=== PATIENT | male | born 1970 | race African-American/Black ===

== ENCOUNTER → 2020-03-13 13:24 | Outpatient (BNVA) | payer BC, OTHER, SELFPAY | PROVIDERS: PCP Internal Medicine; Visit Provider Internal Medicine | DX: R07.2 Precordial pain (principal); R00.2 Palpitations; I10 Essential (primary) hypertension; E78.5 Hyperlipidemia, unspecified; E11.8 Type 2 diabetes mellitus with unspecified complications; Z79.899 Other long term (current) drug therapy; Z79.84 Long term (current) use of oral hypoglycemic drugs | CPT/HCPCS: 93005 ==

== ENCOUNTER 2020-06-15 08:14 | Outpatient (REF) | payer BC, OTHER, SELFPAY ==
[2020-06-15 09:18] LABS: Alanine Aminotransferase 46 U/L (0-40); Albumin Level 4.4 g/dL (3.5-5.0); Alkaline Phosphatase 67 U/L (39-117); Anion Gap 10 (12-20); Aspartate Amino Transferase 25 U/L (5-37); Bilirubin Direct < 0.2 mg/dL (0.0-0.5); Bilirubin Total 0.4 mg/dL (0.0-1.0); Blood Urea Nitrogen 16 mg/dL (9-16); Calcium 9.2 mg/dL (8.4-10.2); Carbon Dioxide 27 mmol/L (22-29); Chloride 104 mmol/L (96-108); Cholesterol 103 mg/dL; Estimated Glomerular Filt Rate > 60; Glucose Random 145 mg/dL (60-115); HDL Cholesterol 25 mg/dL; LDL Cholesterol Calculated 51 mg/dl; Potassium 4.2 mmol/L (3.3-5.1); Sodium 137 mmol/L (135-145); Total Protein 7.3 g/dL (6.5-8.0); Triglycerides 137 mg/dL
[2020-06-15 09:46] LABS: Creatinine Urine 219.07 mg/dL; Microalbum/Creatinine Ratio Ur 8.6 ug/mg cr
== END 2020-06-15 08:15 | disposition home or self-care (01) ==
LOC: HO.LAB 08:14
PROVIDERS: PCP Internal Medicine; Visit Provider Internal Medicine
DX: E11.9 Type 2 diabetes mellitus without complications (principal)
CPT/HCPCS: 36415; 80048; 80061; 80076; 82043

== ENCOUNTER → 2020-07-11 11:22 | Outpatient (BNVA) | payer BC, OTHER, SELFPAY | PROVIDERS: PCP Internal Medicine; Visit Provider Internal Medicine Gastroenterology ==

== ENCOUNTER 2020-08-16 10:07 | Day surgery (SDC) | payer BC, OTHER, SELFPAY ==
[2020-08-09 15:46] VITALS: BMI 30.7
[2020-08-16] MEDS: Lactated Ringers 1,000 ML 100 ML IVCONT (11:15)
[2020-08-16 11:17] LABS: Glucose, Whole Blood 117 mg/dL (60-115)
--- NOTE | 2020-08-16 13:05 | P.CONAN_ITS ---
[facility] Active Problems Active Problems: All Active Problems (Updated 08/09/20 @ 15:43 by Lizzie ellison) Precordial chest pain (Acute) Palpitations (Acute) Abdominal bloating (Acute) Generalized abdominal pain (Acute) GERD (gastroesophageal reflux disease) (Acute) History of colon polyps (Acute) Hyperlipidemia, unspecified (Acute) Essential hypertension (Acute) Type 2 diabetes mellitus with unspecified complications (Acute) Past Medical History Medical History Anxiety Back pain Essential hypertension History of lumbar puncture Hyperlipidemia, unspecified Migraine SHERLY (obstructive sleep apnea) Palpitations Type 2 diabetes mellitus with unspecified complications Family History Family History Mother Diabetes Father Myocardial infarction Surgical History Surgical History History of esophagogastroduodenoscopy (EGD) Hx of colonoscopy No pertinent past surgical history Social History Social History Alcohol intake: never Patient Tobacco Use Status: Never used Tobacco Are you DNR?: No Advance Directives: No Advance Directives Information Provided: No Advance Directives on File: No Meds Allergies Allergy/AdvReac Type Severity Reaction Status Date / Time clavulanic acid Allergy Mild Itching Verified 08/16/20 11:23 [From Augmentin] Penicillins Allergy Unknown ITCHING Verified 08/16/20 11:17 Home Medications Medication Instructions Recorded Confirmed Last Taken Type atorvastatin 40 mg tablet 40 mg PO DAILY tab 03/13/20 08/09/20 Unknown History fluticasone propionate 50 1 spray INTRANASAL DAILY 03/13/20 08/09/20 Unknown History mcg/actuation nasal spray,suspension gabapentin 600 mg tablet 600 mg PO TID 03/13/20 08/09/20 Unknown History lisinopril 10 mg tablet 10 mg PO DAILY 03/13/20 08/09/20 Unknown History venlafaxine 75 mg capsule,extended 75 mg PO DAILY 03/13/20 08/09/20 Unknown History release 24 hr duloxetine 30 mg capsule,delayed 30 mg PO BID 07/11/20 08/09/20 Unknown History release ibuprofen 400 mg tablet 400 mg PO Q6H 07/11/20 08/09/20 Unknown History metformin 500 mg tablet 1,000 mg PO BID tab 07/11/20 08/09/20 Unknown History amitriptyline 1 tab PO BEDTIME 08/09/20 08/09/20 Unknown History Exam Exam Date and Time: August 16, 2020 1305 Height,Weight and Vital Signs: Height 5 ft 10 in Weight 97.069 kg Pertinent Lab Results Pertinent Lab Results: Laboratory Tests 08/16/20 11:13 POC Glucose 117 H Airway Mallampati Class: II TM Dist: >3cm Neck ROM: Full Loose/Missing/Broken Teeth: Yes and Lower Heart: RRR Lungs: CTA Assessment and Plan Assessment Anesthesia Assessment: Anesthesia Plan Discussed and Chart Reviewed Final Anesthetic Review NPO: Yes ASA Class: II Final Preanesthetic Review: Meds/Allgs Chart Reviewed, Consent Obtained/Reviewed and Anes Risks/Benef Reviewed Patient Risk: Low Procedure Risk: Intermediate Anesthetic Plan Anesthetic Plan: MAC: Disposition: Standard PACU
--- NOTE | 2020-08-16 13:07 | P.OP_ITS ---
Operative Note Operative Note Date of Service: 08/16/20 Narrative: Pre-op diagnosis: Colon cancer screening, abdominal pain and bloating Post-op diagnosis: other (Nodular gastritis, esophagitis, diverticulosis, hemorrhoids) Procedure: FLEXIBLE TRANSORAL UPPER GASTROINTESTINAL ENDOSCOPY WITH BIOPSIES AND COLONOSCOPY TILL CECUM WITH BIOPSIES UPPER ENDOSCOPY Consent: Indications for the procedure and potential complications of bleeding, perforation, reaction to medications and missed diagnosis were discussed with the patient and informed consent was obtained. Instrument: Olympus GIF H 190 mid size upper endoscope Monitoring: Vital signs and clinical assessment, continuous EKG monitoring, Pulse oximetry, Carbon Dioxide monitoring and blood pressure monitoring were done throughout the procedure. Procedure: The patient was placed in the left lateral decubitis position and pre-procedure medications were administered and a bite block was placed. The endoscope was inserted into the mouth and advanced under direct vision to the third part of duodenum. A careful inspection was made as the upper endoscope was withdrawn including a retroflexed examination of the proximal stomach; Findings and interventions are described below. Findings: Larynx: Normal Esophagus: GE junction at 40 cms. Focal esophagitis and no Daniel's. Stomach: Mild diffuse gastric erythema. Biopsies were obtained. Nodular appearing mucosa in the antrum - biopsied. Grade 2 flap valve on retroflexed examination of the cardia. Duodenum: Normal bulb and descending duodenum Intervention: Biopsies as noted above COLONOSCOPY PROCEDURE NOTE Consent: Indications for the procedure and potential complications of bleeding, perforation, reaction to medications and missed diagnosis were discussed with the patient and informed consent was obtained. Instrument: Olympus PCF H 190 L variable stiffness pediatric colonoscope Monitoring: Vital signs and clinical assessment, intermittent blood pressure monitoring, continuous EKG monitoring, Pulse oximetry and Carbon Dioxide monitoring were done throughout the procedure. Colon withdrawl time was 17 minutes. Procedure: The patient was placed in the left lateral decubitis position and pre-procedure medications were administered. After a digital rectal examination of the ano-rectum, the video colonoscope was inserted into the rectum and advanced through the colon to the cecum. The colonoscope was slowly withdrawn in a retrograde panoramic fashion and the colon mucosa was carefully examined including a retroflexed view of the rectum. Findings and interventions are described below. Procedure Difficulty: : Without difficulty Findings: Terminal Ileum: Not evaluated Cecum: Normal Ascending Colon: Normal Transverse Colon: Normal Descending Colon: Moderate diverticulosis Sigmoid Colon: Moderate diverticulosis Rectum: Normal Ano-rectum: Moderate internal hemorrhoids Colon preparation: Good after some irrigation Impression and Post Procedure Diagnosis: Endoscopy Findings: ESOPHAGUS: Focal esophagitis STOMACH: Nodular gastritis DUODENUM: Normal - biopsied to check for celiac sprue Colonoscopy Findings: No polyps were detected Biopsies were obtained from the right, left colon and rectum Moderate diverticulosis seen in the left colon Moderate hemorrhoids on retroflexed exam. Plan: Await pathology results Patient has an appointment on 10/14/20 in the GI [facility] with Franck Madrid M.D.. Repeat Colonoscopy interval based on path results - in 5 years due to a hx of adenomatous colon polyp. Above findings were reviewed with the patient and Gastritis, colon polyps and d iverticulosis handouts were given in the discharge area BIOPSIES SHOWED: A. Small bowel, biopsy: Small intestinal mucosa within normal limits. B. Stomach, antrum, biopsy: Antral-type mucosa with mild chronic inactive inflammation; no Helicobacter organisms seen. C. Stomach, body, biopsy: Oxyntic mucosa with mild chronic inactive inflammation; no Helicobacter organisms seen. D. Colon, random right, biopsy: Colonic mucosa within normal limits. E. Colon, random left, biopsy: Colonic mucosa within normal limits. F. Rectum, biopsy: Colonic mucosa within normal limits. COMMENT: Diagnostic features of celiac disease or microscopic colitis are not seen. Surgeon: Franck Madrid MD Anesthesia: MAC (Dr Gold) Was an Quarrying Specialist used for this Procedure?: Yes Quarrying Specialist: Bela Saini Estimated blood loss (mL): 0 Pathology: other (A. Small bowel, biopsy, B. Stomach, antrum, biopsy, C. Stomach, body, biopsy, D. Rt colon, E. Lt colon, F. Rectum.) Condition: stable Disposition: PACU
--- NOTE | 2020-08-16 13:07 | MHC.SHP ---
Pre-Procedural Eval Section A The patient is an INPATIENT: No The History & Physical has been completed within 30 days and I have reviewed it.: No Section B Chief Complaint: generalized abdominal pain, Hx of colon polyps Details of Present Illness: colon cancer screening, abdominal pain with bloating, GERD Relevant Family History (Specify if Yes): No Relevant Social History: None Present Medications: see Short Stay Collaborative assessment Medical History: Significant History (Essential hypertension Hyperlipidemia, unspecified Type 2 diabetes mellitus with unspecified complications) History of Previous Operations: No relevant previous surgery Allergies: Allergies Allergy/AdvReac Type Severity Reaction Status Date / Time clavulanic acid Allergy Mild Itching Verified 08/16/20 11:23 [From Augmentin] Penicillins Allergy Unknown ITCHING Verified 08/16/20 11:17 Review of Systems Sugical H&P ROS: Negative: Constitution, Cardiovascular and Respiratory and Yes, Specify: Gastrointestinal (GERD, abdominal pain and bloating) Exam Surgical H&P Exam: Normal: Heart, Normal: Lungs, Normal: Extremities and Normal: Abdomen Plan Diagnosis/Plan: Unchanged I have reviewed the history and physical and performed a pertinent physical examination on my patient. No changes have occurred unless specified.
[2020-08-16 13:55] VITALS: BP 115/82; PULSE 86; RESP 18; TEMP 36.3; O2SAT 95
[2020-08-16 14:10] VITALS: BP 117/83; PULSE 82; RESP 18; O2SAT 96
== END 2020-08-16 14:30 | disposition home or self-care (01) ==
PROVIDERS: PCP Internal Medicine; Visit Provider Internal Medicine Gastroenterology
PROC: (CPT 45380; principal; 2020-08-16 11:20)
DX: Z12.11 Encounter for screening for malignant neoplasm of colon (principal); Z86.010 Personal history of colon polyps; K57.30 Diverticulosis of large intestine without perforation or abscess without bleeding; K64.8 Other hemorrhoids; K21.9 Gastro-esophageal reflux disease without esophagitis; R13.10 Dysphagia, unspecified; K20.90 Esophagitis, unspecified without bleeding; K29.50 Unspecified chronic gastritis without bleeding; I10 Essential (primary) hypertension; J45.909 Unspecified asthma, uncomplicated; G47.33 Obstructive sleep apnea (adult) (pediatric); E11.9 Type 2 diabetes mellitus without complications; Z79.84 Long term (current) use of oral hypoglycemic drugs; Z79.51 Long term (current) use of inhaled steroids; Z79.899 Other long term (current) drug therapy; Z88.0 Allergy status to penicillin; Z88.1 Allergy status to other antibiotic agents
CPT/HCPCS: 45380; 43239; 82947; 88305; 88342

== ENCOUNTER 2020-09-11 13:59 | Emergency (ER) | payer BC, OTHER, SELFPAY ==
--- NOTE | ~2020-09-11 | CT_ITS ---
EXAMINATION: CT ABDOMEN AND PELVIS WITH CONTRAST CLINICAL INFORMATION: Burning abdominal pain COMPARISON: Previous CT of the abdomen and pelvis August 2017 TECHNIQUE: Multidetector volumetric images were obtained from the superior aspect of the liver through the pubic symphysis following administration 85 mL of Omnipaque 350 intravenous contrast. Sagittal and coronal reformatted images were obtained on the technologist's workstation. Oral contrast: Yes This CT examination was performed using dose optimization techniques as appropriate, variously including the following: *Automated exposure control *Adjustment of mA and/or kV according to patient size (this includes techniques or standardized protocols for targeted exams where dose is matched to indication/reason for exam; i.e. extremities or head) *Use of iterative reconstruction technique DLP: 690 mGy-cm FINDINGS: LUNG BASES: The visualized lung bases are unremarkable. LIVER, GALLBLADDER, AND BILIARY TREE: The liver is low in attenuation suggestive of fatty infiltration. No focal liver lesion or biliary duct dilatation. The gallbladder is unremarkable with no evidence of radiopaque gallstones, gallbladder wall thickening, or obvious pericholecystic inflammatory changes. PANCREAS: Unremarkable. SPLEEN: Unremarkable. ADRENAL GLANDS: Unremarkable. KIDNEYS AND URETERS: The kidneys are normal in size, shape, and attenuation. No hydronephrosis, hydroureter, or calculi seen. No perinephric stranding. BLADDER: Unremarkable. GASTROINTESTINAL TRACT: The small and large bowel are unremarkable. The appendix is unremarkable. ABDOMINAL WALL: There is a small umbilical hernia containing fat. LYMPH NODES: Normal. VASCULAR: Unremarkable. PELVIC VISCERA: Unremarkable. OSSEOUS STRUCTURES: Unremarkable. CT/CT abdomen pelvis w con IMPRESSION: Fatty liver. Small umbilical hernia containing fat.
--- NOTE | ~2020-09-11 | XR_ITS ---
EXAMINATION: XR CHEST CLINICAL INFORMATION: Chest pain COMPARISON: Previous chest x-ray most recent August 2019 TECHNIQUE: 2 views of the chest were obtained. FINDINGS: No significant abnormality is noted involving the heart, lungs, mediastinum, bony thorax or soft tissues. XR/XR chest 2V IMPRESSION: Unremarkable examination.
[2020-09-11 15:13] VITALS: BP 116/76; PULSE 92; RESP 16; TEMP 35.9; O2SAT 95; BMI 30.1
--- NOTE | 2020-09-11 15:17 | ECG_ITS ---
Test Reason : CHEST PAIN Blood Pressure : / mmHG Vent. Rate : 081 BPM Atrial Rate : 081 BPM P-R Int : 162 ms QRS Dur : 086 ms QT Int : 348 ms P-R-T Axes : 065 041 070 degrees QTc Int : 404 ms Normal sinus rhythm Nonspecific T wave abnormality Abnormal ECG When compared with ECG of 03-MAY-2018 12:56, No significant change was found Referred By: Generic ED Physician Electronically Signed By:ASHLEY ADAMS MD
[2020-09-11 15:42] LABS: MANUAL DIFF FLAG NO
[2020-09-11 15:49] LABS: Basophils Percent Auto 0.3 % (0-2); Eosinophils Percent Auto 0.6 % (0-4); Hematocrit 44.3 % (42-52); Hemoglobin 15.2 g/dl (14.0-18.0); Imm Gran Abs Auto 0.04 X10*3/uL (0.00-0.03); Imm Gran Pct Auto 0.6 % (0.0-0.4); Lymphocytes Absolute Auto 1.8 X10*3/uL (1.2-4.9); Lymphocytes Percent Auto 29.7 % (20-40); Mean Corpuscular HGB Conc 34.3 g/dl (31.0-36.0); Mean Corpuscular Hemoglobin 28.3 pg (27.0-33.0); Mean Corpuscular Volume 82.3 fL (80-98); Mean Platelet Volume 11.3 fL (9.4-12.4); Monocytes Absolute Auto 0.4 X10*3/uL (0.1-1.2); Monocytes Percent Auto 7.1 % (2-11); Neutrophils Absolute Auto 3.8 X10*3/uL (2.0-8.3); Neutrophils Percent Auto 61.7 % (45-73); Platelet Count 177 X10*3/uL (160-400); Red Blood Count 5.38 X10*6/uL (4.60-5.80); Red Cell Distribution Width 14.9 % (11.0-16.0); White Blood Count 6.2 X10*3/uL (4.8-10.8)
[2020-09-11 16:19] LABS: Anion Gap 14 (12-20); Blood Urea Nitrogen 12 mg/dL (9-16); Calcium 9.7 mg/dL (8.4-10.2); Carbon Dioxide 22 mmol/L (22-29); Chloride 104 mmol/L (96-108); Creatinine Clr Calc Pharmacy 104.2; Estimated Glomerular Filt Rate > 60; Glucose Random 147 mg/dL (60-115); Potassium 4.2 mmol/L (3.3-5.1); Sodium 136 mmol/L (135-145)
[2020-09-11 16:25] LABS: Troponin-I High Sensitivity 6.5 ng/L (<3.5-35.0)
--- NOTE | 2020-09-11 17:50 | ED.CHESTPAIN ---
HPI - Chest Pain General Chief Complaint: Chest Pain Stated Complaint: sent by his physician Source: patient Mode of arrival: ambulatory Limitations: no limitations History of Present Illness HPI narrative: 50-year-old male with past medical history of diabetes, hypertension and hyperlipidemia presents with several hours of chest pain, shortness of breath that started at work. He presented to his primary care's office and was referred to the emergency department for labs. His EKG while in the office was normal sinus rhythm, however the office was unable to run lab values. At this time patient states that he does not have any pain in his chest however he has complained of burning central abdominal pain over the past several days. Stated that he needed to use a heating pad to help alleviate the pain however his measures were unsuccessful. He does not report any dizziness, lightheadedness, changes in vision, loss of balance, difficulty moving extremities, pain on inspiration, abdominal distention, dysuria, hematuria, nausea, vomiting, diarrhea, constipation, or edema. MD complaint: chest pain Onset (ago): hour(s) ( Several) Timing of current episode: episodic Prior episodes: No Onset: during exertion Pain location: substernal and left chest Pain radiation: left arm Severity: moderate Pain scale (0-10): 5 Quality: aching and sharp Relieving factors: nothing Exacerbating factors: exertion, palpation and movement Associated symptoms: dyspnea and other ( abdominal pain) Treatment prior to arrival: aspirin Risk Factors Coronary artery disease risk factors: diabetes, hyperlipidemia and hypertension Thoracic aortic dissection risk factors: none Related Data Home Medications Medication Instructions Recorded Confirmed atorvastatin 40 mg tablet 40 mg PO DAILY tab 03/13/20 08/09/20 fluticasone propionate 50 1 spray INTRANASAL DAILY 03/13/20 08/09/20 mcg/actuation nasal spray,suspension gabapentin 600 mg tablet 600 mg PO TID 03/13/20 08/09/20 lisinopril 10 mg tablet 10 mg PO DAILY 03/13/20 08/09/20 venlafaxine 75 mg capsule,extended 75 mg PO DAILY 03/13/20 08/09/20 release 24 hr duloxetine 30 mg capsule,delayed 30 mg PO BID 07/11/20 08/09/20 release ibuprofen 400 mg tablet 400 mg PO Q6H 07/11/20 08/09/20 metformin 500 mg tablet 1,000 mg PO BID tab 07/11/20 08/09/20 amitriptyline 1 tab PO BEDTIME 08/09/20 08/09/20 Previous Rx's Medication Instructions Recorded omeprazole 20 mg capsule,delayed 20 mg PO DAILY 30 Days #30 cap 07/11/20 release dicyclomine 20 mg tablet 20 mg PO TID PRN 30 Days #90 tab 07/23/20 Allergies Allergy/AdvReac Type Severity Reaction Status Date / Time clavulanic acid Allergy Mild Itching Verified 08/16/20 11:23 [From Augmentin] Penicillins Allergy Unknown ITCHING Verified 08/16/20 11:17 Review of Systems Review of Systems: Constitutional: No Weight loss, No Fever, No Chills, No Night Sweats, No Fatigue, No Malaise ENT/Mouth: No Hearing loss, No Ear Pain, No Nasal Congestion, No Sinus Pain, No Hoarseness, No sore throat, No Rhinorrhea, No Swallowing Difficulty Eyes: No Eye Pain, No Swelling, No Redness, No Foreign Body, No Discharge, No Vision Changes Cardiovascular: pos Chest Pain, pos SOB, no Dyspnea on Exertion, No Orthopnea, No Edema, No Palpitations Respiratory: No Cough, No Sputum, No Wheezing, No Smoke Exposure, No Dyspnea Gastrointestinal: no Nausea, No Vomiting, No Diarrhea, No abdominal Pain, No Hematochezia, No Melena Genitourinary: No irregular bleeding, No Dysuria, No Urinary Frequency, No Hematuria, No Urinary Incontinence, No Urgency, No Flank Pain, No Urinary Flow Changes, No Hesitancy Musculoskeletal: No joint pain, No Myalgias, No Joint Swelling Skin: No Skin Lesions, No rash Neuro: No Weakness, No Numbness, No Paresthesias, No Loss of Consciousness, No Dizziness, No Headache Psych: No Anxiety/Panic, No Depression, No SI/HI/AH/VH Heme/Lymph: No Bruising, No Bleeding,No Lymphadenopathy Endocrine: No Polyuria, No Polydipsia, No Temperature Intolerance Yes all other systems are reviewed and are negative [facility] Past Medical History Attestation statement: The following information was validated with the patient. Source: old records reviewed Medical History Anxiety Back pain Essential hypertension History of lumbar puncture Hyperlipidemia, unspecified Migraine SHERLY (obstructive sleep apnea) Palpitations Type 2 diabetes mellitus with unspecified complications Surgical History History of esophagogastroduodenoscopy (EGD) Hx of colonoscopy No pertinent past surgical history Family History Family History Mother Diabetes Father Myocardial infarction Social History Social History Alcohol intake: never Patient Tobacco Use Status: Never used Tobacco Use of substances other than those prescribed or required for medical reasons: No Advance Directives: No Advance Directives Information Provided: Yes Physical Exam Vital Signs: Vital Signs: Last Vital Signs Temp 98.4 F 09/11/20 18:04 Pulse 74 09/11/20 18:04 Resp 21 H 09/11/20 18:04 BP 117/80 09/11/20 18:04 Pulse Ox 96 09/11/20 18:04 Body Mass Index 30.1 Appearance: Alert. Oriented X3. No acute distress. Eyes: Pupils equal, round and reactive to light. ENT: Pharynx normal. Neck: Normal inspection. Neck supple. CVS: Normal heart rate and rhythm. Pulses normal. no chest wall tenderness to palpation. Respiratory: No respiratory distress. Breath sounds normal. Abdomen: Soft and nontender. No palpable masses or pulsatile masses. Skin: Skin warm and dry. Normal skin color. Normal skin turgor. Extremities: No lower extremity edema. Moves all extremities against resistance. Gait well balanced well coordinated. Neuro: No motor deficit. No sensory deficit. Cranial nerves 2-12 intact Course Course Course Narrative: 50-year-old male presents with several hours of chest pain. Will rule out ACS. Based on his complaint of abdominal pain that feels like it is burning, will rule out AAA. Lab values are unremarkable, labs were drawn while patient was in the waiting room. First troponin is 6.5. Second troponin 5.8, repeat EKG is normal sinus, no indication of ST elevation or depression. Patient is pain-free. CT abdomen pelvis negative for acute findings. Small umbilical hernia noted. Chest x-ray is negative findings discussed with patient, patient will follow up with primary care physician for further follows up. Patient verbalized understanding of and agrees plan of care discharge home. MDM - Chest Pain Differential Diagnosis Differential diagnosis: Likely fracture of rib, pneumothorax, stable angina, unstable angina pectoris, atypical chest pain, st elevation myocardial infarction, costochondritis, chest pain and biliary colic Differential diagnosis: kidney stones, acute abdomen, AAA Medical Records Data Attestation: I reviewed the patient's medical records. Lab Data Attestation: I reviewed the patient's lab results. Result diagrams: 09/11/20 15:27 09/11/20 15:27 Labs: Lab Results 09/11/20 09/11/20 09/11/20 Range/Units 15:27 15:27 15:27 WBC 6.2 (4.8-10.8) X10*3/uL RBC 5.38 (4.60-5.80) X10*6/uL Hgb 15.2 (14.0-18.0) g/dl Hct 44.3 (42-52) % MCV 82.3 (80-98) fL MCH 28.3 (27.0-33.0) pg MCHC 34.3 (31.0-36.0) g/dl RDW 14.9 (11.0-16.0) % Plt Count 177 (160-400) X10*3/uL MPV 11.3 (9.4-12.4) fL Immature Gran % (Auto) 0.6 H (0.0-0.4) % Neut % (Auto) 61.7 (45-73) % Lymph % (Auto) 29.7 (20-40) % [place] % (Auto) 7.1 (2-11) % Eos % (Auto) 0.6 (0-4) % Baso % (Auto) 0.3 (0-2) % Lymph # (Auto) 1.8 (1.2-4.9) X10*3/uL [place] # (Auto) 0.4 (0.1-1.2) X10*3/uL Eos # (Auto) 0.0 (0.0-0.4) X10*3/uL Baso # (Auto) 0.0 (0.0-0.2) X10*3/uL Abs Immat Gran (auto) 0.04 H (0.00-0.03) X10*3/uL Absolute Neuts (auto) 3.8 (2.0-8.3) X10*3/uL Absolute Nucleated RBC 0.000 (0.0-0.012) X10*3/uL Nucleated RBC % (auto) 0.0 (0.0-0.2) /100WBC Sodium 136 (135-145) mmol/L Potassium 4.2 (3.3-5.1) mmol/L Chloride 104 (96-108) mmol/L Carbon Dioxide 22 (22-29) mmol/L Anion Gap 14 (12-20) BUN 12 (9-16) mg/dL Creatinine 0.96 (0.5-1.4) mg/dL Estim Creat Clear Calc 104.2 Estimated GFR > 60 Random Glucose 147 H (60-115) mg/dL Calcium 9.7 (8.4-10.2) mg/dL Troponin I High Sens 6.5 (<3.5-35.0) ng/L 09/11/20 Range/Units 18:39 WBC (4.8-10.8) X10*3/uL RBC (4.60-5.80) X10*6/uL Hgb (14.0-18.0) g/dl Hct (42-52) % MCV (80-98) fL MCH (27.0-33.0) pg MCHC (31.0-36.0) g/dl RDW (11.0-16.0) % Plt Count (160-400) X10*3/uL MPV (9.4-12.4) fL Immature Gran % (Auto) (0.0-0.4) % Neut % (Auto) (45-73) % Lymph % (Auto) (20-40) % [place] % (Auto) (2-11) % Eos % (Auto) (0-4) % Baso % (Auto) (0-2) % Lymph # (Auto) (1.2-4.9) X10*3/uL [place] # (Auto) (0.1-1.2) X10*3/uL Eos # (Auto) (0.0-0.4) X10*3/uL Baso # (Auto) (0.0-0.2) X10*3/uL Abs Immat Gran (auto) (0.00-0.03) X10*3/uL Absolute Neuts (auto) (2.0-8.3) X10*3/uL Absolute Nucleated RBC (0.0-0.012) X10*3/uL Nucleated RBC % (auto) (0.0-0.2) /100WBC Sodium (135-145) mmol/L Potassium (3.3-5.1) mmol/L Chloride (96-108) mmol/L Carbon Dioxide (22-29) mmol/L Anion Gap (12-20) BUN (9-16) mg/dL Creatinine (0.5-1.4) mg/dL Estim Creat Clear Calc Estimated GFR Random Glucose (60-115) mg/dL Calcium (8.4-10.2) mg/dL Troponin I High Sens 5.8 (<3.5-35.0) ng/L Imaging Data CT scan abdomen pelvis: Attestation: I personally reviewed and interpreted this imaging study as follows: Radiologist's impression: EXAMINATION: CT ABDOMEN AND PELVIS WITH CONTRAST CLINICAL INFORMATION: Burning abdominal pain COMPARISON: Previous CT of the abdomen and pelvis August 2017 TECHNIQUE: Multidetector volumetric images were obtained from the superior aspect of the liver through the pubic symphysis following administration 85 mL of Omnipaque 350 intravenous contrast. Sagittal and coronal reformatted images were obtained on the technologist's workstation. Oral contrast: Yes This CT examination was performed using dose optimization techniques as appropriate, variously including the following: *Automated exposure control *Adjustment of mA and/or kV according to patient size (this includes techniques or standardized protocols for targeted exams where dose is matched to indication/reason for exam; i.e. extremities or head) *Use of iterative reconstruction technique DLP: 690 mGy-cm FINDINGS: LUNG BASES: The visualized lung bases are unremarkable. LIVER, GALLBLADDER, AND BILIARY TREE: The liver is low in attenuation suggestive of fatty infiltration. No focal liver lesion or biliary duct dilatation. The gallbladder is unremarkable with no evidence of radiopaque gallstones, gallbladder wall thickening, or obvious pericholecystic inflammatory changes. PANCREAS: Unremarkable. SPLEEN: Unremarkable. ADRENAL GLANDS: Unremarkable. KIDNEYS AND URETERS: The kidneys are normal in size, shape, and attenuation. No hydronephrosis, hydroureter, or calculi seen. No perinephric stranding. BLADDER: Unremarkable. GASTROINTESTINAL TRACT: The small and large bowel are unremarkable. The appendix is unremarkable. ABDOMINAL WALL: There is a small umbilical hernia containing fat. LYMPH NODES: Normal. VASCULAR: Unremarkable. PELVIC VISCERA: Unremarkable. OSSEOUS STRUCTURES: Unremarkable. CT/CT abdomen pelvis w con IMPRESSION: Fatty liver. Small umbilical hernia containing fat Chest x-ray: Attestation: I personally reviewed and interpreted this imaging study as follows: Radiologist's impression: EXAMINATION: XR CHEST CLINICAL INFORMATION: Chest pain COMPARISON: Previous chest x-ray most recent August 2019 TECHNIQUE: 2 views of the chest were obtained. FINDINGS: No significant abnormality is noted involving the heart, lungs, mediastinum, bony thorax or soft tissues. XR/XR chest 2V IMPRESSION: Unremarkable examination. ECG Data ECG #1: Attestation: I personally reviewed and interpreted this ECG as follows: ECG interpretation date: 09/11/20 ECG interpretation time: 14:11 Interpretation: ventricular rate 81, VA 162, QRS 86, QT 348, QTC 404 normal sinus rhythm nonspecific T-wave abnormality, no indication of ST depression or elevation indicating ischemia, when compared to prior EKG completed in doctor's office today no significant changes. Prior EKGs unavailable secondary to system 130 error Scores Heart Score History: -1- moderately suspicious ECG: -0- normal Age: -1- >45 - <65 Risk factory: -1- 1 or 2 risk factors Troponin: -0- < or = normal limit Score: 3 Risk: 1.7% Discharge Plan Discharge Clinical Impression: Atypical chest pain Hernia, umbilical Qualifiers: Obstruction and gangrene presence: without obstruction or gangrene Qualified Code(s): K42.9 - Umbilical hernia without obstruction or gangrene Patient Disposition: Home, Self-Care Instructions: Umbilical Hernia (ED), Noncardiac Chest Pain (ED) Additional Instructions: you were evaluated for chest pain. EKG showed normal sinus rhythm, we cycled 2 troponins which were both negative. Please follow-up with primary care physician for further evaluation. CT scan of abdomen pelvis indicates a umbilical hernia. Follow-up with surgery as needed as an outpatient Thank you for choosing this emergency department for evaluation. Please follow-up with primary care physician as needed. Return to the emergency department for any new, concerning, or worsening symptoms. Prescriptions: No Action dicyclomine 20 mg tablet 20 mg PO TID PRN (Reason: Abdominal pain and bloating) 30 Days Qty: 90 RF: 3 amitriptyline 25 mg tablet 1 tab PO BEDTIME RF: 0 gabapentin 600 mg tablet 600 mg PO TID RF: 0 lisinopril 10 mg tablet 10 mg PO DAILY RF: 0 venlafaxine 75 mg capsule,extended release 24hr 75 mg PO DAILY RF: 0 atorvastatin 40 mg tablet 40 mg PO DAILY RF: 0 fluticasone propionate 50 mcg/actuation spray,suspension 1 spray intranasal DAILY RF: 0 metformin 500 mg tablet 1,000 mg PO BID RF: 0 ibuprofen 400 mg tablet 400 mg PO Q6H RF: 0 duloxetine 30 mg capsule,delayed release(DR/EC) 30 mg PO BID RF: 0 omeprazole 20 mg capsule,delayed release(DR/EC) 20 mg PO DAILY 30 Days Qty: 30 RF: 3 Referrals: Oh Villafana MD [Physician] - 2 days ( umbilical hernia) Interventions: ED Discharge Assessment Last Done: 09/11/20 19:44 Discharge Date/Time: 09/11/20 19:44
[2020-09-11 18:04] VITALS: BP 117/80; PULSE 74; RESP 21; TEMP 36.9; O2SAT 96
[2020-09-11] MEDS: iohexoL 350 MG/ML 100 ML INFUS..BTL IV (18:35)
[2020-09-11 19:22] LABS: Troponin-I High Sensitivity 5.8 ng/L (<3.5-35.0)
== END 2020-09-11 19:44 | disposition home or self-care (01) ==
PROVIDERS: Nurse Practitioner Family; Emergency Provider Emergency Medicine
DX: R07.89 Other chest pain (principal); K42.9 Umbilical hernia without obstruction or gangrene; R06.02 Shortness of breath; E11.9 Type 2 diabetes mellitus without complications; I10 Essential (primary) hypertension; E78.5 Hyperlipidemia, unspecified; Z79.02 Long term (current) use of antithrombotics/antiplatelets; Z79.899 Other long term (current) drug therapy
CPT/HCPCS: 36415; 71046; 74177; 80048; 84484; 85025; 93005; 99285; Q9967

== ENCOUNTER → 2020-09-24 14:40 | Outpatient (BNVA) | payer BC, OTHER, SELFPAY | PROVIDERS: Referring Provider Internal Medicine; Visit Provider Surgery ==

== ENCOUNTER 2020-10-11 14:32 | Outpatient (REF) | payer BC, OTHER, SELFPAY ==
--- NOTE | ~2020-10-11 | XR_ITS ---
EXAMINATION: XR CERVICAL SPINE CLINICAL INFORMATION: Radiculopathy COMPARISON: Previous x-ray August 2019 TECHNIQUE: 6 views of the cervical spine, inclusive of flexion and extension views, were obtained. FINDINGS: There is a tilt to the right and curvature of the cervical spine to the left. Bone alignment is otherwise normal. No instability on flexion-extension views is seen. There is multilevel degenerative spondylosis and degenerative disc disease from C3-C4 to C6-C7. There is a tissue ossification adjacent to the C6 spinous process that is stable and probably related to old trauma. Prevertebral soft tissues are normal. XR/XR cervical spine w flex/ext IMPRESSION: Multilevel degenerative changes. No instability on flexion-extension views.
== END 2020-10-11 14:33 | disposition home or self-care (01) ==
LOC: HO.XRAY 14:32
PROVIDERS: PCP Internal Medicine; Visit Provider Physician Assistant Surgical
DX: M54.12 Radiculopathy, cervical region (principal)
CPT/HCPCS: 72052

== ENCOUNTER 2020-10-14 07:36 | Day surgery (SDC) | payer BC, OTHER, SELFPAY ==
[2020-10-07 16:02] VITALS: BMI 30.1
[2020-10-14] VITALS (9 sets, daily range): BP systolic 120–137; BP diastolic 79–89; PULSE 82–98; RESP 16–18; TEMP 36.2–36.6; O2SAT 94–99
--- NOTE | 2020-10-14 08:04 | PC.NURSE ---
Vancomycin 1000mg preop dose verified with Kassidy from Pharmacy.
[2020-10-14 08:06] LABS: Glucose, Whole Blood 144 mg/dL (60-115)
--- NOTE | 2020-10-14 08:23 | HO.ANESPROP2 ---
HPI - Anesthesia Eval Consult details Narrative: 50 yo male patient for Repair of umbilical hernia with mesh PMFSH Active Problems Active Problems: All Active Problems (Updated 10/07/20 @ 16:05 by Gege Mackenzie) Precordial chest pain (Acute) Palpitations (Acute) Abdominal bloating (Acute) Generalized abdominal pain (Acute) GERD (gastroesophageal reflux disease) (Acute) History of colon polyps (Acute) Hernia, umbilical (Acute) Hyperlipidemia, unspecified (Acute) Essential hypertension (Acute) Type 2 diabetes mellitus with unspecified complications (Acute) Past Medical History Medical History (Updated 10/14/20 @ 08:34 by Anamaria Clark) Anxiety Back pain COVID-19 vaccine series completed Essential hypertension History of lumbar puncture Hyperlipidemia, unspecified Migraine Neck pain SHERLY (obstructive sleep apnea) Pain of multiple extremities Palpitations Type 2 diabetes mellitus with unspecified complications Family History Family History Mother Diabetes Father Myocardial infarction Family history of problems with anesthesia: No Surgical History Surgical History (Updated 10/07/20 @ 13:17 by Gege Mackenzie) History of esophagogastroduodenoscopy (EGD) Hx of colonoscopy History of Problems with Anesthesia: No Social History Social History Alcohol intake: never Patient Tobacco Use Status: Never used Tobacco Are you DNR?: No Advance Directives: No Advance Directives Information Provided: No Advance Directives on File: No Meds Allergies Allergy/AdvReac Type Severity Reaction Status Date / Time clavulanic acid Allergy Mild Itching Verified 10/14/20 07:44 [From Augmentin] Penicillins Allergy Unknown ITCHING Verified 10/14/20 07:44 Active Medications: Current Medications Generic Name Dose Route Start Last Admin Trade Name Freq PRN Reason Stop Dose Admin Vancomycin HCl 1,000 mg/ 270 mls @ 270 mls/hr 10/14/20 07:38 Sodium Chloride IV 10/14/20 08:37 PREOP ONE Lactated Ringer's 1,000 mls @ 100 mls/hr 10/14/20 07:45 Lr IVCONT .Q10H DALIA Home Medications Medication Instructions Recorded Confirmed Last Taken Type atorvastatin 40 mg tablet 40 mg PO BEDTIME tab 03/13/20 10/07/20 Unknown History fluticasone propionate 50 1 spray INTRANASAL DAILY 03/13/20 09/25/20 Unknown History mcg/actuation nasal spray,suspension gabapentin 600 mg tablet 600 mg PO TID 03/13/20 10/07/20 10/14/20 07:15 History lisinopril 10 mg tablet 10 mg PO DAILY 03/13/20 10/07/20 Unknown History venlafaxine 75 mg capsule,extended 75 mg PO BEDTIME 03/13/20 10/07/20 Unknown History release 24 hr duloxetine 30 mg capsule,delayed 30 mg PO BID 07/11/20 10/07/20 10/14/20 07:15 History release ibuprofen 400 mg tablet 400 mg PO Q6H 07/11/20 09/25/20 Unknown History metformin 500 mg tablet 1,000 mg PO BID tab 07/11/20 10/14/20 10/13/20 17:00 History amitriptyline 25 mg tablet 1 tab PO BEDTIME 08/09/20 09/25/20 Unknown History cetirizine 10 mg tablet 10 mg PO BEDTIME 10/07/20 10/07/20 Unknown History Exam Exam Date and Time: October 14, 2020 0823 Height,Weight and Vital Signs: Height 5 ft 10 in Weight 95.254 kg Last Vital Signs Temp 97.8 F 10/14/20 07:49 Pulse 88 10/14/20 07:49 Resp 16 10/14/20 07:49 BP 124/86 10/14/20 07:49 Pulse Ox 95 10/14/20 07:49 Pertinent Lab Results Pertinent Lab Results: Laboratory Tests 10/14/20 07:58 POC Glucose 144 H Airway Mallampati Class: II TM Dist: >3cm Neck ROM: Full (Some neck and shoulder pain from fibromyalgia) Partial: Lower Heart: RRR Lungs: CTAB Assessment and Plan Final Anesthetic Review Family History of Problems with Anesthesia: No History of Problems with Anesthesia: No NPO: Yes ASA Class: III Final Preanesthetic Review: No Changes in Pt Med Stat, Meds/Allgs Chart Reviewed, Consent Obtained/Reviewed and Anes Risks/Benef Reviewed Patient Risk: Intermediate Procedure Risk: Low Assessment/Block/Sedation in SS: Assess/Block/Sedation-SS Anesthetic Plan Anesthetic Plan: GA Disposition: Standard PACU
[2020-10-14] MEDS: Lactated Ringers 1,000 ML 100 ML IVCONT (08:28)
[2020-10-14] MEDS: vancomycin HCL 1,000 MG in 0.9 % Sodium Chloride 250 ML 270 MG IV (08:28)
--- NOTE | 2020-10-14 08:31 | MHC.SHP ---
Pre-Procedural Eval Section A Date of Service: 10/14/20 The patient is an INPATIENT: No Changes since office visit: Yes Patient answered all questions; No Cold of Flu in the past 2 weeks, No New Medical Problems and No Changes in Medication The History & Physical has been completed within 30 days and I have reviewed it.: Yes Section B Chief Complaint: Umbilical Hernia Allergies: Allergies Allergy/AdvReac Type Severity Reaction Status Date / Time clavulanic acid Allergy Mild Itching Verified 10/14/20 07:44 [From Augmentin] Penicillins Allergy Unknown ITCHING Verified 10/14/20 07:44 Plan Diagnosis/Plan: Unchanged I have reviewed the history and physical and performed a pertinent physical examination on my patient. No changes have occurred unless specified.
--- NOTE | 2020-10-14 09:33 | P.OP_ITS ---
Operative Note Operative Note Date of Service: 10/14/20 Narrative: Preoperative diagnosis: Umbilical hernia Postoperative diagnosis: Same Procedure: Repair of umbilical hernia with mesh Surgeon: Jonathan Dumas MD Store Operations Associate: Dalila Greer PA-C Anesthesia: General LMA Indications for procedure: 50-year-old male patient presenting with a small umbilical hernia which is causing discomfort. He notes the pain increases with lifting and straining. He is able to reduce the hernia with light pressure. On examination the patient is found to have a small umbilical hernia which is easily reducible on light pressure. There is minimal tenderness to palpation. Operative findings: Small umbilical hernia repaired with 4.6 cm Ventralex mesh Specimen: None Estimated blood loss: 2 mL Complications: None Procedure details: Patient was brought to the OR and placed in a supine position. After administering general anesthesia the patient's abdomen was prepped with ChloraPrep and draped in sterile fashion. A surgical time-out was called the consent confirmed. Patient received preoperative antibiotics and Venodyne boots were in place. Local anesthesia consisting of 0.25% Sensorcaine with epinephrine was then infiltrated in the periumbilical region. A curvilinear incision was made transversely over the umbilicus and carried down through subcutaneous tissue and up to the hernia sac. The hernia sac was then dissected free from the surrounding umbilical skin. The sac was then dissected down to the fascial edge. Fascial edges were dissected and a preperitoneal space created. Contents of the umbilical hernia reduced into the abdominal cavity. A preperitoneal space was created using electrocautery and sharp dissection. At this point a Ventralex mesh was obtained measuring 4.6 cm in diameter. This was placed in the preperitoneal space and deployed. Fascia was then closed over the mesh incorporating the mesh in the closure using 1. Tycron suture in a [id number] fashion. The fascia was completely closed over the mesh. Wounds were then irrigated with saline solution and suctioned dry. Additional local was infiltrated into the subcutaneous tissue at this time. Dermis was then reapproximated using interrupted 3-0 Polysorb sutures. Skin was then closed using a running subcuticular 4-0 Polysorb suture. Steri-Strips 2 x 2 gauze and Tegaderm were then applied. The patient tolerated the procedure well. Sponge, instrument, and needle counts were reported as correct. The patient was transferred to PACU in stable condition.
[2020-10-14] MEDS: oxyCODONE HCl Immed Release 5 MG TABLET PO (10:40)
[2020-10-14] MEDS: Acetaminophen 325 MG TABLET 650 MG PO (10:41)
== END 2020-10-14 12:20 | disposition home or self-care (01) ==
PROVIDERS: Visit Provider Surgery
PROC: (CPT 49585; principal; 2020-10-14 09:10)
DX: K42.9 Umbilical hernia without obstruction or gangrene (principal); G47.33 Obstructive sleep apnea (adult) (pediatric); I10 Essential (primary) hypertension; E11.9 Type 2 diabetes mellitus without complications; R00.2 Palpitations; Z79.84 Long term (current) use of oral hypoglycemic drugs; Z79.1 Long term (current) use of non-steroidal anti-inflammatories (NSAID); Z79.899 Other long term (current) drug therapy; Z88.0 Allergy status to penicillin
CPT/HCPCS: 49585; 82947; C1781; J1100; J2250; J2405; J3010; J3370

== ENCOUNTER 2020-10-24 15:52 | Outpatient (REF) | payer BC, OTHER, SELFPAY ==
--- NOTE | ~2020-10-24 | US_ITS ---
EXAMINATION: US SCROTUM CLINICAL INFORMATION: Benign cyst of testis. COMPARISON: Scrotal ultrasound dated 11/03/2017 and 02/27/2016. TECHNIQUE: A sonogram of the scrotum was performed assessing pichardo-scale appearance and color Doppler flow. Spectral Doppler analysis of the arterial and venous flow were performed in the testes bilaterally. FINDINGS: RIGHT: Right testicle measures 3.6 x 1.9 x 2.2 cm, volume 9.4 mL. No focal testicular parenchymal lesions are visualized. Spectral Doppler analysis of the arterial and venous flow is normal in the right testis. Right epididymal head is normal in size. Right epididymal Doppler flow is normal. Small right-sided hydrocele. Mild right-sided varicocele. LEFT: Left testicle measures 3.3 x 1.2 x 3.0 cm, volume 8.6 mL. No focal testicular parenchymal lesions are visualized. Spectral Doppler analysis of the arterial and venous flow is normal in the left testis. Left epididymal head is normal in size. Simple left epididymal head cyst measuring 0.9 cm. No left hydrocele is seen. Mild left-sided varicocele. Left epididymal Doppler flow is normal. US/US scrotum IMPRESSION: 1. Bilateral varicoceles, left greater than right. Findings are new/increased when compared to the prior examination. 2. Small right-sided hydrocele, new when compared to the prior examination. 3. Simple left epididymal head cyst, new when compared to the prior examination.
== END 2020-10-24 15:53 | disposition home or self-care (01) ==
LOC: HO.US 15:52
PROVIDERS: Visit Provider Internal Medicine
DX: N44.2 Benign cyst of testis (principal)
CPT/HCPCS: 76870

== ENCOUNTER → 2020-10-29 11:27 | Outpatient (BNVA) | payer BC, OTHER, SELFPAY | PROVIDERS: Visit Provider Surgery ==

== ENCOUNTER 2020-11-06 09:29 | Outpatient (REF) | payer BC, OTHER, SELFPAY ==
--- NOTE | ~2020-11-06 | MR_ITS ---
MR CERVICAL SPINE WITHOUT CONTRAST CLINICAL INFORMATION: Radiculopathy. COMPARISON: Cervical spine MRI 01/15/2017. TECHNIQUE: MRI of the cervical spine was obtained using routine sequences without contrast. FINDINGS: Straightening the cervical lordosis. There is a partially imaged rightward convex scoliotic curvature of the thoracic spine. Vertebral body heights are maintained. Disc volumes are preserved. There is no bone marrow edema. There are no acute fractures. The craniocervical junction is unremarkable. Accounting for artifact there is no definite cord signal abnormality. The cervical arterial flow voids are maintained. No significant extraspinal soft tissue findings. C2-C3: Shallow right paracentral disc protrusion mildly narrows the right central canal and slightly flattens the right ventral cord. No significant foraminal stenosis. C3-C4: Disc osteophyte mildly narrows the central canal. Uncovertebral joint hypertrophy and hypertrophic facet arthropathy result in moderate right and mild left foraminal stenosis. C4-C5: Shallow central disc protrusion flattens the ventral cord and mildly narrows the central canal, unchanged. Uncovertebral joint spurring and facet arthropathy result in mild right-sided foraminal encroachment. C5-C6: A shallow central disc protrusion flattens the ventral cord, mildly narrowing the central canal. Uncovertebral joint spurring results in similar moderate left-sided foraminal stenosis. C6-C7: A shallow left paracentral disc protrusion mildly narrows the central canal and slightly flattens the ventral cord, unchanged. Uncovertebral joint spurring results in similar moderate left-sided foraminal stenosis. C7-T1: Slight annular disc bulge. Uncovertebral joint spurring and facet arthropathy result in similar mild to moderate bilateral foraminal stenosis. MR/MR cervical spine wo con IMPRESSION: Stable appearing multilevel cervical spondylosis with disc protrusions resulting in unchanged flattening of the cervical cord and mild narrowing of the central canal at the C2-C3, C4-C5, C5-C6, and C6-C7 levels. Varying degrees of mild to moderate bilateral foraminal stenosis throughout the cervical spine remain stable.
== END 2020-11-06 09:30 | disposition home or self-care (01) ==
LOC: HO.MRI 09:29
PROVIDERS: PCP Internal Medicine; Visit Provider Physician Assistant Surgical
DX: M54.12 Radiculopathy, cervical region (principal)
CPT/HCPCS: 72141

== ENCOUNTER → 2020-11-15 10:32 | Outpatient (BNVA) | payer BC, OTHER, SELFPAY | PROVIDERS: PCP Internal Medicine; Visit Provider Surgery ==

== ENCOUNTER → 2021-01-22 10:35 | Outpatient (BNVA) | payer BC, OTHER, SELFPAY | PROVIDERS: PCP Internal Medicine; Visit Provider Urology ==

== ENCOUNTER 2021-01-30 13:59 | Outpatient (REF) | payer BC, OTHER, SELFPAY ==
[2021-01-30 14:11] LABS: MANUAL DIFF FLAG NO
[2021-01-30 14:33] LABS: Basophils Percent Auto 0.1 % (0-2); Eosinophils Absolute Auto 0.1 X10*3/uL (0.0-0.4); Eosinophils Percent Auto 0.7 % (0-4); Hematocrit 46.5 % (42.0-52.0); Hemoglobin 15.8 g/dl (14.0-18.0); Imm Gran Abs Auto 0.04 X10*3/uL (0.00-0.03); Imm Gran Pct Auto 0.6 % (0.0-0.4); Lymphocytes Absolute Auto 2.4 X10*3/uL (1.2-4.9); Mean Corpuscular Volume 82.4 fL (80.0-98.0); Monocytes Absolute Auto 0.6 X10*3/uL (0.1-1.2); Monocytes Percent Auto 9.2 % (2-11); Neutrophils Absolute Auto 3.6 x10*3/uL (2.0-8.3); Neutrophils Percent Auto 53.4 % (45-73); Platelet Count 190 X10*3/uL (160-400); Red Blood Count 5.64 X10*6/uL (4.60-5.80); Red Cell Distribution Width 14.6 % (11.0-16.0); White Blood Count 6.7 X10*3/uL (4.8-10.8)
[2021-01-30 14:59] LABS: Alanine Aminotransferase 65 U/L (0-40); Albumin Level 4.6 g/dL (3.5-5.0); Alkaline Phosphatase 59 U/L (39-117); Anion Gap 11 (12-20); Aspartate Amino Transferase 33 U/L (5-37); Bilirubin Direct < 0.2 mg/dL (0.0-0.5); Bilirubin Total 0.3 mg/dL (0.0-1.0); Blood Urea Nitrogen 10 mg/dL (9-16); Calcium 9.6 mg/dL (8.4-10.2); Carbon Dioxide 27 mmol/L (22-29); Chloride 101 mmol/L (96-108); Cholesterol 209 mg/dL; Estimated Glomerular Filt Rate > 60; Glucose Random 91 mg/dL (60-115); HDL Cholesterol 29 mg/dL; LDL Cholesterol Calculated 128 mg/dl; Potassium 4.3 mmol/L (3.3-5.1); Sodium 135 mmol/L (135-145); Total Protein 7.6 g/dL (6.5-8.0); Triglycerides 264 mg/dL
[2021-01-30 15:19] LABS: TSH reflex Free T4 2.36 uIU/mL (0.32-4.0)
== END 2021-01-30 14:00 | disposition home or self-care (01) ==
LOC: HO.LAB 13:59
PROVIDERS: PCP Internal Medicine; Visit Provider Internal Medicine
DX: Z00.00 Encounter for general adult medical examination without abnormal findings (principal)
CPT/HCPCS: 36415; 80048; 80061; 80076; 84443; 85025

== ENCOUNTER → 2021-03-17 14:46 | Outpatient (BNVA) | payer BC, SELFPAY | PROVIDERS: PCP Internal Medicine; Referring Provider Internal Medicine; Visit Provider Internal Medicine | DX: R07.2 Precordial pain (principal); E11.8 Type 2 diabetes mellitus with unspecified complications; E78.5 Hyperlipidemia, unspecified; I10 Essential (primary) hypertension | CPT/HCPCS: 93005 ==

== ENCOUNTER 2021-04-28 08:23 | Outpatient (REF) | payer BC, OTHER, SELFPAY ==
[2021-04-28 09:38] LABS: Anion Gap 13 (12-20); Blood Urea Nitrogen 11 mg/dL (9-16); Calcium 10.3 mg/dL (8.4-10.2); Carbon Dioxide 28 mmol/L (22-29); Chloride 101 mmol/L (96-108); Estimated Glomerular Filt Rate > 60; Glucose Random 121 mg/dL (60-115); Potassium 4.5 mmol/L (3.3-5.1); Sodium 137 mmol/L (135-145)
[2021-04-28 09:57] LABS: Prostate Specific Antigen 0.27 ng/mL (<0.05-4.0)
== END 2021-04-28 08:24 | disposition home or self-care (01) ==
LOC: HO.LAB 08:23
PROVIDERS: Urology; PCP Internal Medicine; Visit Provider Internal Medicine
DX: Z12.5 Encounter for screening for malignant neoplasm of prostate (principal); R07.2 Precordial pain; N13.8 Other obstructive and reflux uropathy; N40.1 Benign prostatic hyperplasia with lower urinary tract symptoms; N52.9 Male erectile dysfunction, unspecified
CPT/HCPCS: 36415; 80048; 84153

== ENCOUNTER 2021-06-04 11:41 | Emergency (ER) | payer BC, OTHER, SELFPAY ==
--- NOTE | 2021-06-04 | ECG_ITS ---
Test Reason : chest pain Blood Pressure : / mmHG Vent. Rate : 076 BPM Atrial Rate : 076 BPM P-R Int : 170 ms QRS Dur : 080 ms QT Int : 362 ms P-R-T Axes : 057 033 066 degrees QTc Int : 407 ms Normal sinus rhythm Nonspecific T wave abnormality Abnormal ECG When compared with ECG of 11-SEP-2020 14:11, No significant change was found Referred By: Generic ED Physician Electronically Signed By:ASHLEY ADAMS MD
--- NOTE | ~2021-06-04 | XR_ITS ---
EXAMINATION: XR CHEST CLINICAL INFORMATION: Chest pain COMPARISON: None TECHNIQUE: Frontal view of the chest was obtained. FINDINGS: No significant abnormality is noted involving the heart, lungs, mediastinum, bony thorax or soft tissues. XR/XR chest 1V IMPRESSION: Unremarkable chest examination.
[2021-06-04 11:50] VITALS: BP 127/91; PULSE 82; RESP 18; TEMP 36.6; O2SAT 97; BMI 30.9
[2021-06-04 12:18] LABS: MANUAL DIFF FLAG NO
[2021-06-04 12:22] LABS: Basophils Percent Auto 0.2 % (0-2); Eosinophils Percent Auto 0.7 % (0-4); Hematocrit 44.9 % (42.0-52.0); Hemoglobin 15.1 g/dl (14.0-18.0); Imm Gran Abs Auto 0.01 X10*3/uL (0.00-0.03); Imm Gran Pct Auto 0.2 % (0.0-0.4); Lymphocytes Absolute Auto 2.3 X10*3/uL (1.2-4.9); Lymphocytes Percent Auto 38.6 % (20-40); Mean Corpuscular HGB Conc 33.6 g/dl (31.0-36.0); Mean Corpuscular Hemoglobin 27.6 pg (27.0-33.0); Mean Corpuscular Volume 81.9 fL (80.0-98.0); Mean Platelet Volume 10.7 fL (9.4-12.4); Monocytes Absolute Auto 0.4 X10*3/uL (0.1-1.2); Monocytes Percent Auto 7.3 % (2-11); Neutrophils Absolute Auto 3.2 x10*3/uL (2.0-8.3); Platelet Count 189 X10*3/uL (160-400); Red Blood Count 5.48 X10*6/uL (4.60-5.80); Red Cell Distribution Width 14.6 % (11.0-16.0); White Blood Count 6.1 X10*3/uL (4.8-10.8)
[2021-06-04 12:36] LABS: Anion Gap 13 (12-20); Blood Urea Nitrogen 11 mg/dL (9-16); Calcium 9.8 mg/dL (8.4-10.2); Carbon Dioxide 25 mmol/L (22-29); Chloride 100 mmol/L (96-108); Creatinine Clr Calc Pharmacy 105.4; Estimated Glomerular Filt Rate > 60; Glucose Random 110 mg/dL (60-115); Potassium 4.2 mmol/L (3.3-5.1); Sodium 134 mmol/L (135-145)
[2021-06-04 12:43] LABS: Troponin-I High Sensitivity 5.8 ng/L (<3.5-35.0)
--- NOTE | 2021-06-04 13:26 | ED_ITS ---
HPI - Chest Pain General Chief Complaint: Chest Pain Stated Complaint: chest pain Time Seen by Provider: 06/04/21 12:03 Source: patient and old records reviewed Mode of arrival: ambulatory Limitations: no limitations History of Present Illness HPI narrative: 05/20/21 [facility] coronary CTA LAD 2nd diagonal branch mild proximal stenosis 25- 49% but reported overall impression no hemodynamically significant coronary artery disease. MD complaint: chest pain Pertinent past history: other (hx of chest pain in past, recent negative coronary CTA 05/20/21) Onset (ago): hour(s) (10am today but honestly states he has had this pinching burning pain for months) Timing of current episode: now resolved Prior episodes: Yes Onset: during rest and during exertion Pain location: left chest Pain radiation: none Severity: mild Quality: other (pinching/burning) Relieving factors: nothing Exacerbating factors: palpation and movement Context: other (hx of symptoms for months) Treatment prior to arrival: none Related Data Home Medications Medication Instructions Recorded Confirmed atorvastatin 40 mg tablet 40 mg PO BEDTIME tab 03/13/20 03/17/21 fluticasone propionate 50 1 spray INTRANASAL DAILY 03/13/20 03/17/21 mcg/actuation nasal spray,suspension gabapentin 600 mg tablet 600 mg PO TID 03/13/20 03/17/21 lisinopril 10 mg tablet 10 mg PO DAILY 03/13/20 03/17/21 venlafaxine 75 mg capsule,extended 75 mg PO BEDTIME 03/13/20 03/17/21 release 24 hr duloxetine 30 mg capsule,delayed 30 mg PO BID 07/11/20 03/17/21 release ibuprofen 400 mg tablet 400 mg PO Q6H 07/11/20 03/17/21 metformin 500 mg tablet 1,000 mg PO BID tab 07/11/20 03/17/21 cetirizine 10 mg tablet 10 mg PO BEDTIME 10/07/20 03/17/21 Previous Rx's Medication Instructions Recorded sildenafil 100 mg tablet 100 mg PO DAILY PRN 30 Days #30 tab 01/22/21 dicyclomine 20 mg tablet 20 mg PO TID PRN 90 Days #270 tab 04/21/21 omeprazole 20 mg capsule,delayed 20 mg PO DAILY 90 Days #90 cap 04/21/21 release cyclobenzaprine 10 mg tablet 10 mg PO TID PRN #14 tab 06/04/21 Allergies Allergy/AdvReac Type Severity Reaction Status Date / Time clavulanic acid Allergy Mild Itching Verified 03/17/21 15:19 [From Augmentin] Penicillins Allergy Unknown ITCHING Verified 03/17/21 15:19 Review of Systems Review of Systems: Constitutional : No Weight loss, No Fever, No Chills ENT/Mouth : No sore throat, No Rhinorrhea Eyes: No Eye Pain, No Swelling Cardiovascular : pos Chest Pain, no SOB, no Dyspnea on Exertion, No Orthopnea, No Edema, No Palpitations Respiratory : No Cough, No Sputum Gastrointestinal : no Nausea, No Vomiting, No Diarrhea, No abdominal Pain, No Hematochezia, No Melena Genitourinary : No Dysuria, No Urinary Frequency Musculoskeletal : No joint pain, No Myalgias, No Joint Swelling Skin : No Skin Lesions, No rash Neuro : No Weakness, No Numbness, No Dizziness, No Headache Psych : No Anxiety/Panic, No Depression Heme/Lymph: No Bruising, No Lymphadenopathy Endocrine : No Polyuria, No Polydipsia All other systems reviewed and are negative [facility] Past Medical History Attestation statement: The following information was validated with the patient. Medical History Anxiety Back pain COVID-19 vaccine series completed Essential hypertension History of lumbar puncture Hyperlipidemia, unspecified Migraine Neck pain SHERLY (obstructive sleep apnea) Pain of multiple extremities Palpitations Type 2 diabetes mellitus with unspecified complications Surgical History History of esophagogastroduodenoscopy (EGD) History of umbilical hernia repair Hx of colonoscopy Family History Family History Mother Diabetes Father Myocardial infarction Social History Social History Alcohol intake: never Patient Tobacco Use Status: Never used Tobacco Use of substances other than those prescribed or required for medical reasons: No Advance Directives: No Advance Directives Information Provided: No Physical Exam Vital Signs: Vital Signs: Last Vital Signs Temp 97.9 F 06/04/21 15:18 Pulse 84 06/04/21 15:18 Resp 19 06/04/21 15:18 BP 124/83 06/04/21 15:18 Pulse Ox 97 06/04/21 15:18 BMI result Body Mass Index 30.9 Appearance: Alert. Oriented X3. No acute distress. Eyes: Pupils equal, round and reactive to light. ENT: Pharynx normal. Neck: Normal inspection. Neck supple. CVS: Normal heart rate and rhythm. Pulses normal. Chest wall: ttp along L pectoralis does reproduce pain Respiratory: No respiratory distress. Breath sounds normal. Abdomen: Soft and nontender. Skin: Skin warm and dry. Normal skin color. Normal skin turgor. Extremities: No lower extremity edema. No calf ttp Neuro: Oriented X 3. No motor deficit. No sensory deficit. Course Course Course Narrative: repeat trop flat - stable for DC MDM - Chest Pain MDM Narrative Medical decision making narrative: 51 yo male with hx of GERD on prilosec, chronic chest pain just with CTA of cor onaries showing mild disease, DM, HTN, HLD here with atypical pinching burning chest pain for months. 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 Seems MSK in nature. Atypical for ACS will obtain troponin x 2. He has no tachycardia, signs of DVT or hypoxia to suggeste PE. Doubt dissection given recent imaging and this has been going on for months. Lab Data Result diagrams: 06/04/21 12:11 06/04/21 12:11 Labs: Lab Results 06/04/21 06/04/21 06/04/21 Range/Units 12:11 12:11 12:11 WBC 6.1 (4.8-10.8) X10*3/uL RBC 5.48 (4.60-5.80) X10*6/uL Hgb 15.1 (14.0-18.0) g/dl Hct 44.9 (42.0-52.0) % MCV 81.9 (80.0-98.0) fL MCH 27.6 (27.0-33.0) pg MCHC 33.6 (31.0-36.0) g/dl RDW 14.6 (11.0-16.0) % Plt Count 189 (160-400) X10*3/uL MPV 10.7 (9.4-12.4) fL Immature Gran % (Auto) 0.2 (0.0-0.4) % Neut % (Auto) 53.0 (45-73) % Lymph % (Auto) 38.6 (20-40) % [place] % (Auto) 7.3 (2-11) % Eos % (Auto) 0.7 (0-4) % Baso % (Auto) 0.2 (0-2) % Lymph # (Auto) 2.3 (1.2-4.9) X10*3/uL [place] # (Auto) 0.4 (0.1-1.2) X10*3/uL Eos # (Auto) 0.0 (0.0-0.4) X10*3/uL Baso # (Auto) 0.0 (0.0-0.2) X10*3/uL Abs Immat Gran (auto) 0.01 (0.00-0.03) X10*3/uL Absolute Neuts (auto) 3.2 (2.0-8.3) x10*3/uL Absolute Nucleated RBC 0.000 (0.0-0.012) X10*3/uL Nucleated RBC % (auto) 0.0 (0.0-0.2) /100WBC Sodium 134 L (135-145) mmol/L Potassium 4.2 (3.3-5.1) mmol/L Chloride 100 (96-108) mmol/L Carbon Dioxide 25 (22-29) mmol/L Anion Gap 13 (12-20) BUN 11 (9-16) mg/dL Creatinine 0.95 (0.5-1.4) mg/dL Estim Creat Clear Calc 105.4 Estimated GFR > 60 Random Glucose 110 (60-115) mg/dL Calcium 9.8 (8.4-10.2) mg/dL Troponin I High Sens 5.8 (<3.5-35.0) ng/L 06/04/21 Range/Units 15:11 WBC (4.8-10.8) X10*3/uL RBC (4.60-5.80) X10*6/uL Hgb (14.0-18.0) g/dl Hct (42.0-52.0) % MCV (80.0-98.0) fL MCH (27.0-33.0) pg MCHC (31.0-36.0) g/dl RDW (11.0-16.0) % Plt Count (160-400) X10*3/uL MPV (9.4-12.4) fL Immature Gran % (Auto) (0.0-0.4) % Neut % (Auto) (45-73) % Lymph % (Auto) (20-40) % [place] % (Auto) (2-11) % Eos % (Auto) (0-4) % Baso % (Auto) (0-2) % Lymph # (Auto) (1.2-4.9) X10*3/uL [place] # (Auto) (0.1-1.2) X10*3/uL Eos # (Auto) (0.0-0.4) X10*3/uL Baso # (Auto) (0.0-0.2) X10*3/uL Abs Immat Gran (auto) (0.00-0.03) X10*3/uL Absolute Neuts (auto) (2.0-8.3) x10*3/uL Absolute Nucleated RBC (0.0-0.012) X10*3/uL Nucleated RBC % (auto) (0.0-0.2) /100WBC Sodium (135-145) mmol/L Potassium (3.3-5.1) mmol/L Chloride (96-108) mmol/L Carbon Dioxide (22-29) mmol/L Anion Gap (12-20) BUN (9-16) mg/dL Creatinine (0.5-1.4) mg/dL Estim Creat Clear Calc Estimated GFR Random Glucose (60-115) mg/dL Calcium (8.4-10.2) mg/dL Troponin I High Sens 5.5 (<3.5-35.0) ng/L ECG Data ECG #1: Attestation: I personally reviewed and interpreted this ECG as follows: ECG interpretation date: 06/04/21 ECG interpretation time: 13:28 Interpretation: Rate: 76 Rhythm: NSR [place]: normal Normal P waves. Normal UBALDO. Normal QRS complex. ST T wave : artifact inf leads needs repeat otherwise no abnormatliy qTC: normal prior studies: artifact in inf leads, asking for repeat The study has been interpreted contemporaneously by me. ECG #2: Attestation: I personally reviewed and interpreted this ECG as follows: ECG interpretation date: 06/04/21 ECG interpretation time: 14:23 Interpretation: Rate: 80 Rhythm: NSR [place]: normal Normal P waves. Normal UBALDO. Normal QRS complex. ST T wave : no TIERA, nonspecific changes lateral t wave changes qTC: normal prior studies: no acute ischemia The study has been interpreted contemporaneously by me. Discharge Plan Discharge Clinical Impression: Chest pain Qualifiers: Chest pain type: precordial pain Qualified Code(s): R07.2 - Precordial pain Patient Disposition: Home, Self-Care Instructions: Chest Pain (ED) Additional Instructions: return to ED for any worsening symptoms or concerns repeat tests of heart are normal please follow up with your doctor Prescriptions: New cyclobenzaprine 10 mg tablet 10 mg PO TID PRN (Reason: muscle spasm) Qty: 14 0RF No Action omeprazole 20 mg capsule,delayed release(DR/EC) 20 mg PO DAILY 90 Days Qty: 90 1RF dicyclomine 20 mg tablet 20 mg PO TID PRN (Reason: for pain) 90 Days Qty: 270 1RF cetirizine 10 mg Tablet 10 mg PO BEDTIME 0RF gabapentin 600 mg tablet 600 mg PO TID 0RF lisinopril 10 mg tablet 10 mg PO DAILY 0RF venlafaxine 75 mg capsule,extended release 24hr 75 mg PO BEDTIME 0RF atorvastatin 40 mg tablet 40 mg PO BEDTIME 0RF fluticasone propionate 50 mcg/actuation spray,suspension 1 spray intranasal DAILY 0RF metformin 500 mg tablet 1,000 mg PO BID 0RF ibuprofen 400 mg tablet 400 mg PO Q6H 0RF duloxetine 30 mg capsule,delayed release(DR/EC) 30 mg PO BID 0RF sildenafil 100 mg tablet 100 mg PO DAILY PRN (Reason: sexual activity) 30 Days Qty: 30 1RF Rx Instructions: administer 60 minutes before intended activity Referrals: Vasile Putnam MD [Primary Care Provider] - 2 days Stand Alone Forms: Work/School Release
--- NOTE | 2021-06-04 13:29 | ECG_ITS ---
Test Reason : chest pain Blood Pressure : / mmHG Vent. Rate : 080 BPM Atrial Rate : 080 BPM P-R Int : 174 ms QRS Dur : 084 ms QT Int : 368 ms P-R-T Axes : 067 057 050 degrees QTc Int : 424 ms Normal sinus rhythm Nonspecific T wave abnormality Abnormal ECG When compared with ECG of 04-JUN-2021 11:55, Nonspecific T wave abnormality now evident in Inferior leads Referred By: Vi Abraham Electronically Signed By:ASHLEY ADAMS MD
[2021-06-04 14:08] VITALS: BP 129/87; PULSE 79; RESP 15; TEMP 36.8; O2SAT 99
[2021-06-04 15:18] VITALS: BP 124/83; PULSE 84; RESP 19; TEMP 36.6; O2SAT 97
[2021-06-04 15:37] LABS: Troponin-I High Sensitivity 5.5 ng/L (<3.5-35.0)
== END 2021-06-04 16:15 | disposition home or self-care (01) ==
PROVIDERS: Emergency Provider Emergency Medicine; PCP Internal Medicine
DX: R07.2 Precordial pain (principal); E11.9 Type 2 diabetes mellitus without complications; I10 Essential (primary) hypertension; Z79.899 Other long term (current) drug therapy
CPT/HCPCS: 36415; 71045; 80048; 84484; 85025; 93005; 99283; 99285

== ENCOUNTER 2021-07-15 06:55 | Outpatient (REF) | payer BC, OTHER, SELFPAY ==
[2021-07-15 07:57] LABS: Creatinine Urine 153.59 mg/dL; Microalbum/Creatinine Ratio Ur 6.5 ug/mg cr
[2021-07-15 08:15] LABS: Alanine Aminotransferase 53 U/L (0-40); Albumin Level 4.4 g/dL (3.5-5.0); Alkaline Phosphatase 59 U/L (39-117); Anion Gap 13 (12-20); Aspartate Amino Transferase 28 U/L (5-37); Bilirubin Direct 0.2 mg/dL (0.0-0.5); Bilirubin Total 0.4 mg/dL (0.0-1.0); Blood Urea Nitrogen 11 mg/dL (9-16); Calcium 10.2 mg/dL (8.4-10.2); Carbon Dioxide 26 mmol/L (22-29); Chloride 104 mmol/L (96-108); Cholesterol 120 mg/dL; Estimated Glomerular Filt Rate > 60; Glucose Random 127 mg/dL (60-115); HDL Cholesterol 26 mg/dL; LDL Cholesterol Calculated 75 mg/dl; Potassium 4.6 mmol/L (3.3-5.1); Sodium 138 mmol/L (135-145); Total Protein 7.4 g/dL (6.5-8.0); Triglycerides 99 mg/dL
[2021-07-15 08:22] LABS: ~HepC Num1 0.09 S/CO (0.00-0.79); ~Hepatitis C Antibody Nonreactive (Nonreactive)
[2021-07-15 08:24] LABS: Estimated Average Glucose 154 mg/dL
[2021-07-15 08:25] LABS: ~Hepatitis B Surface Antibody REACTIVE (Nonreactive)
[2021-07-16 15:17] LABS: Hepatitis B Viral DNA Qn - cp <1.00 NOT DETECTED Log IU/mL (NOT DETECTED); Hepatitis B Viral DNA Qn-IU/mL <10 NOT DETECTED IU/mL (NOT DETECTED)
== END 2021-07-15 06:56 | disposition home or self-care (01) ==
LOC: HO.LAB 06:55
PROVIDERS: PCP Internal Medicine; Visit Provider Internal Medicine
DX: E11.9 Type 2 diabetes mellitus without complications (principal)
CPT/HCPCS: 36415; 80048; 80061; 80076; 82043; 83036; 86706; 86803; 87517

== ENCOUNTER 2021-12-11 08:35 | Emergency (ER) | payer BC, OTHER, SELFPAY ==
--- NOTE | ~2021-12-11 | XR_ITS ---
EXAMINATION: XR CHEST CLINICAL INFORMATION: Left-sided chest pain. COMPARISON: 06/04/2021 TECHNIQUE: Frontal view of the chest was obtained. FINDINGS: Lungs are well expanded and clear. No airspace disease, pleural effusion or pneumothorax. Cardiac silhouette has normal size and contour. The pulmonary vascular pattern is normal. The visualized bones are intact. XR/XR chest 1V IMPRESSION: No acute pulmonary disease compared to 06/04/2021.
--- NOTE | 2021-12-11 08:41 | ECG_ITS ---
Test Reason : chest pain Blood Pressure : / mmHG Vent. Rate : 078 BPM Atrial Rate : 078 BPM P-R Int : 162 ms QRS Dur : 080 ms QT Int : 358 ms P-R-T Axes : 057 036 065 degrees QTc Int : 408 ms Normal sinus rhythm Nonspecific T wave abnormality Abnormal ECG When compared with ECG of 04-JUN-2021 13:59, Nonspecific T wave abnormality, improved in Inferior leads Referred By: Generic ED Physician Electronically Signed By:VIJAY LUO
[2021-12-11 08:51] VITALS: BP 121/76; PULSE 82; RESP 18; TEMP 36.6; O2SAT 96; BMI 29.7
--- OUTSIDE RECORDS SUMMARY | 2021-12-11 09:27 | XMS_ITS | Continuity of Care Document ---
:1970 Author Organization [address], [address] [place] [address]- Care Team Providers Name Role Phone Oh Nogueira MD Primary Care Physician Encounter [facility] Date(s): 11/27/20 - 12/27/[address], [address] [place], [place] [address] Allergies, Adverse Reactions, Alerts Substance Reaction Severity Status Augmentin C/O: itching Active Medications aspirin 81 mg oral tablet See Instructions, PRN pain, 1 tablet By Mouth Daily, 0 Refills, Maintenance, 04/09/17 7:36:13 Start Date: 04/09/17 Status: Orderedcetirizine 10 mg oral capsule 1 capsule = 10 mg, By Mouth, Daily, PRN for allergy symptoms, # 40 capsule, 0 Refills, Maintenance, 04/06/17 15:09:31, Capsule Start Date: 04/06/17 Status: Orderedlisinopril 10 mg oral tablet 10 mg, 1, tablet, By Mouth, Daily, # 30 tablet, Refills 0, Maintenance, 04/06/17 15:09:51 Start Date: 04/06/17 Status: OrderedPriLOSEC OTC 20 mg oral delayed release tablet 1 tablet = 20 mg, By Mouth, Daily, 0 Refills, Maintenance, 06/18/17 10:31:28 EDT Start Date: 06/18/17 Status: OrderedProbiotic Formula 1 capsule, By Mouth, Daily, 0 Refills, Maintenance, 06/18/17 10:31:00 EDT Start Date: 06/18/17 Status: OrderedQvar with Dose Counter 40 mcg/inh inhalation aerosol 2 puffs, Inhalation, 2 times a day, 0 Refills, Maintenance, 11/30/15 13:20:32 Start Date: 11/30/15 Status: OrderedVitamin D3 By Mouth, 0 Refills, Maintenance, 05/20/17 15:46:41 Start Date: 05/20/17 Status: Ordered Social History Social History Type Response Smoking Status Never smoker entered on: 05/24/17 Sex
--- OUTSIDE RECORDS SUMMARY | 2021-12-11 09:27 | XMS_ITS | Continuity of Care Document ---
:1970 Author Organization [address], [address] [place] [address]- Care Team Providers Name Role Phone Get Juares MD, Vasile Primary Care Physician Encounter [facility] Date(s): 01/14/21 - 02/13/[address], [address] [place], [place] [address] Attending Physician: Tj Garcia Admitting Physician: AdmtrTj Referring Physician: Admtr ArDerrick Allergies, Adverse Reactions, Alerts Substance Reaction Severity Status Augmentin C/O: itching Active Medications aspirin 81 mg oral tablet See Instructions, PRN pain, 1 tablet By Mouth Daily, 0 Refills, Maintenance, 04/09/17 7:36:13 Start Date: 04/09/17 Status: Orderedatorvastatin 40 mg oral tablet 1 tablet = 40 mg, By Mouth, Daily, 0 Refills, Maintenance, 01/14/21 11:06:00 EDT, Partial fill upon patient request if the prescription is for a schedule II opioid drug. Start Date: 01/14/21 Status: Orderedcetirizine 10 mg oral capsule 1 capsule = 10 mg, By Mouth, Daily, PRN for allergy symptoms, # 40 capsule, 0 Refills, Maintenance, 04/06/17 15:09:31, Capsule Start Date: 04/06/17 Status: OrderedCyclobenzaprine By Mouth, 0 Refills, Maintenance, 01/14/21 11:07:00 EDT, Partial fill upon patient request if the prescription is for a schedule II opioid drug. Start Date: 01/14/21 Status: OrderedDuloxetine By Mouth, 0 Refills, Maintenance, 01/14/21 11:08:00 EDT, Partial fill upon patient request if the prescription is for a schedule II opioid drug. Start Date: 01/14/21 Status: OrderedGabapentin By Mouth, 0 Refills, Maintenance, 01/14/21 11:07:00 EDT, Partial fill upon patient request if the prescription is for a schedule II opioid drug. Start Date: 01/14/21 Status: Orderedlisinopril 10 mg oral tablet 10 mg, 1, tablet, By Mouth, Daily, # 30 tablet, Refills 0, Maintenance, 04/06/17 15:09:51 Start Date: 04/06/17 Status: OrderedMetformin By Mouth, 0 Refills, Maintenance, 01/14/21 11:07:00 EDT, Partial fill upon patient request if the prescription is for a schedule II opioid drug. Start Date: 01/14/21 Status: OrderedOmeprazole By Mouth, Daily, 0 Refills, Maintenance, 01/14/21 11:08:00 EDT, Partial fill upon patient request ifthe prescription is for a schedule II opioid drug. Start Date: 01/14/21 Status: OrderedPriLOSEC OTC 20 mg oral delayed [...] Maintenance, 11/30/15 13:20:32 Start Date: 11/30/15 Status: OrderedVenlafaxine By Mouth, 0 Refills, Maintenance, 01/14/21 11:06:00 EDT, Partial fill upon patient request if the prescription is for a schedule II opioid drug. Start Date: 01/14/21 Status: OrderedVitamin D3 By Mouth, 0 Refills, Maintenance, 05/20/17 15:46:41 Start Date: 05/20/17 Status: Ordered Social History Social History Type Response Smoking Status Never smoker entered on: 05/24/17 Sex
--- OUTSIDE RECORDS SUMMARY | 2021-12-11 09:27 | XMS_ITS | Continuity of Care Document ---
:1970 Author Organization [address], [address] [place] [address]- Care Team Providers Name Role Phone Get Juares MD, Vasile Primary Care Physician [phone] [facility] Date(s): 01/14/21 - 01/21/[address], [address] [place], [place] [address] Attending Physician: Thomas Magana MD Referring Physician: Mrak Brown MD Allergies, Adverse Reactions, Alerts Substance Reaction Severity [...] 05/20/17 15:46:41 Start Date: 05/20/17 Status: Ordered Vital Signs Most recent to oldest [Reference Range]: 1 Height 179 cm (01/14/21 11:02 AM) Social History Social History Type Response Smoking Status Never smoker entered on: 05/24/17 Sex
--- OUTSIDE RECORDS SUMMARY | 2021-12-11 09:27 | XMS_ITS | Continuity of Care Document ---
:1970 Author Organization [facility] Address [address] [place] [address]- Care Team Providers Name Role Phone Get Juares MD, Vasile Primary Care Physician [id number] Date(s): 05/20/21 - 05/20/[address] [id number] Discharge Disposition: A-D/C Home Attending Physician: Abimael Rhoades MD Admitting Physician: Abimael Rhoades MD Referring Physician: Abimael Rhoades MD Allergies, Adverse Reactions, Alerts Substance Reaction [...] II opioid drug. Start Date: 01/14/21 Status: Ordereddicyclomine 20 mg oral tablet 1 tablet = 20 mg, By Mouth, 3 times a day, PRN Pain , Moderate, 0 Refills, Maintenance, 05/20/21 7:10:00 EST, Partial fill upon patient request if the prescription is for a schedule II opioid drug. Start Date: 05/20/21 Status: OrderedDuloxetine By Mouth, 0 Refills, Maintenance, [...] II opioid drug. Start Date: 01/14/21 Status: OrderedMetoprolol Inj 5 mg, Injection, IV Push Slowly, Once, Routine, 05/20/21 10:10:00 EST, Stop date 05/20/21 10:10:00 EST Start Date: 05/20/21 Stop Date: 05/20/21 Status: CompletedMetoprolol Inj 5 mg, Injection, IV Push Slowly, Once, Routine, 05/20/21 10:27:00 EST, Stop date 05/20/21 10:27:00 EST Start Date: 05/20/21 Stop Date: 05/20/21 Status: Completednitroglycerin 0.4 mg sublingual tablet 0.4 mg, Tablet, Sublingual, Once, Routine, 05/20/21 10:27:00 EST, Stop date 05/20/21 10:27:00 EST Start Date: 05/20/21 Stop Date: 05/20/21 Status: CompletedOmeprazole By Mouth, Daily, 0 Refills, Maintenance, 01/14/21 [...] Ordered Vital Signs Most recent to oldest 1 2 3 [Reference Range]: Height 179 cm 179 cm 179 cm (05/20/21 10:49 AM) (05/20/21 8:23 AM) (05/20/21 7:12 AM) Weight 99.2 kg (05/20/21 7:12 AM) Oxygen Saturation [94-100 %] 96 % 99 % (05/20/21 10:49 AM) (05/20/21 7:03 AM) Pulse Rate [55-90 bpm] 71 bpm 70 bpm 73 bpm (05/20/21 10:49 AM) (05/20/21 10:27 AM) (05/20/21 10:1 0 AM) Blood Pressure [90-138/55-84 mm 118/56 mm Hg 104/61 mm Hg 104/61 mm Hg Hg] (05/20/21 10:49 AM) (05/20/21 10:27 AM) (05/20/21 10:2 7 AM) Respiratory Rate [16-30 br/min] 18 br/min 16 br/min 17 br/min (05/20/21 10:49 AM) (05/20/21 10:32 AM) (05/20/21 7:03 AM) Temperature [96.8-100.4 DegF] 97.9 DegF 98.0 DegF (05/20/21 10:49 AM) (05/20/21 7:03 AM) Mode of Delivery (Oxygen) Room air Room air (05/20/21 10:49 AM) (05/20/21 7:03 AM) Blood pressure sites Arm, left Arm, left Arm, left (05/20/21 10:49 AM) (05/20/21 8:23 AM) (05/20/21 7:03 AM) Temperature Route Oral Oral (05/20/21 10:49 AM) (05/20/21 7:03 AM) Dry Weight 99.2 kg (05/20/21 7:12 AM) Social History Social History Type Response Smoking Status Never smoker entered on: 05/24/17 Sex
--- NOTE | 2021-12-11 09:42 | ED_ITS ---
HPI - Chest Pain General Chief Complaint: Chest Pain Stated Complaint: Pain on L side chest Time Seen by Provider: 12/11/21 09:20 Source: patient and old records reviewed Mode of arrival: ambulatory Limitations: no limitations History of Present Illness HPI narrative: 51 yo male with history of DM2, HTN, GERD, HLD, diabetic neuropathy who presents to the ER for evaluation of acute onset of 10/22, nonradiating left sided chest pain and soreness that started yesterday morning. He cannot recall what he was doing when the pain started. He reports it is constant and is worse with palpation. It is located in his left middle chest it is very tender. He denies any heavy lifting or known injury. He denies any shortness of breath, nausea, vomiting, diaphoresis. MD complaint: chest pain Onset (ago): day(s) (1) Timing of current episode: constant Prior episodes: Yes Pain location: left chest Pain radiation: none Severity: moderate Pain scale (0-10): 8 Quality: aching Relieving factors: nothing Exacerbating factors: palpation and movement Treatment prior to arrival: none Risk Factors Coronary artery disease risk factors: diabetes, hyperlipidemia and hypertension Thoracic aortic dissection risk factors: none Related Data Home Medications Medication Instructions Recorded Confirmed atorvastatin 40 mg tablet 40 mg PO BEDTIME 03/13/20 03/17/21 fluticasone propionate 50 1 spray intranasal DAILY 03/13/20 03/17/21 mcg/actuation nasal spray,suspension gabapentin 600 mg tablet 600 mg PO TID 03/13/20 03/17/21 lisinopril 10 mg tablet 10 mg PO DAILY 03/13/20 03/17/21 venlafaxine 75 mg capsule,extended 75 mg PO BEDTIME 03/13/20 03/17/21 release 24 hr duloxetine 30 mg capsule,delayed 30 mg PO BID 07/11/20 03/17/21 release ibuprofen 400 mg tablet 400 mg PO Q6H 07/11/20 03/17/21 metformin 500 mg tablet 1,000 mg PO BID 07/11/20 03/17/21 cetirizine 10 mg tablet 10 mg PO BEDTIME 10/07/20 03/17/21 Previous Rx's Medication Instructions Recorded sildenafil 100 mg tablet 100 mg PO DAILY PRN sexual 01/22/21 activity 30 days #30 tabs cyclobenzaprine 10 mg tablet 10 mg PO TID PRN muscle spasm #14 06/04/21 tabs dicyclomine 20 mg tablet 20 mg PO TID PRN for pain 90 days 10/20/21 #270 tabs omeprazole 20 mg capsule,delayed 20 mg PO DAILY 90 days #90 caps 10/20/21 release Allergies Allergy/AdvReac Type Severity Reaction Status Date / Time clavulanic acid Allergy Mild Itching Verified 03/17/21 15:19 [From Augmentin] Penicillins Allergy Unknown ITCHING Verified 03/17/21 15:19 Review of Systems Review of Systems: Constitutional: No Fever, No Chills ENT/Mouth: No sore throat, No Rhinorrhea, No Swallowing Difficulty Eyes: No Eye Pain, No Swelling, No Redness Cardiovascular: +Chest Pain, No SOB, No Orthopnea, No Edema Respiratory: No Cough, No Sputum, No Wheezing, No dyspnea Gastrointestinal: No Nausea, No Vomiting, No Diarrhea, No abdominal Pain Genitourinary: No Dysuria, No Urinary Frequency, No Hematuria Musculoskeletal: No joint pain, No Myalgias Skin: No Skin Lesions, No rash Neuro: No Weakness, No Numbness, No Dizziness, No Headache Psych: +Anxiety/Panic, No Depression Heme/Lymph: No Bruising, No Lymphadenopathy Endocrine: No Polyuria, No Polydipsia PMFSH Past Medical History Medical History Anxiety Back pain COVID-19 vaccine series completed Essential hypertension History of lumbar puncture Hyperlipidemia, unspecified Migraine Neck pain SHERLY (obstructive sleep apnea) Pain of multiple extremities Palpitations Type 2 diabetes mellitus with unspecified complications Surgical History History of esophagogastroduodenoscopy (EGD) History of umbilical hernia repair Hx of colonoscopy Family History Family History Mother Diabetes Father Myocardial infarction Social History Social History Alcohol intake: never Patient Tobacco Use Status: Never used Tobacco Use of substances other than those prescribed or required for medical reasons: No Advance Directives: No Physical Exam Vital Signs: Vital Signs: Last Vital Signs Temp 98 F 12/11/21 08:51 Pulse 82 12/11/21 10:30 Resp 18 12/11/21 10:30 BP 122/86 12/11/21 10:30 Pulse Ox 93 12/11/21 10:30 O2 Del Method 12/11/21 10:30 BMI result Body Mass Index 29.7 Appearance: Alert. Oriented X3. No acute distress. Eyes: Pupils equal, round and reactive to light. ENT: Pharynx normal. Neck: Normal inspection. Neck supple. CVS: Normal heart rate and rhythm. Pulses normal. Soft tissue tenderness of the left-sided pectoralis major muscle with mild swelling noted. No overlying skin changes. Respiratory: No respiratory distress. Breath sounds normal. Abdomen: Soft and nontender. +BS x4 Skin: Skin warm and dry. Normal skin color. Normal skin turgor. No rashes. Extremities: No lower extremity edema. Normal range of motion of the left arm and shoulder. Neuro: Oriented X 3. No motor deficit. No sensory deficit. Course Course Course Narrative: 51-year-old male presents to the ER for evaluation of constant, nonradiating left-sided chest pain that started yesterday morning. On examination the pain is reproducible with soft tissue tenderness. This is reassuring against cardiac ischemia. Will check EKG, troponin, basic lab workup and COVID swab. Reevaluation(s) Reevaluation #1: Chest x-ray is clear. EKG without any ischemic changes. His troponin is 5.9 which is his baseline. Pain improved with Tylenol. At this time his left-sided chest pain does not seem to be cardiac in nature, it is more consistent with muscular pain. Stable for discharge home. Patient agrees with plan return precautions were discussed. MDM - Chest Pain Medical Records Data Attestation: I reviewed the patient's medical records. Lab Data Attestation: I reviewed the patient's lab results. Result diagrams: 12/11/21 09:46 12/11/21 09:46 Labs: Lab Results 12/11/21 12/11/21 12/11/21 Range/Units 09:46 09:46 09:46 WBC 6.5 (4.8-10.8) X10*3/uL RBC 5.74 (4.60-5.80) X10*6/uL Hgb 15.8 (14.0-18.0) g/dl Hct 46.6 (42.0-52.0) % MCV 81.2 (80.0-98.0) fL MCH 27.5 (27.0-33.0) pg MCHC 33.9 (31.0-36.0) g/dl RDW 14.6 (11.0-16.0) % Plt Count 200 (160-400) X10*3/uL MPV 10.9 (9.4-12.4) fL Immature Gran % (Auto) 0.5 H (0.0-0.4) % Neut % (Auto) 52.7 (45-73) % Lymph % (Auto) 36.7 (20-40) % [place] % (Auto) 9.0 (2-11) % Eos % (Auto) 0.8 (0-4) % Baso % (Auto) 0.3 (0-2) % Lymph # (Auto) 2.4 (1.2-4.9) X10*3/uL [place] # (Auto) 0.6 (0.1-1.2) X10*3/uL Eos # (Auto) 0.1 (0.0-0.4) X10*3/uL Baso # (Auto) 0.0 (0.0-0.2) X10*3/uL Abs Immat Gran (auto) 0.03 (0.00-0.03) X10*3/uL Absolute Neuts (auto) 3.4 (2.0-8.3) x10*3/uL Absolute Nucleated RBC 0.000 (0.0-0.012) X10*3/uL Nucleated RBC % (auto) 0.0 (0.0-0.2) /100WBC PT 11.9 (10.0-13.1) SEC INR 1.0 (0.9-1.1) APTT 32.0 (26.0-36.4) SEC Sodium 134 L (135-145) mmol/L Potassium 4.4 (3.3-5.1) mmol/L Chloride 100 (96-108) mmol/L Carbon Dioxide 21 L (22-29) mmol/L Anion Gap 17 (12-20) BUN 11 (9-16) mg/dL Creatinine 0.83 (0.5-1.4) mg/dL Estim Creat Clear Calc 118.4 Estimated GFR > 60 Random Glucose 120 H (60-115) mg/dL Calcium 9.4 D (8.4-10.2) mg/dL Magnesium 2.0 (1.6-2.6) mg/dL Total Bilirubin 0.2 (0.0-1.0) mg/dL Direct Bilirubin < 0.2 (0.0-0.5) mg/dL AST 39 H (5-37) U/L ALT 71 H (0-40) U/L Alkaline Phosphatase 56 (39-117) U/L Troponin I High Sens (<3.5-35.0) ng/L B-Natriuretic Peptide (<100) pg/mL Total Protein 7.5 (6.5-8.0) g/dL Albumin 4.6 (3.5-5.0) g/dL COVID-19 (KATHERYN) (Negative) COVID-19 Clin Com 12/11/21 12/11/21 Range/Units 09:46 09:46 WBC (4.8-10.8) X10*3/uL RBC (4.60-5.80) X10*6/uL Hgb (14.0-18.0) g/dl Hct (42.0-52.0) % MCV (80.0-98.0) fL MCH (27.0-33.0) pg MCHC (31.0-36.0) g/dl RDW (11.0-16.0) % Plt Count (160-400) X10*3/uL MPV (9.4-12.4) fL Immature Gran % (Auto) (0.0-0.4) % Neut % (Auto) (45-73) % Lymph % (Auto) (20-40) % [place] % (Auto) (2-11) % Eos % (Auto) (0-4) % Baso % (Auto) (0-2) % Lymph # (Auto) (1.2-4.9) X10*3/uL [place] # (Auto) (0.1-1.2) X10*3/uL Eos # (Auto) (0.0-0.4) X10*3/uL Baso # (Auto) (0.0-0.2) X10*3/uL Abs Immat Gran (auto) (0.00-0.03) X10*3/uL Absolute Neuts (auto) (2.0-8.3) x10*3/uL Absolute Nucleated RBC (0.0-0.012) X10*3/uL Nucleated RBC % (auto) (0.0-0.2) /100WBC PT (10.0-13.1) SEC INR (0.9-1.1) APTT (26.0-36.4) SEC Sodium (135-145) mmol/L Potassium (3.3-5.1) mmol/L Chloride (96-108) mmol/L Carbon Dioxide (22-29) mmol/L Anion Gap (12-20) BUN (9-16) mg/dL Creatinine (0.5-1.4) mg/dL Estim Creat Clear Calc Estimated GFR Random Glucose (60-115) mg/dL Calcium (8.4-10.2) mg/dL Magnesium (1.6-2.6) mg/dL Total Bilirubin (0.0-1.0) mg/dL Direct Bilirubin (0.0-0.5) mg/dL AST (5-37) U/L ALT (0-40) U/L Alkaline Phosphatase (39-117) U/L Troponin I High Sens 5.9 (<3.5-35.0) ng/L B-Natriuretic Peptide < 10 (<100) pg/mL Total Protein (6.5-8.0) g/dL Albumin (3.5-5.0) g/dL COVID-19 (KATHERYN) Negative (Negative) COVID-19 Clin Com See Note ECG Data ECG #1: Attestation: I personally reviewed and interpreted this ECG as follows: ECG interpretation date: 12/11/21 ECG interpretation time: 10:59 Prior ECG tracings: available for review Interpretation: Normal sinus rhythm, ventricular rate 78 beats per minute, normal MO interval, nonspecific T-wave abnormality which is unchanged from prior. No ST segment elevations or depressions. Discharge Plan Discharge Clinical Impression: Acute chest wall pain Patient Disposition: Home, Self-Care Additional Instructions: Your workup today was normal and reassuring against any cardiac cause of your pain. Recommend Tylenol and Motrin alternating throughout the day for your pain. Rest no strenuous activity or heavy lifting. Your pain seems to be muscular. Recommend following up with your primary care doctor. If your pain worsens, changes or you develop any new or worsening concerning signs or symptoms call 911 or come back to the ER for further evaluation Prescriptions: No Action omeprazole 20 mg capsule,delayed release(DR/EC) 20 mg PO DAILY 90 Days Qty: 90 1RF dicyclomine 20 mg tablet 20 mg PO TID PRN (Reason: for pain) 90 Days Qty: 270 1RF cetirizine 10 mg Tablet 10 mg PO BEDTIME cyclobenzaprine 10 mg tablet 10 mg PO TID PRN (Reason: muscle spasm) Qty: 14 0RF gabapentin 600 mg tablet 600 mg PO TID lisinopril 10 mg tablet 10 mg PO DAILY venlafaxine 75 mg capsule,extended release 24hr 75 mg PO BEDTIME atorvastatin 40 mg tablet 40 mg PO BEDTIME fluticasone propionate 50 mcg/actuation spray,suspension 1 spray intranasal DAILY metformin 500 mg tablet 1,000 mg PO BID ibuprofen 400 mg tablet 400 mg PO Q6H duloxetine 30 mg capsule,delayed release(DR/EC) 30 mg PO BID sildenafil 100 mg tablet 100 mg PO DAILY PRN (Reason: sexual activity) 30 Days Qty: 30 1RF Rx Instructions: administer 60 minutes before intended activity Interventions: ED Discharge Assessment Last Done: 12/11/21 11:18 Discharge Date/Time: 12/11/21 11:20
[2021-12-11 09:53] LABS: MANUAL DIFF FLAG NO
[2021-12-11 10:03] LABS: Basophils Percent Auto 0.3 % (0-2); Eosinophils Absolute Auto 0.1 X10*3/uL (0.0-0.4); Eosinophils Percent Auto 0.8 % (0-4); Hematocrit 46.6 % (42.0-52.0); Hemoglobin 15.8 g/dl (14.0-18.0); Imm Gran Abs Auto 0.03 X10*3/uL (0.00-0.03); Imm Gran Pct Auto 0.5 % (0.0-0.4); Lymphocytes Absolute Auto 2.4 X10*3/uL (1.2-4.9); Lymphocytes Percent Auto 36.7 % (20-40); Mean Corpuscular HGB Conc 33.9 g/dl (31.0-36.0); Mean Corpuscular Hemoglobin 27.5 pg (27.0-33.0); Mean Corpuscular Volume 81.2 fL (80.0-98.0); Mean Platelet Volume 10.9 fL (9.4-12.4); Monocytes Absolute Auto 0.6 X10*3/uL (0.1-1.2); Neutrophils Absolute Auto 3.4 x10*3/uL (2.0-8.3); Neutrophils Percent Auto 52.7 % (45-73); Platelet Count 200 X10*3/uL (160-400); Red Blood Count 5.74 X10*6/uL (4.60-5.80); Red Cell Distribution Width 14.6 % (11.0-16.0); White Blood Count 6.5 X10*3/uL (4.8-10.8)
[2021-12-11 10:10] LABS: Prothrombin Time 11.9 SEC (10.0-13.1)
[2021-12-11 10:15] LABS: Alanine Aminotransferase 71 U/L (0-40); Albumin Level 4.6 g/dL (3.5-5.0); Alkaline Phosphatase 56 U/L (39-117); Anion Gap 17 (12-20); Aspartate Amino Transferase 39 U/L (5-37); Bilirubin Direct < 0.2 mg/dL (0.0-0.5); Bilirubin Total 0.2 mg/dL (0.0-1.0); Blood Urea Nitrogen 11 mg/dL (9-16); Calcium 9.4 mg/dL (8.4-10.2); Carbon Dioxide 21 mmol/L (22-29); Chloride 100 mmol/L (96-108); Creatinine Clr Calc Pharmacy 118.4; Estimated Glomerular Filt Rate > 60; Glucose Random 120 mg/dL (60-115); Potassium 4.4 mmol/L (3.3-5.1); Sodium 134 mmol/L (135-145); Total Protein 7.5 g/dL (6.5-8.0)
[2021-12-11 10:18] LABS: B Type Natriuretic Peptide < 10 pg/mL (<100); Troponin-I High Sensitivity 5.9 ng/L (<3.5-35.0)
[2021-12-11 10:30] VITALS: BP 122/86; PULSE 82; RESP 18; O2SAT 93
[2021-12-11 10:32] LABS: COVID-19 Test Negative (Negative); IDNOW Serial# 16C4AD1C
[2021-12-11] MEDS: Acetaminophen 325 MG TABLET 975 MG PO (10:32)
--- NOTE | 2021-12-11 10:36 | PC.NURSE ---
pt alert and oriented, skin appropriate for ethnicity, respirations even and unlabored, pt is sating at 93% on room air denies feeling sob. pt is having left sided chest pain since yesterday with movement and tender with touch, ns on the monitor
--- NOTE | 2021-12-11 11:16 | PC.NURSE ---
PT AWAKE, ALERT AND ORIENTED X 3. SKIN WARM AND DRY. RESP UNLABORED. DENIES N/V. NO C/O PAIN PRESENTLY. NO ECTOPY NOTED ON MONITOR. PT STANDING IN ROOM, GETTING DRESSED. AGREEABLE TO DC HOME.
== END 2021-12-11 11:20 | disposition home or self-care (01) ==
PROVIDERS: Physician Assistant; Emergency Provider Emergency Medicine; PCP Internal Medicine
DX: R07.89 Other chest pain (principal); E11.9 Type 2 diabetes mellitus without complications; I10 Essential (primary) hypertension; E78.5 Hyperlipidemia, unspecified; Z79.02 Long term (current) use of antithrombotics/antiplatelets; Z79.899 Other long term (current) drug therapy; Z79.84 Long term (current) use of oral hypoglycemic drugs; Z20.822 Contact with and (suspected) exposure to COVID-19
CPT/HCPCS: 71045; 80048; 80076; 83735; 83880; 84484; 85025; 85610; 85730; 87635; 93005; 99283; 99285

== ENCOUNTER 2022-01-08 14:28 | Outpatient (REF) | payer BC, OTHER, SELFPAY ==
[2022-01-08 16:57] LABS: PSA,Total (Free>4and<10) 0.27 ng/mL (0.00-4.00)
== END 2022-01-08 14:29 | disposition home or self-care (01) ==
LOC: HO.LAB 14:28
PROVIDERS: PCP Internal Medicine; Visit Provider Urology
DX: Z12.5 Encounter for screening for malignant neoplasm of prostate (principal); N52.9 Male erectile dysfunction, unspecified
CPT/HCPCS: 36415; 84153

== ENCOUNTER 2022-06-04 07:26 | Outpatient (REF) | payer BC, SELFPAY ==
[2022-06-04 08:41] LABS: Alanine Aminotransferase 53 U/L (0-40); Albumin Level 4.4 g/dL (3.5-5.0); Alkaline Phosphatase 63 U/L (39-117); Aspartate Amino Transferase 29 U/L (5-37); Bilirubin Direct < 0.2 mg/dL (0.0-0.5); Bilirubin Total 0.4 mg/dL (0.0-1.0); Iron 67 mcg/dL (45-160); Percent Iron Saturation 22 % (15-50); Total Iron Binding Capacity 298 mcg/dL (228-428); Total Protein 7.1 g/dL (6.5-8.0); Unsaturated Iron Binding 231 ug/dL
[2022-06-04 08:55] LABS: Ferritin 242 ng/mL (20-250)
[2022-06-08 23:13] LABS: Prot Elec - Albumin 4.5 g/dL (3.8-4.8); Prot Elec - Alpha1 0.3 g/dL (0.2-0.3); Prot Elec - Alpha2 0.7 g/dL (0.5-0.9); Prot Elec - Beta 1 0.5 g/dL (0.4-0.6); Prot Elec - Beta 2 0.4 g/dL (0.2-0.5); Prot Elec - Gamma 1.2 g/dL (0.8-1.7); Prot Elec - Total Protein 7.5 g/dL (6.1-8.1)
[2022-06-09 07:43] LABS: Anti Nuclear Antibody Screen NEGATIVE (NEGATIVE)
[2022-06-10 00:34] LABS: FIB-ALT 47 U/L (9-46); FIB-Alpha-2-Macroglobulin 279 mg/dL (106-279); FIB-Apolipoprotein A1 90 mg/dL (94-176); FIB-GGT 40 U/L (3-95); FIB-Haptoglobin 59 mg/dL (43-212); FIB-Total Bilirubin 0.3 mg/dL (0.2-1.2); Liver Fibrosis Score 0.59; Liver Fibrosis Stage F3; Nec Inflam Act Grade A1-A2; Nec Inflam Act Score 0.36
== END 2022-06-04 07:27 | disposition home or self-care (01) ==
LOC: HO.LAB 07:26
PROVIDERS: PCP Internal Medicine; Referring Provider Internal Medicine; Visit Provider Internal Medicine Gastroenterology
DX: R14.0 Abdominal distension (gaseous) (principal); R79.89 Other specified abnormal findings of blood chemistry; R10.84 Generalized abdominal pain; K21.9 Gastro-esophageal reflux disease without esophagitis; Z86.010 Personal history of colon polyps
CPT/HCPCS: 36415; 80076; 81596; 82728; 83540; 84165; 86038; 86039

== ENCOUNTER 2022-06-26 08:17 | Outpatient (REF) | payer BC, SELFPAY ==
--- NOTE | ~2022-06-26 | US_ITS ---
EXAMINATION: US ABDOMEN COMPLETE CLINICAL INFORMATION: Other specified abnormal findings of blood chemistry. COMPARISON: CT abdomen and pelvis 09/11/2020. X-ray KUB 05/13/2018 and 11/03/2017. TECHNIQUE: Real-time imaging of the abdominal viscera. FINDINGS: PANCREAS: The head and body are normal. The tail is not well visualized ABDOMINAL AORTA: The proximal and mid abdominal aorta normal in caliber. The distal abdominal aorta is not visualized. INFERIOR VENA CAVA: Visualized portions are normal. LIVER: Liver echotexture is increased probably representing fatty infiltration. Hypoechoic areas adjacent to the gallbladder, characteristic location of focal fatty sparing. No other focal hepatic lesion. The liver is upper normal in size. Liver contour is normal. There is no intrahepatic biliary duct dilatation seen. GALLBLADDER: Normal. The gallbladder is physiologically distended without evidence of stones, sludge, polyps, wall thickening or pericholecystic fluid. COMMON BILE DUCT: Normal in caliber measuring 0.4 cm in diameter. RIGHT KIDNEY: Normal. No hydronephrosis. No renal calculi or focal parenchymal lesions. The kidney measures 12.4 cm in maximum dimension. LEFT KIDNEY: Normal. No hydronephrosis. No renal calculi or focal parenchymal lesions. The kidney measures 12.5 cm in maximum dimension. SPLEEN: Normal. The spleen measures 10.5 cm in maximum dimension. FREE FLUID: None. US/US abdomen complete IMPRESSION: Echogenic liver suggestive of fatty infiltration. Limited visualization of the pancreas and aorta.
== END 2022-06-26 08:18 | disposition home or self-care (01) ==
LOC: HO.US 08:17
PROVIDERS: PCP Internal Medicine; Visit Provider Internal Medicine Gastroenterology
DX: R79.89 Other specified abnormal findings of blood chemistry (principal)
CPT/HCPCS: 76700

== ENCOUNTER 2022-11-20 07:20 | Outpatient (REF) | payer BC, SELFPAY ==
--- NOTE | ~2022-11-20 | XR_ITS ---
EXAMINATION: XR CERVICAL SPINE CLINICAL INFORMATION: Cervicalgia. COMPARISON: None available. TECHNIQUE: Frontal, odontoid, bilateral oblique and lateral views of the cervical spine were obtained. FINDINGS: Vertebral body heights and alignment are normal. At C3-C4, there is moderate disc space narrowing. At C4-C5 and C5-C6, there is mild disc space narrowing. The remaining disc spaces are relatively well-maintained. No acute fracture or spondylolisthesis is seen. There is multi-level cervical spondylosis, most pronounced at C5-C6 and C6-C7, where it is marked. The posterior elements are intact. There is mild right neural foraminal narrowing at C3-C4, and mild left neural foraminal narrowing is seen at C5-C6. The dens is intact. No prevertebral soft tissue swelling is seen. XR/XR cervical spine 5V IMPRESSION: 1. There is multi-level cervical degenerative disc disease, spondylosis and facet arthropathy. Degenerative disc disease is most pronounced at C3-C4, where it is moderate. 2. There is mild right neural foraminal narrowing at C3-C4, and mild left neural foraminal narrowing is seen at C5-C6.
[2022-11-20 09:48] LABS: Estimated Average Glucose 126 mg/dL
[2022-11-20 10:25] LABS: Alanine Aminotransferase 29 U/L (0-40); Albumin Level 4.4 g/dL (3.5-5.0); Alkaline Phosphatase 55 U/L (39-117); Anion Gap 11 (12-20); Aspartate Amino Transferase 19 U/L (5-37); Bilirubin Total 0.3 mg/dL (0.0-1.0); Blood Urea Nitrogen 12 mg/dL (9-16); Calcium 9.2 mg/dL (8.4-10.2); Carbon Dioxide 24 mmol/L (22-29); Chloride 107 mmol/L (96-108); Cholesterol 101 mg/dL (<200); Estimated Glomerular Filt Rate > 60; Glucose Random 104 mg/dL (60-115); HDL Cholesterol 27 mg/dL (>40); LDL Cholesterol Calculated 64 mg/dL (<100); Potassium 4.1 mmol/L (3.3-5.1); Sodium 138 mmol/L (135-145); Total Protein 7.3 g/dL (6.5-8.0); Triglycerides 52 mg/dL (<150)
== END 2022-11-20 07:21 | disposition home or self-care (01) ==
LOC: HO.LAB 07:20
PROVIDERS: PCP Internal Medicine; Visit Provider Internal Medicine Gastroenterology
DX: E11.8 Type 2 diabetes mellitus with unspecified complications (principal); K21.9 Gastro-esophageal reflux disease without esophagitis; R79.89 Other specified abnormal findings of blood chemistry; R14.0 Abdominal distension (gaseous); R10.84 Generalized abdominal pain; M54.2 Cervicalgia; Z86.010 Personal history of colon polyps; Z79.899 Other long term (current) drug therapy
CPT/HCPCS: 36415; 72050; 80053; 80061; 83036

== ENCOUNTER 2022-11-20 07:20 | Outpatient (AMB) | payer BC, MEDICAID, SELFPAY ==
--- NOTE | 2022-11-20 07:39 | MHC.OFFVIS ---
Intake Vital Signs 11/20/22 07:40 Height 5 ft 10 in Weight 189 lb 9.561 oz BMI 27.2 BP 123/83 Blood Pressure Location Lt brachial Position Sitting Pulse 82 Intake Visit Reasons: 6 month f/u per Intake Note: Laurence presents in the office as a 6 month follow up. CC: He states that he is not having any concerns at this time. Allergies clavulanic acid [From Augmentin] Allergy (Mild, Verified 11/20/22 07:41) Itching Penicillins Allergy (Unknown, Verified 11/20/22 07:41) ITCHING Medication List - Last Reconciled 11/20/22 by Franck Madrid MD atorvastatin 40 mg PO BEDTIME cetirizine 10 mg PO DAILY duloxetine 30 mg PO BID empagliflozin (Jardiance) 10 mg PO DAILY gabapentin 600 mg PO TID lisinopril 10 mg PO DAILY metformin 1,000 mg PO BID methocarbamol 750 mg PO BID omeprazole 20 mg PO DAILY 90 days venlafaxine ER 75 mg PO BEDTIME HPI 6 month f/u per HPI Details GI CLINIC VISIT FOR THIS 52 YEAR OLD AA MALE FOR FU of GERD, dysphagia, abdominal pain. ? CHRONIC ILLNESSES:?Hypertension, migraine headaches, asthma,, anxiety. ?[facility], [facility] normal CBC, normal LFTs except elevated ALT of 62 ? 01/2018 negative celiac serology, normal CRP amylase and lipase ? IMAGING STUDIES 06/2022 ABD US SHOWED: Echogenic liver suggestive of fatty infiltration. Limited visualization of the pancreas and aorta. 08/[address] scan showed: ? IMPRESSION: ? Several bladder calcifications, largest measuring 4 x 6 mm. ? Differential would include bladder wall calcifications, partial volume ? averaging with calcifications outside the bladder and bladder stones. ? There is a focal area of bladder wall thickening along the anterior ? upper bladder wall. Diverticulosis. No evidence of diverticulitis. ? Small umbilical hernia containing fat. ?03/2017 UGI SBFT showed: ? IMPRESSION: ? 1. Tiny hiatal hernia with no significant gastroesophageal reflux. ? 2. No evidence of peptic ulcer disease. ? 3. No evidence of small bowel obstruction. ENDOSCOPIC STUDIES:? 08/2020 EGD AND COLON SHOWED: ESOPHAGUS: Focal esophagitis STOMACH:? Nodular gastritis - biopsies were negative for Helicobacter pylori Colonoscopy Findings: No polyps were detected Biopsies were obtained from the right, left colon and rectum - normal Moderate diverticulosis seen in the left colon Moderate hemorrhoids on retroflexed exam. Plan: Repeat Colonoscopy interval based on path results - in 5 years due to a hx of adenomatous colon polyp. 10/2015 COLON[address]COPY WAS PERFORMED BY DR[address] LEIGH: Two small (a hyperplastic and an adenomatous) polyps were removed There was a short 3 cms area of suspected proctitis extending from the dentate line. Biopsies showed rectal mucosa with mild nonspecific chronic inflammation. 12/2017 EGD WAS PERFORMED FOR EVALUATION OF GERD AND OROPHARYNGEAL DYSPHAGIA: EGD showed gastritis and biopsies were negative for Helicobacter pylori. Esophagus: Tortuous esophagus with increased tertiary contractions without stricture. Scanty white exudates in the proximal esophagus - biopsies obtained to check for EOE. GE junction at 40 cms. Focal esophagitis at GE junction with a single erosion. A 4-5 mm benign appearing hyperplastic nodule in the distal esophagus just above the GE junction. Dysphagia was felt to be due to esophageal motility disorder. ?TODAY'S VISIT Lab and US results reviewed Notes improvement in bloating. Has been taking Dicyclomine less frequently Using Dicyclomine three times a day with improvement in symptoms Denies constipation and has a BM once a day with intermittent straining. PAST VISIT: Continues to have abdominal pain and takes Dicyclomine three times a day. Stopped when he ran out and has resumed taking it. Intermittent sore throat and intermittent regurgitation Denies constipation or diarrhea.? Notes BRBPR on the TP. Denies rectal or anal pain. Had a Colonoscopy 4-5 yrs ago Patient denies major cardiac or pulmonary problems, loud snoring or sleep apnea Reports negative cardiac workup in the past for evaluation of chest pain and shortness of breath Denies problems with anesthesia in the past. Denies being on chronic anticoagulation. Patient denies known family history of colon polyps, colon cancer or other GI malignancies. Brother of leukemia Sister of breast cancer. ? Burning and soreness at the xiphoid for the past 2 years - rarely goes away ? Symptoms are constant with intermittent worsening. ? Unable to identify any triggering factors. ? Denies worsening of pain with deep breathing, coughing or lifting. ? Feels it more when he takes greasy food like pizza. ? Complains of pain all over - ? due to fibromyalgia. ? Denies fever, chills or sweating. ? Pain is sometimes associated with a warm feeling radiating to the ears and face. ? Denies facial flushing. ? Denies change in bowel habits, black stools or rectal bleeding. ? Takes fibre at night and bowel movements have been pretty good. ? Had dysphagia in the past which has improved. ? Feels he has bad gas causing rib pain. ? Notes partial relief of rib pain when he passes gas. ? Has heartburn and denies nausea or vomiting, change in appetite or weight. ? PAST GI HISTORY BY REVIEW OF MEDICAL RECORDS: ? Pt has been followed by Jia Joy since 09/2017: ? 47 y/o male here for follow up on upper abdominal pain. He was last seen by Dr. Kinsey 08/06/17 and at that time labs were ordered along with a CT and he was started on vitamin D supplementation. ? The CT showed several bladder calcifications and he should be referred to urology. Otherwise there was a small fat containing hernia but no other remarkable findings to explain his pain. Labs showed mildly elevated ALT at 42, CBC was normal and inflammatory markers were normal. ? He is seeing a urologist now, and will inform him of the CT results. ? He says that the pain is in the side in his ribcage and in between the rib spaces. He also has pain in the lower to mid sternal area where the ribs would attach. The pain is worse with pushing and with sitting and waling and is described as burning. At times he will have some relief with otc gas x. ? He also will have a bitter taste in his mouth with belching despite being on omeprazole. He has occasional breakthrough heartburn that he takes TUMS for. The pain is at time better with heat and massage. When it hurts very badly he can not breathe well. He has had CXR in the past when he presented to the ER, and to his knowledge he has not had any cardiac problems. ? He had a brother how just from leukemia, and the hx of cardiac disease is not known on his fathers side of the family. ? He also sufferers at time from constipation and will have more pain in his flanks accompanied by dizziness with straining on the toilet. When this happens he has small, hard round stools. I think that a trial of better bowel motility may be a reasonable approach as well. He has tried occasional MOM but it does not produce much of a result. We will start with MiraLax and explore if this is a contributing GI problem. ? Because of the bladder calcifications and the CVA tenderness I will get a UA, and if blood is in the sample will consider if renal US is a good idea to see if renal stones are a contributor. ? Pt was seen on 07/01/18 by Jia Joy, [facility]: ? Assessments ? 1. Generalized abdominal pain - R10.84 (Primary) ? 2. Esophageal dysphagia - R13.10 ? 3. Gastroesophageal reflux disease with esophagitis - K21.0 ? Treatment ? 1. Generalized abdominal pain ? Refill Simethicone Capsule, 180 MG, 1 capsule after meals and at bedtime as needed, Orally, three times a day, 30 days, 90 Capsule, Refills 3 ? Notes: His PCP thnks it may be FMS and started him on gabapetin and a TCA with some good relief. This certainly would explain his more systemic sx of pain and perceived swelling. ? 2. Esophageal dysphagia ? Notes: This has improved with only occasional upper throat swallowing problems he attributes to PNDS and allergies. ? 3. Gastroesophageal reflux disease with esophagitis ? Refill Omeprazole Capsule Delayed Release, 20 mg, 1 capsule, Orally, Once a day, 30 days, 30 Capsule, Refills 3 ? 4. Others ? Notes: WHile he has generally improved since I first started seeing him, I would like to have an MD look at him and his case to see if there is anything else about his unusual presentation and pain that has been missed. He may return to regular follow up with me after this depending on his comfort level. ? Follow Up ? next follow up with an MD for second look (Reason: xyphoid/abd pain PFSH Medical History COVID-19 vaccine series completed Pain of multiple extremities Neck pain History of lumbar puncture Back pain SHERLY (obstructive sleep apnea) Palpitations Anxiety Migraine Hyperlipidemia, unspecified Essential hypertension Type 2 diabetes mellitus with unspecified complications Surgical History History of umbilical hernia repair History of esophagogastroduodenoscopy (EGD) Hx of colonoscopy Family History Mother Diabetes Father Myocardial infarction Social History Alcohol intake: never Patient Tobacco Use Status: Never used Tobacco Review of Systems Const All systems reviewed & are unremarkable except as noted in HPI and below Physical Exam Vital Signs: Last Vital Signs Pulse 82 11/20/22 07:40 BP 123/83 11/20/22 07:40 BMI result Body Mass Index 27.2 Const General: healthy appearing and no acute distress Nutritional Appearance: overweight Orientation/consciousness: patient oriented x3 Limitations: no limitations HEENT Head: Yes normal to inspection Ears: hearing grossly normal bilaterally Eyes Sclerae: sclerae normal Pupils: Equal, round and reactive pupils present Neck Neck: Yes normal visual inspection Chest Chest palpation & inspection: normal inspection of the chest Resp Effort & Inspection: normal respiratory effort Auscultation: clear to auscultation bilaterally Cardio Palpation: normal PMI Rate: regular rate Rhythm: regular rhythm Heart sounds: S1 normal heart sound present, S2 normal heart sound present and no murmurs GI Palpation (GI): Soft to palpation, nontender and No hepatosplenomegaly present Auscultation: normal bowel sounds Rectal Exam - Male: Yes deferred Skin General skin exam: no rashes or lesions noted Neuro General: patient oriented x3, gait normal and moves all extremities Cranial nerves: Yes Equal, round and reactive pupils present Psych Appearance: grossly normal Mental Status: mental status grossly normal Assessment & Plan Assessment & Plan (1) Elevated LFTs: Comment: Elevated LFTs likely due to fatty liver related to DM Hepatitis B and C antibodies and celiac serologies were negative in the past. Code(s): R79.89 - Other specified abnormal findings of blood chemistry (2) Abdominal bloating: Code(s): R14.0 - Abdominal distension (gaseous) (3) Generalized abdominal pain: Code(s): R10.84 - Generalized abdominal pain (4) GERD (gastroesophageal reflux disease): Code(s): K21.9 - Gastro-esophageal reflux disease without esophagitis (5) History of colon polyps: Comment: 10/2015 COLONOSCOPY WAS PERFORMED BY DR[address] LEIGH: Two small (a hyperplastic and an adenomatous) polyps were removed There was a short 3 cms area of suspected proctitis extending from the dentate line. 08/2020 colonoscopy showed diverticulosis and no polyps were detected Repeat colonoscopy is advised in 5 years (Due 08/2025) Code(s): Z86.010 - Personal history of colonic polyps Plan 52-year-old male with Hypertension, migraine headaches, asthma,, anxiety seen for follow-up of abdominal pain/ burning and soreness of xiphoid which rarely goes away. No specific triggers. Feels he has bad gas causing rib pain and notes partial relief of rib pain when he passes gas. Past evaluation with upper GI small-bowel follow-through abdominal CT scan did not reveal any etiology for his symptoms. He likely has IBS with constipation. Patient notes partial improvement in symptoms with dicyclomine 3 times daily. He was advised to start taking omeprazole 20 mg daily for GERD. 08/2020 EGD and colonoscopy were performed and findings as noted above. 06/04/22 Pt advised to continue Dicyclomine and add senna 2-3 times a week as needed for constipation. 11/20/22 Bloating improved LFTs decreased with wt loss Follow-up in 6 months. Orders: Orders Liver Panel Today R79.89 - Other specified abnormal findings of blood chemistry Hemoglobin A1c Today E11.8 - Type 2 diabetes mellitus with unspecified complications Medications: New sennosides (senna) 8.6 mg PO BEDTIME 90 days PRN 30 caps 1RF constipation Coding Level of Care Code Est Pt Level 4 (45506) Diagnoses Elevated LFTs R79.89 Abdominal bloating R14.0 Generalized abdominal pain R10.84 GERD (gastroesophageal reflux disease) K21.9 History of colon polyps Z86.010 Time Spent (min) 20
[2022-11-20 07:40] VITALS: BP 123/83; PULSE 82; BMI 27.2
== END 2022-11-20 08:14 | disposition home or self-care (01) ==
PROVIDERS: Visit Provider Internal Medicine Gastroenterology
DX: R79.89 Other specified abnormal findings of blood chemistry (principal); R14.0 Abdominal distension (gaseous); R10.84 Generalized abdominal pain; K21.9 Gastro-esophageal reflux disease without esophagitis; Z86.010 Personal history of colon polyps
CPT/HCPCS: 99214

== ENCOUNTER 2022-12-17 10:53 | Outpatient (AMB) | payer BC, SELFPAY ==
--- NOTE | 2022-12-17 11:00 | MHC.OFFVIS ---
Intake Vital Signs 12/17/22 11:04 Height 5 ft 10 in Weight 190 lb 2 oz BMI 27.3 BP 152/88 H Blood Pressure Location Rt brachial Position Sitting Pulse 75 Pulse Source Pulse Oximeter Pulse Oximetry (%) 99 Oxygen Delivery Method Room Air Intake Visit Reasons: Cervicalgia/ Confirmed. 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 HPI Details Patient is a pleasant 52 years old male with medical history of chronic neck and back pain, cervical DDD, fibromyalgia, SHERLY/CPAP, HTN, diabetes (A1C=7.0), anxiety, tension and migraine headaches, presents today for evaluation of neck pain. Patient was previously seen at our office over 3 years ago as well as [facility]. He completed series of diagnostic and therapeutic cervical injections in the past with minimal to no pain relief. 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 Neck pain is axial and also discogenic with radicular symptoms into both shoulders, lateral arms and upper back regions as well as fibromyalgia related pain. 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 His neck pain is also worse on the left. He was previously deemed non surgical candidate in 2019. Patient currently manages his neck pain with TENS unit, monthly acupuncture, ice/heat therapy, home exercise program with daily neck stretches, gabapentin, and methocarbamol with continued symptoms. Patient is interested to explore interventional treatments, except cervical SCS trial, for his chronic neck pain. He also experiences low back pain with movements and walking. Pain affects his daily activities, functioning, sleep, social activities, mood and quality of life. Denies any fever, visual changes, shortness of breaths, chest pain or pressure, gait imbalances, bladder or bowel dysfunction or saddle anesthesia. Neck Disability Index score:?20?/?50?=?40.0?% (moderate) Pertinent Positives: I can look after myself normally but it causes extra pain; I can lift heavy weights but it gives extra pain; I can read as much as I want to with moderate pain in my neck; I can concentrate fully when I want to with slight difficulty; I can only do my usual work, but no more; I can drive my car as long as I want with moderate pain in my neck; My sleep is mildly disturbed (1-2 hrs sleepless); I am able to engage in most, but not all of my usual recreation activities because of pain in my neck; The pain is very severe at the moment; I have severe headaches, which come frequently. PRIOR 11/29/2019 Dr. Mendoza: Mr. Paulino is very pleasant 49 years old gentleman who who is here for the follow-up after we performed C4-C5 C6 diagnostic medial branch block. He reports no pain relief even for 1 hour. His pain stayed the same. [facility] pain management have sent me the information injections he had done. Those were to epidural steroid injection 1 in winter of 2018 and 1 in the summer of 2018. The patient reports that those injections were not helping him. Therefore I consider that this patient interventional options are exhausted, I offered him and he agreed to go for neuromodulation. I explained to him intrathecal drug delivery system pain pump he is interested in the procedure. I will send him for psych evaluation. I will see him after psych evaluation is done and schedule him for a trial. Prior: History of complains on pain on left side of the neck. He reports that pain radiates into the left shoulder and left thoracic spine. He reports that his pain prevents him from sleeping normally he cannot do all activities of daily living he can take care of himself but he cannot function normally. His pain is most severe in afternoon weather changes aggravate his pain. He reports his pain in terms of tissue damage is sharp cutting lacerating tugging pulling ranging tingling stinging sort of a pain he reports tingling and stinging sensation in the forearm but it does not radiate into the hand. He was subject of multiple evaluations in the past. He went for physical therapy in 2018. He reports that after 7 sessions the pain did not improve. He saw a neurosurgeon Dr. Magana, who did not recommend any surgery. referred him to [facility] pain management. He received 3 injections 1 needle at time 2 weeks apart. He reports pain aggravation in the not pain improvement with injections. I suspect that those injections were epidural steroid injections. Although it is strange because series of 3 epidural steroid injections are not being done on of it is anymore. He was attending chiropractor in the past but not to the neck issue. He tried NSAIDs for his pain, those do not help his pain.. He is on gabapentin and amitriptyline which helped his pain minimally. He is not taking any blood thinners. His past medical history significant for diabetes elevated cholesterol and hypertension. His past surgical history is negative. 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 He denies smoking cigarettes drinking alcohol using recreational drugs. Location Neck radiates down bilateral shoulders and upper back Duration Chronic pain for 7 years Characteristics of symptom or complaint Aching, burning, numbness, sore, spasming, tingling Aggravating or associated factors Movements, turning head from side to side, stress, weather changes, driving Relieving factors Ice/ heat, acupuncture, methocarbamol, gabapentin, Tylenol, NSAIDs Treatment PT in 2019 no improvement, neck injections--cervical MBBs and ESIs [facility] Medical History (Updated 12/17/22 @ 11:56 by ROSA Johnson) Mixed hyperlipidemia Muscle spasm Fibromyalgia COVID-19 vaccine series completed Pain of multiple extremities Neck pain History of lumbar puncture Back pain SHERLY (obstructive sleep apnea) Palpitations Anxiety Migraine Hyperlipidemia, unspecified Essential hypertension Type 2 diabetes mellitus with unspecified complications Surgical History History of umbilical hernia repair History of esophagogastroduodenoscopy (EGD) Hx of colonoscopy Family History Mother Diabetes Father Myocardial infarction Social History Alcohol intake: never Patient Tobacco Use Status: Never used Tobacco Review of Systems Const All systems reviewed & are unremarkable except as noted in HPI and below Physical Exam Vital Signs: Last Vital Signs Pulse 75 12/17/22 11:04 BP 152/88 H 12/17/22 11:04 Pulse Ox 99 12/17/22 11:04 Oxygen Delivery Method Room Air 12/17/22 11:04 BMI result Body Mass Index 27.3 General: Appears afebrile. Alert and oriented. Mood and affect appropriate. Follows and participates in conversation appropriately. Respiratory effort is unlabored. No cough. Able to transition from sit to stand unassisted. Ambulates with bilaterally normal heel strike and toe off. Neck Other: Patient with decreased cervical ROM in all planes/especially with bilateral lateral rotation. Reports increased pain with cervical extension and flexion. Spurling compression test equivocal. Pain is unchanged by Spurling maneuver with retraction. Elvey's tension test positive bilaterally, with radiation of pain from neck to wrists bilaterally, worse on the left. Lhermitte's test was negative. DTR intact, +2 and symmetrical. Patient demonstrated 5/5 right and 4/5 left motor strength of bilateral upper extremities. 2 + radial pulses. Significant tightness throughout left upper trapezius as well as TTP throughout bilateral upper trapezius muscles. No paravertebral tenderness over facet joint on affected side. Multiple taut bands palpated throughout bilateral upper trapezius muscles. Neck: Yes normal visual inspection, Yes no lymphadenopathy, Yes no meningeal signs, Yes supple, No anterior neck swelling, Yes no JVD, No prominent supraclavicular fat pad and No prominent dorsocervical fat pad Back/Spine/Pelvis Cervical Spine: No collar present, No Lhermitte's sign positive, cervical muscular tenderness, pain with cervical ROM, No Cervical spine scars present, cervical spasm, No Cervical spine tenderness and No step off deformity Thoracic/Lumbar Spine: thoracic and lumbar spine normal to inspection, Thoracic/lumbar spine scar(s), Lasegue's sign negative, straight leg raise negative bilaterally, pain with thoraco-lumbar ROM, paraspinal muscle tenderness, No thoracic spinal tenderness and lumbar spinal tenderness at L4 and at L5 Neuro General: no meningeal signs Results Reviewed Results Reviewed: XR CERVICAL SPINE 11/20/22 CLINICAL INFORMATION: Cervicalgia. FINDINGS: Vertebral body heights and alignment are normal. At C3-C4, there is moderate disc space narrowing. At C4-C5 and C5-C6, there is mild disc space narrowing. The remaining disc spaces are relatively well-maintained. No acute fracture or spondylolisthesis is seen. There is multi-level cervical spondylosis, most pronounced at C5-C6 and C6-C7, where it is marked. The posterior elements are intact. There is mild right neural foraminal narrowing at C3-C4, and mild left neural foraminal narrowing is seen at C5-C6. The dens is intact. No prevertebral soft tissue swelling is seen. IMPRESSION: 1. There is multi-level cervical degenerative disc disease, spondylosis and facet arthropathy. Degenerative disc disease is most pronounced at C3-C4, where it is moderate. 2. There is mild right neural foraminal narrowing at C3-C4, and mild left neural foraminal narrowing is seen at C5-C6. MR CERVICAL SPINE WITHOUT CONTRAST 11/06/20 CLINICAL INFORMATION: Radiculopathy. COMPARISON: Cervical spine MRI 01/15/2017. FINDINGS: Straightening the cervical lordosis. There is a partially imaged rightward convex scoliotic curvature of the thoracic spine. Vertebral body heights are maintained. Disc volumes are preserved. There is no bone marrow edema. There are no acute fractures. The craniocervical junction is unremarkable. Accounting for artifact there is no definite cord signal abnormality. The cervical arterial flow voids are maintained. No significant extraspinal soft tissue findings. C2-C3: Shallow right paracentral disc protrusion mildly narrows the right central canal and slightly flattens the right ventral cord. No significant foraminal stenosis. C3-C4: Disc osteophyte mildly narrows the central canal. Uncovertebral joint hypertrophy and hypertrophic facet arthropathy result in moderate right and mild left foraminal stenosis. C4-C5: Shallow central disc protrusion flattens the ventral cord and mildly narrows the central canal, unchanged. Uncovertebral joint spurring and facet arthropathy result in mild right-sided foraminal encroachment. C5-C6: A shallow central disc protrusion flattens the ventral cord, mildly narrowing the central canal. Uncovertebral joint spurring results in similar moderate left-sided foraminal stenosis. C6-C7: A shallow left paracentral disc protrusion mildly narrows the central canal and slightly flattens the ventral cord, unchanged. Uncovertebral joint spurring results in similar moderate left-sided foraminal stenosis. C7-T1: Slight annular disc bulge. Uncovertebral joint spurring and facet arthropathy result in similar mild to moderate bilateral foraminal stenosis. IMPRESSION: Stable appearing multilevel cervical spondylosis with disc protrusions resulting in unchanged flattening of the cervical cord and mild narrowing of the central canal at the C2-C3, C4-C5, C5-C6, and C6-C7 levels. Varying degrees of mild to moderate bilateral foraminal stenosis throughout the cervical spine remain stable. Assessment & Plan Assessment & Plan (1) Muscle spasm: Code(s): M62.838 - Other muscle spasm (2) Fibromyalgia: Code(s): M79.7 - Fibromyalgia (3) Degenerative disc disease, cervical: Code(s): M50.30 - Other cervical disc degeneration, unspecified cervical region (4) Cervical spondylosis: Code(s): M47.812 - Spondylosis without myelopathy or radiculopathy, cervical region (5) Cervical radicular pain: Code(s): M54.12 - Radiculopathy, cervical region Plan Will obtain MRI of the cervical spine to assess for neural integrity and compression. Recent cervical spine xray was reviewed with patient. Patient has tried NSAIDs, acetaminophen, gabapentin, PT, acupunture, TENS unit, home exercise program with minimal improvements. Pain appears to be a combination of facetogenic and discogenic with left sided radicular pain. Will consider interventions targeted towards these pain generators based on the MRI results. Patient will return to the clinic to discuss results of the MRI when it is done and consider interventional therapy as indicated. Briefly discussed neuromodulation with Sprint PNS trial for axial cervical pain. Patient will consider Sprint device but is not interested in SCS trial as this was discussed in [address] Mendoza. Patient requests refill for lisinopril as he will be out of Lisinopril in 2 days and has contacted his PCP office for refill but has not received his refill. He is concerned for increased BP and does not want to miss his daily BP meds doses as neck pain has been increasing his BP as well. Refill provided and encouraged patient to follow up with his PCP office for further refills. All questions and concerns have been answered and patient agreed with the plan. Follow up for MRI results and sooner as needed. Orders: Orders MR cervical spine wo con Today M47.812 - Spondylosis without myelopathy or radiculopathy, cervical region, M50.30 - Other cervical disc degeneration, unspecified cervical region, M54.12 - Radiculopathy, cervical region Medications: Changed From lisinopril 10 mg PO DAILY I10 - Essential (primary) hypertension To lisinopril 10 mg PO DAILY 90 days 90 tabs 0RF HTN I10 - Essential (primary) hypertension From methocarbamol 750 mg PO BID - Other muscle spasm To methocarbamol 750 mg PO TID 30 days PRN 90 tabs 3RF muscle spasm - Other muscle spasm Coding Level of Care Code New Pt Level 4 (86377) Diagnoses Muscle spasm M62.838 Fibromyalgia M79.7 Degenerative disc disease, cervical M50.30 Cervical spondylosis M47.812 Cervical radicular pain M54.12
[2022-12-17 11:04] VITALS: BP 152/88; PULSE 75; O2SAT 99; BMI 27.3
== END 2022-12-17 11:47 | disposition home or self-care (01) ==
PROVIDERS: PCP Internal Medicine; Visit Provider Nurse Practitioner Family
DX: M62.838 Other muscle spasm (principal); M79.7 Fibromyalgia; M50.30 Other cervical disc degeneration, unspecified cervical region; M47.812 Spondylosis without myelopathy or radiculopathy, cervical region; M54.12 Radiculopathy, cervical region
CPT/HCPCS: 99204

== ENCOUNTER → 2022-12-17 10:53 | Outpatient (BNVA) | payer BC, SELFPAY | PROVIDERS: PCP Internal Medicine; Visit Provider Nurse Practitioner Family ==

== ENCOUNTER 2023-01-14 16:18 | Outpatient (REF) | payer BC, SELFPAY ==
[2023-01-14 18:15] LABS: Prostate Specific Antigen 0.32 ng/mL (<0.05-4.0)
[2023-01-19 13:53] LABS: Testosterone, Total 263 ng/dL (250-1100)
== END 2023-01-14 16:19 | disposition home or self-care (01) ==
LOC: HO.LAB 16:18
PROVIDERS: PCP Internal Medicine; Visit Provider Urology
DX: Z12.5 Encounter for screening for malignant neoplasm of prostate (principal); E11.69 Type 2 diabetes mellitus with other specified complication; N52.1 Erectile dysfunction due to diseases classified elsewhere
CPT/HCPCS: 36415; 84153; 84403

== ENCOUNTER 2023-01-20 09:31 | Outpatient (AMB) | payer BC, SELFPAY ==
--- NOTE | 2023-01-20 09:34 | MHC.OFFVIS ---
Intake Intake Visit Reasons: 1Y PSA/Testosterone(pending) Intake Note: Patient is Present for Follow Up labs Urology Medication: None Antibiotic Allergies: Penicillins Blood Thinners: none Pharmacy: [facility] Allergies clavulanic acid [From Augmentin] Allergy (Mild, Verified 01/20/23 09:39) Itching Penicillins Allergy (Unknown, Verified 01/20/23 09:39) ITCHING HPI HPI Comments History of Present Illness Details Laurence is a pleasant [place] male. He is seen for the following urologic conditions - epididymal cyst - erectile dysfunction Borderline testosterone Has mild fatigue Willing to try daily tadalafil Prescription provided Erectile dysfunction associated with diabetes Progressive Can obtain but not maintain erection Does have treatment for dyslipidemia, diabetes, depression Prior evaluation 2018 for atherosclerotic vascular disease. ECG, Holter, echo performed. LVEF 60% with mild diastolic dysfunction. Normal myocardial perfusion study. Exercise stress test 10.5 minutes on Kuldip protocol. Current medication 100 mg sildenafil on demand Labs - 01/03 P 0.3, 01/04 P 0.3, T 263 Epididymal cyst Stable right side Decreasing size of left testicle Yearly review [facility] Medical History Mixed hyperlipidemia Muscle spasm Fibromyalgia COVID-19 vaccine series completed Pain of multiple extremities Neck pain History of lumbar puncture Back pain SHERLY (obstructive sleep apnea) Palpitations Anxiety Migraine Hyperlipidemia, unspecified Essential hypertension Type 2 diabetes mellitus with unspecified complications Surgical History History of umbilical hernia repair History of esophagogastroduodenoscopy (EGD) Hx of colonoscopy Family History Mother Diabetes Father Myocardial infarction Social History Alcohol intake: never Patient Tobacco Use Status: Never used Tobacco Assessment & Plan Assessment & Plan (1) Erectile dysfunction associated with type 2 diabetes mellitus: Code(s): E11.69 - Type 2 diabetes mellitus with other specified complication; N52.1 - Erectile dysfunction due to diseases classified elsewhere (2) Low testosterone: Code(s): R79.89 - Other specified abnormal findings of blood chemistry Plan Trial daily tadalafil Orders: Orders Prostate Specific Antigen 6 Months R79.89 - Other specified abnormal findings of blood chemistry Testosterone, Total 6 Months R79.89 - Other specified abnormal findings of blood chemistry Medications: New tadalafil 5 mg PO DAILY 90 tabs 1RF sexual activity 90 days N52.01 - Erectile dysfunction due to arterial insufficiency, R79.89 - Other specified abnormal findings of blood chemistry Patient Instructions: Imaging studies, laboratory and physical exam results were discussed and reviewed in detail. No major barriers to patient understanding were identified. An opportunity to ask questions regarding the treatment plan was provided. All questions were answered. The patient expressed understanding and agreement with the above treatment plan. The patient is aware they should contact our office by phone for worsening of their current condition or the appearance of new urologic symptoms. Compliance is encouraged with any medications and followup testing that is ordered. It is a privilege to participate in the urologic care of your patient. If you have any questions or concerns regarding treatment for the above conditions, or other urologic issues, please do not hesitate to contact me. The office telephone contact is [phone]. This note is constructed using voice recognition software. While every effort has been made to ensure accuracy sole dyer errors may have been included. Yours sincerely, Dr Varinder Sibley MD, [facility] - Urology Providers of Expert, Compassionate Care for the Genitourinary System Coding Level of Care Code Est Pt Level 4 (64820) Diagnoses Erectile dysfunction associated with type 2 diabetes mellitus E11.69; N52.1 Low testosterone R79.89
== END 2023-01-20 09:50 | disposition home or self-care (01) ==
PROVIDERS: Visit Provider Urology
DX: R79.89 Other specified abnormal findings of blood chemistry (principal); N52.1 Erectile dysfunction due to diseases classified elsewhere; E11.69 Type 2 diabetes mellitus with other specified complication
CPT/HCPCS: 99214

== ENCOUNTER → 2023-01-20 09:31 | Outpatient (BNVA) | payer BC, SELFPAY | PROVIDERS: Visit Provider Urology ==

== ENCOUNTER 2023-01-21 07:24 | Outpatient (REF) | payer BC, SELFPAY ==
--- NOTE | ~2023-01-21 | MR_ITS ---
EXAMINATION: MR CERVICAL SPINE WITHOUT CONTRAST CLINICAL INFORMATION: Cervical radiculopathy. COMPARISON: Cervical spine MRI from 11/06/2020. TECHNIQUE: MRI of the cervical spine was obtained using routine sequences without contrast. FINDINGS: Straightening of the normal cervical lordosis. Mild degenerative anterolisthesis of C7 on T1. Moderate degenerative disc disease from C3-T1. Associated mixed Modic type discogenic endplate changes including mild Modic type I discogenic edema at C2-C3, C5-C6, and C6-C7. No additional suspicious marrow edema. The vertebral body heights are well-maintained. No demonstrated spinal cord signal abnormalities. Limited evaluation of the soft tissues of the neck without demonstrated abnormalities. The flow voids of the major cervical vessels are maintained. Normal appearance of the cervicomedullary junction and visualized posterior fossa. SPINAL LEVELS: C2-C3: Moderate disc-osteophyte complex. There is mild right and no left uncovertebral joint arthropathy. There is mild right and no left facet joint arthropathy. There is mild right and the left neural foraminal stenosis. There is no spinal canal stenosis. C3-C4: Moderate disc-osteophyte complex. There is moderate right and mild left uncovertebral joint arthropathy. There is mild bilateral facet joint arthropathy. There is moderate right and mild left neural foraminal stenosis. There is no spinal canal stenosis. C4-C5: Moderate disc-osteophyte complex. There is mild left lateral uncovertebral joint arthropathy. There is mild bilateral facet joint arthropathy. There is no neural foraminal stenosis. There is no spinal canal stenosis. C5-C6: Moderate disc-osteophyte complex. There is severe left and mild right uncovertebral joint arthropathy. There is mild bilateral facet joint arthropathy. There is moderate left and mild right neural foraminal stenosis. There is no spinal canal stenosis. C6-C7: Mild disc-osteophyte complex. There is moderate left and mild right uncovertebral joint arthropathy. There is mild bilateral facet joint arthropathy. There is moderate left and no right neural foraminal stenosis. There is no spinal canal stenosis. C7-T1: Moderate disc-osteophyte complex. There is moderate bilateral uncovertebral joint arthropathy. There is moderate right and mild left facet joint arthropathy. There is moderate bilateral neural foraminal stenosis. There is no spinal canal stenosis. MR/MR cervical spine wo con IMPRESSION: Moderate multilevel degenerative spondyloarthropathy of the cervical spine as described in detail above. Most notably, there are moderate neural foraminal stenoses from C3-T1. No overt spinal canal stenosis. Overall, degenerative changes appear similar to exam from 2020.
== END 2023-01-21 07:25 | disposition home or self-care (01) ==
LOC: HO.MRI 07:24
PROVIDERS: PCP Internal Medicine; Visit Provider Nurse Practitioner Family
DX: M54.12 Radiculopathy, cervical region (principal); M50.30 Other cervical disc degeneration, unspecified cervical region; M47.812 Spondylosis without myelopathy or radiculopathy, cervical region
CPT/HCPCS: 72141

== ENCOUNTER 2023-02-11 16:07 | Outpatient (REF) | payer BC, SELFPAY ==
--- NOTE | ~2023-02-11 | XR_ITS ---
EXAMINATION: XR THORACIC SPINE CLINICAL INFORMATION: Acute midline thoracic back pain. COMPARISON: Radiographs dated 12/04/2015. TECHNIQUE: AP, lateral and swimmer's views of the thoracic spine are submitted. FINDINGS: Vertebral body heights are normal. There is a mild lower thoracic dextroscoliosis. The thoracic disc spaces are well-maintained. No acute fracture or spondylolisthesis is seen. The posterior elements are intact. The paravertebral soft tissues are unremarkable. XR/XR lumbar spine 2-3V IMPRESSION: 1. No acute fracture or spondylolisthesis is seen. 2. The thoracic disc spaces are well-maintained. 3. There is a mild lower thoracic dextroscoliosis. EXAMINATION: XR LUMBOSACRAL SPINE CLINICAL INFORMATION: Acute right lower back pain without sciatica. COMPARISON: Radiographs dated 09/21/2018. TECHNIQUE: AP and lateral views of the lumbar spine and lateral view of the lumbosacral junction. FINDINGS: Vertebral body heights and alignment are normal. The lumbar disc spaces are well-maintained. No acute fracture or spondylolisthesis is seen. There is spondylosis extending from L2-L3 through L4-L5. The posterior elements are intact. The paravertebral soft tissues are unremarkable. IMPRESSION: 1. No acute fracture or spondylolisthesis is seen. 2. The lumbar disc spaces are well-maintained. 3. There is multi-level lumbar spondylosis.
--- NOTE | ~2023-02-11 | XR_ITS ---
EXAMINATION: XR THORACIC SPINE CLINICAL INFORMATION: Acute midline thoracic back pain. COMPARISON: Radiographs dated 12/04/2015. TECHNIQUE: AP, lateral and swimmer's views of the thoracic spine are submitted. FINDINGS: Vertebral body heights are normal. There is a mild lower thoracic dextroscoliosis. The thoracic disc spaces are well-maintained. No acute fracture or spondylolisthesis is seen. The posterior elements are intact. The paravertebral soft tissues are unremarkable. XR/XR thoracic spine 2V IMPRESSION: 1. No acute fracture or spondylolisthesis is seen. 2. The thoracic disc spaces are well-maintained. 3. There is a mild lower thoracic dextroscoliosis. EXAMINATION: XR LUMBOSACRAL SPINE CLINICAL INFORMATION: Acute right lower back pain without sciatica. COMPARISON: Radiographs dated 09/21/2018. TECHNIQUE: AP and lateral views of the lumbar spine and lateral view of the lumbosacral junction. FINDINGS: Vertebral body heights and alignment are normal. The lumbar disc spaces are well-maintained. No acute fracture or spondylolisthesis is seen. There is spondylosis extending from L2-L3 through L4-L5. The posterior elements are intact. The paravertebral soft tissues are unremarkable. IMPRESSION: 1. No acute fracture or spondylolisthesis is seen. 2. The lumbar disc spaces are well-maintained. 3. There is multi-level lumbar spondylosis.
== END 2023-02-11 16:08 | disposition home or self-care (01) ==
LOC: HO.XRAY 16:07
PROVIDERS: PCP Emergency Medicine; Visit Provider Emergency Medicine
DX: M54.50 Low back pain, unspecified (principal); M54.6 Pain in thoracic spine
CPT/HCPCS: 72070; 72100

== ENCOUNTER 2023-02-12 13:47 | Outpatient (AMB) | payer BC, SELFPAY ==
--- NOTE | 2023-02-12 13:49 | A.OFFVIS_ITS ---
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 He continues to endorse neck pain, worse with looking up or side rotations, worse on the left side. Reports exacerbation of his fibromyalgia symptoms in mid to lower back pain without radiation to his lower extremities. Patient denies any fever, weight loss, abdominal or groin pain, bladder or bowel dysfunction, or saddle anesthesia. Patient requests refill for muscle relaxant. He states gabapentin 600 mg TID has been partially effective for him. PRIOR: Patient is a pleasant 52 years old male with medical history of chronic neck and back pain, cervical DDD, fibromyalgia, SHERLY/CPAP, HTN, diabetes (A1C=7.0), anxiety, tension and migraine headaches, presents today for evaluation of neck pain. Patient was previously seen at our office over 3 years ago as well as [facility]. He completed series of diagnostic and therapeutic cervical injections in the past with minimal to no pain relief. 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 Neck pain is axial and also discogenic with radicular symptoms into both shoulders, lateral arms and upper back regions as well as fibromyalgia related pain. 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 His neck pain is also worse on the left. He was previously deemed non surgical candidate in 2019. Patient currently manages his neck pain with TENS unit, monthly acupuncture, ice/heat therapy, home exercise program with daily neck stretches, gabapentin, and methocarbamol with continued symptoms. Patient is interested to explore interventional treatments, except cervical SCS trial, for his chronic neck pain. He also experiences low back pain with movements and walking. Pain affects his daily activities, functioning, sleep, social activities, mood and quality of life. Denies any fever, visual changes, shortness of breaths, chest pain or pressure, gait imbalances, bladder or bowel dysfunction or saddle anesthesia. Neck Disability Index score: 20 / 50 = 40.0 % (moderate) Pertinent Positives: I can look after myself normally but it causes extra pain; I can lift heavy weights but it gives extra pain; I can read as much as I want to with moderate pain in my neck; I can concentrate fully when I want to with slight difficulty; I can only do my usual work, but no more; I can drive my car as long as I want with moderate pain in my neck; My sleep is mildly disturbed (1-2 hrs sleepless); I am able to engage in most, but not all of my usual recreation activities because of pain in my neck; The pain is very severe at the moment; I have severe headaches, which come frequently. Location Neck radiates down bilateral shoulders and upper back Duration Chronic pain for 7 years Characteristics of symptom or complaint Aching, burning, numbness, sore, spasming, tingling Aggravating or associated factors Movements, turning head from side to side, stress, weather changes, driving Relieving factors Ice/ heat, acupuncture, methocarbamol, gabapentin, Tylenol, NSAIDs Treatment PT in 2019 no improvement, neck injections--cervical MBBs and ESIs PRIOR 11/29/2019 Dr. Mendoza: Mr. Paulino is very pleasant 49 years old gentleman who who is here for the follow-up after we performed C4-C5 C6 diagnostic medial branch block. He reports no pain relief even for 1 hour. His pain stayed the same. [facility] pain management have sent me the information injections he had done. Those were to epidural steroid injection 1 in winter and 1 in the summer of 2018. The patient reports that those injections were not helping him. Therefore I consider that this patient interventional options are exhausted, I offered him and he agreed to go for neuromodulation. I explained to him intrathecal drug delivery system pain pump he is interested in the procedure. I will send him for psych evaluation. I will see him after psych evaluation is done and schedule him for a trial. Prior: History of complains on pain on left side of the neck. He reports that pain radiates into the left shoulder and left thoracic spine. He reports that his pain prevents him from sleeping normally he cannot do all activities of daily living he can take care of himself but he cannot function normally. His pain is most severe in afternoon weather changes aggravate his pain. He reports his pain in terms of tissue damage is sharp cutting lacerating tugging pulling ranging tingling stinging sort of a pain he reports tingling and stinging sens ation in the forearm but it does not radiate into the hand. He was subject of multiple evaluations in the past. He went for physical therapy in 2018. He reports that after 7 sessions the pain did not improve. He saw a neurosurgeon Dr. Magana, who did not recommend any surgery. referred him to [facility] pain management. He received 3 injections 1 needle at time 2 weeks apart. He reports pain aggravation in the not pain improvement with injections. I suspect that those injections were epidural steroid injections. Although it is strange because series of 3 epidural steroid injections are not being done on of it is anymore. He was attending chiropractor in the past but not to the neck issue. He tried NSAIDs for his pain, those do not help his pain.. He is on gabapentin and amitriptyline which helped his pain minimally. He is not taking any blood thinners. His past medical history significant for diabetes elevated cholesterol and hypertension. His past surgical history is negative. His social history: He is working individual, he drives [employer] truck. He denies smoking cigarettes drinking alcohol using recreational drugs. [facility] Medical History Mixed hyperlipidemia Muscle spasm Fibromyalgia COVID-19 vaccine series completed Pain of multiple extremities Neck pain History of lumbar puncture Back pain SHERLY (obstructive sleep apnea) Palpitations Anxiety Migraine Hyperlipidemia, unspecified Essential hypertension Type 2 diabetes mellitus with unspecified complications Surgical History History of umbilical hernia repair History of esophagogastroduodenoscopy (EGD) Hx of colonoscopy Family History Mother Diabetes Father Myocardial infarction Social History Alcohol intake: never Comment: medicated in pacu Patient Tobacco Use Status: Never used Tobacco Review of Systems Const All systems reviewed & are unremarkable except as noted in HPI and below Physical Exam Vital Signs: Last Vital Signs Pulse 100 02/12/23 13:53 BP 145/88 H 02/12/23 13:53 Pulse Ox 98 02/12/23 13:53 Oxygen Delivery Method Room Air 02/12/23 13:53 BMI result Body Mass Index 28.0 General: Appears afebrile. Alert and oriented. Mood and affect appropriate. Follows and participates in conversation appropriately. Respiratory effort is unlabored. No cough. Able to transition from sit to stand unassisted. Ambulates with bilaterally normal heel strike and toe off. Neck Other: Patient with decreased cervical ROM in all planes/especially with left>rightl lateral rotation. Reports increased pain with cervical extension and mild pain with flexion. Spurling compression test negative. Pain is unchanged by Spurling maneuver with retraction. Elvey's tension test positive bilaterally, with radiation of pain from neck to wrists bilaterally, worse on the left. Lhermitte's test was negative. DTR intact, +2 and symmetrical. Patient demonstrated 5/5 motor strength of bilateral upper extremities. 2 + radial pulses. Significant tightness throughout left upper trapezius as well as TTP throughout bilateral upper trapezius muscles. No paravertebral tenderness over facet joint on affected side. Multiple taut bands palpated throughout bilateral upper trapezius muscles. Neck: Yes normal visual inspection, Yes no lymphadenopathy, Yes supple, No anterior neck swelling and Yes no JVD Back/Spine/Pelvis Cervical Spine: No collar present, No Lhermitte's sign positive, cervical muscular tenderness, pain with cervical ROM, No Cervical spine tenderness and No step off deformity Thoracic/Lumbar Spine: thoracic and lumbar spine normal to inspection, Thoracic/lumbar spine scar(s), Lasegue's sign negative, straight leg raise negative bilaterally, pain with thoraco-lumbar ROM, paraspinal muscle tenderness, thoraco-lumbar ROM limited, No thoracic spinal tenderness and lumbar spinal tenderness at L4 and at L5 Pelvis: no buttock tenderness Sacroiliac joints: bilaterally nontender Results Reviewed Results Reviewed: MR CERVICAL SPINE WITHOUT CONTRAST 01/21/23 CLINICAL INFORMATION: Cervical radiculopathy. COMPARISON: Cervical spine MRI from 11/06/2020. FINDINGS: Straightening of the normal cervical lordosis. Mild degenerative anterolisthesis of C7 on T1. Moderate degenerative disc disease from C3-T1. Associated mixed Modic type discogenic endplate changes including mild Modic type I discogenic edema at C2-C3, C5-C6, and C6-C7. No additional suspicious marrow edema. The vertebral body heights are well-maintained. No demonstrated spinal cord signal abnormalities. Limited evaluation of the soft tissues of the neck without demonstrated abnormalities. The flow voids of the major cervical vessels are maintained. Normal appearance of the cervicomedullary junction and visualized posterior fossa. SPINAL LEVELS: C2-C3: Moderate disc-osteophyte complex. There is mild right and no left uncovertebral joint arthropathy. There is mild right and no left facet joint arthropathy. There is mild right and the left neural foraminal stenosis. There is no spinal canal stenosis. C3-C4: Moderate disc-osteophyte complex. There is moderate right and mild left uncovertebral joint arthropathy. There is mild bilateral facet joint arthropathy. There is moderate right and mild left neural foraminal stenosis. There is no spinal canal stenosis. C4-C5: Moderate disc-osteophyte complex. There is mild left lateral uncovertebral joint arthropathy. There is mild bilateral facet joint arthropathy. There is no neural foraminal stenosis. There is no spinal canal stenosis. C5-C6: Moderate disc-osteophyte complex. There is severe left and mild right uncovertebral joint arthropathy. There is mild bilateral facet joint arthropathy. There is moderate left and mild right neural foraminal stenosis. There is no spinal canal stenosis. C6-C7: Mild disc-osteophyte complex. There is moderate left and mild right uncovertebral joint arthropathy. There is mild bilateral facet joint arthropathy. There is moderate left and no right neural foraminal stenosis. There is no spinal canal stenosis. C7-T1: Moderate disc-osteophyte complex. There is moderate bilateral uncovertebral joint arthropathy. There is moderate right and mild left facet joint arthropathy. There is moderate bilateral neural foraminal stenosis. There is no spinal canal stenosis. IMPRESSION: Moderate multilevel degenerative spondyloarthropathy of the cervical spine as described in detail above. Most notably, there are moderate neural foraminal stenoses from C3-T1. No overt spinal canal stenosis. Overall, degenerative changes appear similar to exam from 2020. Assessment & Plan Assessment & Plan (1) Fibromyalgia: Code(s): M79.7 - Fibromyalgia (2) Muscle spasm: Code(s): M62.838 - Other muscle spasm (3) Degenerative disc disease, cervical: Code(s): M50.30 - Other cervical disc degeneration, unspecified cervical region (4) Cervical spondylosis: Code(s): M47.812 - Spondylosis without myelopathy or radiculopathy, cervical region (5) Thoracolumbar back pain: Code(s): M54.50 - Low back pain, unspecified; M54.6 - Pain in thoracic spine Plan Cervical spine MRI results were duscussed with patient in greater length. Patient has tried NSAIDs, acetaminophen, gabapentin, PT, acupunture, TENS unit, home exercise program with minimal improvements. Patient is interested to undergo a repeat cervical medial branch blocks C4-C5-C6 with local and fluoroscopy for potential Sprint trial. We also reviewed therapeutic injections, spinal cord stimulator all trial in cervical medial branch RFA procedures. Expectations, risks and benefits were reviewed. Patient is aware he will be contacted to schedule this procedure. Patient will stop gabapentin and start pregabalin 150 mg BID. Side effects and precautions were discussed with patient. Refill sent for methocarbamol per patient's request. All questions and concerns have been answered and patient agreed with the plan. Follow up after injections and sooner as needed. Medications: New pregabalin 150 mg PO BID 30 days 60 caps 0RF pain M54.12 - Radiculopathy, cervical region, M79.7 - Fibromyalgia Refilled methocarbamol 750 mg PO TID 30 days PRN 90 tabs 3RF muscle spasm M62.838 - Other muscle spasm Coding Level of Care Code Est Pt Level 4 (39055) Diagnoses Fibromyalgia M79.7 Muscle spasm M62.838 Degenerative disc disease, cervical M50.30 Cervical spondylosis M47.812 Thoracolumbar back pain M54.50; M54.6
[2023-02-12 13:53] VITALS: BP 145/88; PULSE 100; O2SAT 98; BMI 28.0
== END 2023-02-12 14:16 | disposition home or self-care (01) ==
PROVIDERS: PCP Emergency Medicine; Visit Provider Nurse Practitioner Family
DX: M79.7 Fibromyalgia (principal); M62.838 Other muscle spasm; M50.30 Other cervical disc degeneration, unspecified cervical region; M47.812 Spondylosis without myelopathy or radiculopathy, cervical region; M54.50 Low back pain, unspecified; M54.6 Pain in thoracic spine
CPT/HCPCS: 99214

== ENCOUNTER → 2023-02-12 13:47 | Outpatient (BNVA) | payer BC, SELFPAY | PROVIDERS: PCP Emergency Medicine; Visit Provider Nurse Practitioner Family ==

== ENCOUNTER 2023-02-18 06:25 | Emergency (ER) | payer BC, SELFPAY ==
--- NOTE | ~2023-02-18 | CT_ITS ---
EXAMINATION: CT ABDOMEN AND PELVIS WITHOUT CONTRAST CLINICAL INFORMATION: Right-sided flank pain. COMPARISON: Abdominal ultrasound 06/26/2022 CT abdomen/pelvis 09/11/2020 TECHNIQUE: Multidetector volumetric imaging was performed from the superior aspect of the liver through the pubic symphysis. Sagittal and coronal reformatted images were obtained on the technologist's workstation. This CT examination was performed using dose optimization techniques as appropriate, variously including the following: *Automated exposure control *Adjustment of mA and/or kV according to patient size (this includes techniques or standardized protocols for targeted exams where dose is matched to indication/reason for exam; i.e. extremities or head) *Use of iterative reconstruction technique DLP: 593 mGy-cm FINDINGS: LUNG BASES: Small hiatal hernia. LIVER, GALLBLADDER, AND BILIARY TREE: The noncontrast liver is decreased in attenuation. No biliary ductal dilatation is present. The gallbladder is unremarkable with no evidence of radiopaque gallstones, gallbladder wall thickening, or obvious pericholecystic inflammatory changes. PANCREAS: Unremarkable. SPLEEN: Unremarkable. ADRENAL GLANDS: Unremarkable. KIDNEYS AND URETERS: The kidneys are normal in size, shape, and attenuation. No renal or ureteral calculus. No hydronephrosis or perinephric stranding. BLADDER: Unremarkable. GASTROINTESTINAL TRACT: Gastric wall thickening despite underdistention. Small and large bowel loops are of normal caliber. No small bowel obstruction. Appendix is within normal limits. ABDOMINAL WALL: No significant hernia is appreciated. LYMPH NODES: No bulky lymphadenopathy. VASCULAR: Normal caliber abdominal aorta. PELVIC VISCERA: Unremarkable. OSSEOUS STRUCTURES: No destructive bone lesions. CT/CT abdomen pelvis wo IV con IMPRESSION: Gastric wall thickening despite underdistention. Advise correlation with direct visualization.
[2023-02-18 06:38] VITALS: BP 125/83; PULSE 79; RESP 20; TEMP 36.1; O2SAT 94; BMI 28.3
--- NOTE | 2023-02-18 06:50 | MHC.EDTECH ---
Patient brought from triage,labs and urine were obtained and sent to lab,patient brought to waiting room.
[2023-02-18 06:57] LABS: Appearance Urine Clear; Color Urine Yellow; Glucose Urine UA Negative (Negative); Hematocrit 46.3 % (42.0-52.0); Hemoglobin 15.8 g/dl (14.0-18.0); Leukocyte Esterase Urine Negative (Negative); Mean Corpuscular HGB Conc 34.1 g/dl (31.0-36.0); Mean Corpuscular Hemoglobin 27.6 pg (27.0-33.0); Mean Corpuscular Volume 80.9 fL (80.0-98.0); Mean Platelet Volume 10.3 fL (9.4-12.4); Nitrite Urine Negative (Negative); PH 5.5 (5.0-9.0); Platelet Count 189 X10*3/uL (160-400); Red Blood Count 5.72 X10*6/uL (4.60-5.80); Red Cell Distribution Width 15.3 % (11.0-16.0); Specific Gravity - Urine 1.025 (1.005-1.025); Urine Blood Negative (Negative); Urine Ketones Negative (Negative); Urine Protein Negative (Neg-Trace); White Blood Count 6.9 X10*3/uL (4.8-10.8)
[2023-02-18 07:00] LABS: Bacteria Urine None Seen (None Seen); Hyaline Casts Urine 0-2 /LPF (0-2); RBC Urine 0-2 /HPF (0-2); Squamous Epithelial Cell Urine 0-2 /HPF (0-2); WBC Urine 0-5 /HPF (0-5)
[2023-02-18 07:14] LABS: Alanine Aminotransferase 41 U/L (0-40); Albumin Level 4.4 g/dL (3.5-5.0); Alkaline Phosphatase 63 U/L (39-117); Anion Gap 13 (12-20); Aspartate Amino Transferase 25 U/L (5-37); Bilirubin Total 0.4 mg/dL (0.0-1.0); Blood Urea Nitrogen 11 mg/dL (9-16); Calcium 9.4 mg/dL (8.4-10.2); Carbon Dioxide 27 mmol/L (22-29); Chloride 101 mmol/L (96-108); Estimated Glomerular Filt Rate > 60; Glucose Random 119 mg/dL (60-115); Lipase 27 U/L (8-78); Potassium 4.1 mmol/L (3.3-5.1); Sodium 137 mmol/L (135-145); Total Protein 7.4 g/dL (6.5-8.0)
--- NOTE | 2023-02-18 07:47 | ED.GENADULT ---
HPI - General Adult General Chief complaint: Abdominal Pain Stated complaint: Abd pain Time Seen by Provider: 02/18/23 07:18 Source: patient Mode of arrival: ambulatory Limitations: no limitations History of Present Illness HPI narrative: 52-year-old male with a pmhx of fibromyalgia, thoracolumbar back pain, and degenerative disc disease presents with 3 weeks of lower back pain now with pain that radiates to the right side of abdomen that started yesterday. He reports a lump on his right lower back that is tender to palpation. The pain is worsened with deep breathing and bearing down. He denies trauma or any other inciting event. He has been using Aleve with very little relief. He has a history of umbilical hernia repair, but no other abdominal surgeries. He denies fevers, chills, malaise. No nausea, vomiting, diarrhea, or constipation. No dysuria or hematuria. No chest pain, palpitations, or shortness of breath. No gait abnormalities. No numbness or tingling. No urinary or bowel incontinence. No foot drop. Related Data Home Medications Medication Instructions Recorded Confirmed atorvastatin 40 mg tablet 40 mg PO BEDTIME 03/13/20 11/20/22 venlafaxine 75 mg capsule,extended 75 mg PO BEDTIME 03/13/20 11/20/22 release 24 hr duloxetine 30 mg capsule,delayed 30 mg PO BID 07/11/20 11/20/22 release cetirizine 10 mg tablet 10 mg PO DAILY 11/20/22 11/20/22 empagliflozin 10 mg tablet 10 mg PO DAILY 11/20/22 11/20/22 (Jardiance) metformin 1,000 mg tablet 1,000 mg PO BID 11/20/22 11/20/22 Previous Rx's Medication Instructions Recorded omeprazole 20 mg capsule,delayed 20 mg PO DAILY 90 days #90 caps 09/21/22 release sennosides 8.6 mg capsule (senna) 8.6 mg PO BEDTIME PRN constipation 11/20/22 90 days #30 caps lisinopril 10 mg tablet 10 mg PO DAILY HTN 90 days #90 tabs 12/17/22 tadalafil 5 mg tablet 5 mg PO DAILY sexual activity 90 01/20/23 days #90 tabs methocarbamol 750 mg tablet 750 mg PO TID PRN muscle spasm 30 02/12/23 days #90 tabs pregabalin 150 mg capsule 150 mg PO BID pain 30 days #60 caps 02/12/23 ketorolac 10 mg tablet 10 mg PO TID PRN pain 5 days #15 02/18/23 tabs lidocaine 5 % topical patch 1 patch topical DAILY PRN pain #15 02/18/23 ea omeprazole 20 mg capsule,delayed 20 mg PO BID #30 caps 02/18/23 release Allergies Allergy/AdvReac Type Severity Reaction Status Date / Time clavulanic acid Allergy Mild Itching Verified 02/12/23 13:54 [From Augmentin] Penicillins Allergy Unknown ITCHING Verified 02/12/23 13:54 Review of Systems Review of Systems: Constitutional : No Weight loss, No Fever, No Chills, ENT/Mouth : No Hearing loss, No Ear Pain, No Nasal Congestion, No Sinus Pain, No Hoarseness, No sore throat, No Rhinorrhea, No Swallowing Difficulty Cardiovascular : No Chest Pain, No SOB Respiratory : No Cough, No Dyspnea Gastrointestinal : No Nausea, No Vomiting, No Diarrhea, + abdominal Pain, No Hematochezia, No Melena Genitourinary : No Dysuria, No Urinary Frequency, No Hematuria, No Urinary Incontinence, Musculoskeletal : positive back pain Skin : No Skin Lesions, No rash Neuro : No Weakness, No Numbness, No Paresthesias, no loss of bowel or bladder incontinence, no saddle anesthesia Yes all other systems are reviewed and are negative [facility] Past Medical History Attestation statement: The following information was validated with the patient. Source: old records reviewed and nursing notes reviewed Medical History Mixed hyperlipidemia Muscle spasm Fibromyalgia COVID-19 vaccine series completed Pain of multiple extremities Neck pain History of lumbar puncture Back pain SHERLY (obstructive sleep apnea) Palpitations Anxiety Migraine Hyperlipidemia, unspecified Essential hypertension Type 2 diabetes mellitus with unspecified complications Surgical History History of umbilical hernia repair History of esophagogastroduodenoscopy (EGD) Hx of colonoscopy Family History Family History Mother Diabetes Father Myocardial infarction Social History Social History Alcohol intake: never Comment: medicated in pacu Patient Tobacco Use Status: Never used Tobacco Smoked in Last 30 Days: No Use of substances other than those prescribed or required for medical reasons: No Advance Directives: No Advance Directives Information Provided: Yes Physical Exam ED Vital Signs: Vital Signs - 24 hr 02/18/23 06:38 Temperature 97.0 F Pulse Rate 79 Respiratory Rate 20 Blood Pressure 125/83 Pulse Oximetry 94 Oxygen Delivery Method Room Air BMI result Body Mass Index 28.3 VSS Appearance: Alert.? Oriented X3.? No acute distress.? Head: Normocephalic, atraumatic, no step-offs or deformities Eyes: Pupils equal, round and reactive to light.? CVS: Normal heart rate and rhythm.? Pulses normal.? Respiratory: No respiratory distress.? Breath sounds normal.? Abdomen: Soft and nondistended. Normoactive bowel sounds in all 4 quadrants. Discomfort without worse w/ valsalva. No guarding or rebound tenderness. No hernias noted on genital exam no TTP to genital region or overlying skin changes. Skin: Skin warm and dry.? Normal skin color.? Normal skin turgor.? Extremities: No lower extremity edema.? No calf ttp. 5/5 strength to bilateral upper and lower extremities Back: Point tenderness to the right lumbar paraspinal muscles with mild midline tenderness of the lumbar spine. No tenderness to the left lumbar paraspinal muscles. No C-spine tenderness. full range of motion, no CVA tenderness bilaterally. PT, DP pulses 2+ bilaterally. Sensation to sharp and dull intact. Neuro: Oriented X 3.? No motor deficit.? No sensory deficit. Gait and coordination normal. No foot drop. CN 2-12 intact Course Reevaluation(s) Reevaluation #1: CBC within normal limits. Normal ESR. Chemistry unremarkable no acute findings requiring intervention normal CRP. Normal transaminases. Normal lipase. UA without infection. CT abdomen pelvis with gastric wall thickening despite under distension advise correlation with direct visualization I do not think this needs to be done on an emergent basis. Will discuss this with GI Time: 09:39 Reevaluation #2: Gi Dr. [place] reports patient had an EGD back in 2020. Increase omeprazole to 20 mg BID. She is going to have her staff reach out to patient to move his appointment up his next appointment for GI supposed to be in May she would like a sooner appointment office staff will contact patient. Time: 09:38 Reevaluation #3: Patient comfortable at this time feels better. At this time patient to be discharged home prompt GI follow-up. Will also have him call the office just in case. Educated patient on diagnosis and treatment plan, answered all question, patient verbalizes understanding. At this time patient will be discharged home, advised to return with new or worsening symptoms. Educated on worrisome signs and symptoms and when to return. At this time I feel comfortable discharge home. Time: 09:40 Medications Administered Discontinued Medications Generic Name Dose Route Start Last Admin Trade Name Elianq PRN Reason Stop Dose Admin Ketorolac Tromethamine 30 mg 02/18/23 08:12 02/18/23 08:31 Ketorolac Tromethamine 15 Mg/Ml Vial IM 02/18/23 08:13 30 mg ONCE ONE Administration Lidocaine 1 patch 02/18/23 08:12 02/18/23 08:30 Lidocaine 4 % Patch Adh..Patch TRANSDERMA 02/18/23 08:13 1 patch ONCE ONE Administration Protocol Medical Decision Making Medical Decision Making MDM Narrative: 52-year-old male with a pmhx of fibromyalgia, thoracolumbar back pain, and degenerative disc disease presents with 3 weeks of lower back pain now with pain that radiates to the right groin that started yesterday. No fevers, dysuria, hematuria, vomiting, constipation, or diarrhea. Physical exam revealed right paraspinal tenderness to palpation throughout enire abdomen. No hernias noted on exam. Likely nephrolithiasis, lumbago, lumbar radiculopathy, spondylolsis, herniated disc, inguinal hernia unlikely cauda equinae, cord compression, epidural abscess, appendicitis, cholecystitis, pancreatitis, diverticulitis, sbo, lbo, bowel perforation Plan- labs, imaging, urine Differential Diagnosis Differential Diagnoses: The differential diagnosis associated with the presentation includes Likely nephrolithiasis, lumbago, lumbar radiculopathy, spondylolsis, herniated disc, inguinal hernia unlikely cauda equinae, cord compression, epidural abscess, appendicitis, cholecystitis, pancreatitis, diverticulitis, sbo, lbo, bowel perforation Admission/Observation Consideration of admission/observation: Escalation of care including admission/observation considered Unlikely Consult Healthcare Provider Management of the patient was discussed with: Compensation Administrator Lab Data MDM Lab Attestation statement: I reviewed the patient's lab results. 02/18/23 06:49 02/18/23 06:49 Labs: Lab Results 02/18/23 02/18/23 Range/Units 06:49 08:11 WBC 6.9 (4.8-10.8) X10*3/uL RBC 5.72 (4.60-5.80) X10*6/uL Hgb 15.8 (14.0-18.0) g/dl Hct 46.3 (42.0-52.0) % MCV 80.9 (80.0-98.0) fL MCH 27.6 (27.0-33.0) pg MCHC 34.1 (31.0-36.0) g/dl RDW 15.3 (11.0-16.0) % Plt Count 189 (160-400) X10*3/uL MPV 10.3 (9.4-12.4) fL Absolute Nucleated RBC 0.000 (0.0-0.012) X10*3/uL Nucleated RBC % (auto) 0.0 (0.0-0.2) /100WBC ESR 2 (0-15) MM/HR Sodium 137 (135-145) mmol/L Potassium 4.1 (3.3-5.1) mmol/L Chloride 101 (96-108) mmol/L Carbon Dioxide 27 (22-29) mmol/L Anion Gap 13 (12-20) BUN 11 (9-16) mg/dL Creatinine 1.01 (0.5-1.4) mg/dL Estim Creat Clear Calc 94.0 Estimated GFR > 60 Random Glucose 119 H (60-115) mg/dL Calcium 9.4 (8.4-10.2) mg/dL Total Bilirubin 0.4 (0.0-1.0) mg/dL AST 25 (5-37) U/L ALT 41 H (0-40) U/L Alkaline Phosphatase 63 (39-117) U/L C-Reactive Protein < 0.04 (< or = 0.50) mg/dL Total Protein 7.4 (6.5-8.0) g/dL Albumin 4.4 (3.5-5.0) g/dL Lipase 27 (8-78) U/L Urine Color Yellow Urine Appearance Clear Urine pH 5.5 (5.0-9.0) Ur Specific [place] 1.025 (1.005-1.025) Urine Protein Negative (Neg-Trace) mg/dL Urine Glucose (UA) Negative (Negative) mg/dL Urine Ketones Negative (Negative) mg/dL Urine Blood Negative (Negative) Urine Nitrite Negative (Negative) Ur Leukocyte Esterase Negative (Negative) Urine RBC 0-2 (0-2) /HPF Urine WBC 0-5 (0-5) /HPF Ur Squamous Epith Cells 0-2 (0-2) /HPF Urine Bacteria None Seen (None Seen) Hyaline Casts 0-2 (0-2) /LPF Independent Interpretation I performed an independent interpretation of an: CT Scan (CT/CT abdomen pelvis wo IV con IMPRESSION: Gastric wall thickening despite underdistention. Advise correlation with direct visualization.) Radiology Impression Discussion of test interpretation with radiology: I have reviewed the radiologist's reading. External Record Review External record reviewed: Inpatient record, Office record, Outpatient record, Prior outpatient labs, Prior outpatient radiology, Primary care record and Outside ED record Prescription Management I considered prescription management with: Other (PPI ) Chronic Conditions Patient?s care impacted by: Diabetes, Hypertension and Other (Diabetes, GERD, hypertension) Critical Care Time Critical Care Time Critical Care Time: Yes Total Critical Care Time: 35 Attestation: I attest to this time spent taking care of the patient, obtaining history, physical, reviewing labs, imaging, speaking to my attending, speaking to specialist. Discharge Plan Discharge Clinical Impression: Acute right flank pain, Abdominal pain Patient Disposition: Home, Self-Care Instructions: Abdominal Pain (ED), Flank Pain (ED) Additional Instructions: Take your medications as prescribed. If you were prescribed antibiotics today, it is important that you take your medication to their entirety, do not skip any doses, do not finish them early. Follow-up with your primary care provider this week. Return to the emergency department with new or worsening symptoms. Such as fevers, chills, chest pain, shortness of breath, nausea, vomiting, dizziness, headache, vision changes, lethargy In case of emergency call 911 Prescriptions: New omeprazole 20 mg capsule,delayed release(DR/EC) 20 mg PO BID Qty: 30 2RF ketorolac 10 mg tablet 10 mg PO TID PRN (Reason: pain) 5 Days Qty: 15 0RF lidocaine 5 % adhesive patch,medicated 1 patch topical DAILY PRN (Reason: pain) Qty: 15 0RF Rx Instructions: leave on most painful area for up to 12 hrs No Action omeprazole 20 mg capsule,delayed release(DR/EC) 20 mg PO DAILY 90 Days Qty: 90 1RF cetirizine 10 mg tablet 10 mg PO DAILY venlafaxine 75 mg capsule,extended release 24hr 75 mg PO BEDTIME atorvastatin 40 mg tablet 40 mg PO BEDTIME duloxetine 30 mg capsule,delayed release(DR/EC) 30 mg PO BID tadalafil 5 mg tablet 5 mg PO DAILY 90 Days Qty: 90 1RF metformin 1,000 mg tablet 1,000 mg PO BID Jardiance 10 mg tablet 10 mg PO DAILY senna 8.6 mg capsule 8.6 mg PO BEDTIME PRN (Reason: constipation) 90 Days Qty: 30 1RF methocarbamol 750 mg tablet 750 mg PO TID PRN (Reason: muscle spasm) 30 Days Qty: 90 3RF pregabalin 150 mg capsule 150 mg PO BID 30 Days Qty: 60 0RF lisinopril 10 mg tablet 10 mg PO DAILY 90 Days Qty: 90 0RF Referrals: Vasile Putnam MD [Primary Care Provider] - 2 days Stand Alone Forms: Work/School Release
[2023-02-18] MEDS: Lidocaine 4 % Patch ADH..PATCH 1 PATCH TRANSDERMA (08:30)
[2023-02-18] MEDS: Ketorolac Tromethamine 15 MG/ML VIAL 30 MG IM (08:31)
[2023-02-18 08:33] LABS: C Reactive Protein < 0.04 mg/dL (< or = 0.50)
[2023-02-18 08:58] LABS: Erythrocyte Sedimentation Rate 2 MM/HR (0-15)
[2023-02-18 10:43] VITALS: BP 113/77; PULSE 91; RESP 20; O2SAT 97
== END 2023-02-18 10:44 | disposition home or self-care (01) ==
PROVIDERS: Physician Assistant; Emergency Provider Emergency Medicine Emergency Medical Services; PCP Internal Medicine
DX: R10.9 Unspecified abdominal pain (principal); E11.9 Type 2 diabetes mellitus without complications; I10 Essential (primary) hypertension; E78.5 Hyperlipidemia, unspecified; Z79.84 Long term (current) use of oral hypoglycemic drugs; Z79.02 Long term (current) use of antithrombotics/antiplatelets; Z79.899 Other long term (current) drug therapy
CPT/HCPCS: 36415; 74176; 80053; 81001; 83690; 85027; 85652; 86140; 96372; 99284; J1885

== ENCOUNTER 2023-02-23 13:25 | Day surgery (SDC) | payer BC, SELFPAY ==
[2023-02-23] VITALS (7 sets, daily range): BP systolic 125–135; BP diastolic 87–98; PULSE 74–92; RESP 15–18; TEMP 36.1–36.9; O2SAT 92–97; BMI 28.7
[2023-02-23] MEDS: Lactated Ringers 1,000 ML 50 ML IVCONT (14:02)
[2023-02-23 14:08] LABS: Glucose, Whole Blood 112 mg/dL (60-115)
--- NOTE | 2023-02-23 14:16 | HO.ANESPROP2 ---
HPI - Anesthesia Eval Consult details Narrative: GERD PMFSH Active Problems Active Problems: All Active Problems (Updated 02/19/23 @ 00:02 by Parish Perse) Thoracolumbar back pain (Acute) Low testosterone (Acute) Cervical radicular pain (Acute) Cervical spondylosis (Acute) Degenerative disc disease, cervical (Acute) Fibromyalgia (Acute) Muscle spasm (Acute) Elevated LFTs (Acute) Erectile dysfunction associated with type 2 diabetes mellitus (Acute) Erectile dysfunction (Acute) Precordial chest pain (Acute) Palpitations (Acute) Abdominal bloating (Acute) Generalized abdominal pain (Acute) GERD (gastroesophageal reflux disease) (Acute) History of colon polyps (Acute) Hernia, umbilical (Acute) Hyperlipidemia, unspecified (Acute) Essential hypertension (Acute) Type 2 diabetes mellitus with unspecified complications (Acute) Past Medical History Medical History Mixed hyperlipidemia Muscle spasm Fibromyalgia COVID-19 vaccine series completed Pain of multiple extremities Neck pain History of lumbar puncture Back pain SHERLY (obstructive sleep apnea) Palpitations Anxiety Migraine Hyperlipidemia, unspecified Essential hypertension Type 2 diabetes mellitus with unspecified complications Family History Family History Mother Diabetes Father Myocardial infarction Family history of problems with anesthesia: No Surgical History Surgical History History of umbilical hernia repair History of esophagogastroduodenoscopy (EGD) Hx of colonoscopy History of Problems with Anesthesia: No Social History Social History Alcohol intake: never Comment: medicated in pacu Patient Tobacco Use Status: Never used Tobacco Use of substances other than those prescribed or required for medical reasons: No Are you DNR?: No Advance Directives: No Advance Directives Information Provided: Yes Meds Allergies Allergy/AdvReac Type Severity Reaction Status Date / Time clavulanic acid Allergy Mild Itching Verified 02/23/23 14:02 [From Augmentin] Penicillins Allergy Unknown ITCHING Verified 02/23/23 14:02 Active Medications: Current Medications Lactated Ringer's (Lr) 1,000 mls @ 50 mls/hr IVCONT .Q20H DALIA Last Admin: 02/23/23 14:02 Dose: 50 mls/hr Home Medications Medication Instructions Recorded Confirmed Last Taken Type atorvastatin 40 mg tablet 40 mg PO BEDTIME 03/13/20 02/23/23 Unknown History venlafaxine 75 mg capsule,extended 75 mg PO BEDTIME 03/13/20 02/23/23 Unknown History release 24 hr duloxetine 30 mg capsule,delayed 30 mg PO BID 07/11/20 02/23/23 10/14/20 07:15 History release cetirizine 10 mg tablet 10 mg PO DAILY 11/20/22 02/23/23 Unknown History metformin 1,000 mg tablet 1,000 mg PO BID 11/20/22 02/23/23 Unknown History Exam Height,Weight and Vital Signs: Height 5 ft 10 in Weight 90.718 kg Last Vital Signs Temp 98.5 F 02/23/23 13:46 Pulse 83 02/23/23 13:46 Resp 15 02/23/23 13:46 BP 125/87 02/23/23 13:46 Pulse Ox 94 02/23/23 13:46 O2 Del Method Room Air 02/23/23 13:46 Pertinent Lab Results Pertinent Lab Results: Laboratory Tests 02/23/23 13:59 POC Glucose 112 Airway Mallampati Class: III TM Dist: >3cm Neck ROM: Full Loose/Missing/Broken Teeth: No Heart: [id number] Lungs: cta b/l Assessment and Plan Assessment Anesthesia Assessment: Anesthesia Plan Discussed and Chart Reviewed Final Anesthetic Review Family History of Problems with Anesthesia: No History of Problems with Anesthesia: No NPO: Yes ASA Class: III Final Preanesthetic Review: No Changes in Pt Med Stat, Meds/Allgs Chart Reviewed, Consent Obtained/Reviewed and Anes Risks/Benef Reviewed Patient Risk: Intermediate Procedure Risk: Intermediate Assessment/Block/Sedation in SS: Assess/Block/Sedation-SS Anesthetic Plan Anesthetic Plan: MAC: and Agree w/ Assess. and Plan Disposition: Standard PACU
--- NOTE | 2023-02-23 14:32 | MHC.SHP ---
Pre-Procedural Eval Section A Date of Service: 02/23/23 Section B Chief Complaint: Generalized abdominal pain Details of Present Illness: abn imaging of stomach Relevant Family History (Specify if Yes): No Relevant Social History: None Present Medications: see Short Stay Collaborative assessment Medical History: Significant History ( Mixed hyperlipidemia Muscle spasm Fibromyalgia COVID-19 vaccine series completed Pain of multiple extremities Neck pain History of lumbar puncture Back pain SHERLY (obstructive sleep apnea) Palpitations Anxiety Migraine Hyperlipidemia, unspecified Essential hypertension Type 2 diabetes mellitus with u) History of Previous Operations: Relevant previous surgery/procedure and date(s) (History of umbilical hernia repair History of esophagogastroduodenoscopy (EGD) Hx of colonoscopy) Allergies: Allergies Allergy/AdvReac Type Severity Reaction Status Date / Time clavulanic acid Allergy Mild Itching Verified 02/23/23 14:02 [From Augmentin] Penicillins Allergy Unknown ITCHING Verified 02/23/23 14:02 Review of Systems Sugical H&P ROS: Negative: Constitution, Cardiovascular, Respiratory, Neurological, Psychiatric, Hem-Onc, Allergic/Immunologic, Gastrointestinal, Genitourinary, Musculoskeletal, Integumentary, Endocrine and Eyes/Ears/Nose/Throat Exam Surgical H&P Exam: Normal: HEENT, Normal: Heart, Normal: Lungs, Normal: Extremities, Normal: Abdomen, Normal: Skin and Normal: Neurological Plan Diagnosis/Plan: Unchanged I have reviewed the history and physical and performed a pertinent physical examination on my patient. No changes have occurred unless specified. Time Spent With Patient Time: Total time managing care of this patient today ____ minutes.
--- NOTE | 2023-02-23 14:49 | W.PM.OPN ---
Operative Note Operative Note Date of Service: 02/23/23 Narrative: Procedure Description: EGD Indication: abn CT imaging of stomach Anesthesia: MAC FLEXIBLE TRANSORAL UPPER GASTROINTESTINAL ENDOSCOPY UPPER ENDOSCOPY Consent: Indications for the procedure and potential complications of bleeding, perforation, reaction to medications and missed diagnosis were discussed with the patient and informed consent was obtained. Instrument: Olympus GIF H 190 J mid size upper endoscope Monitoring: Vital signs and clinical assessment, continuous EKG monitoring, Pulse oximetry, Carbon Dioxide monitoring and blood pressure monitoring were done throughout the procedure. Procedure: The patient was placed in the left lateral decubitis position and pre-procedure medications were administered and a bite block was placed. The endoscope was inserted into the mouth and advanced under direct vision to the third part of duodenum. A careful inspection was made as the upper endoscope was withdrawn including a retroflexed examination of the proximal stomach; Findings and interventions are described below. Findings: Larynx:normal Esophagus: GE junction at 43 cm, diaphragm hiatus at 43 cm, no varices or esophagitis, bx taken from distal esophagus Stomach: Patchy gastric erythema and nodularity in antrum. Biopsies were obtained. Grade 2 flap valve on retroflexed examination of the cardia. Duodenum: Normal bulb and descending duodenum, Intervention: Biopsies as noted above Impression/Findings: gastritis PLAN: await bx, if H pylori pos then treat
[2023-02-23] MEDS: Acetaminophen 325 MG TABLET 975 MG PO (15:53)
== END 2023-02-23 16:12 | disposition home or self-care (01) ==
PROVIDERS: PCP Internal Medicine; Visit Provider Internal Medicine Gastroenterology
PROC: 0DJ08ZZ Inspection of Upper Intestinal Tract, Via Natural or Artificial Opening Endoscopic (ICD-10-PCS; CPT 43235; principal; 2023-02-23 15:10)
DX: K29.70 Gastritis, unspecified, without bleeding (principal); K21.9 Gastro-esophageal reflux disease without esophagitis; E11.9 Type 2 diabetes mellitus without complications; I10 Essential (primary) hypertension; E78.2 Mixed hyperlipidemia; M79.7 Fibromyalgia; G47.33 Obstructive sleep apnea (adult) (pediatric); Z99.89 Dependence on other enabling machines and devices; Z79.02 Long term (current) use of antithrombotics/antiplatelets; Z79.84 Long term (current) use of oral hypoglycemic drugs; Z79.899 Other long term (current) drug therapy
CPT/HCPCS: 43239; 82947; 88305; 88342; J2704

== ENCOUNTER → 2023-02-23 13:25 | Outpatient (BNV) | payer BC, SELFPAY | PROVIDERS: PCP Internal Medicine; Visit Provider Internal Medicine Gastroenterology | DX: R93.3 Abnormal findings on diagnostic imaging of other parts of digestive tract (principal); K29.70 Gastritis, unspecified, without bleeding | CPT/HCPCS: 43239 ==

== ENCOUNTER 2023-03-05 07:42 | Outpatient (AMB) | payer BC, SELFPAY ==
--- NOTE | 2023-03-05 07:46 | A.OFFVIS_ITS ---
Intake Vital Signs 03/05/23 07:54 Height 5 ft 10 in Weight 199 lb BMI 28.6 BP 128/68 Blood Pressure Location Lt brachial Position Sitting Pulse 86 Intake Visit Reasons: S/P EGD; Dr. Wesley Intake Note: Patient follow up for abdominal bloating and EGD results. Patient denies any GI issues. 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 Accompanied by: Self / Same As Patient Allergies clavulanic acid [From Augmentin] Allergy (Mild, Verified 03/05/23 07:45) Itching Penicillins Allergy (Unknown, Verified 03/05/23 07:45) ITCHING Medication List - Last Reconciled 03/05/23 by Franck Madrid MD atorvastatin 40 mg PO BEDTIME cetirizine 10 mg PO DAILY duloxetine 30 mg PO BID lisinopril 10 mg PO DAILY 90 days loratadine (Allergy Relief (loratadine)) 10 mg PO DAILY metformin 1,000 mg PO BID methocarbamol 750 mg PO TID PRN 30 days omeprazole 20 mg PO BID pregabalin 150 mg PO BID 30 days sennosides (senna) 8.6 mg PO BEDTIME PRN 90 days tadalafil 5 mg PO DAILY 90 days venlafaxine ER 75 mg PO BEDTIME PFSH Medical History Mixed hyperlipidemia Muscle spasm Fibromyalgia COVID-19 vaccine series completed Pain of multiple extremities Neck pain History of lumbar puncture Back pain SHERLY (obstructive sleep apnea) Palpitations Anxiety Migraine Hyperlipidemia, unspecified Essential hypertension Type 2 diabetes mellitus with unspecified complications Surgical History History of umbilical hernia repair History of esophagogastroduodenoscopy (EGD) Hx of colonoscopy Family History Mother Diabetes Father Myocardial infarction Social History Alcohol intake: never Comment: medicated in pacu Patient Tobacco Use Status: Never used Tobacco Physical Exam Vital Signs: Last Vital Signs Pulse 86 03/05/23 07:54 BP 128/68 03/05/23 07:54 BMI result Body Mass Index 28.6 Assessment & Plan Assessment & Plan (1) Elevated LFTs: Comment: Elevated LFTs likely due to fatty liver related to DM Hepatitis B and C antibodies and celiac serologies were negative in the past. Code(s): R79.89 - Other specified abnormal findings of blood chemistry (2) Abdominal bloating: Code(s): R14.0 - Abdominal distension (gaseous) (3) Generalized abdominal pain: Code(s): R10.84 - Generalized abdominal pain (4) GERD (gastroesophageal reflux disease): Code(s): K21.9 - Gastro-esophageal reflux disease without esophagitis (5) History of colon polyps: Comment: 10/2015 COL[address] PERFORMED [address] LEIGH: Two small (a hyperplastic and an adenomatous) polyps were removed There was a short 3 cms area of suspected proctitis extending from the dentate line. 08/2020 colonoscopy showed diverticulosis and no polyps were detected Repeat colonoscopy is advised in 5 years (Due 08/2025) Code(s): Z86.010 - Personal history of colonic polyps Medications: New famotidine 40 mg PO BEDTIME 20 days 20 tabs 0RF Coding Diagnoses Elevated LFTs R79.89 Abdominal bloating R14.0 Generalized abdominal pain R10.84 GERD (gastroesophageal reflux disease) K21.9 History of colon polyps Z86.010
--- NOTE | 2023-03-05 07:46 | A.OFFVIS_ITS ---
Intake Vital Signs 03/05/23 07:54 Height 5 ft 10 in Weight 199 lb BMI 28.6 BP 128/68 Blood Pressure Location Lt brachial Position Sitting Pulse 86 Intake Visit Reasons: S/P EGD; Dr. Drake Allergies clavulanic acid [From Augmentin] Allergy (Mild, Verified 05/20/23 07:42) Itching Penicillins Allergy (Unknown, Verified 05/20/23 07:42) ITCHING Medication List - Last Reconciled 03/05/23 by Franck Madrid MD atorvastatin 40 mg PO BEDTIME cetirizine 10 mg PO DAILY duloxetine 30 mg PO BID lisinopril 10 mg PO DAILY 90 days loratadine (Allergy Relief (loratadine)) 10 mg PO DAILY metformin 1,000 mg PO BID methocarbamol 750 mg PO TID PRN 30 days omeprazole 20 mg PO BID pregabalin 150 mg PO BID 30 days sennosides (senna) 8.6 mg PO BEDTIME PRN 90 days tadalafil 5 mg PO DAILY 90 days venlafaxine ER 75 mg PO BEDTIME HPI S/P EGD; Dr. Drake HPI Details GI CLINIC VISIT FOR THIS 52 YEAR OLD AA MALE FOR FU of GERD, dysphagia, abdominal pain. Pt was seen at [facility] [place] ED for abd pain. ? CHRONIC ILLNESSES:?Hypertension, migraine headaches, asthma,, anxiety. ?LABS IN [facility]:?Apr, 2018 normal CBC, normal LFTs except elevated ALT of 62 ? 01/2018 negative celiac serology, normal CRP amylase and lipase ? IMAGING STUDIES: 02/18/[address] SCAN SHOWED: GASTROINTESTINAL TRACT: Gastric wall thickening despite underdistention. Small and large bowel loops are of normal caliber. No small bowel obstruction. Appendix is within normal limits. ABDOMINAL WALL: No significant hernia is appreciated. LYMPH NODES: No bulky lymphadenopathy. IMPRESSION: Gastric wall thickening despite underdistention. Advise correlation with direct visualization. 06/2022 ABD US SHOWED:Echogenic liver sug gestive of fatty infiltration. Limited visualization of the pancreas and aorta. 08/[address] scan showed:? IMPRESS ION: ? Several bladder calcifications, largest measuring 4 x 6 mm. ? Differential would include bladder wall calcifications, partial volume ? averaging with calcifications outside the bladder and bladder stones. ? There is a focal area of bladder wall thickening along the anterior ? upper bladder wall. Diverticulosis. No evidence of diverticulitis. ? Small umbilical hernia containing fat. ?03/2017 UGI SBFT showed: ? IMPRESSION: ? 1. Tiny hiatal hernia with no significant gastroesophageal reflux. ? 2. No evidence of peptic ulcer disease. ? 3. No evidence of small bowel obstruction. ENDOSCOPIC STUDIES:? 02/23/23 EGD WAS PERFORMED BY DR[address] DRAKE: Larynx:normal Esophagus: GE junction at 43 cm, diaphragm hiatus at 43 cm, no varices or esophagitis, bx taken from distal esophagus Stomach: Patchy gastric erythema and nodularity in antrum. Biopsies were obtained. Grade 2 flap valve on retroflexed examination of the cardia. Duodenum: Normal bulb and descending duodenum, BIOPSIES SHOWED: A. Stomach, biopsy: Antral-type and oxyntic mucosa with moderate chronic inactive inflammation; no Helicobacter organisms seen. B. Esophagus, distal, biopsy: Squamous epithelium within normal limits; no inflammation seen 08/2020 EGD AND COLON SHOWED: ESOPHAGUS: Focal esophagitis STOMACH:? Nodular gastritis - biopsies were negative for Helicobacter pylori Colonoscopy Findings: No polyps were detected Biopsies were obtained from the right, left colon and rectum - normal Moderate diverticulosis seen in the left colon Moderate hemorrhoids on retroflexed exam. Plan: Repeat Colonoscopy interval based on path results - in 5 years due to a hx of adenomatous colon polyp. 10/2015 COLONOSCOPY WAS PERFORMED BY DR. LEIGH:Two small (a hyperplastic and an adenomatous) polyps were removed There was a short 3 cms area of suspected proctitis extending from the dentate line. Biopsies showed rectal mucosa with mild nonspecific chronic inflammation. 12/2017 EGD WAS PERFORMED FOR EVALUATION OF GERD AND OROPHARYNGEAL DYSPHAGIA:EGD showed gastritis and biopsies were negative for Helicobacter pylori. Esophagus: Tortuous esophagus with increased tertiary contractions without stricture. Scanty white exudates in the proximal esophagus - biopsies obtained to check for EOE. GE junction at 40 cms. Focal esophagitis at GE junction with a single erosion. A 4-5 mm benign appearing hyperplastic nodule in the distal esophagus just above the GE junction. Dysphagia was felt to be due to esophageal motility disorder. ?TODAY'S VISIT EGD and biopsy results were reviewed with the patient Not having abd pain any more. Pt has been taking Omeprazole 20 mg twice daily since his ER visit and does not feel any different. Lab and US results reviewed Notes improvement in bloating. Has been taking Dicyclomine less frequently Using Dicyclomine three times a day with improvement in symptoms Denies constipation and has a BM once a day with intermittent straining. PAST VISIT: Continues to have abdominal pain and takes Dicyclomine three times a day. Stopped when he ran out and has resumed taking it. Intermittent sore throat and intermittent regurgitation Denies constipation or diarrhea.? Notes BRBPR on the TP. Denies rectal or anal pain. Had a Colonoscopy 4-5 yrs ago Patient denies major cardiac or pulmonary problems, loud snoring or sleep apnea Reports negative cardiac workup in the past for evaluation of chest pain and shortness of breath Denies problems with anesthesia in the past. Denies being on chronic anticoagulation. Patient denies known family history of colon polyps, colon cancer or other GI malignancies. Brother of leukemia Sister of breast cancer. ? Burning and soreness at the xiphoid for the past 2 years - rarely goes away ? Symptoms are constant with intermittent worsening. ? Unable to identify any triggering factors. ? Denies worsening of pain with deep breathing, coughing or lifting. ? Feels it more when he takes greasy food like pizza. ? Complains of pain all over - ? due to fibromyalgia. ? Denies fever, chills or sweating. ? Pain is sometimes associated with a warm feeling radiating to the ears and face. ? Denies facial flushing. ? Denies change in bowel habits, black stools or rectal bleeding. ? Takes fibre at night and bowel movements have been pretty good. ? Had dysphagia in the past which has improved. ? Feels he has bad gas causing rib pain. ? Notes partial relief of rib pain when he passes gas. ? Has heartburn and denies nausea or vomiting, change in appetite or weight. ? PAST GI HISTORY BY REVIEW OF MEDICAL RECORDS: ? Pt has been followed by Jia Joy since 09/2017: ? 47 y/o male here for follow up on upper abdominal pain. He was last seen by Dr. Kinsey 08/06/17 and at that time labs were ordered along with a CT and he was started on vitamin D supplementation. ? The CT showed several bladder calcifications and he should be referred to urology. Otherwise there was a small fat containing hernia but no other remarkable findings to explain his pain. Labs showed mildly elevated ALT at 42, CBC was normal and inflammatory markers were normal. ? He is seeing a urologist now, and will inform him of the CT results. ? He says that the pain is in the side in his ribcage and in between the rib spaces. He also has pain in the lower to mid sternal area where the ribs would attach. The pain is worse with pushing and with sitting and waling and is described as burning. At times he will have some relief with otc gas x. ? He also will have a bitter taste in his mouth with belching despite being on omeprazole. He has occasional breakthrough heartburn that he takes TUMS for. The pain is at time better with heat and massage. When it hurts very badly he can not breathe well. He has had CXR in the past when he presented to the ER, and to his knowledge he has not had any cardiac problems. ? He had a brother how just from leukemia, and the hx of cardiac disease is not known on his fathers side of the family. ? He also sufferers at time from constipation and will have more pain in his flanks accompanied by dizziness with straining on the toilet. When this happens he has small, hard round stools. I think that a trial of better bowel motility may be a reasonable approach as well. He has tried occasional MOM but it does not produce much of a result. We will start with MiraLax and explore if this is a contributing GI problem. ? Because of the bladder calcifications and the CVA tenderness I will get a UA, and if blood is in the sample will consider if renal US is a good idea to see if renal stones are a contributor. ? Pt was seen on 07/01/18 by Jia Joy C CONSULTANT: ? Assessments ? 1. Generalized abdominal pain - R10.84 (Primary) ? 2. Esophageal dysphagia - R13.10 ? 3. Gastroesophageal reflux disease with esophagitis - K21.0 ? Treatment ? 1. Generalized abdominal pain ? Refill Simethicone Capsule, 180 MG, 1 capsule after meals and at bedtime as needed, Orally, three times a day, 30 days, 90 Capsule, Refills 3 ? Notes: His PCP thnks it may be FMS and started him on gabapetin and a TCA with some good relief. This certainly would explain his more systemic sx of pain and perceived swelling. ? 2. Esophageal dysphagia ? Notes: This has improved with only occasional upper throat swallowing problems he attributes to PNDS and allergies. ? 3. Gastroesophageal reflux disease with esophagitis ? Refill Omeprazole Capsule Delayed Release, 20 mg, 1 capsule, Orally, Once a day, 30 days, 30 Capsule, Refills 3 ? 4. Others ? Notes: WHile he has generally improved since I first started seeing him, I would like to have an MD look at him and his case to see if there is anything else about his unusual presentation and pain that has been missed. He may return to regular follow up with me after this depending on his comfort level. ? Follow Up ? next follow up with an MD for second look (Reason: xyphoid/abd pain PFSH Medical History Mixed hyperlipidemia Muscle spasm Fibromyalgia COVID-19 vaccine series completed Pain of multiple extremities Neck pain History of lumbar puncture Back pain SHERLY (obstructive sleep apnea) Palpitations Anxiety Migraine Hyperlipidemia, unspecified Essential hypertension Type 2 diabetes mellitus with unspecified complications Surgical History History of umbilical hernia repair History of esophagogastroduodenoscopy (EGD) Hx of colonoscopy Family History Mother Diabetes Father Myocardial infarction Social History Alcohol intake: never Comment: medicated in pacu Patient Tobacco Use Status: Never used Tobacco Review of Systems Const All systems reviewed & are unremarkable except as noted in HPI and below Physical Exam Vital Signs: Last Vital Signs Pulse 86 03/05/23 07:54 BP 128/68 03/05/23 07:54 BMI result Body Mass Index 28.6 Const General: healthy appearing and no acute distress Nutritional Appearance: overweight Orientation/consciousness: patient oriented x3 HEENT Head: Yes normal to inspection Ears: hearing grossly normal bilaterally Eyes Sclerae: sclerae normal Pupils: Equal, round and reactive pupils present Neck Neck: Yes normal visual inspection Chest Chest palpation & inspection: normal inspection of the chest Resp Effort & Inspection: normal respiratory effort Auscultation: clear to auscultation bilaterally Cardio Palpation: normal PMI Rate: regular rate Rhythm: regular rhythm Heart sounds: S1 normal heart sound present, S2 normal heart sound present and no murmurs GI Palpation (GI): Soft to palpation, nontender and No hepatosplenomegaly present Auscultation: normal bowel sounds Rectal Exam - Male: Yes deferred Skin General skin exam: no rashes or lesions noted Neuro General: patient oriented x3, gait normal and moves all extremities Cranial nerves: Yes Equal, round and reactive pupils present Psych Appearance: grossly normal Mental Status: mental status grossly normal Assessment & Plan Assessment & Plan (1) Elevated LFTs: Comment: Elevated LFTs likely due to fatty liver related to DM Hepatitis B and C antibodies and celiac serologies were negative in the past. Code(s): R79.89 - Other specified abnormal findings of blood chemistry (2) Abdominal bloating: Code(s): R14.0 - Abdominal distension (gaseous) (3) Generalized abdominal pain: Code(s): R10.84 - Generalized abdominal pain (4) GERD (gastroesophageal reflux disease): Code(s): K21.9 - Gastro-esophageal reflux disease without esophagitis (5) History of colon polyps: Comment: 10/2015 COLONOSCOPY WAS PERFORMED BY DR. LEIGH: Two small (a hyperplastic and an adenomatous) polyps were removed There was a short 3 cms area of suspected proctitis extending from the dentate line. 08/2020 colonoscopy showed diverticulosis and no polyps were detected Repeat colonoscopy is advised in 5 years (Due 08/2025) Code(s): Z86.010 - Personal history of colonic polyps Plan 52-year-old male with Hypertension, migraine headaches, asthma,, anxiety seen for follow-up of abdominal pain/ burning and soreness of xiphoid which rarely goes away. No specific triggers. Feels he has bad gas causing rib pain and notes partial relief of rib pain when he passes gas. Past evaluation with upper GI small-bowel follow-through and an abdominal CT scan did not reveal any etiology for his symptoms. He likely has IBS with constipation. Patient notes partial improvement in symptoms with dicyclomine 3 times daily. He was advised to start taking omeprazole 20 mg daily for GERD. 08/2020 EGD and colonoscopy were performed and findings as noted above. 06/04/22 Pt advised to continue Dicyclomine and add senna 2-3 times a week as needed for constipation. 11/20/22 Bloating improved LFTs decreased with wt loss 03/05/23 Pt was advised to replace Omeprazole with Famotidine for 2 weeks and return for an H Pylori breath test Follow-up in 3 months. Medications: New famotidine 40 mg PO BEDTIME 20 tabs 0RF 20 days Coding Level of Care Code Est Pt Level 4 (06346) Diagnoses Elevated LFTs R79.89 Abdominal bloating R14.0 Generalized abdominal pain R10.84 GERD (gastroesophageal reflux disease) K21.9 History of colon polyps Z86.010 Time Spent (min) 23
[2023-03-05 07:54] VITALS: BP 128/68; PULSE 86; BMI 28.6
== END 2023-03-05 08:43 | disposition home or self-care (01) ==
PROVIDERS: PCP Internal Medicine; Visit Provider Internal Medicine Gastroenterology
DX: R79.89 Other specified abnormal findings of blood chemistry (principal); R14.0 Abdominal distension (gaseous); R10.84 Generalized abdominal pain; K21.9 Gastro-esophageal reflux disease without esophagitis; Z86.010 Personal history of colon polyps
CPT/HCPCS: 99214

== ENCOUNTER → 2023-03-05 07:42 | Outpatient (BNVA) | payer BC, SELFPAY | PROVIDERS: PCP Internal Medicine; Visit Provider Internal Medicine Gastroenterology ==

== ENCOUNTER 2023-03-30 08:41 | Outpatient (REF) | payer BC, SELFPAY ==
[2023-04-01 13:37] LABS: H Pylori Breath Test Negative (Negative)
== END 2023-03-30 08:42 | disposition home or self-care (01) ==
LOC: HO.LNP 08:41
PROVIDERS: PCP Internal Medicine; Visit Provider Internal Medicine Gastroenterology
DX: Z11.2 Encounter for screening for other bacterial diseases (principal)
CPT/HCPCS: 83013; 99211

== ENCOUNTER 2023-05-20 07:26 | Outpatient (AMB) | payer BC, SELFPAY ==
--- NOTE | 2023-05-20 07:36 | A.OFFVIS_ITS ---
Intake Vital Signs 05/20/23 07:52 Height 5 ft 10 in Weight 196 lb BMI 28.1 BP 116/64 Blood Pressure Location Lt brachial Position Sitting Pulse 87 Intake Visit Reasons: 6 month follow up Intake Note: Patient follow up fro abdominal bloating Patient denies any GI issues. 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 Accompanied by: Self / Same As Patient Allergies clavulanic acid [From Augmentin] Allergy (Mild, Verified 05/20/23 07:42) Itching Penicillins Allergy (Unknown, Verified 05/20/23 07:42) ITCHING Medication List - Last Reconciled 05/20/23 by Franck Madrid MD atorvastatin 40 mg PO BEDTIME cetirizine 10 mg PO DAILY duloxetine 30 mg PO BID lisinopril 10 mg PO DAILY 90 days loratadine (Allergy Relief (loratadine)) 10 mg PO DAILY metformin 1,000 mg PO BID methocarbamol 750 mg PO TID PRN 30 days omeprazole 20 mg PO BID pregabalin 150 mg PO BID 30 days sennosides (senna) 8.6 mg PO BEDTIME PRN 90 days tadalafil 5 mg PO DAILY 90 days venlafaxine ER 75 mg PO BEDTIME HPI 6 month follow up HPI Details GI CLINIC VISIT FOR THIS 53 YEAR OLD AA MALE FOR FU of GERD, dysphagia, abdominal pain. Pt was seen at [facility] ED for abd pain. ? CHRONIC ILLNESSES:?Hypertension, migraine headaches, asthma,, anxiety. ?[facility]S [facility]:?Apr, 2018 normal CBC, normal LFTs except elevated ALT of 62 ? 01/2018 negative celiac serology, normal CRP amylase and lipase ? IMAGING STUDIES: 02/18/[address] SCAN SHOWED: GASTROINTESTINAL TRACT: Gastric wall thickening despite underdistention. Small and large bowel loops are of normal caliber. No small bowel obstruction. Appendix is within normal limits. ABDOMINAL WALL: No significant hernia is appreciated. LYMPH NODES: No bulky lymphadenopathy. IMPRESSION: Gastric wall thickening despite underdistention. Advise correlation with direct visualization. 06/2022 ABD US SHOWED:Echogenic liver sug gestive of fatty infiltration. Limited visualization of the pancreas and aorta. 08/[address] scan showed:? IMPRESS ION:?Several bladder calcifications, largest measuring 4 x 6 mm. ? Differential would include bladder wall calcifications, partial volume ? averaging with calcifications outside the bladder and bladder stones. ? There is a focal area of bladder wall thickening along the anterior ? upper bladder wall. Diverticulosis. No evidence of diverticulitis. ? Small umbilical hernia containing fat. ?03/2017 UGI SBFT showed: ? IMPRESSION: ? 1. Tiny hiatal hernia with no significant gastroesophageal reflux. ? 2. No evidence of peptic ulcer disease. ? 3. No evidence of small bowel obstruction. ENDOSCOPIC STUDIES:? 02/23/23 EGD WAS PERFORMED [address] DR[address] DRAKE: Larynx:normal Esophagus: GE junction at 43 cm, diaphragm hiatus at 43 cm, no varices or esophagitis, bx taken from distal esophagus Stomach: Patchy gastric erythema and nodularity in antrum. Biopsies were obtained. Grade 2 flap valve on retroflexed examination of the cardia. Duodenum: Normal bulb and descending duodenum, BIOPSIES SHOWED: A. Stomach, biopsy: Antral-type and oxyntic mucosa with moderate chronic i nactive inflammation; no Helicobacter organisms seen. B. Esophagus, distal, biopsy: Squamous epithelium within normal limits; no inflammation seen 08/2020 EGD AND COLON SHOWED:ESOPHAGUS: F ocal esophagitis STOMACH:? Nodular gastritis - biopsies were negative for Helicobacter pylori Colonoscopy Findings: No polyps were detected Biopsies were obtained from the right, left colon and rectum - normal Moderate diverticulosis seen in the left colon Moderate hemorrhoids on retroflexed exam. Plan: Repeat Colonoscopy interval based on path results - in 5 years due to a hx of adenomatous colon polyp. 10/2015 COLONOSCOPY WAS PERFORMED BY DR[address] LEIGH: Two small (a hyperplastic and an adenomatous) polyps were removedThere was a short 3 cms area of suspected proctitis extending from the dentate line. Biopsies showed rectal mucosa with mild nonspecific chronic inflammation. 12/2017 EGD WAS PERFORMED FOR EVALUATION OF GERD AND OROPHARYNGEAL DYSPHAGIA:EGD showed gastritis and biopsies were negative for Helicobacter pylori.Esophagus: Tortuous esophagus with increased tertiary contractions without stricture. Scanty white exudates in the proximal esophagus - biopsies obtained to check for EOE. GE junction at 40 cms. Focal esophagitis at GE junction with a single erosion. A 4-5 mm benign appearing hyperplastic nodule in the distal esophagus just above the GE junction. Dysphagia was felt to be due to esophageal motility disorder. ?TODAY'S VISIT Feeling OK - taking Omeprazole 20 mg once daily in the morning H Pylori breath test was negative He was taking lemon and olive oil and stopped taking it. PAST VISIT: EGD and biopsy results were reviewed with the patient Not having abd pain any more. Pt has been taking Omeprazole 20 mg twice daily since his ER visit and does not feel any different. Lab and US results reviewed Notes improvement in bloating. Has been taking Dicyclomine less frequently Using Dicyclomine three times a day with improvement in symptoms Denies constipation and has a BM once a day with intermittent straining. Continues to have abdominal pain and takes Dicyclomine three times a day. Stopped when he ran out and has resumed taking it. Intermittent sore throat and intermittent regurgitation Denies constipation or diarrhea.? Notes BRBPR on the TP. Denies rectal or anal pain. Had a Colonoscopy 4-5 yrs ago Patient denies major cardiac or pulmonary problems, loud snoring or sleep apnea Reports negative cardiac workup in the past for evaluation of chest pain and shortness of breath Denies problems with anesthesia in the past. Denies being on chronic anticoagulation. Patient denies known family history of colon polyps, colon cancer or other GI malignancies. Brother of leukemia Sister of breast cancer. ? Burning and soreness at the xiphoid for the past 2 years - rarely goes away ? Symptoms are constant with intermittent worsening. ? Unable to identify any triggering factors. ? Denies worsening of pain with deep breathing, coughing or lifting. ? Feels it more when he takes greasy food like pizza. ? Complains of pain all over - ? due to fibromyalgia. ? Denies fever, chills or sweating. ? Pain is sometimes associated with a warm feeling radiating to the ears and face. ? Denies facial flushing. ? Denies change in bowel habits, black stools or rectal bleeding. ? Takes fibre at night and bowel movements have been pretty good. ? Had dysphagia in the past which has improved. ? Feels he has bad gas causing rib pain. ? Notes partial relief of rib pain when he passes gas. ? Has heartburn and denies nausea or vomiting, change in appetite or weight. ? PAST GI HISTORY BY REVIEW OF MEDICAL RECORDS: ? Pt has been followed by Jia Joy since 09/2017: ? 47 y/o male here for follow up on upper abdominal pain. He was last seen by Dr. Kinsey 08/06/17 and at that time labs were ordered along with a CT and he was started on vitamin D supplementation. ? The CT showed several bladder calcifications and he should be referred to urology. Otherwise there was a small fat containing hernia but no other remarkable findings to explain his pain. Labs showed mildly elevated ALT at 42, CBC was normal and inflammatory markers were normal. ? He is seeing a urologist now, and will inform him of the CT results. ? He says that the pain is in the side in his ribcage and in between the rib spaces. He also has pain in the lower to mid sternal area where the ribs would attach. The pain is worse with pushing and with sitting and waling and is described as burning. At times he will have some relief with otc gas x. ? He also will have a bitter taste in his mouth with belching despite be ing on omeprazole. He has occasional breakthrough heartburn that he takes TUMS for. The pain is at time better with heat and massage. When it hurts very badly he can not breathe well. He has had CXR in the past when he presented to the ER, and to his knowledge he has not had any cardiac problems. ? He had a brother how just from leukemia, and the hx of cardiac disease is not known on his fathers side of the family. ? He also sufferers at time from constipation and will have more pain in his flanks accompanied by dizziness with straining on the toilet. When this happens he has small, hard round stools. I think that a trial of better bowel motility may be a reasonable approach as well. He has tried occasional MOM but it does not produce much of a result. We will start with MiraLax and explore if this is a contributing GI problem. ? Because of the bladder calcifications and the CVA tenderness I will get a UA, and if blood is in the sample will consider if renal US is a good idea to see if renal stones are a contributor. ? Pt was seen on 07/01/18 by Jia Joy, FACILITY OPERATIONS MANAGER: ? Assessments ? 1. Generalized abdominal pain - R10.84 (Primary) ? 2. Esophageal dysphagia - R13.10 ? 3. Gastroesophageal reflux disease with esophagitis - K21.0 ? Treatment ? 1. Generalized abdominal pain ? Refill Simethicone Capsule, 180 MG, 1 capsule after meals and at bedtime as needed, Orally, three times a day, 30 days, 90 Capsule, Refills 3 ? Notes: His PCP thnks it may be FMS and started him on gabapetin and a TCA with some good relief. This certainly would explain his more systemic sx of pain and perceived swelling. ? 2. Esophageal dysphagia ? Notes: This has improved with only occasional upper throat swallowing problems he attributes to PNDS and allergies. ? 3. Gastroesophageal reflux disease with esophagitis ? Refill Omeprazole Capsule Delayed Release, 20 mg, 1 capsule, Orally, Once a day, 30 days, 30 Capsule, Refills 3 ? 4. Others ? Notes: WHile he has generally improved since I first started seeing him, I would like to have an MD look at him and his case to see if there is anything else about his unusual presentation and pain that has been missed. He may return to regular follow up with me after this depending on his comfort level. ? Follow Up ? next follow up with an MD for second look (Reason: xyphoid/abd paiin [facility] Medical History Mixed hyperlipidemia Muscle spasm Fibromyalgia COVID-19 vaccine series completed Pain of multiple extremities Neck pain History of lumbar puncture Back pain SHERLY (obstructive sleep apnea) Palpitations Anxiety Migraine Hyperlipidemia, unspecified Essential hypertension Type 2 diabetes mellitus with unspecified complications Surgical History History of umbilical hernia repair History of esophagogastroduodenoscopy (EGD) Hx of colonoscopy Family History Mother Diabetes Father Myocardial infarction Social History Alcohol intake: never Comment: medicated in pacu Patient Tobacco Use Status: Never used Tobacco Review of Systems Const All systems reviewed & are unremarkable except as noted in HPI and below Physical Exam Const General: healthy appearing and no acute distress Nutritional Appearance: overweight Orientation/consciousness: patient oriented x3 HEENT Head: Yes normal to inspection Ears: hearing grossly normal bilaterally Eyes Sclerae: sclerae normal Pupils: Equal, round and reactive pupils present Neck Neck: Yes normal visual inspection Chest Chest palpation & inspection: normal inspection of the chest Resp Effort & Inspection: normal respiratory effort Auscultation: clear to auscultation bilaterally Cardio Palpation: normal PMI Rate: regular rate Rhythm: regular rhythm Heart sounds: S1 normal heart sound present, S2 normal heart sound present and no murmurs GI Palpation (GI): Soft to palpation, nontender and No hepatosplenomegaly present Auscultation: normal bowel sounds Rectal Exam - Male: Yes deferred Skin General skin exam: no rashes or lesions noted Neuro General: patient oriented x3, gait normal and moves all extremities Cranial nerves: Yes Equal, round and reactive pupils present Psych Appearance: grossly normal Mental Status: mental status grossly normal Assessment & Plan Assessment & Plan (1) Elevated LFTs: Comment: Elevated LFTs likely due to fatty liver related to DM Hepatitis B and C antibodies and celiac serologies were negative in the past. Code(s): R79.89 - Other specified abnormal findings of blood chemistry (2) Abdominal bloating: Code(s): R14.0 - Abdominal distension (gaseous) (3) Generalized abdominal pain: Code(s): R10.84 - Generalized abdominal pain (4) GERD (gastroesophageal reflux disease): Code(s): K21.9 - Gastro-esophageal reflux disease without esophagitis (5) History of colon polyps: Comment: 10/2015 COLON[address]COPY WAS PERFORMED BY [address] LEIGH: Two small (a hyperplastic and an adenomatous) polyps were removed There was a short 3 cms area of suspected proctitis extending from the dentate l ine. 08/2020 colonoscopy showed diverticulosis and no polyps were detected Repeat colonoscopy is advised in 5 years (Due 08/2025) Code(s): Z86.010 - Personal history of colonic polyps Plan 53-year-old male with Hypertension, migraine headaches, asthma,, anxiety seen for follow-up of abdominal pain/ burning and soreness of xiphoid which rarely goes away. No specific triggers. Feels he has bad gas causing rib pain and notes partial relief of rib pain when he passes gas. Past evaluation with upper GI small-bowel follow-through and an abdominal CT scan did not reveal any etiology for his symptoms. He likely has IBS with constipation. Patient notes partial improvement in symptoms with dicyclomine 3 times daily. He was advised to start taking omeprazole 20 mg daily for GERD. 08/2020 EGD and colonoscopy were performed and findings as noted above. 06/04/22 Pt advised to continue Dicyclomine and add senna 2-3 times a week as needed for constipation. 11/20/22 Bloating improved LFTs decreased with wt loss 03/05/23 Pt was advised to replace Omeprazole with Famotidine for 2 weeks and return for an H Pylori breath test FU in Coding Level of Care Code Est Pt Level 4 (66313) Diagnoses Elevated LFTs R79.89 Abdominal bloating R14.0 Generalized abdominal pain R10.84 GERD (gastroesophageal reflux disease) K21.9 History of colon polyps Z86.010 Time Spent (min) 18
[2023-05-20 07:52] VITALS: BP 116/64; PULSE 87; BMI 28.1
== END 2023-05-20 08:51 | disposition home or self-care (01) ==
PROVIDERS: PCP Internal Medicine; Visit Provider Internal Medicine Gastroenterology
DX: R79.89 Other specified abnormal findings of blood chemistry (principal); R14.0 Abdominal distension (gaseous); R10.84 Generalized abdominal pain; K21.9 Gastro-esophageal reflux disease without esophagitis; Z86.010 Personal history of colon polyps
CPT/HCPCS: 99214

== ENCOUNTER → 2023-05-20 07:26 | Outpatient (BNVA) | payer BC, SELFPAY | PROVIDERS: PCP Internal Medicine; Visit Provider Internal Medicine Gastroenterology ==

== ENCOUNTER 2023-07-13 16:32 | Outpatient (REF) | payer BC, SELFPAY ==
[2023-07-13 18:41] LABS: Prostate Specific Antigen 0.25 ng/mL (<0.05-4.0)
[2023-07-18 15:28] LABS: Testosterone, Total 247 ng/dL (250-1100)
== END 2023-07-13 16:33 | disposition home or self-care (01) ==
LOC: HO.LAB 16:32
PROVIDERS: PCP Internal Medicine; Visit Provider Urology
DX: R79.89 Other specified abnormal findings of blood chemistry (principal); Z12.5 Encounter for screening for malignant neoplasm of prostate
CPT/HCPCS: 36415; 84153; 84403

== ENCOUNTER 2023-07-20 15:26 | Outpatient (AMB) | payer BC, SELFPAY ==
--- NOTE | 2023-07-20 15:27 | A.OFFVIS_ITS ---
Intake Visit Reasons: 6M PSA/Testosterone(set)Vm to Confirm Intake Note: Patient is Present for Follow Up labs Urology Medication: None Antibiotic Allergies: Penicillins Blood Thinners: none Pharmacy: [facility] In[facility] Required: No Accompanied by: Self / Same As Patient Allergies clavulanic acid [From Augmentin] Allergy (Mild, Verified 07/20/23 15:27) Itching Penicillins Allergy (Unknown, Verified 07/20/23 15:27) ITCHING Medication List - Last Reconciled 07/20/23 by Varinder Sibley MD atorvastatin 40 mg PO BEDTIME cetirizine 10 mg PO DAILY duloxetine 30 mg PO BID lisinopril 10 mg PO DAILY 90 days loratadine (Allergy Relief (loratadine)) 10 mg PO DAILY metformin 1,000 mg PO BID methocarbamol 750 mg PO TID PRN 30 days omeprazole 20 mg PO BID pregabalin 150 mg PO BID 30 days sennosides (senna) 8.6 mg PO BEDTIME PRN 90 days tadalafil 5 mg PO DAILY 90 days venlafaxine ER 75 mg PO BEDTIME HPI Comments Details: Laurence is a pleasant [facility] male. He is seen for the following urologic conditions - epididymal cyst - erectile dysfunction Borderline testosterone Minimal improvement from daily tadalafil Repeat baseline full testosterone panel Erectile dysfunction associated with diabetes Progressive Can obtain but not maintain erection Does have treatment for dyslipidemia, diabetes, depression Prior evaluation 2019 for atherosclerotic vascular disease. ECG, Holter, echo performed. LVEF 60% with mild diastolic dysfunction. Normal myocardial perfusion study. Exercise stress test 10.5 minutes on Kuldip protocol. Current medication 100 mg sildenafil on demand Labs - 01/03 P 0.3, 01/04 P 0.3, T 263 - 07/06 T 250 Epididymal cyst Stable right side Decreasing size of left testicle Yearly review [facility] Medical History Mixed hyperlipidemia Muscle spasm Fibromyalgia COVID-19 vaccine series completed Pain of multiple extremities Neck pain History of lumbar puncture Back pain SHERLY (obstructive sleep apnea) Palpitations Anxiety Migraine Hyperlipidemia, unspecified Essential hypertension Type 2 diabetes mellitus with unspecified complications Surgical History History of umbilical hernia repair History of esophagogastroduodenoscopy (EGD) Hx of colonoscopy Family History Mother Diabetes Father Myocardial infarction Social History Alcohol intake: never Comment: medicated in pacu Patient Tobacco Use Status: Never used Tobacco Review of Systems Const Denies chills and Denies fever(s) Card Reports no additional complaints and Denies syncope Resp Denies cough GI Denies abdominal pain and Denies heartburn Reports as per HPI and Denies change in libido Neuro Denies syncope Psych Denies change in libido Endo Denies change in libido Physical Exam Const General: cooperative, healthy appearing, comfortable and no acute distress Orientation/consciousness: patient oriented x3 HEENT Face and sinus: Yes normal facial exam Mouth: moist mucous membranes Neck Neck: Yes normal visual inspection, Yes full ROM and Yes trachea midline Chest Chest palpation & inspection: normal inspection of the chest Resp Effort & Inspection: normal respiratory effort, able to speak in complete sentences and no respiratory distress GI Inspection: Yes normal to inspection Back/Spine/Pelvis Cervical Spine: normal cervical lordosis Thoracic/Lumbar Spine: thoracic and lumbar spine normal to inspection Skin General skin exam: no rashes or lesions noted Neuro General: patient oriented x3, gait normal, tone normal and moves all extremities Extrem General: Yes normal to inspection and Yes capillary refill normal Assessment & Plan Assessment & Plan (1) Low testosterone: Code(s): R79.89 - Other specified abnormal findings of blood chemistry Category: Medical Plan Repeat baseline testosterone labs Orders: Orders Hematocrit 07/22/23 R79.89 - Other specified abnormal findings of blood chemistry Testosterone, Free/Total 07/22/23 R79.89 - Other specified abnormal findings of blood chemistry Prolactin 07/22/23 R79.89 - Other specified abnormal findings of blood chemistry Follicle Stimulating Hormone 07/22/23 R79.89 - Other specified abnormal findings of blood chemistry Lutenizing Hormone 07/22/23 R79.89 - Other specified abnormal findings of blood chemistry Sex Hormone Binding Globulin 07/22/23 R79.89 - Other specified abnormal findings of blood chemistry Estradiol Ultra Sensitive 07/22/23 E29.1 - Testicular hypofunction, R79.89 - Other specified abnormal findings of blood chemistry Patient Instructions: Imaging studies, laboratory and physical exam results were discussed and reviewed in detail. No major barriers to patient understanding were identified. An opportunity to ask questions regarding the treatment plan was provided. All questions were answered. The patient expressed understanding and agreement with the above treatment plan. The patient is aware they should contact our office by phone for worsening of their current condition or the appearance of new urologic symptoms. Compliance is encouraged with any medications and followup testing that is ordered. It is a privilege to participate in the urologic care of your patient. If you have any questions or concerns regarding treatment for the above conditions, or other urologic issues, please do not hesitate to contact me. The office telephone contact is [phone]. This note is constructed using voice recognition software. While every effort has been made to ensure accuracy intermediate card tender errors may have been included. Yours sincerely, Dr Varinder Sibley MD, [facility] - Urology Providers of Expert, Compassionate Care for the Genitourinary System Coding Level of Care Code Est Pt Level 3 (30412) Diagnoses Low testosterone R79.89
== END 2023-07-20 15:59 | disposition home or self-care (01) ==
LOC: HO.HUSH 15:26
PROVIDERS: PCP Internal Medicine; Visit Provider Urology
DX: R79.89 Other specified abnormal findings of blood chemistry (principal)
CPT/HCPCS: 99213

== ENCOUNTER → 2023-07-20 15:26 | Outpatient (BNVA) | payer BC, SELFPAY | PROVIDERS: PCP Internal Medicine; Visit Provider Urology ==

== ENCOUNTER 2023-07-22 06:13 | Outpatient (REF) | payer BC, SELFPAY ==
[2023-07-22 10:52] LABS: Hematocrit 47.8 % (42.0-52.0)
[2023-07-23 12:29] LABS: Follicle Stimulating Hormone 10.6 mIU/mL (1.4-12.8); Lutenizing Hormone 3.9 mIU/mL (1.5-9.3); Prolactin 10.8 ng/mL (2.0-18.0); Sex Hormone Binding Globulin 18 nmol/L (10-50)
[2023-07-28 00:53] LABS: Estradiol Ultra Sensitive 15 pg/mL (< OR = 29)
[2023-08-01 15:13] LABS: Testosterone, Total 225 ng/dL (250-1100)
== END 2023-07-22 06:14 | disposition home or self-care (01) ==
LOC: HO.HMGCLDS 06:13
PROVIDERS: PCP Internal Medicine; Visit Provider Urology
DX: R79.89 Other specified abnormal findings of blood chemistry (principal); E29.1 Testicular hypofunction
CPT/HCPCS: 36415; 82670; 83001; 83002; 84146; 84270; 84402; 84403; 85014

== ENCOUNTER 2023-08-19 09:36 | Outpatient (REF) | payer BC, SELFPAY ==
[2023-08-19 14:06] LABS: MANUAL DIFF FLAG NO
[2023-08-19 14:23] LABS: Basophils Percent Auto 0.2 % (0-2); Eosinophils Absolute Auto 0.1 X10*3/uL (0.0-0.4); Eosinophils Percent Auto 0.9 % (0-4); Hematocrit 49.2 % (42.0-52.0); Hemoglobin 16.4 g/dl (14.0-18.0); Imm Gran Abs Auto 0.02 X10*3/uL (0.00-0.03); Imm Gran Pct Auto 0.4 % (0.0-0.4); Lymphocytes Absolute Auto 2.1 X10*3/uL (1.2-4.9); Lymphocytes Percent Auto 38.7 % (20-40); Mean Corpuscular HGB Conc 33.3 g/dl (31.0-36.0); Mean Corpuscular Hemoglobin 27.3 pg (27.0-33.0); Mean Platelet Volume 12.2 fL (9.4-12.4); Monocytes Absolute Auto 0.4 X10*3/uL (0.1-1.2); Monocytes Percent Auto 7.2 % (2-11); NRBC Pct Auto 0.4 /100WBC (0.0-0.2); Neutrophils Absolute Auto 2.9 x10*3/uL (2.0-8.3); Neutrophils Percent Auto 52.6 % (45-73); Platelet Count 188 X10*3/uL (160-400); Red Cell Distribution Width 15.1 % (11.0-16.0); White Blood Count 5.4 X10*3/uL (4.8-10.8)
[2023-08-19 14:40] LABS: Alanine Aminotransferase 28 U/L (0-40); Albumin Level 4.5 g/dL (3.5-5.0); Alkaline Phosphatase 51 U/L (39-117); Anion Gap 15 (12-20); Aspartate Amino Transferase 23 U/L (5-37); Bilirubin Total 0.5 mg/dL (0.0-1.0); Blood Urea Nitrogen 13 mg/dL (9-16); Calcium 9.4 mg/dL (8.4-10.2); Carbon Dioxide 22 mmol/L (22-29); Chloride 106 mmol/L (96-108); Cholesterol 114 mg/dL (<200); Estimated Glomerular Filt Rate > 60; Glucose Random 87 mg/dL (60-115); HDL Cholesterol 29 mg/dL (>40); LDL Cholesterol Calculated 74 mg/dL (<100); Potassium 4.3 mmol/L (3.3-5.1); Sodium 139 mmol/L (135-145); Total Protein 7.5 g/dL (6.5-8.0); Triglycerides 59 mg/dL (<150)
[2023-08-19 14:46] LABS: TSH reflex Free T4 1.61 uIU/mL (0.32-4.0)
[2023-08-19 14:55] LABS: Folate 10.5 ng/mL (> or = 4.0); Vitamin B12 379 pg/mL (200-900)
[2023-08-19 15:16] LABS: Creatinine Urine 53.16 mg/dL; Microalbumin Urine < 5.0 mg/L
== END 2023-08-19 09:37 | disposition home or self-care (01) ==
LOC: HO.CHCLDS 09:36
PROVIDERS: Visit Provider Internal Medicine
DX: E11.9 Type 2 diabetes mellitus without complications (principal)
CPT/HCPCS: 36415; 80053; 80061; 82043; 82570; 82607; 82746; 84443; 85025

== ENCOUNTER 2023-08-20 08:27 | Outpatient (AMB) | payer BC, SELFPAY ==
--- NOTE | 2023-08-20 08:34 | MHC.OFFVIS ---
Intake Visit Reasons: 6M Med Review(Tadalafil) Intake Note: Patient is Present for Follow Up Med review on Tadalafil Prescribed in 01/2023 Urology Medication: Tadalafil Antibiotic Allergies:Penicillins Blood Thinners:None Patient states that it has been 6 months since he has been on Tadalafil. Patient states that he does not feel improvement states that Tadalafil is ineffective for him. 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 ECG, Holter, echo performed. LVEF 60% with mild diastolic dysfunction. Normal myocardial perfusion study. Exercise stress test 10.5 minutes on Kuldip protocol. Current medication 100 mg sildenafil on demand Labs - 01/03 P 0.3, 01/04 P 0.3, T 263, 07/06 T 250, 09/05 T 225 LH 3.9 PSA 0.25 - 07/06 T 250 Epididymal cyst Stable right side Decreasing size of left testicle Yearly review [facility] Medical History Mixed hyperlipidemia Muscle spasm Fibromyalgia COVID-19 vaccine series completed Pain of multiple extremities Neck pain History of lumbar puncture Back pain SHERLY (obstructive sleep apnea) Palpitations Anxiety Migraine Hyperlipidemia, unspecified Essential hypertension Type 2 diabetes mellitus with unspecified complications Surgical History History of umbilical hernia repair History of esophagogastroduodenoscopy (EGD) Hx of colonoscopy Family History Mother Diabetes Father Myocardial infarction Social History Alcohol intake: never Comment: medicated in pacu Patient Tobacco Use Status: Never used Tobacco Review of Systems Const Denies chills and Denies fever(s) Card Reports no additional complaints and Denies syncope Resp Denies cough GI Denies abdominal pain and Denies heartburn Reports as per HPI and Denies change in libido Neuro Denies syncope Psych Denies change in libido Endo Denies change in libido Physical Exam Const General: cooperative, healthy appearing, comfortable and no acute distress Orientation/consciousness: patient oriented x3 HEENT Face and sinus: Yes normal facial exam Mouth: moist mucous membranes Neck Neck: Yes normal visual inspection, Yes full ROM and Yes trachea midline Chest Chest palpation & inspection: normal inspection of the chest Resp Effort & Inspection: normal respiratory effort, able to speak in complete sentences and no respiratory distress GI Inspection: Yes normal to inspection Back/Spine/Pelvis Cervical Spine: normal cervical lordosis Thoracic/Lumbar Spine: thoracic and lumbar spine normal to inspection Skin General skin exam: no rashes or lesions noted Neuro General: patient oriented x3, gait normal, tone normal and moves all extremities Extrem General: Yes normal to inspection and Yes capillary refill normal Assessment & Plan Assessment & Plan (1) Hypogonadotropic hypogonadism: Code(s): E23.0 - Hypopituitarism Category: Medical Plan Testopel insertion q3 months Patient Instructions: Imaging studies, laboratory and physical exam results were discussed and reviewed in detail. No major barriers to patient understanding were identified. An opportunity to ask questions regarding the treatment plan was provided. All questions were answered. The patient expressed understanding and agreement with the above treatment plan. The patient is aware they should contact our office by phone for worsening of their current condition or the appearance of new urologic symptoms. Compliance is encouraged with any medications and followup testing that is ordered. It is a privilege to participate in the urologic care of your patient. If you have any questions or concerns regarding treatment for the above conditions, or other urologic issues, please do not hesitate to contact me. The office telephone contact is [phone]. This note is constructed using voice recognition software. While every effort has been made to ensure accuracy developer programmer errors may have been included. Yours sincerely, Dr Varinder Sibley MD, [facility] - Urology Providers of Expert, Compassionate Care for the Genitourinary System Coding Level of Care Code Est Pt Level 4 (08107) Diagnoses Hypogonadotropic hypogonadism E23.0
== END 2023-08-20 09:03 | disposition home or self-care (01) ==
PROVIDERS: PCP Internal Medicine; Visit Provider Urology
DX: E23.0 Hypopituitarism (principal)
CPT/HCPCS: 99214

== ENCOUNTER → 2023-08-20 08:27 | Outpatient (BNVA) | payer BC, SELFPAY | PROVIDERS: PCP Internal Medicine; Visit Provider Urology ==

== ENCOUNTER 2023-09-01 12:08 | Emergency (ER) | payer BC, SELFPAY ==
--- NOTE | ~2023-09-01 | XR_ITS ---
EXAMINATION: XR CHEST CLINICAL INFORMATION: Chest pain. COMPARISON: Chest radiograph 12/11/2021. TECHNIQUE: Frontal view of the chest was obtained. FINDINGS: Unchanged cardiomediastinal silhouette. No focal consolidation, pleural effusion or pneumothorax. No acute osseous findings. Visualized upper abdomen is within normal limits. XR/XR chest 1V IMPRESSION: No acute cardiopulmonary findings.
--- NOTE | 2023-09-01 12:09 | ECG_ITS ---
Test Reason : CP Blood Pressure : / mmHG Vent. Rate : 078 BPM Atrial Rate : 078 BPM P-R Int : 168 ms QRS Dur : 078 ms QT Int : 352 ms P-R-T Axes : 054 023 030 degrees QTc Int : 401 ms Normal sinus rhythm Nonspecific T wave changes Abnormal ECG When compared with ECG of 11-DEC-2021 08:45, No significant change was found Referred By: Kodi Puckett Electronically Signed By:Ishmael Mccracken
[2023-09-01 12:27] VITALS: BP 120/85; PULSE 79; RESP 18; TEMP 36.8; O2SAT 96; BMI 27.7
--- NOTE | 2023-09-01 12:27 | ED_ITS ---
HPI - General Adult General Chief complaint: Chest Pain Stated complaint: CHEST PAIN Time Seen by Provider: 09/01/23 14:09 Source: patient, RN notes reviewed and old records reviewed Mode of arrival: ambulatory History of Present Illness ED Provider: Jessi Cartwright PA-C HPI narrative: 53-year-old male with a past medical history of fibromyalgia, GERD, HLD, HTN, diabetes, presenting to the ED complaining of chest pain described as sharp and burning beginning yesterday which resolved and returned this morning while at work at rest. Admits to associated tingling down left arm and leg. Reports continued symptoms at present however intensity improved. Denies fever, chills, cough, abdominal pain, nausea/vomiting, travel Related Data Home Medications ?Medication ?Instructions ?Recorded ?Confirmed atorvastatin 40 mg tablet 40 mg PO BEDTIME 03/13/20 08/20/23 venlafaxine 75 mg capsule,extended 75 mg PO BEDTIME 03/13/20 08/20/23 release 24 hr duloxetine 30 mg capsule,delayed 30 mg PO BID 07/11/20 08/20/23 release cetirizine 10 mg tablet 10 mg PO DAILY 11/20/22 08/20/23 metformin 1,000 mg tablet 1,000 mg PO BID 11/20/22 08/20/23 loratadine 10 mg tablet (Allergy 10 mg PO DAILY 03/05/23 08/20/23 Relief (loratadine)) Previous Rx's ?Medication ?Instructions ?Recorded sennosides 8.6 mg capsule (senna) 8.6 mg PO BEDTIME PRN constipation 11/20/22 90 days #30 caps lisinopril 10 mg tablet 10 mg PO DAILY HTN 90 days #90 tabs 12/17/22 tadalafil 5 mg tablet 5 mg PO DAILY sexual activity 90 01/20/23 days #90 tabs methocarbamol 750 mg tablet 750 mg PO TID PRN muscle spasm 30 02/12/23 days #90 tabs omeprazole 20 mg capsule,delayed 20 mg PO BID #30 caps 02/18/23 release pregabalin 150 mg capsule 150 mg PO BID pain 30 days #60 caps 06/15/23 Allergies Allergy/AdvReac Type Severity Reaction Status Date / Time clavulanic acid Allergy Mild Itching Verified 09/01/23 12:31 [From Augmentin] Penicillins Allergy Unknown ITCHING Verified 09/01/23 12:31 Review of Systems 2 Review of Systems: Constitutional: No Fever, No Chills ENT/Mouth: No Ear Pain, No Nasal Congestion, No sore throat, No Rhinorrhea, No Swallowing Difficulty Cardiovascular: + Chest Pain, No SOB Respiratory: No Cough, No Sputum, No Wheezing Gastrointestinal: No Nausea, No Vomiting, No Diarrhea, No Constipation, No Abdominal pain Genitourinary: No Dysuria, No Urinary Frequency, No Hematuria Musculoskeletal: No joint pain, No Myalgias, No Joint Swelling Skin: No Skin Lesions, No rash Neuro: No Weakness, + Numbness, + Paresthesias Yes all other systems are reviewed and are negative Constitutional: Constitutional: Reports as per [facility] Past Medical History Attestation statement: The following information was validated with the patient. Source: old records reviewed Medical History Mixed hyperlipidemia Muscle spasm Fibromyalgia COVID-19 vaccine series completed Pain of multiple extremities Neck pain History of lumbar puncture Back pain SHERLY (obstructive sleep apnea) Palpitations Anxiety Migraine Hyperlipidemia, unspecified Essential hypertension Type 2 diabetes mellitus with unspecified complications Surgical History History of umbilical hernia repair History of esophagogastroduodenoscopy (EGD) Hx of colonoscopy Family History Family History Mother Diabetes Father Myocardial infarction Social History Social History Alcohol intake: never Comment: medicated in pacu Patient Tobacco Use Status: Never used Tobacco Advance Directives: No Advance Directives Information Provided: Yes Physical Exam ED Vital Signs: Vital Signs - 24 hr 09/01/23 12:27 09/01/23 14:15 Temperature 98.3 F 97.4 F Pulse Rate 79 70 Respiratory Rate 18 18 Blood Pressure 120/85 118/86 Pulse Oximetry 96 97 Oxygen Delivery Method Room Air Room Air BMI result Body Mass Index 27.7 Const General: cooperative, healthy appearing and no acute distress Orientation/consciousness: patient oriented x3 Limitations: no limitations HENMT Head: Yes normal to inspection and Yes atraumatic Ears: hearing grossly normal bilaterally General nose exam: Normal external nose present Face and sinus: Yes normal facial exam Eyes General: appearance normal, both eyes and all related structures EOM: EOMs intact bilaterally Neck Neck: Yes normal visual inspection and Yes no meningeal signs Chest Other: No rashes /erythema Chest palpation & inspection: normal inspection of the chest, no crepitus and tenderness (Chest wall, reproducing subjective complaint) Resp Effort & Inspection: normal respiratory effort and no respiratory distress Auscultation: clear to auscultation bilaterally, no crackles and no wheezes Cardio Rate: regular rate Heart sounds: S1 normal heart sound present and S2 normal heart sound present GI Inspection: Yes normal to inspection Palpation (GI): Soft to palpation, nontender, no guarding and not rigid Skin Rashes: no rashes Wounds: no wounds Neuro General: patient oriented x3, tone normal and no meningeal signs Cranial nerves: Yes CN's II-XII intact bilaterally Gait exam (Neuro): Normal gait present Extrem General: Yes normal to inspection, Yes no pedal edema and Yes no calf tenderness Course Course Course Narrative: This is an RME done by DAVID Puckett: Additional HPI, ROS, PE not included below will be deferred to primary provider. This is a 53 year old male hx of hypogonadotropic hypogonadism, gerd, hld, dm presents w/ cp since yesterday pain is located on both sides of his chest it feels like a sharp needle like..burning . Today aspirin this morning 2 asa unclear how many mgs also took cayenne pepper. Pain is constant still here. No sob, nausea, vomitng, abd pain, jaw pain, headache, vision changes, weakness Appearance: Alert.? Oriented X3.? No acute cardiopulmonary distress distress.? Head: Normocephalic, atraumatic, no step-offs or deformities Neck: Normal inspection.? Neck supple.? CVS: Pulses normal.? Respiratory: No respiratory distress.? Abdomen: Soft and nontender.? Skin: ? Normal skin color. Extremities: 5/5 strength to bilateral upper and lower extremities Neuro: Oriented X 3.? No motor deficit.? No sensory deficit. -1500--labs reassuring. Troponin negative > will obtain 3 hour repeat XR chest 1V IMPRESSION: No acute cardiopulmonary findings. -1605--repeat troponin negative, mi unlikely. Results discussed with patient including worrisome signs and symptoms and strict return precautions, and when to return to the emergency department. They verbalized understanding and feel safe for discharge at this time. Medical Decision Making Medical Decision Making MDM Narrative: 53-year-old male with a past medical history of fibromyalgia, GERD, HLD, HTN, diabetes, presenting to the ED complaining of chest pain described as sharp and burning beginning yesterday which resolved and returned this morning while at work at rest. On exam vital signs stable, NAD, nontoxic appearing, chest pain reproducible with palpation of chest wall. Lungs CTA, no pedal edema. Concern for costochondritis vs atypical ACS. Lower suspicion for PE, dissection, pericarditis, myocarditis or CHF Plan: EKG, labs, CXR Please refer to course for remaining clinical decision making, interpretation of labs/imaging results, and discussions with consultants and/or family members. Differential Diagnosis Differential Diagnoses: The differential diagnosis associated with the presentation includes As above Admission/Observation Consideration of admission/observation: Escalation of care including admission/observation considered Lab Data [facility] Lab Attestation statement: I reviewed the patient's lab results. 09/01/23 12:35 09/01/23 12:35 Labs: Lab Results 09/01/23 09/01/23 Range/Units 12:35 15:25 WBC 6.4 (4.8-10.8) X10*3/uL RBC 5.88 H (4.60-5.80) X10*6/uL Hgb 16.3 (14.0-18.0) g/dl Hct 47.8 (42.0-52.0) % MCV 81.3 (80.0-98.0) fL MCH 27.7 (27.0-33.0) pg MCHC 34.1 (31.0-36.0) g/dl RDW 15.5 (11.0-16.0) % Plt Count 176 (160-400) X10*3/uL MPV 10.9 (9.4-12.4) fL Immature Gran % (Auto) 0.3 (0.0-0.4) % Neut % (Auto) 51.4 (45-73) % Lymph % (Auto) 39.1 (20-40) % [place] % (Auto) 8.1 (2-11) % Eos % (Auto) 0.8 (0-4) % Baso % (Auto) 0.3 (0-2) % Lymph # (Auto) 2.5 (1.2-4.9) X10*3/uL [place] # (Auto) 0.5 (0.1-1.2) X10*3/uL Eos # (Auto) 0.1 (0.0-0.4) X10*3/uL Baso # (Auto) 0.0 (0.0-0.2) X10*3/uL Abs Immat Gran (auto) 0.02 (0.00-0.03) X10*3/uL Absolute Neuts (auto) 3.3 (2.0-8.3) x10*3/uL Absolute Nucleated RBC 0.000 (0.0-0.012) X10*3/uL Nucleated RBC % (auto) 0.0 (0.0-0.2) /100WBC Sodium 138 (135-145) mmol/L Potassium 4.2 (3.3-5.1) mmol/L Chloride 104 (96-108) mmol/L Carbon Dioxide 26 (22-29) mmol/L Anion Gap 12 (12-20) BUN 14 (9-16) mg/dL Creatinine 0.95 (0.5-1.4) mg/dL Estim Creat Clear Calc 90.7 Estimated GFR > 60 Random Glucose 100 (60-115) mg/dL Calcium 9.9 (8.4-10.2) mg/dL Magnesium 2.0 (1.6-2.6) mg/dL Total Bilirubin 0.2 (0.0-1.0) mg/dL AST 20 (5-37) U/L ALT 26 (0-40) U/L Alkaline Phosphatase 57 (39-117) U/L Troponin I High Sens 2.9 < 2.7 (<3.5-35.0) ng/L Total Protein 7.5 (6.5-8.0) g/dL Albumin 4.6 (3.5-5.0) g/dL Independent Interpretation I performed an independent interpretation of an: EKG (My interpretation EKG normal sinus rhythm rate of 78. NC interval 168. No significant change when compared to prior. No STEMI) Radiology Impression Discussion of test interpretation with radiology: I have reviewed the radiologist's reading. External Record Review External record reviewed: Inpatient record, Office record, Outpatient record, Prior outpatient labs, Prior outpatient radiology, Primary care record and Outside ED record Tests considered The following testing was considered but not selected: As above Prescription Management I considered prescription management with: Pain Medication Chronic Conditions Patient?s care impacted by: Hypertension Discharge Plan Discharge Clinical Impression: Atypical chest pain Instructions: Noncardiac Chest Pain (ED) Prescriptions: No Action pregabalin 150 mg capsule 150 mg PO BID 30 Days Qty: 60 1RF cetirizine 10 mg tablet 10 mg PO DAILY omeprazole 20 mg capsule,delayed release(DR/EC) 20 mg PO BID Qty: 30 2RF venlafaxine 75 mg capsule,extended release 24hr 75 mg PO BEDTIME atorvastatin 40 mg tablet 40 mg PO BEDTIME duloxetine 30 mg capsule,delayed release(DR/EC) 30 mg PO BID tadalafil 5 mg tablet 5 mg PO DAILY 90 Days Qty: 90 1RF metformin 1,000 mg tablet 1,000 mg PO BID senna 8.6 mg capsule 8.6 mg PO BEDTIME PRN (Reason: constipation) 90 Days Qty: 30 1RF methocarbamol 750 mg tablet 750 mg PO TID PRN (Reason: muscle spasm) 30 Days Qty: 90 3RF lisinopril 10 mg tablet 10 mg PO DAILY 90 Days Qty: 90 0RF loratadine [Allergy Relief (loratadine)] 10 mg tablet 10 mg PO DAILY Print Language: [place]
[2023-09-01 12:41] LABS: MANUAL DIFF FLAG NO
[2023-09-01 12:42] LABS: Basophils Percent Auto 0.3 % (0-2); Eosinophils Absolute Auto 0.1 X10*3/uL (0.0-0.4); Eosinophils Percent Auto 0.8 % (0-4); Hematocrit 47.8 % (42.0-52.0); Hemoglobin 16.3 g/dl (14.0-18.0); Imm Gran Abs Auto 0.02 X10*3/uL (0.00-0.03); Imm Gran Pct Auto 0.3 % (0.0-0.4); Lymphocytes Absolute Auto 2.5 X10*3/uL (1.2-4.9); Lymphocytes Percent Auto 39.1 % (20-40); Mean Corpuscular HGB Conc 34.1 g/dl (31.0-36.0); Mean Corpuscular Hemoglobin 27.7 pg (27.0-33.0); Mean Corpuscular Volume 81.3 fL (80.0-98.0); Mean Platelet Volume 10.9 fL (9.4-12.4); Monocytes Absolute Auto 0.5 X10*3/uL (0.1-1.2); Monocytes Percent Auto 8.1 % (2-11); Neutrophils Absolute Auto 3.3 x10*3/uL (2.0-8.3); Neutrophils Percent Auto 51.4 % (45-73); Platelet Count 176 X10*3/uL (160-400); Red Blood Count 5.88 X10*6/uL (4.60-5.80); Red Cell Distribution Width 15.5 % (11.0-16.0); White Blood Count 6.4 X10*3/uL (4.8-10.8)
[2023-09-01 12:55] LABS: Alanine Aminotransferase 26 U/L (0-40); Albumin Level 4.6 g/dL (3.5-5.0); Alkaline Phosphatase 57 U/L (39-117); Anion Gap 12 (12-20); Aspartate Amino Transferase 20 U/L (5-37); Bilirubin Total 0.2 mg/dL (0.0-1.0); Blood Urea Nitrogen 14 mg/dL (9-16); Calcium 9.9 mg/dL (8.4-10.2); Carbon Dioxide 26 mmol/L (22-29); Chloride 104 mmol/L (96-108); Creatinine Clr Calc Pharmacy 90.7; Estimated Glomerular Filt Rate > 60; Glucose Random 100 mg/dL (60-115); Potassium 4.2 mmol/L (3.3-5.1); Sodium 138 mmol/L (135-145); Total Protein 7.5 g/dL (6.5-8.0)
[2023-09-01 13:02] LABS: Troponin-I High Sensitivity 2.9 ng/L (<3.5-35.0)
[2023-09-01 14:15] VITALS: BP 118/86; PULSE 70; RESP 18; TEMP 36.3; O2SAT 97
[2023-09-01 15:49] LABS: Troponin-I High Sensitivity < 2.7 ng/L (<3.5-35.0)
[2023-09-01 16:14] VITALS: BP 118/86; PULSE 70; RESP 18; TEMP 36.3; O2SAT 97
== END 2023-09-01 16:15 | disposition home or self-care (01) ==
PROVIDERS: Physician Assistant; Emergency Provider Emergency Medicine Emergency Medical Services; PCP Internal Medicine
DX: R07.89 Other chest pain (principal); R20.2 Paresthesia of skin; Z79.899 Other long term (current) drug therapy
CPT/HCPCS: 36415; 71045; 80053; 83735; 84484; 85025; 93005; 99283; 99284

== ENCOUNTER → 2023-09-01 12:09 | Outpatient (BNV) | payer BC, SELFPAY | PROVIDERS: PCP Internal Medicine; Visit Provider Internal Medicine Cardiovascular Disease | DX: R07.9 Chest pain, unspecified (principal) | CPT/HCPCS: 93010 ==

== ENCOUNTER 2023-09-28 10:31 | Outpatient (REF) | payer BC, SELFPAY ==
--- NOTE | ~2023-09-28 | XR_ITS ---
EXAMINATION: XR CHEST CLINICAL INFORMATION: Right-sided chest pain with inspiration for 5 days. COMPARISON: None available. TECHNIQUE: 2 views of the chest were obtained. FINDINGS: There is no gross pneumothorax. Heart size is normal. Degenerative changes in the thoracic spine. No pleural effusion. No focal consolidation. XR/XR chest 2V IMPRESSION: No evidence of pneumonia.
== END 2023-09-28 10:32 | disposition home or self-care (01) ==
LOC: HO.XRAY 10:31
PROVIDERS: PCP Nurse Practitioner Family; Visit Provider Nurse Practitioner Family
DX: R07.89 Other chest pain (principal)
CPT/HCPCS: 71046

== ENCOUNTER 2023-10-01 15:10 | Outpatient (AMB) | payer BC, SELFPAY ==
--- NOTE | 2023-10-01 15:25 | MHC.OFFVIS ---
Vital Signs 10/01/23 15:26 Height 5 ft 10 in Weight 194 lb 0.108 oz BMI 27.8 BP 118/70 Blood Pressure Location Lt brachial Position Sitting Pulse 78 Pulse Source Pulse Oximeter Intake Visit Reasons: Ed-Follow up Allergies clavulanic acid [From Augmentin] Allergy (Mild, Verified 09/01/23 12:31) Itching Penicillins Allergy (Unknown, Verified 09/01/23 12:31) ITCHING Medication List - Last Reconciled 10/01/23 by Magy Pascal NP atorvastatin 40 mg PO BEDTIME cetirizine 10 mg PO DAILY duloxetine 30 mg PO BID lisinopril 10 mg PO DAILY 90 days metformin 1,000 mg PO BID methocarbamol 750 mg PO TID PRN 30 days omeprazole 20 mg PO BID pregabalin 150 mg PO BID 30 days tadalafil 5 mg PO DAILY 90 days venlafaxine ER 75 mg PO BEDTIME HPI Comments Details: Laurence returns for follow-up. He wants to discuss his right sided chest discomfort. It does not occur everyday and it was not triggered by activity and heat helps it a little. He went to the emergency room on 09/01/2023 for evaulation for it. He reports it is sharp and he feels an occasional skipped beat and heart pain. He does have numerous cardiovascular risk factors including type 2 diabetes, hypertension and dyslipidemia. He reports his A1C is 6.2. He denies any swelling or shortness of breah. [facility] Medical History Mixed hyperlipidemia Muscle spasm Fibromyalgia COVID-19 vaccine series completed Pain of multiple extremities Neck pain History of lumbar puncture Back pain SHERLY (obstructive sleep apnea) Palpitations Anxiety Migraine Hyperlipidemia, unspecified Essential hypertension Type 2 diabetes mellitus with unspecified complications Surgical History History of umbilical hernia repair History of esophagogastroduodenoscopy (EGD) Hx of colonoscopy Family History Mother Diabetes Father Myocardial infarction Social History Alcohol intake: never Comment: medicated in pacu Patient Tobacco Use Status: Never used Tobacco Review of Systems Const Denies weakness ENT Denies dizziness Card Denies chest pain, Denies chest pain with activity, Denies syncope, Denies rapid heart rate, Denies pedal edema, Denies edema, Denies leg edema, Denies lightheadedness, Denies palpitations, Denies dyspnea, Denies dyspnea on exertion and Denies orthopnea Resp Denies cough, Denies dyspnea and Denies dyspnea on exertion GI Denies hematochezia and Denies change in stool character Musc Denies abnormal gait, Denies muscle cramps, Denies muscle weakness, Denies numbness, Denies radiating pain into limb and Denies tingling Neuro Denies abnormal gait, Denies dizziness, Denies syncope, Denies numbness, Denies tingling and Denies weakness Endo Denies palpitations Physical Exam Vital Signs: Last Vital Signs Pulse 78 10/01/23 15:26 BP 118/70 10/01/23 15:26 BMI result Body Mass Index 27.8 Const General: healthy appearing and no acute distress Orientation/consciousness: patient oriented x3 HEENT Head: Yes normal to inspection Eyes General: appearance normal, both eyes and all related structures Neck Neck: Yes normal visual inspection Chest Chest palpation & inspection: normal inspection of the chest Resp Effort & Inspection: normal respiratory effort Auscultation: clear to auscultation bilaterally Cardio Jugular venous distension: no JVD Palpation: normal PMI Rate: regular rate Rhythm: regular rhythm Heart sounds: S1 normal heart sound present, S2 normal heart sound present, no click, no gallops, no murmurs and no rubs GI Inspection: Yes normal to inspection Palpation (GI): Soft to palpation Skin General skin exam: no rashes or lesions noted Neuro General: patient oriented x3 Extrem General: Yes normal to inspection Psych Appearance: grossly normal Assessment & Plan Assessment & Plan (1) Palpitations: Code(s): R00.2 - Palpitations Category: Medical (2) Essential hypertension: Code(s): I10 - Essential (primary) hypertension Category: Medical (3) Precordial chest pain: Code(s): R07.2 - Precordial pain Category: Medical Plan CTA in May 2021 showed mild Coronary disease. Blood pressure within range today. Will get stress test to assess for ischemia. Echocardiogam to assess for structural changes and a holter to assess for arrhythmias. Atypical sounding chest pains. ED care if needed Will follow-up after testing. Orders: Orders CA echo transthoracic complete 10/01/23 I10 - Essential (primary) hypertension, R00.2 - Palpitations ECG 3 day holter monitor 10/01/23 R00.2 - Palpitations CA stress test 10/01/23 R07.2 - Precordial pain Coding Level of Care Code Est Pt Level 3 (01596) Diagnoses Palpitations R00.2 Essential hypertension I10 Precordial chest pain R07.2
[2023-10-01 15:26] VITALS: BP 118/70; PULSE 78; BMI 27.8
== END 2023-10-01 15:59 | disposition home or self-care (01) ==
PROVIDERS: PCP Internal Medicine; Visit Provider Nurse Practitioner
DX: R00.2 Palpitations (principal); I10 Essential (primary) hypertension; R07.2 Precordial pain
CPT/HCPCS: 99213

== ENCOUNTER → 2023-10-01 15:10 | Outpatient (BNVA) | payer BC, SELFPAY | PROVIDERS: PCP Internal Medicine; Visit Provider Nurse Practitioner | DX: R00.2 Palpitations (principal); I10 Essential (primary) hypertension; R07.2 Precordial pain ==

== ENCOUNTER 2023-10-14 09:00 | Outpatient (AMB) | payer BC, SELFPAY ==
--- NOTE | 2023-10-14 09:01 | AM.OFFWIN_ITS ---
Intake Vital Signs 10/14/23 09:02 Height 5 ft 10 in Weight 193 lb BMI 27.7 BP 102/70 Blood Pressure Location Lt brachial Position Sitting Pulse 85 Pulse Source Pulse Oximeter Temp 98.5 F Temp Source Oral Pulse Oximetry (%) 96 Intake Visit Reasons: stomach pain near belly button Intake Note: pt c/o abdominal pain. Started yesterday. Patient Tobacco Use Status: Never used Tobacco Allergies clavulanic acid [From Augmentin] Allergy (Mild, Verified 10/14/23 09:02) Itching Penicillins Allergy (Unknown, Verified 10/14/23 09:02) ITCHING Do you need a note to return to daycare/school/sports/work: No HPI stomach pain near belly button HPI Details This note is constructed using voice recognition software. While every effort has been made to ensure accuracy, police worker errors may have been included. The patient is a 53 year old male who presents to the clinic today with abdomen pain starting at his umbilicus and radiating downwards to the RLQ. He denies fever, chills, cough, shortness of breath, chest pain, palpitations, nausea, vomiting, change in bowel or bladder function, he generally feels that his appetite is normal, however has not eaten much in the last day because of these symptoms. He typically moves his bowels every day, formed. He tried Tums yesterday and this did not seem to help. He continued to take Tums overnight fairly frequently which did not seem to help the symptoms. [facility] Medical History Mixed hyperlipidemia Muscle spasm Fibromyalgia COVID-19 vaccine series completed Pain of multiple extremities Neck pain History of lumbar puncture Back pain SHERLY (obstructive sleep apnea) Palpitations Anxiety Migraine Hyperlipidemia, unspecified Essential hypertension Type 2 diabetes mellitus with unspecified complications Surgical History History of umbilical hernia repair History of esophagogastroduodenoscopy (EGD) Hx of colonoscopy Family History Mother Diabetes Father Myocardial infarction Social History Alcohol intake: never Comment: medicated in pacu Patient Tobacco Use Status: Never used Tobacco Review of Systems Const All systems reviewed & are unremarkable except as noted in HPI and below Physical Exam Vital Signs: Last Vital Signs Temp 98.5 F 10/14/23 09:02 Pulse 85 10/14/23 09:02 BP 102/70 10/14/23 09:02 Pulse Ox 96 10/14/23 09:02 BMI result Body Mass Index 27.7 Const General: cooperative, healthy appearing, comfortable, no acute distress and alert Orientation/consciousness: patient oriented x3 Limitations: no limitations Resp Effort & Inspection: normal respiratory effort and able to speak in complete sentences Auscultation: clear to auscultation bilaterally Cardio Jugular venous distension: no JVD Palpation: normal PMI Rate: regular rate Heart sounds: S1 normal heart sound present, S2 normal heart sound present, no click, no gallops, no murmurs and no rubs GI Other: Positive heel strike, positive guarding. Inspection: Yes normal to inspection Palpation (GI): Soft to palpation, Tenderness to palpation present (GI) in the RLQ and at McBurney's point and No hepatosplenomegaly present Percussion: Yes normal to percussion Auscultation: normal bowel sounds Skin General skin exam: no rashes or lesions noted, elasticity normal and turgor normal Neuro General: patient oriented x3 Extrem General: Yes normal to inspection, Yes full ROM, Yes capillary refill normal and Yes normal exam except as noted Psych Appearance: grossly normal Mental Status: mental status grossly normal Speech and movement: Normal speech and movement present Affect: normal affect Assessment & Plan Assessment & Plan (1) Abdominal pain: Code(s): R10.9 - Unspecified abdominal pain Qualifiers: Abdominal location: right lower quadrant Qualified Code(s): R10.31 - Right lower quadrant pain Plan: Given patient's pain starting at the umbilicus and radiating to the right lower quadrant with physical examination concerning for potential appendicitis, advised patient to be evaluated in the emergency room. He agrees to go to the emergency room today, and reports that he is able to transport himself. Advised patient to call EMS with sudden acute worsening of pain for more emergent transport to ER. Plan See above for full details and plan. Coding Level of Care Code Est Pt Level 4 (27576) Diagnoses Right lower quadrant abdominal pain R10.31 Abdominal location: right lower quadrant
[2023-10-14 09:02] VITALS: BP 102/70; PULSE 85; TEMP 36.9; O2SAT 96; BMI 27.7
== END 2023-10-14 09:52 | disposition home or self-care (01) ==
PROVIDERS: PCP Internal Medicine; Visit Provider Registered Nurse
DX: R10.31 Right lower quadrant pain (principal)
CPT/HCPCS: 99214

== ENCOUNTER 2023-10-14 09:41 | Emergency (ER) | payer BC, SELFPAY ==
--- NOTE | ~2023-10-14 | CT_ITS ---
EXAMINATION: CT ABDOMEN AND PELVIS WITHOUT CONTRAST CLINICAL INFORMATION: Abdominal pain. COMPARISON: 02/18/2023 TECHNIQUE: Multidetector volumetric imaging was performed from the superior aspect of the liver through the pubic symphysis. Sagittal and coronal reformatted images were obtained on the technologist's workstation. This CT examination was performed using dose optimization techniques as appropriate, variously including the following: *Automated exposure control *Adjustment of mA and/or kV according to patient size (this includes techniques or standardized protocols for targeted exams where dose is matched to indication/reason for exam; i.e. extremities or head) *Use of iterative reconstruction technique DLP: 541 mGy-cm FINDINGS: LUNG BASES: No pleural or pericardial effusion. LIVER, GALLBLADDER, AND BILIARY TREE: The noncontrast liver is decreased in attenuation. No biliary ductal dilatation is present. The gallbladder is unremarkable with no evidence of radiopaque gallstones, gallbladder wall thickening, or obvious pericholecystic inflammatory changes. PANCREAS: Unremarkable. SPLEEN: Unremarkable. ADRENAL GLANDS: Unremarkable. KIDNEYS AND URETERS: The kidneys are symmetric in size. No hydronephrosis, hydroureter, or calculi seen. No perinephric stranding. BLADDER: No bladder calculus. GASTROINTESTINAL TRACT: Marked fecal retention in the colon. No small bowel obstruction. Appendix is within normal limits. ABDOMINAL WALL: No significant hernia is appreciated. LYMPH NODES: No bulky lymphadenopathy. VASCULAR: Normal caliber abdominal aorta. PELVIC VISCERA: Mild enlargement of the prostate gland. OSSEOUS STRUCTURES: No destructive bone lesions. CT/CT abdomen pelvis wo IV con IMPRESSION: Constipation. Hepatic steatosis. Fleischner guidelines were followed.
[2023-10-14 09:50] VITALS: BP 127/86; PULSE 83; RESP 18; TEMP 37.2; O2SAT 94; BMI 27.8
--- NOTE | 2023-10-14 09:53 | ED_ITS ---
HPI - Abdominal Pain General Chief Complaint: Abdominal Pain Stated Complaint: Lower abd pain Time Seen by Provider: 10/14/23 09:45 Source: patient Mode of arrival: ambulatory Limitations: no limitations History of Present Illness ED Provider: DR. Tran HPI narrative: 53-year-old male came in for evaluation of abdominal pain that started yesterday morning described as mid and lower abdominal pain radiating down to the right lower quadrant pain has been constant since yesterday no associated nausea or vomiting or diarrhea. No dysuria, no frequency urination, patient is sexually not active declined risk for STDs no urethral discharge. Last bowel movement was last night with normal color and amount, patient is passing flatus. Intra-abdominal surgical history is significant for umbilical hernia repair. Related Data Home Medications ?Medication ?Instructions ?Recorded ?Confirmed atorvastatin 40 mg tablet 40 mg PO BEDTIME 03/13/20 10/01/23 venlafaxine 75 mg capsule,extended 75 mg PO BEDTIME 03/13/20 10/01/23 release 24 hr duloxetine 30 mg capsule,delayed 30 mg PO BID 07/11/20 10/01/23 release cetirizine 10 mg tablet 10 mg PO DAILY 11/20/22 10/01/23 metformin 1,000 mg tablet 1,000 mg PO BID 11/20/22 10/01/23 Previous Rx's ?Medication ?Instructions ?Recorded lisinopril 10 mg tablet 10 mg PO DAILY HTN 90 days #90 tabs 12/17/22 tadalafil 5 mg tablet 5 mg PO DAILY sexual activity 90 01/20/23 days #90 tabs methocarbamol 750 mg tablet 750 mg PO TID PRN muscle spasm 30 02/12/23 days #90 tabs omeprazole 20 mg capsule,delayed 20 mg PO BID #30 caps 02/18/23 release pregabalin 150 mg capsule 150 mg PO BID pain 30 days #60 caps 06/15/23 Allergies Allergy/AdvReac Type Severity Reaction Status Date / Time clavulanic acid Allergy Mild Itching Verified 10/14/23 09:51 [From Augmentin] Penicillins Allergy Unknown ITCHING Verified 10/14/23 09:51 Review of Systems Review of Systems All other systems are reviewed and are negative Constitutional: Reports as per HPI and Reports no additional constitutional complaints Eyes: Reports as per HPI and Reports no additional eye complaints Reports system reviewed and no additional complaints, except as documented Cardiovascular: Reports as per HPI and Reports no additional cardiovascular complaints Respiratory: Reports as per HPI and Reports no additional respiratory complaints Gastrointestinal: Reports as per HPI and Reports no additional gastrointestinal complaints Genitourinary: Reports no additional female genitourinary complaints Musculoskeletal: Reports no additional musculoskeletal complaints Skin/Breast: Reports system reviewed and no additional complaints, except as docu Psychiatric: Reports no additional psychiatric complaints Endocrine: Reports no additional endocrine complaints Hematologic/Lymphatic: Reports no additional hematologic/lymphatic complaints Allergic/Immunologic: Reports no additional allergic/immunologic complaints Reports system reviewed and no additional complaints, except as documented and Reports Abnormal speech present [facility] Past Medical History Medical History Mixed hyperlipidemia Muscle spasm Fibromyalgia COVID-19 vaccine series completed Pain of multiple extremities Neck pain History of lumbar puncture Back pain SHERLY (obstructive sleep apnea) Palpitations Anxiety Migraine Hyperlipidemia, unspecified Essential hypertension Type 2 diabetes mellitus with unspecified complications Surgical History History of umbilical hernia repair History of esophagogastroduodenoscopy (EGD) Hx of colonoscopy Family History Family History Mother Diabetes Father Myocardial infarction Social History Social History Alcohol intake: never Comment: medicated in pacu Patient Tobacco Use Status: Never used Tobacco Advance Directives: No Advance Directives Information Provided: Yes Physical Exam ED Vital Signs: Vital Signs - 24 hr 10/14/23 09:50 Temperature 98.9 F Pulse Rate 83 Respiratory Rate 18 Blood Pressure 127/86 Pulse Oximetry 94 Oxygen Delivery Method Room Air BMI result Body Mass Index 27.8 Vital signs have been reviewed and appear to be correct. Blood pressure elevated. Heart rate normal. Respiratory rate normal. Temperature normal. Oxygen saturation normal. Appearance: Alert. Oriented X3. No acute distress. Head: Normal external exam. Normocephalic. Atraumatic. No Yates signs noted. No raccoon eyes noted Eyes: PERRLA. EOMI. Conjunctiva and sclera normal. Eyelids normal. ENT: TM's Normal. Pharynx normal. Uvula midline. Moist mucous membranes. No trismus noted. No drooling noted. No muffled voice noted. Neck: Normal inspection. Neck supple. FROM. No adenopathy. Thyroid Normal. No meningeal signs. No neck mass noted. CVS: Normal heart rate and rhythm. Heart sound normal. No murmurs noted. Pulses normal throughout. Respiratory: No respiratory distress. Painless inspiration. Breath sounds normal. No wheezes/rales/rhonchi noted. Chest nontender. No accessory muscle usage noted or decreased air movement noted. Abdomen: Lower abdominal tenderness, RLQ tenderness, no rebound tenderness, no guarding. Bowel sounds normal in all 4 quadrants. No distention noted. No organomegaly noted. No visible injury noted. Back: No CVA tenderness. Full range of motion noted. Skin: Skin warm and dry. Normal skin color. Normal skin turgor. No rashes/lesions/lacerations noted. Extremities: No lower extremity edema. Extremities exhibit normal range of motion. Extremities nontender. Neuro: Oriented X 3. Cranial nerve exam: II-XII are grossly intact No motor deficit. No sensory deficit. Reflexes normal. Course Reevaluation(s) Reevaluation #1: Patient still feel 2/10 diffuse abdominal pain, CT unremarkable for acute intra- abdominal pathology, normal WBCs. Repeat abdominal exam revealed no tenderness, no guarding, no rebound tenderness. Patient was instructed to go home start unclear if pain gets worse returned to the ED. Time: 12:29 Medical Decision Making Differential Diagnosis Differential Diagnoses: The differential diagnosis associated with the presentation includes (Gastritis, diverticulitis, acute appendicitis, colitis, pancreatitis, acute cholecystitis, electrolyte derangement, UTI, pyelonephritis, kidney stone.) Admission/Observation Consideration of admission/observation: Escalation of care including admission/observation considered Lab Data MDM Lab Attestation statement: I reviewed the patient's lab results. 10/14/23 10:13 10/14/23 10:13 Labs: Lab Results 10/14/23 10/14/23 Range/Units 10:13 10:29 WBC 5.2 (4.8-10.8) X10*3/uL RBC 5.90 H (4.60-5.80) X10*6/uL Hgb 16.4 (14.0-18.0) g/dl Hct 48.3 (42.0-52.0) % MCV 81.9 (80.0-98.0) fL MCH 27.8 (27.0-33.0) pg MCHC 34.0 (31.0-36.0) g/dl RDW 15.6 (11.0-16.0) % Plt Count 171 (160-400) X10*3/uL MPV 10.4 (9.4-12.4) fL Immature Gran % (Auto) 0.2 (0.0-0.4) % Neut % (Auto) 56.9 (45-73) % Lymph % (Auto) 33.6 (20-40) % Ellis % (Auto) 8.3 (2-11) % Eos % (Auto) 0.8 (0-4) % Baso % (Auto) 0.2 (0-2) % Lymph # (Auto) 1.8 (1.2-4.9) X10*3/uL Ellis # (Auto) 0.4 (0.1-1.2) X10*3/uL Eos # (Auto) 0.0 (0.0-0.4) X10*3/uL Baso # (Auto) 0.0 (0.0-0.2) X10*3/uL Abs Immat Gran (auto) 0.01 (0.00-0.03) X10*3/uL Absolute Neuts (auto) 3.0 (2.0-8.3) x10*3/uL Absolute Nucleated RBC 0.000 (0.0-0.012) X10*3/uL Nucleated RBC % (auto) 0.0 (0.0-0.2) /100WBC Sodium 140 (135-145) mmol/L Potassium 4.5 (3.3-5.1) mmol/L Chloride 104 (96-108) mmol/L Carbon Dioxide 29 (22-29) mmol/L Anion Gap 12 (12-20) BUN 14 (9-16) mg/dL Creatinine 0.92 (0.5-1.4) mg/dL Estim Creat Clear Calc 101.3 Estimated GFR > 60 Random Glucose 97 (60-115) mg/dL Calcium 10.2 (8.4-10.2) mg/dL Total Bilirubin 0.6 (0.0-1.0) mg/dL Direct Bilirubin 0.2 (0.0-0.5) mg/dL AST 20 (5-37) U/L ALT 27 (0-40) U/L Alkaline Phosphatase 58 (39-117) U/L Total Protein 7.5 (6.5-8.0) g/dL Albumin 4.6 (3.5-5.0) g/dL Lipase 26 (8-78) U/L Urine Color Yellow Urine Appearance Clear Urine pH 5.5 (5.0-9.0) Ur Specific [place] 1.015 (1.005-1.025) Urine Protein Negative (Neg-Trace) mg/dL Urine Glucose (UA) >=1000 H (Negative) mg/dL Urine Ketones Negative (Negative) mg/dL Urine Blood Negative (Negative) Urine Nitrite Negative (Negative) Ur Leukocyte Esterase Negative (Negative) Urine RBC 0-2 (0-2) /HPF Urine WBC 0-5 (0-5) /HPF Ur Squamous Epith Cells 0-2 (0-2) /HPF Urine Bacteria None Seen (None Seen) Hyaline Casts 0-2 (0-2) /LPF Independent Interpretation I performed an independent interpretation of an: CT Scan (Abdomen pelvis: Constipation, hepatic steatosis) Radiology Impression Discussion of test interpretation with radiology: I have reviewed the radiologist's reading. Medications Administered Discontinued Medications Generic Name Dose Route Start Last Admin Trade Name Elianq PRN Reason Stop Dose Admin Sodium Chloride 1,000 mls @ 999 mls/hr 10/14/23 09:45 10/14/23 10:16 Ns IV 10/14/23 10:45 999 mls/hr .Q1H1M ONE Administration Discharge Plan Discharge Clinical Impression: Abdominal pain Patient Disposition: Home, Self-Care Instructions: Abdominal Pain (ED) Prescriptions: No Action pregabalin 150 mg capsule 150 mg PO BID 30 Days Qty: 60 1RF cetirizine 10 mg tablet 10 mg PO DAILY omeprazole 20 mg capsule,delayed release(DR/EC) 20 mg PO BID Qty: 30 2RF venlafaxine 75 mg capsule,extended release 24hr 75 mg PO BEDTIME atorvastatin 40 mg tablet 40 mg PO BEDTIME duloxetine 30 mg capsule,delayed release(DR/EC) 30 mg PO BID tadalafil 5 mg tablet 5 mg PO DAILY 90 Days Qty: 90 1RF metformin 1,000 mg tablet 1,000 mg PO BID methocarbamol 750 mg tablet 750 mg PO TID PRN (Reason: muscle spasm) 30 Days Qty: 90 3RF lisinopril 10 mg tablet 10 mg PO DAILY 90 Days Qty: 90 0RF Referrals: Vasile Putnam MD [Primary Care Provider] - Stand Alone Forms: Work/School Release Print Language: [place]
[2023-10-14] MEDS: 0.9 % Sodium Chloride 1,000 ML 999 ML IV (10:16)
[2023-10-14 10:19] LABS: MANUAL DIFF FLAG NO
[2023-10-14 10:20] LABS: Basophils Percent Auto 0.2 % (0-2); Eosinophils Percent Auto 0.8 % (0-4); Hematocrit 48.3 % (42.0-52.0); Hemoglobin 16.4 g/dl (14.0-18.0); Imm Gran Abs Auto 0.01 X10*3/uL (0.00-0.03); Imm Gran Pct Auto 0.2 % (0.0-0.4); Lymphocytes Absolute Auto 1.8 X10*3/uL (1.2-4.9); Lymphocytes Percent Auto 33.6 % (20-40); Mean Corpuscular Hemoglobin 27.8 pg (27.0-33.0); Mean Corpuscular Volume 81.9 fL (80.0-98.0); Mean Platelet Volume 10.4 fL (9.4-12.4); Monocytes Absolute Auto 0.4 X10*3/uL (0.1-1.2); Monocytes Percent Auto 8.3 % (2-11); Neutrophils Percent Auto 56.9 % (45-73); Platelet Count 171 X10*3/uL (160-400); Red Cell Distribution Width 15.6 % (11.0-16.0); White Blood Count 5.2 X10*3/uL (4.8-10.8)
[2023-10-14 10:40] LABS: Appearance Urine Clear; Color Urine Yellow; Glucose Urine UA >=1000 mg/dL (Negative); Leukocyte Esterase Urine Negative (Negative); Nitrite Urine Negative (Negative); PH 5.5 (5.0-9.0); Specific Gravity - Urine 1.015 (1.005-1.025); UMIC TRIGGER UACC YES; Urine Blood Negative (Negative); Urine Ketones Negative (Negative); Urine Protein Negative (Neg-Trace)
[2023-10-14 10:55] LABS: Alanine Aminotransferase 27 U/L (0-40); Albumin Level 4.6 g/dL (3.5-5.0); Alkaline Phosphatase 58 U/L (39-117); Anion Gap 12 (12-20); Aspartate Amino Transferase 20 U/L (5-37); Bilirubin Direct 0.2 mg/dL (0.0-0.5); Bilirubin Total 0.6 mg/dL (0.0-1.0); Blood Urea Nitrogen 14 mg/dL (9-16); Calcium 10.2 mg/dL (8.4-10.2); Carbon Dioxide 29 mmol/L (22-29); Chloride 104 mmol/L (96-108); Creatinine Clr Calc Pharmacy 101.3; Estimated Glomerular Filt Rate > 60; Glucose Random 97 mg/dL (60-115); Lipase 26 U/L (8-78); Potassium 4.5 mmol/L (3.3-5.1); Sodium 140 mmol/L (135-145); Total Protein 7.5 g/dL (6.5-8.0)
[2023-10-14 10:59] LABS: Bacteria Urine None Seen (None Seen); Hyaline Casts Urine 0-2 /LPF (0-2); RBC Urine 0-2 /HPF (0-2); Squamous Epithelial Cell Urine 0-2 /HPF (0-2); WBC Urine 0-5 /HPF (0-5)
[2023-10-14 12:00] VITALS: BP 118/82; PULSE 80; TEMP 36.6; O2SAT 94
[2023-10-14 14:52] VITALS: BP 134/82; PULSE 76; RESP 16; TEMP 36.6; O2SAT 98
== END 2023-10-14 14:52 | disposition home or self-care (01) ==
PROVIDERS: Emergency Provider Emergency Medicine; PCP Internal Medicine
DX: R10.31 Right lower quadrant pain (principal); E11.8 Type 2 diabetes mellitus with unspecified complications; I10 Essential (primary) hypertension; E78.2 Mixed hyperlipidemia; Z79.84 Long term (current) use of oral hypoglycemic drugs; Z79.02 Long term (current) use of antithrombotics/antiplatelets; Z79.899 Other long term (current) drug therapy
CPT/HCPCS: 36415; 74176; 80048; 80076; 81001; 83690; 85025; 99284

== ENCOUNTER → 2023-10-26 09:02 | Outpatient (REF) | payer BC, SELFPAY ==
--- NOTE | 2023-10-26 09:08 | HM_ITS ---
* Total monitoring time 3 days. * Underlying rhythm is sinus. Average ventricular rate 89/Min. * About 18% of the time, rate > 100/Min. * Rare supraventricular and ventricular ectopy. * No significant pauses or AV blocks. * No patient markers or diary events. MTDD
--- NOTE | 2023-10-26 09:08 | CA_ITS ---
Acquisition Time: 2023-10-26 09:49:33 Total Exercise Time: 00:09:30 Test Indications: CP Medications: SEE H Protocol: ESTRELLA Max HR: 162 BPM 98% of Pred: 165 BPM Max BP: 138/084 mmHG Max Work Load: 10.9 METS Exercise stress test exercise 9 min 30 sec of Estrella protocol achieving 98% MPHR, without anginal symptoms, without arrhythmias, with normtoensive response to exercise, with ST changes in lead 2, V4-V6. Test reviewed with Dr. Rhoades Referred By: Magy Pascal Overread By: Magy Pascal
--- NOTE | 2023-10-26 09:08 | CA_ITS ---
Transthoracic Echocardiogram Patient (Last, First, Middle): Laurence Paulino, Gender: Male Date of : 1970 Age: 53 Procedure Date: 10/26/2023 Procedure Type: Transthoracic Echocardiogram Location: OP Height: 177.8 cm Weight: 88.45 kg BSA: 2.06 m2 Heart Rate: bpm BP: 123 / 76 mmHg Oil Sprayer: LISBETH Referring MD: Magy Pascal REVERSE LOGISTICS ANALYST Symptoms: R00.2 - Palpitations Study Quality: Adequate ECG Rhythm: Sinus Conclusions: - The left ventricular systolic function is normal. The calculated ejection fraction is 62% by biplane method. - No obvious valvular pathology seen on this study. Findings Left Ventricle Normal left ventricular cavity size. There is normal left ventricular wall thickness. The left ventricular systolic function is normal. The calculated ejection fraction is 62% by biplane method. There is no evidence of regional wall motion abnormalities. Diastolic function is normal for age. Right Ventricle Normal right ventricular cavity size and systolic function. Atria Both atria are normal in size. Aortic Valve There is a normal trileaflet aortic valve. There is no aortic valve stenosis. There is no aortic valve regurgitation. Mitral Valve The mitral valve appears normal. There is trace mitral valve regurgitation. There is no mitral valve stenosis. Pulmonic Valve The pulmonic valve is likely normal. Tricuspid Valve There is trace tricuspid valve regurgitation. Tricuspid regurgitation envelope is inadequate for calculation of right ventricular systolic pressure. Great Vessels The sinuses of valsalva, sino tubular ridge, and asc aorta are normal in size. Venous The inferior vena cava is normal in size and collapses greater than 50% with inspiration. Pericardium/Pleural There is no evidence of pericardial effusion. Prior Study Comparison No significant change compared to prior study dated: 05/06/2018. Recommendations, Care & Conclusions No obvious valvular pathology seen on this study. Measurements 2D Linear Measurements IVSd: 0.92 0.6-0.9/0.6-1.0 cm LVIDd: 4.48 3.9-5.3/4.2-5.9 cm LVIDd Index: 2.17 2.4-3.2/2.2-3.1 cm/m2 LVIDs: 2.78 2.0-3.6 cm LVPWd: 0.96 0.7-1.1 cm LA Diam: 3.10 2.7-3.8/3.0-4.0 cm LAIDs Index: 1.50 1.5-2.3 cm/m2 LV Mass: 173.79 67-162/88-224 g LV Mass Index: 84.36 43-95/49-115 g/m2 LVOT Diam: 2.20 3.0+(-)1.3 cm 2D Systolic Function EF 4C: 61.00 >55% EF 2C: 61.80 >55% EF BiP: 62.20 >55% Mitral Valve MV Pk E: 0.80 MV PK A: 0.66 MV Decel Time: 219.00 E/A: 1.20 E'Lateral: 12.00 E'Medial: 8.38 E/E' Med: 9.60 E/E' Lat: 6.70 PHT: 64.00 MVA PHT: 3.44 Decel St[place]man: 3.65 Aortic Valve AoV Pk Maico: 1.33 AoV Mn [place]: 0.85 AoV VTI: 0.28 AoV Pk Grad: 7.00 Aov Mn Grad: 4.00 DANETTE Cont.VTI: 2.95 LVOT LVOT Pk [place]: 1.04 LVOT Mn [place]: 0.56 LVOT VTI: 0.22 LVOT Pk Grad: 4.00 LVOT Mn Grad: 2.00 LVOT Diam: 2.20 LVOT Area: 3.80 Diastolic Function MV Pk E: 0.80 MV Pk A: 0.66 E/A: 1.20 E'Medial: 8.38 E/E' Med: 9.60 E' Laterial: 12.00 E/E' Lat: 6.70 Right Ventricle TAPSE (mm): 24.30 TVS' Maico: 13.20 Tricuspid Valve RA Press: 3.00 Great Vessels Aorta Sinus of Valsalva: 3.60 2.0-3.[address] Ridge: 2.83 1.7-3.4 cm Ao Asc: 3.30 2.1-3.4 cm Updated in Other Vendor System with Status of Final Abimael Rhoades MD electronically signed on 10/28/2023 12:42:04 PM with status of Final
== END ==
LOC: HO.CARD 09:02
PROVIDERS: PCP Internal Medicine; Visit Provider Nurse Practitioner
DX: R00.2 Palpitations (principal); R07.2 Precordial pain; I10 Essential (primary) hypertension
CPT/HCPCS: 93017; 93242; 93306

== ENCOUNTER → 2023-10-26 09:08 | Outpatient (BNV) | payer BC, SELFPAY | PROVIDERS: PCP Internal Medicine; Visit Provider Nurse Practitioner | DX: I49.3 Ventricular premature depolarization (principal) | CPT/HCPCS: 93016; 93018; 93244; 93350 ==

== ENCOUNTER → 2023-11-05 13:58 | Outpatient (BNVA) | payer BC, SELFPAY | PROVIDERS: PCP Internal Medicine; Visit Provider Urology | DX: E23.0 Hypopituitarism (principal); F40.298 Other specified phobia; E11.69 Type 2 diabetes mellitus with other specified complication | CPT/HCPCS: 11980; J3490 ==

== ENCOUNTER 2023-11-20 08:02 | Outpatient (REF) | payer BC, SELFPAY ==
[2023-11-26 00:44] LABS: Testosterone, Total 683 ng/dL (250-1100)
== END 2023-11-20 08:03 | disposition home or self-care (01) ==
LOC: HO.LAB 08:02
PROVIDERS: PCP Internal Medicine; Visit Provider Urology
DX: E23.0 Hypopituitarism (principal)
CPT/HCPCS: 36415; 84403

== ENCOUNTER 2023-11-25 07:54 | Outpatient (AMB) | payer BC, SELFPAY ==
[2023-11-25 07:56] VITALS: BP 99/57; PULSE 87; BMI 27.5
--- NOTE | 2023-11-25 07:56 | A.OFFVIS_ITS ---
Vital Signs 11/25/23 07:56 Height 5 ft 10 in Weight 192 lb BMI 27.5 BP 99/57 L Blood Pressure Location Lt brachial Position Sitting Pulse 87 Intake Visit Reasons: 6 month follow up Intake Note: Patient 6 month follow up for abdominal bloating Patient cc: abdominal pain on and off and no more concern for today. 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 Accompanied by: Self / Same As Patient Allergies clavulanic acid [From Augmentin] Allergy (Mild, Verified 11/25/23 07:55) Itching Penicillins Allergy (Unknown, Verified 11/25/23 07:55) ITCHING Medication List - Last Reconciled 11/25/23 by Franck Madrid MD atorvastatin 40 mg PO BEDTIME cetirizine 10 mg PO DAILY duloxetine 30 mg PO BID lisinopril 10 mg PO DAILY 90 days metformin 1,000 mg PO BID methocarbamol TAKE 1 TABLET BY MOUTH THREE TIMES DAILY NEEDED FOR MUSCLE SPASM omeprazole 20 mg PO BID pregabalin 150 mg PO BID 30 days tadalafil 5 mg PO DAILY 90 days venlafaxine ER 75 mg PO BEDTIME HPI HPI 6 month follow up: Details: GI CLINIC VISIT FOR THIS 53 YEAR OLD AA MALE FOR FU of GERD, dysphagia, abdominal pain. Pt was [place] [facility] [place]. ? CHRONIC ILLNESSES:?Hypertension, migraine headaches, asthma,, anxiety. ?LABS IN [facility]:?Apr, 2018 normal CBC, normal LFTs except elevated ALT of 62 ? 01/2018 negative celiac serology, normal CRP amylase and lipase ? IMAGING STUDIES: 02/18/[address] SCAN SHOWED: GASTROINTESTINAL TRACT: Gastric wall thickening despite underdistention. Small and large bowel loops are of normal caliber. No small bowel obstruction. Appendix is within normal limits. ABDOMINAL WALL: No significant hernia is appreciated. LYMPH NODES: No bulky lymphadenopathy. IMPRESSION: Gastric wall thickening despite underdistention. Advise correlation with direct visualization. 06/2022 ABD US SHOWED:Echogenic liver suggestive of fatty infiltration. Limited visualization of the pancreas and aorta. 08/[address] scan showed:? IMPRESSION:?Several bladder calcifications, largest measuring 4 x 6 mm.? Differential would include bladder wall calcifications, partial volume ? averaging with calcifications outside the bladder and bladder stones. ? There is a focal area of bladder wall thickening along the anterior ? upper bladder wall. Diverticulosis. No evidence of diverticulitis. ? Small umbilical hernia containing fat. ?03/2017 UGI SBFT showed: ? IMPRESSION: ? 1. Tiny hiatal hernia with no significant gastroesophageal reflux. ? 2. No evidence of peptic ulcer disease. ? 3. No evidence of small bowel obstruction. ENDOSCOPIC STUDIES:? 02/23/23 EGD WAS PERFORMED [address] DR[address] DRAKE: Larynx:normal Esophagus: GE junction at 43 cm, diaphragm hiatus at 43 cm, no varices or esophagitis, bx taken from distal esophagus Stomach: Patchy gastric erythema and nodularity in antrum. Biopsies were obtained. Grade 2 flap valve on retroflexed examination of the cardia. Duodenum: Normal bulb and descending duodenum, BIOPSIES SHOWED: A. Stomach, biopsy: Antral-type and oxyntic mucosa with moderate chronic inactive inflammation; no Helicobacter organisms seen. B. Esophagus, distal, biopsy: Squamous epithelium within normal limits; no inflammation seen 08/2020 EGD AND COLON SHOWED: ESOPHAGUS: Focal esophagitis STOMACH:? Nodular gastritis - biopsies were negative for Helicobacter pylori Colonoscopy Findings: No polyps were detected Biopsies were obtained from the right, left colon and rectum - normal Moderate diverticulosis seen in the left colon Moderate hemorrhoids on retroflexed exam. Plan: Repeat Colonoscopy interval based on path results - in 5 years due to a hx of adenomatous colon polyp. 10/2015 COLON[address] WAS PERFORMED BY [address] LEIGH:Two small (a hyperplastic and an adenomatous) polyps were removedThere was a short 3 cms area of suspected proctitis extending from the dentate line. Biopsies showed rectal mucosa with mild nonspecific chronic inflammation. 12/2017 EGD WAS PERFORMED FOR EVALUATION OF GERD AND OROPHARYNGEAL DYSPHAGIA:EGD showed gastritis and biopsies were negative for Helicobacter pylori.Esophagus: Tortuous esophagus with increased tertiary contractions withoutstricture. Scanty white exudates in the proximal esophagus - biopsies obtained to check for EOE. GE junction at 40 cms. Focal esophagitis at GE junction with a single erosion. A 4-5 mm benign appearing hyperplastic nodule in the distal esophagus just above the GE junction. Dysphagia was felt to be due to esophageal motility disorder. ?TODAY'S VISIT Patient 6 month follow up for abdominal bloating Patient cc: abdominal pain on and off and no more concern for today. Doing well - a little abd pain sometimes Seen at [facility] on 10/14/23 and noted to have constipation on CT scan Has a BM daily to every other day with straining PAST VISIT: Feeling OK - taking Omeprazole 20 mg once daily in the morning H Pylori breath test was negative He was taking lemon and olive oil and stopped taking it. EGD and biopsy results were reviewed with the patient Not having abd pain any more. Pt has been taking Omeprazole 20 mg twice daily since his ER visit and does not feel any different. Lab and US results reviewed Notes improvement in bloating. Has been taking Dicyclomine less frequently Using Dicyclomine three times a day with improvement in symptoms Denies constipation and has a BM once a day with intermittent straining. Continues to have abdominal pain and takes Dicyclomine three times a day. Stopped when he ran out and has resumed taking it. Intermittent sore throat and intermittent regurgitation Denies constipation or diarrhea.? Notes BRBPR on the TP. Denies rectal or anal pain. Had a Colonoscopy 4-5 yrs ago Patient denies major cardiac or pulmonary problems, loud snoring or sleep apnea Reports negative cardiac workup in the past for evaluation of chest pain and shortness of breath Denies problems with anesthesia in the past. Denies being on chronic anticoagulation. Patient denies known family history of colon polyps, colon cancer or other GI malignancies. Brother of leukemia Sister of breast cancer. ? Burning and soreness at the xiphoid for the past 2 years - rarely goes away ? Symptoms are constant with intermittent worsening. ? Unable to identify any triggering factors. ? Denies worsening of pain with deep breathing, coughing or lifting. ? Feels it more when he takes greasy food like pizza. ? Complains of pain all over - ? due to fibromyalgia. ? Denies fever, chills or sweating. ? Pain is sometimes associated with a warm feeling radiating to the ears and face. ? Denies facial flushing. ? Denies change in bowel habits, black stools or rectal bleeding. ? Takes fibre at night and bowel movements have been pretty good. ? Had dysphagia in the past which has improved. ? Feels he has bad gas causing rib pain. ? Notes partial relief of rib pain when he passes gas. ? Has heartburn and denies nausea or vomiting, change in appetite or weight. ? PAST GI HISTORY BY REVIEW OF MEDICAL RECORDS: ? Pt has been followed by Jia Joy since 09/2017: ? 47 y/o male here for follow up on upper abdominal pain. He was last seen by Dr. Kinsey 08/06/17 and at that time labs were ordered along with a CT and he was started on vitamin D supplementation. ? The CT showed several bladder calcifications and he should be referred to urology. Otherwise there was a small fat containing hernia but no other remarkable findings to explain his pain. Labs showed mildly elevated ALT at 42, CBC was normal and inflammatory markers were normal. ? He is seeing a urologist now, and will inform him of the CT results. ? He says that the pain is in the side in his ribcage and in between the rib spaces. He also has pain in the lower to mid sternal area where the ribs would attach. The pain is worse with pushing and with sitting and waling and is described as burning. At times he will have some relief with otc gas x. ? He also will have a bitter taste in his mouth with belching despite being on omeprazole. He has occasional breakthrough heartburn that he takes TUMS for. The pain is at time better with heat and massage. When it hurts very badly he can not breathe well. He has had CXR in the past when he presented to the ER, and to his knowledge he has not had any cardiac problems. ? He had a brother how just from leukemia, and the hx of cardiac disease is not known on his fathers side of the family. ? He also sufferers at time from constipation and will have more pain in his flanks accompanied by dizziness with straining on the toilet. When this happens he has small, hard round stools. I think that a trial of better bowel motility may be a reasonable approach as well. He has tried occasional MOM but it does not produce much of a result. We will start with MiraLax and explore if this is a contributing GI problem. ? Because of the bladder calcifications and the CVA tenderness I will get a UA, and if blood is in the sample will consider if renal US is a good idea to see if renal stones are a contributor. ? Pt was seen on 07/01/18 by Jia Joy, [employer] MANAGER: ? Assessments ? 1. Generalized abdominal pain - R10.84 (Primary) ? 2. Esophageal dysphagia - R13.10 ? 3. Gastroesophageal reflux disease with esophagitis - K21.0 ? Treatment ? 1. Generalized abdominal pain ? Refill Simethicone Capsule, 180 MG, 1 capsule after meals and at bedtime as needed, Orally, three times a day, 30 days, 90 Capsule, Refills 3 ? Notes: His PCP thnks it may be FMS and started him on gabapetin and a TCA with some good relief. This certainly would explain his more systemic sx of pain and perceived swelling. ? 2. Esophageal dysphagia ? Notes: This has improved with only occasional upper throat swallowing problems he attributes to PNDS and allergies. ? 3. Gastroesophageal reflux disease with esophagitis ? Refill Omeprazole Capsule Delayed Release, 20 mg, 1 capsule, Orally, Once a day, 30 days, 30 Capsule, Refills 3 ? 4. Others ? Notes: WHile he has generally improved since I first started seeing him, I would like to have an MD look at him and his case to see if there is anything else about his unusual presentation and pain that has been missed. He may return to regular follow up with me after this depending on his comfort level. ? Follow Up ? next follow up with an MD for second look (Reason: xyphoid/abd pain PFSH Medical History Mixed hyperlipidemia Muscle spasm Fibromyalgia COVID-19 vaccine series completed Pain of multiple extremities Neck pain History of lumbar puncture Back pain SHERLY (obstructive sleep apnea) Palpitations Anxiety Migraine Hyperlipidemia, unspecified Essential hypertension Type 2 diabetes mellitus with unspecified complications Surgical History History of umbilical hernia repair History of esophagogastroduodenoscopy (EGD) Hx of colonoscopy Family History Mother Diabetes Father Myocardial infarction Social History Alcohol intake: never Comment: medicated in pacu Patient Tobacco Use Status: Never used Tobacco Review of Systems Const All systems reviewed & are unremarkable except as noted in HPI and below Physical Exam Vital Signs: Last Vital Signs Pulse 87 11/25/23 07:56 BP 99/57 L 11/25/23 07:56 Const General: healthy appearing and no acute distress Nutritional Appearance: overweight Orientation/consciousness: patient oriented x3 Limitations: no limitations HEENT Head: Yes normal to inspection Ears: hearing grossly normal bilaterally Eyes Sclerae: sclerae normal Pupils: Equal, round and reactive pupils present Neck Neck: Yes normal visual inspection Chest Chest palpation & inspection: normal inspection of the chest Resp Effort & Inspection: normal respiratory effort Auscultation: clear to auscultation bilaterally Cardio Palpation: normal PMI Rate: regular rate Rhythm: regular rhythm Heart sounds: S1 normal heart sound present, S2 normal heart sound present and no murmurs GI Palpation (GI): Soft to palpation, nontender and No hepatosplenomegaly present Auscultation: normal bowel sounds Rectal Exam - Male: Yes deferred Skin General skin exam: no rashes or lesions noted Neuro General: patient oriented x3, gait normal and moves all extremities Cranial nerves: Yes Equal, round and reactive pupils present Psych Appearance: grossly normal Mental Status: mental status grossly normal Assessment & Plan Assessment & Plan (1) Abdominal bloating: Code(s): R14.0 - Abdominal distension (gaseous) Category: Medical (2) Generalized abdominal pain: Code(s): R10.84 - Generalized abdominal pain Category: Medical (3) GERD (gastroesophageal reflux disease): Code(s): K21.9 - Gastro-esophageal reflux disease without esophagitis Category: Medical (4) History of colon polyps: Comment: 10/2015 COLONOSCOPY WAS PERFORMED BY DR. LEIGH: Two small (a hyperplastic and an adenomatous) polyps were removed There was a short 3 cms area of suspected proctitis extending from the dentate line. 08/2020 colonoscopy showed diverticulosis and no polyps were detected Repeat colonoscopy is advised in 5 years (Due 08/2025) Code(s): Z86.010 - Personal history of colonic polyps Category: Medical (5) Elevated LFTs: Comment: Elevated LFTs likely due to fatty liver related to DM Hepatitis B and C antibodies and celiac serologies were negative in the past. Code(s): R79.89 - Other specified abnormal findings of blood chemistry Category: Medical (6) Chronic constipation: Code(s): K59.09 - Other constipation Category: Medical Plan 53-year-old male with Hypertension, migraine headaches, asthma,, anxiety seen for follow-up of abdominal pain/ burning and soreness of xiphoid which rarely goes away. No specific triggers. Feels he has bad gas causing rib pain and notes partial relief of rib pain when he passes gas. Past evaluation with upper GI small-bowel follow-through and an abdominal CT scan did not reveal any etiology for his symptoms. He likely has IBS with constipation. Patient notes partial improvement in symptoms with dicyclomine 3 times daily. He was advised to start taking omeprazole 20 mg daily for GERD. 08/2020 EGD and colonoscopy were performed and findings as noted above. 06/04/22 Pt advised to continue Dicyclomine and add senna 2-3 times a week as needed for constipation. 11/20/22 Bloating improved LFTs decreased with wt loss 03/05/23 Pt was advised to replace Omeprazole with Famotidine for 2 weeks and return for an H Pylori breath test H Pylori breath test was negative 11/25/23 Advised to start Linzess for constipation (Or take Senna plus daily if Linzess is not covered by his insurance) FU in 4 months Medications: New linaclotide (Linzess) 145 mcg PO QAM 30 days 30 caps 3RF K59.09 - Other consti pation sennosides-docusate sodium 8.6-50 mg (Senna with Docusate Sodium) Please take every other day at bedtime 1 tab-cap PO BEDTIME 60 days 60 tabs 2RF K59.09 - Other constipation Coding Level of Care Code Est Pt Level 3 (09497) Diagnoses Abdominal bloating R14.0 Generalized abdominal pain R10.84 GERD (gastroesophageal reflux disease) K21.9 History of colon polyps Z86.010 Elevated LFTs R79.89 Chronic constipation K59.09 Time Spent (min) 18
== END 2023-11-25 08:25 | disposition home or self-care (01) ==
PROVIDERS: PCP Internal Medicine; Visit Provider Internal Medicine Gastroenterology
DX: R14.0 Abdominal distension (gaseous) (principal); R10.84 Generalized abdominal pain; K21.9 Gastro-esophageal reflux disease without esophagitis; Z86.010 Personal history of colon polyps; R79.89 Other specified abnormal findings of blood chemistry; K59.09 Other constipation
CPT/HCPCS: 99213

== ENCOUNTER → 2023-11-25 07:54 | Outpatient (BNVA) | payer BC, SELFPAY | PROVIDERS: PCP Internal Medicine; Visit Provider Internal Medicine Gastroenterology ==

== ENCOUNTER → 2023-12-13 10:57 | Outpatient (REF) | payer BC, SELFPAY ==
--- NOTE | 2023-12-13 11:01 | CA_ITS ---
Acquisition Time: 2023-12-13 10:52:10 Total Exercise Time: 00:09:30 Test Indications: Abnormal Treadmill Test Medications: ATORVASTATIN DULOXETINE LISINOPRIL OMEPRAZOLE PREGABALIN TADAFIL Protocol: ESTRELLA Max HR: 171 BPM 103% of Pred: 165 BPM Max BP: 142/080 mmHG Max Work Load: 10.9 METS Exercise stress test exercise 9 min 30 sec of Estrella protocol achieving 103% MPHR, without anginal symptoms, without arrhythmias, with normotensive response to exericse, with downsloping in leads 2, 3, aVF, V4-V6. Echo images obtained by [employer] at rest and immediately post peak exercise. Definity contrast used. Test reviewed with Dr Mccracken. Referred By: Magy Pascal Overread By: Magy Pascal
== END ==
LOC: HO.CARD 10:57
PROVIDERS: PCP Internal Medicine; Visit Provider Nurse Practitioner
DX: R07.2 Precordial pain (principal)
CPT/HCPCS: 93350; Q9957

== ENCOUNTER → 2023-12-13 11:01 | Outpatient (BNV) | payer BC, SELFPAY | PROVIDERS: PCP Internal Medicine; Visit Provider Nurse Practitioner | DX: R07.2 Precordial pain (principal) | CPT/HCPCS: 93016; 93018; 93350; 93352 ==

== ENCOUNTER 2023-12-17 14:12 | Outpatient (AMB) | payer BC, SELFPAY ==
[2023-12-17 14:26] VITALS: BP 112/80; PULSE 88; BMI 28.2
--- NOTE | 2023-12-17 14:26 | A.OFFVIS_ITS ---
Vital Signs 12/17/23 14:26 Height 5 ft 10 in Weight 196 lb 3.382 oz BMI 28.2 BP 112/80 Blood Pressure Location Lt brachial Position Sitting Pulse 88 Pulse Source Pulse Oximeter Intake Visit Reasons: follow up after testing/ montior Allergies clavulanic acid [From Augmentin] Allergy (Mild, Verified 11/25/23 07:55) Itching Penicillins Allergy (Unknown, Verified 11/25/23 07:55) ITCHING Medication List - Last Reconciled 12/17/23 by Jamee Nickerson NP-C atorvastatin 40 mg PO BEDTIME cetirizine 10 mg PO DAILY lisinopril 10 mg PO DAILY 90 days metformin 1,000 mg PO BID methocarbamol TAKE 1 TABLET BY MOUTH THREE TIMES DAILY NEEDED FOR MUSCLE SPASM omeprazole 20 mg PO BID pregabalin 150 mg PO BID 30 days sennosides-docusate sodium 8.6-50 mg (Senna with Docusate Sodium) 1 tab-cap PO BEDTIME 60 days tadalafil 5 mg PO DAILY 90 days venlafaxine ER 75 mg PO BEDTIME HPI HPI follow up after testing/ montior: Details: Laurence is a 53-year-old male with past medical history of hypertension, hyperlipidemia, diabetes, sleep apnea, who has been evaluated for chest discomfort. He recently underwent a stress echocardiogram, echocardiogram and Holter monitor. He now presents for follow-up. Today he reports that he does get some random pains in his left chest region. He has no clear symptoms brought on by exertion. No shortness of breath, PND, orthopnea or edema. No lightheadedness, presyncope, syncope, falls. Compliant with meds. Reports good activity tolerance. Concerned about his heart with his underlying history of diabetes. [facility] Medical History Mixed hyperlipidemia Muscle spasm Fibromyalgia COVID-19 vaccine series completed Pain of multiple extremities Neck pain History of lumbar puncture Back pain SHERLY (obstructive sleep apnea) Palpitations Anxiety Migraine Hyperlipidemia, unspecified Essential hypertension Type 2 diabetes mellitus with unspecified complications Surgical History History of umbilical hernia repair History of esophagogastroduodenoscopy (EGD) Hx of colonoscopy Family History Mother Diabetes Father Myocardial infarction Social History Alcohol intake: never Comment: medicated in pacu Patient Tobacco Use Status: Never used Tobacco Review of Systems Const All systems reviewed & are unremarkable except as noted in HPI and below Denies weakness ENT Denies dizziness Card Denies chest pain, Denies chest pain with activity, Denies syncope, Denies rapid heart rate, Denies pedal edema, Denies edema, Denies leg edema, Denies lightheadedness, Denies palpitations, Denies dyspnea, Denies dyspnea on exertion and Denies orthopnea Resp Denies cough, Denies dyspnea and Denies dyspnea on exertion GI Denies hematochezia and Denies change in stool character Musc Denies abnormal gait, Denies muscle cramps, Denies muscle weakness, Denies numbness, Denies radiating pain into limb and Denies tingling Neuro Denies abnormal gait, Denies dizziness, Denies syncope, Denies numbness, Denies tingling and Denies weakness Endo Denies palpitations Physical Exam Vital Signs: Last Vital Signs Pulse 88 12/17/23 14:26 BP 112/80 12/17/23 14:26 BMI result Body Mass Index 28.2 Const General: cooperative, healthy appearing, comfortable and no acute distress Orientation/consciousness: patient oriented x3 Neck Neck: Yes normal visual inspection Resp Effort & Inspection: normal respiratory effort Auscultation: clear to auscultation bilaterally, no rales, no rhonchi and no w heezes Cardio Jugular venous distension: no JVD Rate: regular rate Rhythm: regular rhythm Heart sounds: S1 normal heart sound present, S2 normal heart sound present, no murmurs and no rubs Neuro General: patient oriented x3 Extrem General: Yes normal to inspection Psych Appearance: grossly normal Mental Status: mental status grossly normal Speech and movement: Normal speech and movement present Assessment & Plan Assessment & Plan (1) Precordial chest pain: Code(s): R07.2 - Precordial pain Category: Medical Plan: Reports of atypical sounding chest discomfort. He did have prior evaluation in 2021 with CTA of the coronaries on 05/20/2021 showing no hemodynamically significant stenosis, minimal to mild noncalcified stenosis most evident in D2. Recently he reported chest discomfort again. He has multiple cardiac risk factors including hypertension, hyperlipidemia, diabetes. He underwent an exercise stress 10/26/2023 with good exercise tolerance, no anginal symptoms, with EKG changes suggesting possible ischemia. Then had a stress echocardiogram on 12/13/2023 with same EKG changes and no echo evidence of ischemia. An echocardiogram was done on 10/26/2023 showing EF 62%, no valve abnormalities and no regional wall motion abnormalities. He did have a Holter monitor due to report of palpitations done on 10/26/2023 for 3 days showing sinus rhythm with average heart rate 89, 18% of the time heart rate greater than 100, rare SVE and ve. Test results reviewed with him in detail. Offered reassurance that his chest discomfort noncardiac in nature. Signs and symptoms of true angina reviewed with him. Continue with risk factor modification including good blood pressure, blood sugar, cholesterol control. Continue activity as tolerated. Emergency care if ever needed for symptoms. Cardiology follow-up in 1 year, sooner if needed. (2) Essential hypertension: Code(s): I10 - Essential (primary) hypertension Category: Medical Plan: [place] blood pressure goal less than 130/85. Blood pressure well controlled at 112/80. Continue lisinopril. (3) Hyperlipidemia, unspecified: Code(s): E78.5 - Hyperlipidemia, unspecified Category: Medical Qualifiers: Hyperlipidemia type: unspecified Qualified Code(s): E78.5 - Hyperlipidemia, unspecified Plan: [place] LDL goal less than 70 in patient with diabetes. Labs followed by his PCP. Continue atorvastatin. (4) Type 2 diabetes mellitus with unspecified complications: Code(s): E11.8 - Type 2 diabetes mellitus with unspecified complications Category: Medical Plan: Hemoglobin A1c goal less than 7. Followed by PCP. Plan Time spent on chart review, documentation, interview and assessment Coding Level of Care Code Est Pt Level 3 (01968) Diagnoses Precordial chest pain R07.2 Essential hypertension I10 Hyperlipidemia, unspecified hyperlipidemia type E78.5 Hyperlipidemia type: unspecified Type 2 diabetes mellitus with unspecified complications E11.8 Time Spent (min) 24
== END 2023-12-17 14:58 | disposition home or self-care (01) ==
PROVIDERS: PCP Internal Medicine; Visit Provider Nurse Practitioner Family
DX: R07.2 Precordial pain (principal); I10 Essential (primary) hypertension; E78.5 Hyperlipidemia, unspecified; E11.8 Type 2 diabetes mellitus with unspecified complications
CPT/HCPCS: 99213

== ENCOUNTER → 2023-12-17 14:12 | Outpatient (BNVA) | payer BC, SELFPAY | PROVIDERS: PCP Internal Medicine; Visit Provider Nurse Practitioner Family ==

== ENCOUNTER 2024-01-27 16:10 | Outpatient (REF) | payer BC, SELFPAY ==
[2024-01-31 19:03] LABS: Testosterone, Total 424 ng/dL (250-1100)
== END 2024-01-27 16:11 | disposition home or self-care (01) ==
LOC: HO.LAB 16:10
PROVIDERS: PCP Internal Medicine; Visit Provider Urology
DX: E23.0 Hypopituitarism (principal)
CPT/HCPCS: 36415; 84403

== ENCOUNTER 2024-02-12 15:47 | Emergency (ER) | payer BC, SELFPAY ==
--- NOTE | ~2024-02-12 | US_ITS ---
EXAMINATION: US SCROTUM US SCROTUM DOPPLER CLINICAL INFORMATION: Right lateral swelling. COMPARISON: Scrotal ultrasound dated 10/24/2020. TECHNIQUE: A sonogram of the scrotum was performed assessing pichardo-scale appearance and color Doppler flow. Spectral Doppler analysis of the arterial and venous flow were performed in the testes bilaterally. FINDINGS: RIGHT: Right testicle measures 3.5 x 1.7 x 2.3 cm, volume 7.3 mL. No focal testicular parenchymal lesions are visualized. Spectral Doppler analysis of the arterial and venous flow is slightly decreased in the right testis. Right epididymal head is enlarged and heterogeneous with mildly increased upper detectable vascular flow. Small right-sided hydrocele. No right-sided varicocele. LEFT: Left testicle measures 3.7 x 1.6 x 2.6 cm, volume 7.9 mL. No focal testicular parenchymal lesions are visualized. Spectral Doppler analysis of the arterial and venous flow is slightly decreased in the left testis. Left epididymal head is normal in size. Simple left epididymal head cyst measuring up to 0.5 cm. No left hydrocele or varicocele is seen. Left epididymal Doppler flow is normal. US/US scrotum IMPRESSION: 1. Enlarged, heterogeneous right epididymis with mildly increased vascularity and a small right-sided hydrocele, new when compared to the prior examination. Findings could represent an infectious or inflammatory process. 2. Simple left epididymal head cyst measuring 0.5 cm, unchanged. Electronically signed by: Guanako Lazcano MD 02/12/2024 05:[address] [facility] Workstation: -[id number]
--- NOTE | ~2024-02-12 | US_ITS ---
EXAMINATION: US SCROTUM US SCROTUM DOPPLER CLINICAL INFORMATION: Right lateral swelling. COMPARISON: Scrotal ultrasound dated 10/24/2020. TECHNIQUE: A sonogram of the scrotum was performed assessing pichardo-scale appearance and color Doppler flow. Spectral Doppler analysis of the arterial and venous flow were performed in the testes bilaterally. FINDINGS: RIGHT: Right testicle measures 3.5 x 1.7 x 2.3 cm, volume 7.3 mL. No focal testicular parenchymal lesions are visualized. Spectral Doppler analysis of the arterial and venous flow is slightly decreased in the right testis. Right epididymal head is enlarged and heterogeneous with mildly increased upper detectable vascular flow. Small right-sided hydrocele. No right-sided varicocele. LEFT: Left testicle measures 3.7 x 1.6 x 2.6 cm, volume 7.9 mL. No focal testicular parenchymal lesions are visualized. Spectral Doppler analysis of the arterial and venous flow is slightly decreased in the left testis. Left epididymal head is normal in size. Simple left epididymal head cyst measuring up to 0.5 cm. No left hydrocele or varicocele is seen. Left epididymal Doppler flow is normal. US/US scrotum doppler IMPRESSION: 1. Enlarged, heterogeneous right epididymis with mildly increased vascularity and a small right-sided hydrocele, new when compared to the prior examination. Findings could represent an infectious or inflammatory process. 2. Simple left epididymal head cyst measuring 0.5 cm, unchanged. Electronically signed by: Guanako Lazcano MD 02/12/2024 05:03 PM [facility]
[2024-02-12 15:52] VITALS: BP 132/80; PULSE 80; RESP 18; TEMP 36.6; O2SAT 97; BMI 1405.7
--- NOTE | 2024-02-12 15:58 | ED.MALEGU ---
HPI - Male Genitourinary General Chief complaint: Urogenital-Male Stated complaint: right side lumps Time Seen by Provider: 02/12/24 16:01 Source: patient Mode of arrival: ambulatory Limitations: no limitations History of Present Illness ED Provider: Vianey Stephenson NP HPI Narrative: Patient is a 53-year-old male presents emergency department for evaluation of atraumatic right testicular swelling over the past 3-4 days. He reports that there was a firm feeling surrounding this, pain upon palpation. Reports he has not been sexually active over the past few months due to erectile dysfunction for which he is following with Dr. Sibley. He denies concern for sexually transmitted infections reporting being in a monogamous relationship for many years prior to this. He denies any urethral discharge or presence of lesions to the genitalia. He states at times he does have urinary hesitancy but denies dysuria. Denies fevers or chills. Related Data Home Medications ?Medication ?Instructions ?Recorded ?Confirmed atorvastatin 40 mg tablet 40 mg PO BEDTIME 03/13/20 12/17/23 venlafaxine 75 mg capsule,extended 75 mg PO BEDTIME 03/13/20 12/17/23 release 24 hr cetirizine 10 mg tablet 10 mg PO DAILY 11/20/22 12/17/23 metformin 1,000 mg tablet 1,000 mg PO BID 11/20/22 12/17/23 Previous Rx's ?Medication ?Instructions ?Recorded lisinopril 10 mg tablet 10 mg PO DAILY HTN 90 days #90 tabs 12/17/22 tadalafil 5 mg tablet 5 mg PO DAILY sexual activity 90 01/20/23 days #90 tabs omeprazole 20 mg capsule,delayed 20 mg PO BID #30 caps 02/18/23 release methocarbamol 750 mg tablet See Rx Instructions .Route 10/18/23 .COMPLEX #90 tabs sennosides 8.6 mg-docusate sodium 1 tab-cap PO BEDTIME 60 days #60 11/25/23 50 mg tablet (Senna with Docusate tabs Sodium) pregabalin 150 mg capsule 150 mg PO BID pain 30 days #60 caps 12/20/23 levofloxacin 500 mg tablet 500 mg PO DAILY #9 tabs 02/12/24 Allergies Allergy/AdvReac Type Severity Reaction Status Date / Time clavulanic acid Allergy Mild Itching Verified 02/12/24 15:54 [From Augmentin] Penicillins Allergy Unknown ITCHING Verified 02/12/24 15:54 Review of Systems Review of Systems: Yes all other systems are reviewed and are negative [facility] Past Medical History Attestation statement: The following information was validated with the patient. Source: old records reviewed Medical History Mixed hyperlipidemia Muscle spasm Fibromyalgia COVID-19 vaccine series completed Pain of multiple extremities Neck pain History of lumbar puncture Back pain SHERLY (obstructive sleep apnea) Palpitations Anxiety Migraine Hyperlipidemia, unspecified Essential hypertension Type 2 diabetes mellitus with unspecified complications Surgical History History of umbilical hernia repair History of esophagogastroduodenoscopy (EGD) Hx of colonoscopy Family History Family History Mother Diabetes Father Myocardial infarction Social History Social History Alcohol intake: never Comment: medicated in pacu Patient Tobacco Use Status: Never used Tobacco Advance Directives: No Advance Directives Information Provided: No Do you have a plan to hurt others: No Plan Physical Exam Vital Signs: Vital Signs: Last Vital Signs Temp 97.9 F 02/12/24 15:52 Pulse 80 02/12/24 15:52 Resp 18 02/12/24 15:52 BP 132/80 02/12/24 15:52 Pulse Ox 97 02/12/24 15:52 O2 Del Method Room Air 02/12/24 15:52 BMI result Body Mass Index 1405.7 Appearance: Alert.?Oriented to person, place and time. No acute distress.?Normal affect. CVS: Heart sounds normal. Normal heart rate and rhythm.? Pulses normal.?? Respiratory: No respiratory distress.? Lung sounds clear to auscultation bilaterally?? Abdomen: Soft and non-tender. Normoactive bowel sounds. Skin: Skin warm and dry.? Normal skin color.? Urogenital: Performed with residential building inspector information tech Bryant - right-sided scrotal swelling transilluminates, positive friend sign, negative cremasteric reflex, Extremities: No lower extremity edema.? Neuro: Moves all extremities spontaneously. Sensation intact bilaterally. Ambulates with normal steady gait. Course Course Course Narrative: This is a Rapid Medical Examination (RME) performed by Mitchell Tamayo PA-C in triage. Full HPI, ROS, assessment and treatment plan per primary provider in the Main ED. 53 yo male hx of T2DM, HTN, GERD, erectile dysfunction here for eval of right testicular swelling x3-4 days. states the tissue around the testicle feels hard . admits to pain with palpating the scrotum. he is not sexually active. denies concern for STDs. no fever, penile lesions, discharge Plan: labs, UA, scrotal US Medical Decision Making Medical Decision Making MDM Narrative: Patient is a 53-year-old male who presents emergency department for evaluation of atraumatic painful swelling to the right scrotum with a past 3-4 days as per HPI. Adamantly denies concern for sexually transmitted infections. CBC is without leukocytosis, no anemia or thrombocytopenia. No electrolyte derangement. No RORO. LFTs overall unremarkable. Urinalysis without evidence of infection or microscopic hematuria. Scrotal ultrasound including Doppler studies revealing enlarged right epididymis with a mildly decreased vascularity small right hydrocele which may reflect infectious or inflammatory process. He is adamant that he has no concern for sexually transmitted infections however he is amenable to sending testing for chlamydia/gonorrhea. Given findings today will treat with levofloxacin 500 mg orally for 10 days and appropriate follow-up with urology as previously scheduled on Wednesday02/15/2024. Differential Diagnosis Differential Diagnoses: The differential diagnosis associated with the presentation includes (Testicular torsion, epididymitis, orchitis, hydrocele, varicocele, STI, UTI) Admission/Observation Consideration of admission/observation: Escalation of care including admission/observation considered (See narrative above) Lab Data [facility] Lab Attestation statement: I reviewed the patient's lab results. (See narrative above) 02/12/24 16:05 02/12/24 16:05 Labs: Lab Results 02/12/24 02/12/24 Range/Units 16:05 16:07 WBC 5.9 (4.8-10.8) X10*3/uL RBC 6.48 H (4.60-5.80) X10*6/uL Hgb 17.4 (14.0-18.0) g/dl Hct 51.9 (42.0-52.0) % MCV 80.1 (80.0-98.0) fL MCH 26.9 L (27.0-33.0) pg MCHC 33.5 (31.0-36.0) g/dl RDW 15.8 (11.0-16.0) % Plt Count 184 (160-400) X10*3/uL MPV 10.9 (9.4-12.4) fL Immature Gran % (Auto) 0.3 (0.0-0.4) % Neut % (Auto) 50.6 (45-73) % Lymph % (Auto) 40.0 (20-40) % [place] % (Auto) 8.0 (2-11) % Eos % (Auto) 0.8 (0-4) % Baso % (Auto) 0.3 (0-2) % Lymph # (Auto) 2.4 (1.2-4.9) X10*3/uL [place] # (Auto) 0.5 (0.1-1.2) X10*3/uL Eos # (Auto) 0.1 (0.0-0.4) X10*3/uL Baso # (Auto) 0.0 (0.0-0.2) X10*3/uL Abs Immat Gran (auto) 0.02 (0.00-0.03) X10*3/uL Absolute Neuts (auto) 3.0 (2.0-8.3) x10*3/uL Absolute Nucleated RBC 0.000 (0.0-0.012) X10*3/uL Nucleated RBC % (auto) 0.0 (0.0-0.2) /100WBC Sodium 139 (135-145) mmol/L Potassium 4.3 (3.3-5.1) mmol/L Chloride 105 (96-108) mmol/L Carbon Dioxide 23 (22-29) mmol/L Anion Gap 15 (12-20) BUN 10 (9-16) mg/dL Creatinine 0.98 (0.5-1.4) mg/dL Estim Creat Clear Calc -3.2 Estimated GFR > 60 Random Glucose 118 H (60-115) mg/dL Calcium 9.7 (8.4-10.2) mg/dL Magnesium 2.2 (1.6-2.6) mg/dL Total Bilirubin 0.3 (0.0-1.0) mg/dL AST 34 (5-37) U/L ALT 44 H (0-40) U/L Alkaline Phosphatase 61 (39-117) U/L Total Protein 7.6 (6.5-8.0) g/dL Albumin 4.4 (3.5-5.0) g/dL Urine Color Yellow Urine Appearance Clear Urine pH 6.0 (5.0-9.0) Ur Specific [place] 1.015 (1.005-1.025) Urine Protein Negative (Neg-Trace) mg/dL Urine Glucose (UA) >=1000 H (Negative) mg/dL Urine Ketones Trace (Negative) mg/dL Urine Blood Negative (Negative) Urine Nitrite Negative (Negative) Ur Leukocyte Esterase Negative (Negative) Radiology Impression Discussion of test interpretation with radiology: I have reviewed the radiologist's reading. Radiologist Impression: US/US scrotum doppler IMPRESSION: 1. Enlarged, heterogeneous right epididymis with mildly increased vascularity and a small right-sided hydrocele, new when compared to the prior examination. Findings could represent an infectious or inflammatory process. 2. Simple left epididymal head cyst measuring 0.5 cm, unchanged. External Record Review External record reviewed: Outpatient record Discharge Plan Discharge Clinical Impression: Acute epididymitis, Hydrocele Patient Disposition: Home, Self-Care Instructions: Epididymitis (ED), Hydrocele (ED) Additional Instructions: Follow-up with Dr. Sibley as scheduled on Wednesday to discuss further evaluation/treatment. Prescription for antibiotic was sent to your pharmacy. Wear supportive undergarments such as tight fitting brief style underwear and/or jockstrap to decrease swelling to the testicle Return with any new or worrisome symptoms or concerns. Prescriptions: New levofloxacin 500 mg tablet 500 mg PO DAILY Qty: 9 0RF No Action methocarbamol 750 mg tablet See Rx Instructions .ROUTE .COMPLEX Qty: 90 1RF Dose Instruction: TAKE 1 TABLET BY MOUTH THREE TIMES DAILY NEEDED FOR MUSCLE SPASM Rx Instructions: TAKE 1 TABLET BY MOUTH THREE TIMES DAILY NEEDED FOR MUSCLE SPASM pregabalin 150 mg capsule 150 mg PO BID 30 Days Qty: 60 1RF cetirizine 10 mg tablet 10 mg PO DAILY omeprazole 20 mg capsule,delayed release(DR/EC) 20 mg PO BID Qty: 30 2RF venlafaxine 75 mg capsule,extended release 24hr 75 mg PO BEDTIME atorvastatin 40 mg tablet 40 mg PO BEDTIME tadalafil 5 mg tablet 5 mg PO DAILY 90 Days Qty: 90 1RF metformin 1,000 mg tablet 1,000 mg PO BID sennosides-docusate sodium [Senna with Docusate Sodium] 8.6-50 mg tablet 1 tab-cap PO BEDTIME 60 Days Qty: 60 2RF Rx Instructions: Please take every other day at bedtime lisinopril 10 mg tablet 10 mg PO DAILY 90 Days Qty: 90 0RF Referrals: Vasile Putnam MD [Primary Care Provider] - Print Language: Sami
[2024-02-12 16:12] LABS: MANUAL DIFF FLAG NO
[2024-02-12 16:14] LABS: Appearance Urine Clear; Color Urine Yellow; Glucose Urine UA >=1000 mg/dL (Negative); Leukocyte Esterase Urine Negative (Negative); Nitrite Urine Negative (Negative); Specific Gravity - Urine 1.015 (1.005-1.025); UMIC TRIGGER UACC YES; Urine Blood Negative (Negative); Urine Ketones Trace mg/dL (Negative); Urine Protein Negative (Neg-Trace)
[2024-02-12 16:15] LABS: Basophils Percent Auto 0.3 % (0-2); Eosinophils Absolute Auto 0.1 X10*3/uL (0.0-0.4); Eosinophils Percent Auto 0.8 % (0-4); Hematocrit 51.9 % (42.0-52.0); Hemoglobin 17.4 g/dl (14.0-18.0); Imm Gran Abs Auto 0.02 X10*3/uL (0.00-0.03); Imm Gran Pct Auto 0.3 % (0.0-0.4); Lymphocytes Absolute Auto 2.4 X10*3/uL (1.2-4.9); Mean Corpuscular HGB Conc 33.5 g/dl (31.0-36.0); Mean Corpuscular Hemoglobin 26.9 pg (27.0-33.0); Mean Corpuscular Volume 80.1 fL (80.0-98.0); Mean Platelet Volume 10.9 fL (9.4-12.4); Monocytes Absolute Auto 0.5 X10*3/uL (0.1-1.2); Neutrophils Percent Auto 50.6 % (45-73); Platelet Count 184 X10*3/uL (160-400); Red Blood Count 6.48 X10*6/uL (4.60-5.80); Red Cell Distribution Width 15.8 % (11.0-16.0); White Blood Count 5.9 X10*3/uL (4.8-10.8)
[2024-02-12 16:29] LABS: Alanine Aminotransferase 44 U/L (0-40); Albumin Level 4.4 g/dL (3.5-5.0); Alkaline Phosphatase 61 U/L (39-117); Anion Gap 15 (12-20); Aspartate Amino Transferase 34 U/L (5-37); Bilirubin Total 0.3 mg/dL (0.0-1.0); Blood Urea Nitrogen 10 mg/dL (9-16); Calcium 9.7 mg/dL (8.4-10.2); Carbon Dioxide 23 mmol/L (22-29); Chloride 105 mmol/L (96-108); Creatinine Clr Calc Pharmacy -3.2; Estimated Glomerular Filt Rate > 60; Glucose Random 118 mg/dL (60-115); Magnesium 2.2 mg/dL (1.6-2.6); Potassium 4.3 mmol/L (3.3-5.1); Sodium 139 mmol/L (135-145); Total Protein 7.6 g/dL (6.5-8.0)
[2024-02-12 17:23] LABS: Bacteria Urine None Seen (None Seen); Hyaline Casts Urine 0-2 /LPF (0-2); RBC Urine 0-2 /HPF (0-2); Squamous Epithelial Cell Urine 0-2 /HPF (0-2); WBC Urine 0-5 /HPF (0-5)
[2024-02-12 17:53] VITALS: BP 109/71; PULSE 66; RESP 16; TEMP 36.3; O2SAT 97
[2024-02-12] MEDS: levoFLOXacin 500 MG TABLET PO (17:55)
[2024-02-12 18:01] VITALS: BP 109/71; PULSE 66; RESP 16; TEMP 36.3; O2SAT 97
[2024-02-13 13:26] LABS: CT PCR NOT DETECTED (Not Detect.); NG PCR NOT DETECTED (Not Detect.)
== END 2024-02-12 18:01 | disposition home or self-care (01) ==
PROVIDERS: Nurse Practitioner Family; Physician Assistant Medical; Emergency Provider Emergency Medicine Emergency Medical Services; PCP Internal Medicine
DX: N45.1 Epididymitis (principal); N43.3 Hydrocele, unspecified; E11.9 Type 2 diabetes mellitus without complications; I10 Essential (primary) hypertension; E78.5 Hyperlipidemia, unspecified; Z79.84 Long term (current) use of oral hypoglycemic drugs; Z79.02 Long term (current) use of antithrombotics/antiplatelets; Z79.899 Other long term (current) drug therapy
CPT/HCPCS: 36415; 76870; 80053; 81001; 81003; 83735; 85025; 87491; 87591; 93975; 99283; 99284

== ENCOUNTER 2024-02-15 15:05 | Outpatient (AMB) | payer BC, SELFPAY ==
--- NOTE | 2024-02-15 15:08 | MHC.OFFVIS ---
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 He is seen for the following urologic conditions - epididymal cyst - erectile dysfunction - hypogonadism Here for 2nd testosterone pellet placement Discussed lab results. Peak over 600 with trough proximally 400 This showed improve by another 100-200 points with 2nd administration Patient also discussed restarting daily tadalafil Prescription provided Hypogonadism Failed gel from absorption issues Needle phobia prevented injectable testosterone Good response to trial of testosterone pellets 1st Peak 2 week 683 10 week 424 Erectile dysfunction associated with diabetes Progressive Can obtain but not maintain erection Does have treatment for dyslipidemia, diabetes, depression Hypogonadism symptoms including lack of energy, lack of spontaneous morning erections, lack of libido Prior evaluation 2018 for atherosclerotic vascular disease. ECG, Holter, echo performed. LVEF 60% with mild diastolic dysfunction. Normal myocardial perfusion study. Exercise stress test 10.5 minutes on Kuldip protocol. Current medication 100 mg sildenafil on demand Labs - 01/03 P 0.3, 01/04 P 0.3, T 263, 07/06 T 250, 09/05 T 225 LH 3.9 PSA 0.25 - 07/06 T 250 Epididymal cyst Stable right side Decreasing size of left testicle Yearly review [facility] Medical History Mixed hyperlipidemia Muscle spasm Fibromyalgia COVID-19 vaccine series completed Pain of multiple extremities Neck pain History of lumbar puncture Back pain SHERLY (obstructive sleep apnea) Palpitations Anxiety Migraine Hyperlipidemia, unspecified Essential hypertension Type 2 diabetes mellitus with unspecified complications Surgical History History of umbilical hernia repair History of esophagogastroduodenoscopy (EGD) Hx of colonoscopy Family History Mother Diabetes Father Myocardial infarction Social History (Reviewed 12/17/23 @ 15:17 by TEJ CastellanoYair Alcohol intake: never Comment: medicated in pacu Patient Tobacco Use Status: Never used Tobacco Review of Systems Const Denies chills and Denies fever(s) Card Reports no additional complaints and Denies syncope Resp Denies cough GI Denies abdominal pain and Denies heartburn Reports as per HPI and Denies change in libido Neuro Denies syncope Psych Denies change in libido Endo Denies change in libido Physical Exam Const General: cooperative, healthy appearing, comfortable and no acute distress Orientation/consciousness: patient oriented x3 HEENT Face and sinus: Yes normal facial exam Mouth: moist mucous membranes Neck Neck: Yes normal visual inspection, Yes full ROM and Yes trachea midline Chest Chest palpation & inspection: normal inspection of the chest Resp Effort & Inspection: normal respiratory effort, able to speak in complete sentences and no respiratory distress GI Inspection: Yes normal to inspection Back/Spine/Pelvis Cervical Spine: normal cervical lordosis Thoracic/Lumbar Spine: thoracic and lumbar spine normal to inspection Skin General skin exam: no rashes or lesions noted Neuro General: patient oriented x3, gait normal, tone normal and moves all extremities Extrem General: Yes normal to inspection and Yes capillary refill normal Office Procedures AMB Testopel Details: Testopel Placement Pre Op Diagnosis - Low testosterone Post Op Diagnosis - Low Testosterone Procedure: Testopel Insertion Testopel was prepared for insertion. Five Testopel pellets were removed from the individual glass containers and placed in a sterile container. The patient was placed in left lateral position with left side down and right side up. The area over the right hip was cleaned with Betadine. Lidocaine 2% was injected first as a skin wheal and then into the subcutaneous tissue directed in a fashion down towards the femur in the subcutaneous space to perform hydrodissection. The purpose of the injection is to numb the length of the trocar track. A 15 Blade scapel was used to make a puncture incision into the subcutaneous space. Insert trocar with sharp-ended stylet. Enter downward at a 45? angle and into the subcutaneous fat layer. The needle was flatten out and advanced leaving the pellet loading area exposed. 6 pellets were inserted using Adson forceps into the loading trocar. The blunt stylet was used to advance pellets into the tract while withdrawing the trocar. The trocar insertion site was closed with a single interrupted suture and a dressing placed. 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[employer] 75 mg implant 6 ea Assessment & Plan Assessment & Plan (1) Erectile dysfunction associated with type 2 diabetes mellitus: Code(s): E11.69 - Type 2 diabetes mellitus with other specified complication; N52.1 - Erectile dysfunction due to diseases classified elsewhere Category: Medical (2) Hypogonadotropic hypogonadism: Code(s): E23.0 - Hypopituitarism Category: Medical Plan Testosterone pellets inserted Tadalafil script refill Orders: Orders Testosterone, Total 2 Weeks E23.0 - Hypopituitarism AMB Testosterone Pellet Implant Today E23.0 - Hypopituitarism Testosterone, Total 10 Weeks E23.0 - Hypopituitarism Medications: New Testopel (testosterone) 75 mg implant ONCE 1 ea 0RF NS E23.0 - Hypopituitarism Refilled tadalafil 5 mg PO DAILY 90 days 90 tabs 1RF sexual activity N52.01 - Erectile dysfunction due to arterial insufficiency, R79.89 - Other specified abnormal findings of blood chemistry Patient Instructions: Imaging studies, laboratory and physical exam results were discussed and reviewed in detail. No major barriers to patient understanding were identified. An opportunity to ask questions regarding the treatment plan was provided. All questions were answered. The patient expressed understanding and agreement with the above treatment plan. The patient is aware they should contact our office by phone for worsening of their current condition or the appearance of new urologic symptoms. Compliance is encouraged with any medications and followup testing that is ordered. It is a privilege to participate in the urologic care of your patient. If you have any questions or concerns regarding treatment for the above conditions, or other urologic issues, please do not hesitate to contact me. The office telephone contact is [phone]. This note is constructed using voice recognition software. While every effort has been made to ensure accuracy manager internal errors may have been included. Yours sincerely, Dr Varinder Sibley MD, [facility] - Urology Providers of Expert, Compassionate Care for the Genitourinary System Coding Level of Care Code Est Pt Level 4 (99204) Diagnoses Erectile dysfunction associated with type 2 diabetes mellitus E11.69; N52.1 Hypogonadotropic hypogonadism E23.0
== END 2024-02-15 15:50 | disposition home or self-care (01) ==
PROVIDERS: PCP Internal Medicine; Visit Provider Urology
DX: E11.69 Type 2 diabetes mellitus with other specified complication (principal); N52.1 Erectile dysfunction due to diseases classified elsewhere; E23.0 Hypopituitarism
CPT/HCPCS: 11980; 99214

== ENCOUNTER → 2024-02-15 15:05 | Outpatient (BNVA) | payer BC, SELFPAY | PROVIDERS: PCP Internal Medicine; Visit Provider Urology | DX: N50.3 Cyst of epididymis (principal); E23.0 Hypopituitarism; E11.69 Type 2 diabetes mellitus with other specified complication; N52.1 Erectile dysfunction due to diseases classified elsewhere; N52.01 Erectile dysfunction due to arterial insufficiency; R79.89 Other specified abnormal findings of blood chemistry; I10 Essential (primary) hypertension | CPT/HCPCS: 11980; J3490 ==

== ENCOUNTER 2024-02-29 14:30 | Outpatient (REF) | payer BC, SELFPAY ==
[2024-03-05 15:04] LABS: Testosterone, Total 455 ng/dL (250-1100)
== END 2024-02-29 14:31 | disposition home or self-care (01) ==
LOC: HO.LAB 14:30
PROVIDERS: PCP Internal Medicine; Visit Provider Urology
DX: E23.0 Hypopituitarism (principal)
CPT/HCPCS: 36415; 84403

== ENCOUNTER 2024-03-30 07:27 | Outpatient (AMB) | payer BC, SELFPAY ==
--- NOTE | 2024-03-30 07:29 | MHC.OFFVIS ---
Vital Signs 03/30/24 07:35 Height 5 ft 10 in Weight 193 lb BMI 27.7 BP 101/61 Blood Pressure Location Lt brachial Position Sitting Pulse 91 Intake Visit Reasons: 4 month follow up Intake Note: Patient 4 month follow up for abdominal bloating. Patient cc: some blood on his stool on and off, abdominal bloating is much better and denies any other GI issues for today. Blackjack Dealer Required: No Accompanied by: Self / Same As Patient Allergies clavulanic acid [From Augmentin] Allergy (Mild, Verified 03/30/24 07:29) Itching Penicillins Allergy (Unknown, Verified 03/30/24 07:29) ITCHING Medication List - Last Reconciled 03/30/24 by Franck Madrid MD atorvastatin 40 mg PO BEDTIME cetirizine 10 mg PO DAILY lisinopril 10 mg PO DAILY 90 days metformin 1,000 mg PO BID methocarbamol TAKE 1 TABLET BY MOUTH THREE TIMES DAILY NEEDED FOR MUSCLE SPASM omeprazole 20 mg PO BID pregabalin 150 mg PO BID 30 days sennosides-docusate sodium 8.6-50 mg (Senna with Docusate Sodium) 1 tab-cap PO BEDTIME 60 days tadalafil 5 mg PO DAILY 90 days venlafaxine ER 75 mg PO BEDTIME HPI HPI 4 month follow up: Details: GI CLINIC VISIT FOR THIS 53 YEAR OLD AA MALE FOR FU of GERD, dysphagia, abdominal pain. Pt was seen at [facility] for abd pain. ? CHRONIC ILLNESSES:?Hypertension, migraine headaches, asthma,, anxiety. TODAY'S VISIT Notes some red spots on the TP in wiping. Bloating has improved. Constipation is better - has a BM every other day and stool can be hard intermittently Abd pain improved. GERD controlled with Omperazole works at [employer] in [place]. Planning to go to [place] to visit his Mom in December PAST VISIT: Doing well - a little abd pain sometimes Seen at [facility] on 10/14/23 and noted to have constipation on CT scan Has a BM daily to every other day with straining Feeling OK - taking Omeprazole 20 mg once daily in the morning H Pylori breath test was negative He was taking lemon and olive oil and stopped taking it. EGD and biopsy results were reviewed with the patient Not having abd pain any more. Pt has been taking Omeprazole 20 mg twice daily since his ER visit and does not feel any different. Lab and US results reviewed Notes improvement in bloating. Has been taking Dicyclomine less frequently Using Dicyclomine three times a day with improvement in symptoms Denies constipation and has a BM once a day with intermittent straining. Continues to have abdominal pain and takes Dicyclomine three times a day. Stopped when he ran out and has resumed taking it. Intermittent sore throat and intermittent regurgitation Denies constipation or diarrhea.? Notes BRBPR on the TP. Denies rectal or anal pain. Had a Colonoscopy 4-5 yrs ago Patient denies major cardiac or pulmonary problems, loud snoring or sleep apnea Reports negative cardiac workup in the past for evaluation of chest pain and shortness of breath Denies problems with anesthesia in the past. Denies being on chronic anticoagulation. Patient denies known family history of colon polyps, colon cancer or other GI malignancies. Brother of leukemia Sister of breast cancer. ? Burning and soreness at the xiphoid for the past 2 years - rarely goes away ? Symptoms are constant with intermittent worsening. ? Unable to identify any triggering factors. ? Denies worsening of pain with deep breathing, coughing or lifting. ? Feels it more when he takes greasy food like pizza. ? Complains of pain all over - ? due to fibromyalgia. ? Denies fever, chills or sweating. ? Pain is sometimes associated with a warm feeling radiating to the ears and face. ? Denies facial flushing. ? Denies change in bowel habits, black stools or rectal bleeding. ? Takes fibre at night and bowel movements have been pretty good. ? Had dysphagia in the past which has improved. ? Feels he has bad gas causing rib pain. ? Notes partial relief of rib pain when he passes gas. ? Has heartburn and denies nausea or vomiting, change in appetite or weight. ? PAST GI HISTORY BY REVIEW OF MEDICAL RECORDS: ? Pt has been followed by Jia Joy since 09/2017: ? 47 y/o male here for follow up on upper abdominal pain. He was last seen by Dr. Kinsey 08/06/17 and at that time labs were ordered along with a CT and he was started on vitamin D supplementation. ? The CT showed several bladder calcifications and he should be referred to urology. Otherwise there was a small fat containing hernia but no other remarkable findings to explain his pain. Labs showed mildly elevated ALT at 42, CBC was normal and inflammatory markers were normal. ? He is seeing a urologist now, and will inform him of the CT results. ? He says that the pain is in the side in his ribcage and in between the rib spaces. He also has pain in the lower to mid sternal area where the ribs would attach. The pain is worse with pushing and with sitting and waling and is described as burning. At times he will have some relief with otc gas x. ? He also will have a bitter taste in his mouth with belching despite being on omeprazole. He has occasional breakthrough heartburn that he takes TUMS for. The pain is at time better with heat and massage. When it hurts very badly he can not breathe well. He has had CXR in the past when he presented to the ER, and to his knowledge he has not had any cardiac problems. ? He had a brother how just from leukemia, and the hx of cardiac disease is not known on his fathers side of the family. ? He also sufferers at time from constipation and will have more pain in his flanks accompanied by dizziness with straining on the toilet. When this happens he has small, hard round stools. I think that a trial of better bowel motility may be a reasonable approach as well. He has tried occasional MOM but it does not produce much of a result. We will start with MiraLax and explore if this is a contributing GI problem. ? Because of the bladder calcifications and the CVA tenderness I will get a UA, and if blood is in the sample will consider if renal US is a good idea to see if renal stones are a contributor. ? Pt was seen on 07/01/18 by Jia Joy DEPORTATION EXAMINER: ? Assessments ? 1. Generalized abdominal pain - R10.84 (Primary) ? 2. Esophageal dysphagia - R13.10 ? 3. Gastroesophageal reflux disease with esophagitis - K21.0 ? Treatment ? 1. Generalized abdominal pain ? Refill Simethicone Capsule, 180 MG, 1 capsule after meals and at bedtime as needed, Orally, three times a day, 30 days, 90 Capsule, Refills 3 ? Notes: His PCP thnks it may be FMS and started him on gabapetin and a TCA with some good relief. This certainly would explain his more systemic sx of pain and perceived swelling. ? 2. Esophageal dysphagia ? Notes: This has improved with only occasional upper throat swallowing problems he attributes to PNDS and allergies. ? 3. Gastroesophageal reflux disease with esophagitis ? Refill Omeprazole Capsule Delayed Release, 20 mg, 1 capsule, Orally, Once a day, 30 days, 30 Capsule, Refills 3 ? 4. Others ? Notes: WHile he has generally improved since I first started seeing him, I would like to have an MD look at him and his case to see if there is anything else about his unusual presentation and pain that has been missed. He may return to regular follow up with me after this depending on his comfort level. ? Follow Up ? next follow up with an MD for second look (Reason: xyphoid/abd pain ?LABS IN [facility]:?Apr, 2018 normal CBC, normal LFTs except elevated ALT of 62 ? 01/2018 negative celiac serology, normal CRP amylase and lipase ? IMAGING STUDIES: 02/18/[address] SCAN SHOWED: GASTROINTESTINAL TRACT: Gastric wall thickening despite underdistention. Small and large bowel loops are of normal caliber. No small bowel obstruction. Appendix is within normal limits. ABDOMINAL WALL: No significant hernia is appreciated. LYMPH NODES: No bulky lymphadenopathy. IMPRESSION: Gastric wall thickening despite underdistention. Advise correlation with direct visualization. 06/2022 ABD US SHOWED:Echogenic liver suggestive of fatty infiltration. Limited visualization of the pancreas and aorta. 08/[address] scan showed:? IMPRESSION:?Several bladder calcifications, largest measuring 4 x 6 mm.? Differential would include bladder wall calcifications, partial volume ? averaging with calcifications outside the bladder and bladder stones. ? There is a focal area of bladder wall thickening along the anterior ? upper bladder wall. Diverticulosis. No evidence of diverticulitis. ? Small umbilical hernia containing fat. ?03/2017 UGI SBFT showed: ? IMPRESSION: ? 1. Tiny hiatal hernia with no significant gastroesophageal reflux. ? 2. No evidence of peptic ulcer disease. ? 3. No evidence of small bowel obstruction. ENDOSCOPIC STUDIES:? 02/23/[address]GD [address] PERFOR[address] DRAKE: Larynx:normal Esophagus: GE junction at 43 cm, diaphragm hiatus at 43 cm, no varices or esophagitis, bx taken from distal esophagus Stomach: Patchy gastric erythema and nodularity in antrum. Biopsies were obtained. Grade 2 flap valve on retroflexed examination of the cardia. Duodenum: Normal bulb and descending duodenum, BIOPSIES SHOWED: A. Stomach, biopsy: Antral-type and oxyntic mucosa with moderate chronic inactive inflammation; no Helicobacter organisms seen. B. Esophagus, distal, biopsy: Squamous epithelium within normal limits; no inflammation seen 08/2020 EGD AND COLON SHOWED: ESOPHAGUS: Focal esophagitis STOMACH:? Nodular gastritis - biopsies were negative for Helicobacter pylori Colonoscopy Findings: No polyps were detected Biopsies were obtained from the right, left colon and rectum - normal Moderate diverticulosis seen in the left colon Moderate hemorrhoids on retroflexed exam. Plan: Repeat Colonoscopy interval based on path results - in 5 years due to a hx of adenomatous colon polyp. 10/2015 [address] PER[address]MED [address] LEIGH:Two small (a hyperplastic and an adenomatous) polyps were removedThere was a short 3 cms area of suspected proctitis extending from the dentate line. Biopsies showed rectal mucosa with mild nonspecific chronic inflammation. 12/2017 EGD WAS PERFORMED FOR EVALUATION OF GERD AND OROPHARYNGEAL DYSPHAGIA:EGD showed gastritis and biopsies were negative for Helicobacter pylori.Esophagus: Tortuous esophagus with increased tertiary contractions withoutstricture. Scanty white exudates in the proximal esophagus - biopsies obtained to check for EOE. GE junction at 40 cms. Focal esophagitis at GE junction with a single erosion. A 4-5 mm benign appearing hyperplastic nodule in the distal esophagus just above the GE junction. Dysphagia was felt to be due to esophageal motility disorder. [facility] Medical History Mixed hyperlipidemia Muscle spasm Fibromyalgia COVID-19 vaccine series completed Pain of multiple extremities Neck pain History of lumbar puncture Back pain SHERLY (obstructive sleep apnea) Palpitations Anxiety Migraine Hyperlipidemia, unspecified Essential hypertension Type 2 diabetes mellitus with unspecified complications Surgical History History of umbilical hernia repair History of esophagogastroduodenoscopy (EGD) Hx of colonoscopy Family History Mother Diabetes Father Myocardial infarction Social History Alcohol intake: never Comment: medicated in pacu Patient Tobacco Use Status: Never used Tobacco Review of Systems Const Denies chills and Denies fever(s) Card Reports no additional complaints and Denies syncope Resp Denies cough GI Denies abdominal pain and Denies heartburn Reports as per HPI and Denies change in libido Neuro Denies syncope Psych Denies change in libido Endo Denies change in libido Physical Exam Vital Signs: Last Vital Signs Pulse 91 03/30/24 07:35 BP 101/61 03/30/24 07:35 BMI result Body Mass Index 27.7 Const General: healthy appearing and no acute distress Nutritional Appearance: overweight Orientation/consciousness: patient oriented x3 Limitations: no limitations HEENT Head: Yes normal to inspection Ears: hearing grossly normal bilaterally Eyes Sclerae: sclerae normal Pupils: Equal, round and reactive pupils present Neck Neck: Yes normal visual inspection Chest Chest palpation & inspection: normal inspection of the chest Resp Effort & Inspection: normal respiratory effort Auscultation: clear to auscultation bilaterally Cardio Palpation: normal PMI Rate: regular rate Rhythm: regular rhythm Heart sounds: S1 normal heart sound present, S2 normal heart sound present and no murmurs GI Palpation (GI): Soft to palpation, nontender and No hepatosplenomegaly present Auscultation: normal bowel sounds Rectal Exam - Male: Yes deferred Skin General skin exam: no rashes or lesions noted Neuro General: patient oriented x3, gait normal and moves all extremities Cranial nerves: Yes Equal, round and reactive pupils present Psych Appearance: grossly normal Mental Status: mental status grossly normal Assessment & Plan Assessment & Plan (1) Abdominal bloating: Code(s): R14.0 - Abdominal distension (gaseous) Category: Medical (2) Generalized abdominal pain: Code(s): R10.84 - Generalized abdominal pain Category: Medical (3) GERD (gastroesophageal reflux disease): Code(s): K21.9 - Gastro-esophageal reflux disease without esophagitis Category: Medical (4) History of colon polyps: Comment: 10/2015 COLONOSCOPY WAS PERFORMED BY [address] LEIGH: Two small (a hyperplastic and an adenomatous) polyps were removed There was a short 3 cms area of suspected proctitis extending from the dentate line. 08/2020 colonoscopy showed diverticulosis and no polyps were detected Repeat colonoscopy is advised in 5 years (Due 08/2025) Code(s): Z86.010 - Personal history of colon polyps Category: Medical (5) Hernia, umbilical: Code(s): K42.9 - Umbilical hernia without obstruction or gangrene Category: Medical Qualifiers: Obstruction and gangrene presence: without obstruction or gangrene Qualified Code(s): K42.9 - Umbilical hernia without obstruction or gangrene (6) Elevated LFTs: Comment: Elevated LFTs likely due to fatty liver related to DM Hepatitis B and C antibodies and celiac serologies were negative in the past. Code(s): R79.89 - Other specified abnormal findings of blood chemistry Category: Medical (7) Chronic constipation: Code(s): K59.09 - Other constipation Category: Medical Plan 53-year-old male with Hypertension, migraine headaches, asthma,, anxiety seen for follow-up of abdominal pain/ burning and soreness of xiphoid which rarely goes away. No specific triggers. Feels he has bad gas causing rib pain and notes partial relief of rib pain when he passes gas. Past evaluation with upper GI small-bowel follow-through and an abdominal CT scan did not reveal any etiology for his symptoms. He likely has IBS with constipation. Patient notes partial improvement in symptoms with dicyclomine 3 times daily. He was advised to start taking omeprazole 20 mg daily for GERD. 08/2020 EGD and colonoscopy were performed and findings as noted above. 06/04/22 Pt advised to continue Dicyclomine and add senna 2-3 times a week as needed for constipation. 11/20/22 Bloating improved LFTs decreased with wt loss 03/05/23 Pt was advised to replace Omeprazole with Famotidine for 2 weeks and return for an H Pylori breath test H Pylori breath test was negative 11/25/23 Advised to start Linzess for constipation (Or take Senna plus daily if Linzess is not covered by his insurance) 03/30/24 Linzess not covered by his Insurance Advised to take Miralax every other day Due for Colonoscopy in 2025 for follow-up of colon polyps FU in 6 months - scheduled 10/05/24 Medications: New polyethylene glycol 3350 (Miralax) 17 grams PO DAILY 510 grams 3RF 30 days K59.09 - Other constipation Refilled sennosides-docusate sodium 8.6-50 mg (Senna with Docusate Sodium) Please take every other day at bedtime 1 tab-cap PO BEDTIME 60 tabs 2RF 60 days K59.09 - Other constipation Coding Level of Care Code Est Pt Level 3 (13370) Diagnoses Abdominal bloating R14.0 Generalized abdominal pain R10.84 GERD (gastroesophageal reflux disease) K21.9 History of colon polyps Z86.010 Hernia, umbilical K42.9 Obstruction and gangrene presence: without obstruction or gangrene Elevated LFTs R79.89 Chronic constipation K59.09 Time Spent (min) 18
[2024-03-30 07:35] VITALS: BP 101/61; PULSE 91; BMI 27.7
== END 2024-03-30 08:02 | disposition home or self-care (01) ==
PROVIDERS: PCP Internal Medicine; Visit Provider Internal Medicine Gastroenterology
DX: R14.0 Abdominal distension (gaseous) (principal); R10.84 Generalized abdominal pain; K21.9 Gastro-esophageal reflux disease without esophagitis; Z86.0100 Personal history of colon polyps, unspecified; K42.9 Umbilical hernia without obstruction or gangrene; R79.89 Other specified abnormal findings of blood chemistry; K59.09 Other constipation
CPT/HCPCS: 99213

== ENCOUNTER → 2024-03-30 07:27 | Outpatient (BNVA) | payer BC, SELFPAY | PROVIDERS: PCP Internal Medicine; Visit Provider Internal Medicine Gastroenterology ==

== ENCOUNTER 2024-04-05 10:41 | Outpatient (AMB) | payer BC, SELFPAY ==
--- OUTSIDE RECORDS SUMMARY | 2024-04-05 11:57 | XMS_ITS | Encounter Summary ---
Author Organization [employer] Address [address] [address] Care Team Providers Care Link And Link Knitting Machine Operator Name Role Phone Vasile Putnam MD Primary Care Prov ider Reason for Visit * Reason Onset Date Comments Med Refill 04/04/2024 Encounter Details Date Type Department Care Team ([facility] st Contact Info) Description 04/04/2024 Refill [facility] [address] [place] [address] Vasile Putnam MD [address] [place] [address] Social History Tobacco Use Types Packs/Day Years Used Date Smoking Tobacco: Never Passive Smoke Exposure: Never Smokeless Tobacco: Never Depression Answer Date Recorded Patient Health Questionnaire-9 Score 0 07/21/2022 Housing Stability Answer Date Recorded What is your housing situation today? I have sophia power 08/16/[address] you li ve. Do you have problems with any of the following? None of the above 08/16/2023 Food Insecurity Answer Date Recorded Within the past 12 months, y ou worried that your food would run out before you got money to buy more: Never True 08/16/2023 Within the past 12 months,th e food you bought just didn't last and you didn't have enough money to get more: Never True 05/2023 Transportation Answer Date Recorded In the past 12 months, has l ack of transportation kept you from medical appts, meetings, work or from getting things needed for daily living? No 08/16/2023 Utilities Answer Date Recorded In the past 12 months, has t he electric, gas, oil or water company threatened to shut off services in your home? No 08/16/2023 Depression Answer Date Recorded Patient Health Questionnaire-2 Score 0 07/21/2022 Sex and Gender Information Value Date Recorded Sex Assigned at Male 01/12/2022 10:17 AM EDT Legal Sex Male 10:17 AM EDT Gender Identity Male 01/12/2022 10:17 AM EDT Sexual Orientation Straight 01/12/2022 10 :17 AM EDT documented as of this encounter Miscellaneous Notes * Telephone Encounter - Alisa Chiang - 04/04/2024 10:55 AM EST TC from pt requesting medication refill. Medications needing refill : dapagliflozin (Farxiga) 10 MG [id number] - [place], [place] - [address] [place] [address] [facility] documented in this encounter Plan of Treatment Not on file documented as of this encounter Visit Diagnoses Not on filedocumented in this encounter Additional Health Concerns Assessment Noted Time PHQ-9 Depression Total Score: 0 07/22/19 23 9:15 AM EDT documented as of this encounter Care Teams Link And Link Knitting Machine Operator Relationship Specialty Start Date End Date Vasile Putnam MD [address] [place] [address] PCP - General Internal Medicine 01/11/19 documented as of this encounter
--- OUTSIDE RECORDS SUMMARY | 2024-04-05 11:57 | XMS_ITS | Encounter Summary ---
Author Organization [employer] Address [address] [address] Care Team Providers Care Production Control Specialist Name Role Phone Vasile Putnam MD Primary Care Prov ider Reason for Visit * Reason Comments Med Refill Encounter Details Date Type Department Care Team (Late st Contact Info) Description 04/03/2024 Refill [facility] P[facility] [address] [place] [address] Vasile Putnam MD [address] [place] [address] Social History Tobacco Use Types Packs/Day Years [...] AM EDT documented as of this encounter Plan of Treatment Not on file documented as of this encounter Visit Diagnoses Not on filedocumented in this encounter Additional Health Concerns Assessment Noted Time PHQ-9 Depression Total Score: 0 07/22/19 23 9:15 AM EDT documented as of this encounter Care Teams Production Control Specialist Relationship Specialty Start Date End Date Vasile Putnam MD [address] [place] [id number] PCP - General Internal Medicine 01/11/19 documented as of this encounter
--- OUTSIDE RECORDS SUMMARY | 2024-04-05 11:57 | XMS_ITS | Encounter Summary ---
Author Organization [employer] Address [address] [facility] [address] [place] [address] Care Team Providers Care Extractor Operator Helper Name Role Phone Vasile Putnam MD Primary Care Prov ider Encounter Details Date Type Department Care Team (Latest Contact Info) Description 03/30/2024 Travel Social History Tobacco Use Types Packs/Day Years Used Date Smoking Tobacco: Never Passive Smoke Exposure: Never Smokeless Tobacco: Never Depression Answer Date Recorded Patient Health Questionnaire-9 Score 0 07/21/2022 Housing Stability Answer Date Recorded What is your housing situation today? I have sophia tono 08/16/[address] you li [...] documented as of this encounter Care Teams Extractor Operator Helper Relationship Specialty Start Date End Date Vasile Putnam MD [address] [place] [id number] PCP - General Internal Medicine 01/11/19 documented as of this encounter
--- OUTSIDE RECORDS SUMMARY | 2024-04-05 11:57 | XMS_ITS | Encounter Summary ---
Author Organization [employer] Address [address] [address] Care Team Providers Care Dot Compliance Coordinator Name Role Phone Vasile Putnam MD Primary Care Prov ider Reason for Visit * Reason Onset Date Comments Nurse Triage 03/30/2024 Encounter Details Date Type Department Care Team ([facility] st Contact Info) Description 03/30/2024 Telephone [facility] [address] [place] [address] Vasile Putnam MD [address] [place] [address] Nurse Triage Social History Tobacco Use Types Packs/Day Years [...] encounter Miscellaneous Notes * Telephone Encounter - Xiomara Still RN - 03/30/2024 8:36 AM EST Call returned to Laurence Paulino to triage below. Reports having upper left back into shoulder. Pt denies any redness, rash or swelling. Has full ROM. Pt does endorse having hand numbness on left side. Pt advised of disposition, agrees to sick on site with PCP today for exam. Protocol Used: Shoulder Pain (Adult) Protocol-Based Disposition: See in Office or Video Visit Today Future Appointments Date Time Provider Department Center 03/30/2024 9:30 AM Vasile Juares MD [facility] Insurance verified as active per Real Time Eligibility in [facility]. Positive Triage Question: * Numbness (i.e., loss of sensation) in hand or fingers * All higher-acuity triage questions were negative Care Advice Discussed: * Reassurance and Education - Shoulder Pain * Pain Medicines * Reasons To Call Back - Chest pain or difficulty breathing occurs - Moderate pain (such as interferes with normal activities) lasts over 3 days - You become worse * Telephone Encounter - Kamron Berg - 03/30/2024 8:31 AM EST Symptom: Back Pain - Not From Injury Outcome: Transfer to a nurse or provider NOW! Reason: Age over 30: sudden AND severe upper back pain The caller accepted this outcome. Contact pt at [phone] documented in this encounter Plan of Treatment Not on file documented as of this encounter Visit Diagnoses Not on filedocumented in this encounter Additional Health Concerns Assessment Noted Time PHQ-9 Depression Total Score: 0 07/22/19 23 9:15 AM EDT documented as of this encounter Care Teams Dot Compliance Coordinator Relationship Specialty Start Date End Date Vasile Putnam MD [address] [place] [id number] PCP - General Internal Medicine 01/11/19 documented as of this encounter
--- OUTSIDE RECORDS SUMMARY | 2024-04-05 11:57 | XMS_ITS | Encounter Summary ---
Author Organization [employer] Address [address] [facility] [address] [address] Care Team Providers Care Nurse Navigator Name Role Phone Vasile Putnam MD Primary Care Prov ider Encounter Details Date Type Department Care Team ([facility] st Contact Info) Description 03/30/2024 9:30 AM EST Office Visit [facility] MED & PEDS [address] [place] [address] Vasile Putnam MD [address] [place] [address] Acute pain of left shoulder (Primary Dx); Type 2 diabetes mellitus without complication, without long-term current use of insulin ([facility]) Social History Tobacco Use Types Packs/Day Years [...] AM EDT documented as of this encounter Last Filed Vital Signs Vital Sign Reading Time Taken Comments Blood Pressure 124/87 03/30/2024 9:45 AM EST Pulse 80 03/30/2024 9:45 AM EST Temperature 36.6 ??C (97.9 ??F) 03/30/2024 9:45 AM ES T Respiratory Rate 20 03/30/2024 9:45 AM EST Oxygen Saturation - - Inhaled Oxygen Concentration - - Weight 89.4 kg (197 lb) 03/30/2024 9:45 AM EST Height 177.8 cm (5' 10 ) 03/30/2024 9:45 AM EST Body Mass Index 28.27 03/30/2024 9:45 AM EST documented in this encounter Progress Notes * Vasile Juares MD - 03/30/2024 9:30 AM EST Subjective Patient ID: Laurence Paulino is a 53 y.o. male who presents for No chief complaint on file.. Shoulder Pain The pain is present in the left shoulder. This is a chronic problem. Associated symptoms include stiffness. Pertinent negatives include no fever, inability to bear weight, itching, joint locking, joint swelling, limited range of motion, numbness or tingling. Review of Systems Constitutional: Negative for fever. Musculoskeletal: Positive for stiffness. Skin: Negative for itching. Neurological: Negative for tingling and numbness. Objective Physical Exam Constitutional: Appearance: Normal appearance. Cardiovascular: Rate and Rhythm: Normal rate and regular rhythm. Heart sounds: No murmur heard. Pulmonary: Effort: Pulmonary effort is normal. No respiratory distress. Breath sounds: Normal breath sounds. No stridor. No wheezing or rhonchi. Neurological: General: No focal deficit present. Mental Status: He is alert and oriented to person, place, and time. Psychiatric: Mood and Affect: Mood normal. Behavior: Behavior normal. Assessment/Plan Problem List Items Addressed This Visit Type 2 diabetes mellitus without complication, without long-term current use of insulin ([facility]) Relevant Orders POCT Glucose (Completed) POCT HGB A1C (Completed) Other Visit Diagnoses Acute pain of left shoulder - Primary Will prescribe tramadol and prednisone Apply cold packs, Call back if not improving Relevant Medications traMADol (Ultram) 50 MG tablet documented in this encounter Plan of Treatment Not on file documented as of this encounter Procedures Procedure Name Priority Date/Time Associated Diagnosis Comments POCT GLYCATED HEMOGLOBIN, TOTAL Routine 03/30/2024 9:51 AM EST Type 2 diabetes mellitus without complication, without long-term current use of insulin ([facility]) POCT GLUCOSE Routine 03/30/2024 9:51 AM EST Type 2 diabetes mellitus without complication, without long-term current use of insulin ([facility]) documented in this encounter Results * (ABNORMAL) POCT HGB A1C (03/30/2024 9:51 AM EST) Hemoglobin A1C 6.6(A) 4.0 - 6.0 % QC Media Lot # [id number] Lot# Expiration Date ,026 Blood 03/30/2024 9:51 AM EST Vasile Juares MD POINT OF CARE TEST ENTER/EDIT ORDERABLES Final Result * POCT Glucose (03/30/2024 9:51 AM EST) Glucose Blood, POC 122 60 - 200 mg/dL QC Media Lot # [id number] Lot# Expiration Date 408,025 Blood Capillary blood specimen / Unknown 03/30/2024 9:51 AM EST Vasile Juares MD POINT OF CARE TEST ENTER/EDIT ORDERABLES Final Result documented in this encounter Visit Diagnoses Diagnosis Acute pain of left shoulder- Primary Type 2 diabetes mellitus without complication, without long-term current use of insulin ([facility]) documented in this encounter Additional Health Concerns Assessment Noted Time PHQ-9 Depression Total Score: 0 07/22/19 23 9:15 AM EDT documented as of this encounter Care Teams Nurse Navigator Relationship Specialty Start Date End Date Vasile Putnam MD [address] [place] [id number] PCP - General Internal Medicine 01/11/19 documented as of this encounter
--- OUTSIDE RECORDS SUMMARY | 2024-04-05 11:57 | XMS_ITS | Encounter Summary ---
Author Organization [employer] Address [address] [facility] [address], [place] [address] Care Team Providers Care Outsole Skiver Name Role Phone Vasile Putnam MD Primary Care Prov ider Reason for Visit * Reason Onset Date Comments Nurse Triage 09/27/2023 Encounter Details Date Type Department Care Team ([facility] st Contact Info) Description 09/27/2023 Telephone [facility] CHC MED & PEDS [address] [place] [address] Vasile Putnam MD [address] [place] [address] Nurse Triage Social History Tobacco Use Types [...] * Telephone Encounter - Alisa Chiang - 09/27/2023 1:57 PM EDT Tc from pt returning call. * Telephone Encounter - Alisa Chiang - 09/27/2023 9:45 AM EDT Symptom: Back Pain and right side pain - Not From Injury Outcome: Schedule an appointment to be seen within 3 days Reason: Caller denied all higher acuity questions The caller accepted this outcome documented in this encounter Plan of Treatment Not on file documented as of this encounter Visit Diagnoses Not on filedocumented in this encounter Additional Health Concerns Assessment Noted Time PHQ-9 Depression Total Score: 0 07/22/19 23 9:15 AM EDT documented as of this encounter Care Teams Outsole Skiver Relationship Specialty Start Date End Date Vasile Putnam MD [address] [place] [id number] PCP - General Internal Medicine 01/11/19 documented as of this encounter
--- OUTSIDE RECORDS SUMMARY | 2024-04-05 11:57 | XMS_ITS | Clinical Summary ---
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 02/17/20 19 Active dicyclomine (Bentyl) 20 MG tablet Take 20 mg by mouth if needed in the morning, at noon, and at bedtime. 01/14/20 22 Active fluticasone (Flonase) 50 MCG/ACT nasal spray spray 1 spray by intranasal route every day in each nostril 05/15/19 21 Active glucose blood (FREESTYLE LITE) test strip Inject under the skin every 8 (eight) hours. 02/17/20 19 Active zoster vaccine-recomb inant adjuvanted (Shingrix) 50 MCG/0.5ML vaccine Inject 0.5 mL into the shoulder, thigh, or buttocks. 01/03/20 22 Active baclofen (Lioresal) 10 MG tablet Take 1 tablet (10 mg) by mouth 3 times daily for 10 days. 30 tablet 09/27/19 24 Active atorvastatin (Lipitor) 40 MG tablet TAKE 1 TABLET(40 MG) BY MOUTH IN THE MORNING 90 tablet 1 12/07/19 24 Active venlafaxine XR (Effexor XR) 75 MG 24 hr capsuleIndicat ions:Fibromyal liam TAKE 1 CAPSULE(75 MG) BY MOUTH IN THE MORNING 90 capsule 3 12/07/19 24 Active metFORMIN (Glucophage) 1000 MG tabletIndicati ons:Type 2 diabetes mellitus without complication, without long-term current use of insulin (CMS/HCC) TAKE 1 TABLET BY MOUTH WITH BREAKFAST AND 1 TABLET WTH EVENING MEAL 180 tablet 3 12/07/19 24 Active lisinopril 10 MG tablet TAKE 1 TABLET(10 MG) BY MOUTH IN THE MORNING 90 tablet 3 12/09/19 24 Active methocarbamol (Robaxin) 750 MG tablet Take 1 tablet (750 mg) by mouth 3 times daily. 270 tablet 3 01/04/20 24 025 Active omeprazole (PriLOSEC) [address] capsule TAKE 1 CAPSULE(20 MG) BY MOUTH IN THE MORNING 90 capsule 3 01/07/20 24 Active pregabalin (Lyrica) 150 MG capsule TAKE 1 CAPSULE(150 MG) BY MOUTH TWICE DAILY 60 capsule 1 02/16/20 24 Active DULoxetine (Cymbalta) [address] capsuleIndicat ions:Fibromyal liam TAKE 1 CAPSULE(30 MG) BY MOUTH TWICE DAILY. DO NOT CRUSH OR CHEW 60 capsule 2 02/16/20 24 Active fluticasone (Flonase) 50 MCG/ACT nasal sprayIndicatio ns:Acute maxillary sinusitis, recurrence not specified Administer 1-2 sprays into each nostril Once per day. Shake gently. Before first use, prime pump. After use, clean tip and replace cap. 16 g 03/09/20 24 025 Active clotrimazole (Lotrimin) 1 % cream Apply topically 2 times daily for 28 days. 30 g 03/30/19 25 025 Active dapagliflozin (Farxiga) 10 MG Take 1 tablet (10 mg) by mouth Once per day. 30 tablet 04/04/19 25 Active dapagliflozin (Farxiga) 10 MG Take 1 tablet (10 mg) by mouth in the morning. 30 tablet 03/30/19 24 025 Discontinued doxycycline (Vibra-Tabs) 100 MG tabletIndicati ons:Acute maxillary sinusitis, recurrence not specified Take 1 tablet (100 mg) by mouth 2 times daily for 7 days. Take with a full glass of water and do not lie down for at least 30 minutes after. 14 tablet 03/09/20 24 025 predniSONE (Deltasone) 20 MG tablet Take 2 tablets (40 mg) by mouth Once per day for 5 days. 10 tablet 03/30/19 25 025 traMADol (Ultram) 50 MG tabletIndicati ons:Acute pain of left shoulder Take 1 tablet (50 mg) by mouth every 6 (six) hours if needed for severe pain for up to 3 days. 12 tablet 03/30/19 25 025 dapagliflozin (Farxiga) 10 MG TAKE 1 TABLET(10 MG) BY MOUTH IN THE MORNING 30 tablet 11 04/04/19 25 025 Discontinued(Re order (will not trigger notification to Pharmacy)) Active Problems Problem Noted Date Diagnosed Date Maxillary sinusitis 03/09/2024 Assessment & Plan (03/09/2024 2:33 PM EST): Drink plenty of fluids and rest Acetaminophen PRN Screening for colon cancer 07/21/2022 Assessment & Plan (07/21/2022 12:35 PM EDT): Done in 2020 due in 5 years, no warning signs Muscle spasm 04/08/2022 Type 2 diabetes mellitus wit hout complication, without long-term current use of insulin 03/23/2022 Assessment & Plan (01/04/2024 9:58 AM EDT): Last A1c from August was 6.4%, he is on metformin and farxiga, no changes will be made, continue low carb/no sugar diet Pending eye exam scheduled for February Assessment & Plan (08/19/2023 12:13 PM EDT): Controlled, A1c today was 6.4 continue metformin and farxiga, keep low carb/no sugar diet Foot examination unremarkable Eye exam due on December 2023 Assessment & Plan (03/30/2023 4:17 PM EST): Patient changed insurance, jardiance was not covered and he stopped taking it over 2 months ago, will change to farxiga, if not he will call and let me know the list of meds covered Eye exam done on summer 2022 Assessment & Plan (03/02/2023 7:33 AM EST): Ranges from 96 to 176 with average in the 140's, will increase jardiance to 25mg, continue recommended diet and rest of medications Assessment & Plan (07/21/2022 12:34 PM EDT): Not at target, will add empagliflozin, and follow up in 1 month for tolerance Eye exam scheduled for December Foot exam done today was unremarkable Assessment & Plan (04/08/2022 10:17 AM EST): Last a1c from 12/2021 was 6.9%, reinforcedlow carb/sugar diet, no changes will be made, will follow up in 3 months in office Essential hypertension, benign 03/23/2022 Assessment & Plan (01/04/2024 9:57 AM EDT): Controlled, cotninue current treatment, continue low sodium diet and exercise as tolerated Assessment & Plan (08/19/2023 12:12 PM EDT): Controlled, continue lisinopril, continue low sodium diet and exercise as tolerated New labs will be ordered for guidance Assessment & Plan (03/30/2023 4:15 PM EST): Controlled, continue lisinopril , reinforced low sodium diet and exercise as tolerated Assessment & Plan (03/02/2023 7:32 AM EST): Controlled today was 122/81, ranges below 130/80, reinforced low sodium diet and exercise as tolerated, keep bp log and follow up in 3-4 months Assessment & Plan (07/21/2022 12:33 PM EDT): Repeated at the end of the visit and was at target, he refers ususally at home is <130/80, no changes will be made, reinforced low sodium diet and exercise Assessment & Plan (04/08/2022 10:16 AM EST): Controlled, continue lisinopril 10mg, reinforced low sodium diet and exercise as tolerated, no changes will be made Mixed hyperlipidemia 03/23/2022 Assessment & Plan (08/19/2023 12:15 PM EDT): New labs will be ordered for guidance of therapy Assessment & Plan (04/08/2022 10:17 AM EST): Continue atorvastatin Body mass index 32.0-32.9, adult 03/23/2022 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/2022 Fibromyalgia 03/23/2022 Cervicalgia 03/23/2022 Lumbago 03/23/2022 Encounters Date Type Department Care Team Description 04/04/2024 Refill [facility] [address] [place] [address] Vasile Putnam MD 04/03/2024 Refill [facility] [address] [place] [address] Vasile Putnam MD 03/30/2024 9:30 AM EST Office Visit [facility] [address], [place] [phone] Vasile Putnam MD Acute pain of left shoulder (Primary Dx); Type 2 diabetes mellitus without complication, without long-term current use of insulin ([facility]) 03/30/2024 Travel 03/30/2024 Telephone [facility] [address] [place] [address] Vasile Putnam MD Nurse Triage 03/09/2024 2:20 PM EST Office Visit [facility] [address] [place], [place] [phone] Lisa Girard MD Acute maxillary sinusitis, recurrence not specified (Primary Dx); Cough in adult 02/29/2024 Orders Only GENERIC EXTERNAL DATA DEPARTMENT Provider, Generic External Data 02/16/2024 Refill [facility] [address] [place] [address] Vasile Putnam MD Fibromyalgia 02/14/2024 Refill [facility] [address] [place] [address] Vasile Putnam MD 02/12/2024 Orders Only GENERIC EXTERNAL DATA DEPARTMENT Provider, Generic External Data 01/27/2024 Orders Only GENERIC EXTERNAL DATA DEPARTMENT Provider, Generic External Data 01/07/2024 Refill [facility] [address] [facility] [place] [address] Vasile Putnam MD 01/04/2024 8:45 AM EDT Office Visit [facility] [address] [place] [address] Vasile Putnam MD Essential hypertension, benign (Primary Dx); Type 2 diabetes mellitus without complication, without long-term current use of insulin ([facility]/HCC); Encounter for immunization 01/04/2024 Travel from Last 3 Months Immunizations Name Administration Dates Next Due Influenza, seasonal, injectable, preservative fr ee 01/04/2024 Social History Tobacco Use Types Packs/Day Years Used Date Smoking Tobacco: Never Passive Smoke Exposure: Never Smokeless Tobacco: Never Tobacco Cessation:Counseling Given: Not Answered Depression Answer Date Recorded Patient Health Questionnaire-9 [...] Orientation Straight 01/12/2022 10 :17 AM EDT Last Filed Vital Signs Vital Sign Reading Time Taken Comments Blood Pressure 124/87 03/30/2024 9:45 AM EST Pulse 80 03/30/2024 9:45 AM EST Temperature 36.6 ??C (97.9 ??F) 03/30/2024 9:45 AM ES T Respiratory Rate 20 03/30/2024 9:45 AM EST Oxygen Saturation 96% 03/09/2024 2:04 PM EST Inhaled Oxygen Concentration - - Weight 89.4 kg (197 lb) 03/30/2024 9:45 AM EST Height 177.8 cm (5' 10 ) 03/30/2024 9:45 AM EST Body Mass Index 28.27 03/30/2024 9:45 AM EST Plan of Treatment Health Maintenance Due Date Last Done Comments CT Colonography 1968 FIT DNA/Cologuard 1968 FIT 1968 FOBT 1968 Sigmoidoscopy 1968 Eye Exam 1978 Alcohol/Substance Use Screening 1980 Hepatitis B Vaccines (1 of 3 - 19+ 3-dose series) 1987 Depression Screening 07/22/2023 07/21/2022, 07/22/19 23 COVID-19 Vaccine ( season) 2023 05/30/2022, 01/30/2021, 07/07/2020, Additional history exists SDOH Screening 08/15/2024 08/16/2023 Diabetes: Foot Exam 08/18/2024 08/19/2023, 08/19/2023, 08/19/2023, Additional history exists Diabetes: Urine Protein Screening 08/18/2024 08/19/2023, 07/21/2022, 07/15/2021, Additional history exists Lipid Panel 08/18/2024 08/19/2023, 09/0 10/2022, 07/21/2022, Additional history exists Diabetes: Hemoglobin A1C 09/27/2024 025, 08/19/2023, 11/20/2022, Additional history exists Tobacco Screening 03/09/2025 03/09/2024 Colonoscopy 08/16/2025 08/16/2020 Colorectal Cancer Screening 08/16/2025 DTaP/Tdap/Td Vaccines (3 - Td or Tdap) 01/13/2032 01/12/2022, 08/24/2006 RSV Patients and Patients Aged 60 years or older (1 - 1-dose 75+ series) 2043 Pneumococcal Vaccine: Pediatrics (0 to 5 Years) and At-Risk Patients (6 to 64 Years) Completed 01/02/2022 Zoster Vaccines Completed 01/02/2022, 01/30/2021 HIV Screening Completed 07/21/2022 Hepatitis C Screening Completed 07/21/2022, 022 Influenza Vaccine Completed 01/04/2024, , 01/30/2021, Additional history exists HIB Vaccines Aged Out No longer eligi ble based on patient's age to complete this topic HPV Vaccines Aged Out No longer eligi ble based on patient's age to complete this topic Hepatitis A Vaccines Aged Out No long er eligible based on patient's age to complete this topic IPV Vaccines Aged Out No longer eligi ble based on patient's age to complete this topic Meningococcal Vaccine Aged Out No cristino shyla eligible based on patient's age to complete this topic RSV under 20 months Aged Out No longe r eligible based on patient's age to complete this topic Rotavirus Vaccines Aged Out No longer eligible based on patient's age to complete this topic Procedures Procedure Name Priority Date/Time Associated Diagnosis Comments POCT GLYCATED HEMOGLOBIN, TOTAL Routine 03/30/2024 9:51 AM EST Type 2 diabetes mellitus without complication, without long-term current use of insulin ([facility]) POCT GLUCOSE Routine 03/30/2024 9:51 AM EST Type 2 diabetes mellitus without complication, without long-term current use of insulin ([facility]) POCT COVID-19 AG JEFFERS ID NOW Routine 03/09/2024 2:21 PM EST Cough in adult POCT INFLUENZA B (ID NOW RAPID MOLECULAR) Routine 03/09/2024 2:21 PM EST Cough in adult POCT INFLUENZA A (ID NOW RAPID MOLECULAR) Routine 03/09/2024 2:20 PM EST Cough in adult TESTOSTERONE, TOTAL, MALES (ADULT), IA Routine 02/29/2024 2:38 PM EST CHLAMYDIA/N. GONORRHOEAE RNA, TMA, UROGENITAL Routine 02/12/2024 5:45 PM EST US SCROTUM DOPPLER Routine 02/12/2024 4: 16 PM EST US SCROTUM Routine 02/12/2024 4:16 PM EST URINALYSIS, COMPLETE, WITH REFLEX TO CULTURE Routine 02/12/2024 4:07 PM EST MAGNESIUM Routine 02/12/2024 4:05 PM EST COMPREHENSIVE METABOLIC PANEL Routine 02/12/2024 4:05 PM EST CBC WITH AUTO DIFFERENTIAL Routine 02/12/2024 4:05 PM EST TESTOSTERONE, TOTAL, MALES (ADULT), IA Routine 01/27/2024 4:17 PM EST POCT GLUCOSE Routine 01/04/2024 9:04 AM EDT Type 2 diabetes mellitus without complication, without long-term current use of insulin (CMS/HCC) ALBUMIN, RANDOM URINE W/CREATININE Routine 08/19/2023 10:08 AM EDT Type 2 diabetes mellitus without complication, without long-term current use of insulin (CMS/HCC) LIPID PANEL, STANDARD Routine 08/19/2023 9:37 AM EDT Type 2 diabetes mellitus without complication, without long-term current use of insulin (CMS/HCC) HEPATITIS C AB W/REFL TO HCV RNA, QN, PCR Routine 07/21/2022 9:57 AM EDT Type 2 diabetes mellitus without complication, without long-term current use of insulin ([facility]) HIV 1 RNA, QN PCR W/RFL KENNETH (RTI,PI,INTEGRASE) Routine 07/21/2022 9:57 AM EDT Type 2 diabetes mellitus without complication, without long-term current use of insulin (CMS/HCC) HM COLONOSCOPY Routine 08/16/2020 7:13 AM EDT from Last 3 Months or Most Recently Relevant to Health Maintenance Results * (ABNORMAL) POCT HGB A1C (03/30/2024 9:51 AM EST) Pathologist [facility] Hemoglobin A1C 6.6(A) 4.0 - 6.0 % QC Media Lot # [id number] Lot# Expiration Date 8,026 Blood 03/30/2024 9:51 AM EST Vasile Juares MD POINT OF CARE TEST ENTER/EDIT ORDERABLES Final Result * POCT Glucose (03/30/2024 9:51 AM EST) Only the most recent of2 resultswithin the time period is included. Pathologist [facility] Glucose Blood, POC 122 60 - 200 mg/dL QC Media Lot # [id number] Lot# Expiration Date 408,025 Blood Capillary blood specimen / Unknown 03/30/2024 9:51 AM EST Vasile Juares MD POINT OF CARE TEST ENTER/EDIT ORDERABLES Final Result * POCT Rapid Influenza B JEFFERS ID NOW (03/09/2024 2:21 PM EST) Pathologist [facility] Influenza B Negative Negative, Indeterminate [facility] QC Media Lot # [id number] [facility] Lot# Expiration Date 32,126 [facility] Swab 03/09/2024 2:21 PM EST Lisa Taylor MD POINT OF CARE TEST EN TER/EDIT ORDERABLES Final Result Performing Organization Address [facility] Co de Phone Number [facility] [address] [place] [address] [phone] * POCT Rapid Covid-19 JEFFERS ID NOW (03/09/2024 2:21 PM EST) Pathologist [facility] Coronavirus Antigen PCR Negative Negative, Indeterminate, None Detected, Invalid, Specimen unsatisfactory for evaluation, Weakly Positive QC Media Lot # [id number] Lot# Expiration Date 32,626 Swab 03/09/2024 2:21 PM EST Lisa Taylor MD POINT OF CARE TEST EN TER/EDIT ORDERABLES Final Result * POCT Rapid Influenza A JEFFERS ID NOW (03/09/2024 2:20 PM EST) [facility] Influenza A Negative Negative, Indeterminate [facility] QC Media Lot # [id number] [facility] Lot# Expiration Date 32,126 [facility] Swab 03/09/2024 2:20 PM EST Lisa Taylor MD POINT OF CARE TEST EN TER/EDIT ORDERABLES Final Result Performing Organization Address [facility] de Phone Number [facility] [address] [place] [address] [phone] * Testosterone, Total, males (Adult), IA (02/29/2024 2:38 PM EST) Only the most recent of2 resultswithin the time period is included. Pathologist [facility] Testosterone, Total 455 250 - 1100 ng/dL [facility] Comment:For additional infor navjot, please refer [email or web address](This link is being provided for informational/educational purposes only.)This test was developed and its analytical performancecharacteristics have been determined by [facility] [employer] [place], [place]. It hasnot been cleared or approved by the U.S. Food and DrugAdministration. This assay has been validated pursuantto the CLIA regulations and is used for clinicalpurposes.THIS TEST WAS PERFORMED AT:[facility] [place] [address]HUBYNMGWINSTON HAMMER MD,PHD 02/29/2024 2:38 PM EST 02/29/2024 2:38 PM EST us Generic External Data Provider LAB BLOOD ORDERAB LES Final Result [facility] [address] [place] [phone] * Chlamydia/N. Gonorrhoeae RNA, TMA, Urogenitial (02/12/2024 5:45 PM EST) CT PCR NOT DETECTED Not Detect. [facility] Comment:A not detected test result does not exclude the possibilityof infection because test results can be affected byimproper specimen collection, concurrent antibiotic therapy,or the number of organisms in the specimen which may bebelow the sensitivity of the test. As with many diagnostictests, results from the Xpert CT/NG assay should beinterpreted in conjunction with other laboratory andclinical data available to the clinician.Xpert CT/NG performance has not been evaluated in patientsless than 14 years of age. The assay should not be used forthe evaluationof suspected sexual abuse or for other medico-legalindications. Additional testing is recommended in anycircumstance when false positive or false negative resultscould lead to adverse medical, social or psychologicalconsequences. NG PCR NOT DETECTED Not Detect. [facility] Comment:A not detected test result does not exclude the possibilityof infection because test results can be affected byimproper specimen collection, concurrent antibiotic therapy,or the number of organisms in the specimen which may bebelow the sensitivity of the test. As with many diagnostictests, results from the Xpert CT/NG assay should beinterpreted in conjunction with other laboratory andclinical data available to the clinician.Xpert CT/NG performance has not been evaluated in patientsless than 14 years of age. The assay should not be used forthe evaluationof suspected sexual abuse or for other medico-legalindications. Additional testing is recommended in anycircumstance when false positive or false negative resultscould lead to adverse medical, social or psychologicalconsequences. 02/12/2024 5:45 PM EST 02/12/2024 5:48 PM EST Narrative [facility] - 02/13/2024 1:26 PM EST Urine us Generic External Data Provider LAB MICROBIOLOGY - GENERAL ORDERABLES Final Result Performing Organization Address City/State/[facility] Co de Phone Number [facility] [address] [place] [address] [phone] * US SCROTUM DOPPLER (02/12/2024 4:16 PM EST) Anatomical Region Laterality Modality Abdomen Ultrasound 02/12/2024 4:16 PM EST Narrative 02/12/2024 5:06 PM EST ? [facility] ?[address] ?[place] [address] ? Ultrasound Report ? Signed ? Patient: Jefferson,Laurence ?MR#: [id number] ?? 4 ? : 1970 ?Acct:[id number] ? Age/Sex: 53 / M ?ADM Date: 02/12/24 ? Loc: HO.ED ? Attending Dr: ? Ordering Physician: Carmina Tamayo ?? Date of Service: 02/12/24 ?? Procedure(s): US scrotum doppler ?? Accession Number(s): [id number] ? cc: Vasile Putnam MD; Carmina Tamayo ? EXAMINATION: ?? US SCROTUM ?? US SCROTUM DOPPLER ? CLINICAL INFORMATION: ?? Right lateral swelling. ? COMPARISON: ?? Scrotal ultrasound dated 10/24/2020. ? TECHNIQUE: ?? A sonogram of the scrotum was performed assessing pichardo-scale appearance ?? and color Doppler flow. Spectral Doppler analysis of the arterial and ?? venous flow were performed in the testes bilaterally. ? FINDINGS: ? RIGHT: Right testicle measures 3.5 x 1.7 x 2.3 cm, volume 7.3 mL. No ?? focal testicular parenchymal lesions are visualized. Spectral Doppler ?? analysis of the arterial and venous flow is slightly decreased in the ?? right testis. ? Right epididymal head is enlarged and heterogeneous with mildly ?? increased upper detectable vascular flow. Small right-sided hydrocele. ?? No right-sided varicocele. ? LEFT: Left testicle measures 3.7 x 1.6 x 2.6 cm, volume 7.9 mL. No ?? focal testicular parenchymal lesions are visualized. Spectral Doppler ?? analysis of the arterial and venous flow is slightly decreased in the ?? left testis. ? Left epididymal head is normal in size. Simple left epididymal head ?? cyst measuring up to 0.5 cm. No left hydrocele or varicocele is seen. ?? Left epididymal Doppler flow is normal. ? US/US scrotum doppler ?? IMPRESSION: ?? 1. ??Enlarged, heterogeneous right epididymis with mildly increased ?? vascularity and a small right-sided hydrocele, new when compared to the ?? prior examination. Findings could represent an infectious or ?? inflammatory process. ?? 2. ??Simple left epididymal head cyst measuring 0.5 cm, unchanged. ? Electronically signed by: ??Guanako Lazcano MD ??02/12/2024 05:03 PM EST ?? Workstation: iPosition ? Dictated By: ?Guanako Lazcano MD ? Signed By: ?<Electronically signed by Guanako Lazcano MD in OV> ?02/12/24 1703 ? DD/ 1616 ? TD/TT: 02/12/24 1629 ? Pattern Scratcher: SR ? Procedure Note Mary Chang - 02/12/[address] [address] Ultrasound Report Signed Patient: Bola Paulino#: [id number] 4 : 1970Acct:[id number] Age/Sex: 53 / MADM Date: 02/12/24 Loc: HO.ED Attending Dr: Ordering Physician: Carmina Tamayo Date of Service: 02/12/24 Procedure(s): US scrotum doppler Accession Number(s): [id number] cc: Vasile Putnam MD; Carmina Tamayo EXAMINATION: US SCROTUM US SCROTUM DOPPLER CLINICAL INFORMATION: Right lateral swelling. COMPARISON: Scrotal ultrasound dated 10/24/2020. TECHNIQUE: A sonogram of the scrotum was performed assessing pichardo-scale appearance and color Doppler flow. Spectral Doppler analysis of the arterial and venous flow were performed in the testes bilaterally. FINDINGS: RIGHT: Right testicle measures 3.5 x 1.7 x 2.3 cm, volume 7.3 mL. No focal testicular parenchymal lesions are visualized. Spectral Doppler analysis of the arterial and venous flow is slightly decreased in the right testis. Right epididymal head is enlarged and heterogeneous with mildly increased upper detectable vascular flow. Small right-sided hydrocele. No right-sided varicocele. LEFT: Left testicle measures 3.7 x 1.6 x 2.6 cm, volume 7.9 mL. No focal testicular parenchymal lesions are visualized. Spectral Doppler analysis of the arterial and venous flow is slightly decreased in the left testis. Left epididymal head is normal in size. Simple left epididymal head cyst measuring up to 0.5 cm. No left hydrocele or varicocele is seen. Left epididymal Doppler flow is normal. US/US scrotum doppler IMPRESSION: 1. Enlarged, heterogeneous right epididymis with mildly increased vascularity and a small right-sided hydrocele, new when compared to the prior examination. Findings could represent an infectious or inflammatory process. 2. Simple left epididymal head cyst measuring 0.5 cm, unchanged. Electronically signed by: Guanako Lazcano MD 02/12/2024 05:03 PM EST Dictated By: Guanako Lazcano MD Signed By: <Electronically signed by Guanako Lazcano MD in OV> 02/12/24 1703 DD/ 1616 TD/TT: 02/12/24 1629 Pattern Scratcher: us [facility] External Provider IMG US PROCEDURES Edited Result - Final * US Scrotum (02/12/2024 4:16 PM EST) Anatomical Region Laterality Modality Body Ultrasound 02/12/2024 4:16 PM EST Narrative 02/12/2024 5:06 PM EST ? [facility] ?[address] ?[place] [address] ? Ultrasound Report ? Signed ? Patient: Paulino,Patelseraashish ?MR#: [id number] ?? 4 ? : 1970 ?Acct:[id number] ? Age/Sex: 53 / M ?ADM Date: 02/12/24 ? Loc: HO.ED ? Attending Dr: ? Ordering Physician: Carmina Tamayo ?? Date of Service: 02/12/24 ?? Procedure(s): US scrotum ?? Accession Number(s): [id number] ? cc: Vasile Putnam MD; Carmina Tamayo ? EXAMINATION: ?? US SCROTUM ?? US SCROTUM DOPPLER ? CLINICAL INFORMATION: ?? Right lateral swelling. ? COMPARISON: ?? Scrotal ultrasound dated 10/24/2020. ? TECHNIQUE: ?? A sonogram of the scrotum was performed assessing pichardo-scale appearance ?? and color Doppler flow. Spectral Doppler analysis of the arterial and ?? venous flow were performed in the testes bilaterally. ? FINDINGS: ? RIGHT: Right testicle measures 3.5 x 1.7 x 2.3 cm, volume 7.3 mL. No ?? focal testicular parenchymal lesions are visualized. Spectral Doppler ?? analysis of the arterial and venous flow is slightly decreased in the ?? right testis. ? Right epididymal head is enlarged and heterogeneous with mildly ?? increased upper detectable vascular flow. Small right-sided hydrocele. ?? No right-sided varicocele. ? LEFT: Left testicle measures 3.7 x 1.6 x 2.6 cm, volume 7.9 mL. No ?? focal testicular parenchymal lesions are visualized. Spectral Doppler ?? analysis of the arterial and venous flow is slightly decreased in the ?? left testis. ? Left epididymal head is normal in size. Simple left epididymal head ?? cyst measuring up to 0.5 cm. No left hydrocele or varicocele is seen. ?? Left epididymal Doppler flow is normal. ? US/US scrotum ?? IMPRESSION: ?? 1. ??Enlarged, heterogeneous right epididymis with mildly increased ?? vascularity and a small right-sided hydrocele, new when compared to the ?? prior examination. Findings could represent an infectious or ?? inflammatory process. ?? 2. ??Simple left epididymal head cyst measuring 0.5 cm, unchanged. ? Electronically signed by: ??Guanako Lazcano MD ??02/12/2024 05:03 PM EST ? Dictated By: ?Guanako Lazcano MD ? Signed By: ?<Electronically signed by Guanako Lazcano MD in OV> ?02/12/24 1703 ? DD/ 1616 ? TD/TT: 02/12/24 1629 ? Pattern Scratcher: SR ? Procedure Note Donotuseinterpreter, Image - 02/12/2024 [place] [address] Ultrasound Report Signed Patient: Bola Paulino#: [id number] 4 : 1970Acct:[id number] Age/Sex: 53 / MADM Date: 02/12/24 Loc: HO.ED Attending Dr: Ordering Physician: Carmina Tamayo Date of Service: 02/12/24 Procedure(s): US scrotum Accession Number(s): [id number] cc: Vasile Putnam MD; Carmina Tamayo EXAMINATION: US SCROTUM US SCROTUM DOPPLER CLINICAL INFORMATION: Right lateral swelling. COMPARISON: Scrotal ultrasound dated 10/24/2020. TECHNIQUE: A sonogram of the scrotum was performed assessing pichardo-scale appearance and color Doppler flow. Spectral Doppler analysis of the arterial and venous flow were performed in the testes bilaterally. FINDINGS: RIGHT: Right testicle measures 3.5 x 1.7 x 2.3 cm, volume 7.3 mL. No focal testicular parenchymal lesions are visualized. Spectral Doppler analysis of the arterial and venous flow is slightly decreased in the right testis. Right epididymal head is enlarged and heterogeneous with mildly increased upper detectable vascular flow. Small right-sided hydrocele. No right-sided varicocele. LEFT: Left testicle measures 3.7 x 1.6 x 2.6 cm, volume 7.9 mL. No focal testicular parenchymal lesions are visualized. Spectral Doppler analysis of the arterial and venous flow is slightly decreased in the left testis. Left epididymal head is normal in size. Simple left epididymal head cyst measuring up to 0.5 cm. No left hydrocele or varicocele is seen. Left epididymal Doppler flow is normal. US/US scrotum IMPRESSION: 1. Enlarged, heterogeneous right epididymis with mildly increased vascularity and a small right-sided hydrocele, new when compared to the prior examination. Findings could represent an infectious or inflammatory process. 2. Simple left epididymal head cyst measuring 0.5 cm, unchanged. Electronically signed by: Guanako Lazcano MD 02/12/2024 05:03 PM EST Workstation: iPosition Dictated By: Guanako Lazcano MD Signed By: <Electronically signed by Guanako Lazcano MD in OV> 02/12/24 1703 DD/ 1616 TD/TT: 02/12/24 1629 Pattern Scratcher: us [facility] External Provider IMG US PROCEDURES Edited Result - Final * (ABNORMAL) Urinalysis, Complete, with Reflex to Culture (02/12/2024 4:07 PM EST) Color Urine Yellow [facility] Appearance Urine Clear [facility] PH 6.0 5.0 - 9.0 [facility] Glucose Urine UA >=1000(A) Negative mg/dL [facility] Urine Blood Negative Negative [facility] Specific [place] - Urine 1.015 1.005 - 1.025 [facility] Urine Protein Negative Neg-Trace mg/dL [facility] Urine Ketones Trace Negative mg/dL [facility] Nitrite Urine Negative Negative [facility] Leukocyte Esterase Urine Negative Negative [facility] RBC Urine 0-2 0 - 2 /HPF [facility] Urine WBC 0-5 0 - 5 /HPF [facility] Urine Squamous Epithelial Cell 0-2 0 - 2 /HPF [facility] Urine Bacteria None Seen None Seen [facility] Hyaline Casts, Urine 0-2 0 - 2 /LPF [facility] 02/12/2024 4:07 PM EST 02/12/2024 4:10 PM EST Narrative [facility] - 02/12/2024 5:24 PM EST [id number], Clean Catch us Generic External Data Provider LAB URINE ORDERAB LES Final Result Performing Organization Address City/State/[facility] Co de Phone Number [facility] [address] [place] [phone] * (ABNORMAL) CBC auto differential (02/12/2024 4:05 PM EST) White Blood Count 5.9 4.8 - 10.8 X10*3/uL [facility] Red Blood Count 6.48(H) 4.60 - 5.80 X10*6/uL [facility] Hemoglobin 17.4 14.0 - 18.0 g/dl [facility] Hematocrit 51.9 42.0 - 52.0 % [facility] Mean Corpuscular Volume 80.1 80.0 - 98.0 fL [facility] Mean Corpuscular Hemoglobin 26.9(L) 27.0 - 33.0 pg [facility] Mean Corpuscular HGB Conc 33.5 31.0 - 36.0 g/dl [facility] Red Cell Distribution Width 15.8 11.0 - 16.0 % [facility] Platelet Count 184 160 - 400 X10*3/uL [facility] Mean Platelet Volume 10.9 9.4 - 12.4 fL [facility] Neutrophils Percent Auto 50.6 45 - 73 % [facility] Imm Gran Pct Auto 0.3 0.0 - 0.4 % [facility] Lymphocytes Percent Auto 40.0 20 - 40 % [facility] Monocytes Percent Auto 8.0 2 - 11 % [facility] Eosinophils Percent Auto 0.8 0 - 4 % [facility] Basophils Percent Auto 0.3 0 - 2 % [facility] NRBC Pct Auto 0.0 0.0 - 0.2 /100WBC [facility] Neutrophils Absolute Auto 3.0 2.0 - 8.3 x10*3/uL [facility] Imm Gran Abs Auto 0.02 0.00 - 0.03 X10*3/uL [facility] Lymphocytes Absolute Auto 2.4 1.2 - 4.9 X10*3/uL [facility] Monocytes Absolute Auto 0.5 0.1 - 1.2 X10*3/uL [facility] Eosinophils Absolute Auto 0.1 0.0 - 0.4 X10*3/uL [facility] Basophils Absolute Auto 0.0 0.0 - 0.2 X10*3/uL [facility] NRBC Abs Auto 0.000 0.0 - 0.012 X10*3/uL [facility] 02/12/2024 4:05 PM EST 02/12/2024 4:10 PM EST us Generic External Data Provider LAB BLOOD ORDERAB LES Final Result Performing Organization Address [facility]/ZIP Co de Phone Number [facility] [address] [place] [phone] * Magnesium (02/12/2024 4:05 PM EST) Pathologist [facility] Magnesium 2.2 1.6 - 2.6 mg/dL [facility] 02/12/2024 4:05 PM EST 02/12/2024 4:10 PM EST [employer] External Data Provider LAB BLOOD ORDERAB LES Final Result Performing Organization Address [facility] Co de Phone Number [facility] [address] [place] [phone] * (ABNORMAL) Comprehensive Metabolic Panel (02/12/2024 4:05 PM EST) Sodium 139 135 - 145 mmol/L [facility] Potassium 4.3 3.3 - 5.1 mmol/L [facility] Comment:Slight Hemolysis.Int erpret result with caution. Chloride 105 96 - 108 mmol/L [facility] Carbon Dioxide 23 22 - 29 mmol/L [facility] Anion Gap 15 12 - 20 [facility] Urea Nitrogen (BUN) 10 9 - 16 mg/dL [facility] Creatinine, Serum 0.98 0.5 - 1.4 mg/dL [facility] Creatinine Clr Calc Pharmacy -3.2 [facility] Comment:eGFR (calculated fro m the MDRD study equation) and eCrCl(calculated from the Cockcroft-Gault equation) are based ondifferent parameters and may not yield comparable results.If eCrCl result is absurd, please check patient'sheight/weight. Estimated Glomerular Filt Rate >60 [facility] Comment:Chronic Kidney Disea se: Estimated GFR < 60 mL/min/1.46k5Cagnvd Kidney Disease: Estimated GFR < 15 mL/min/1.73m2 Glucose 118(H) 60 - 115 mg/dL [facility] Calcium 9.7 8.4 - 10.2 mg/dL [facility] Bilirubin, Total 0.3 0.0 - 1.0 mg/dL [facility] Aspartate Amino Transferase 34 5 - 37 U/L [facility] Comment:Slight Hemolysis.Int erpret result with caution. Alanine Aminotransferase 44(H) 0 - 40 U/L [facility] Total Protein 7.6 6.5 - 8.0 g/dL [facility] Albumin Level 4.4 3.5 - 5.0 g/dL [facility] Alkaline Phosphatase 61 39 - 117 U/L [facility] 02/12/2024 4:05 PM EST 02/12/2024 4:10 PM EST us Generic External Data Provider LAB BLOOD ORDERAB LES Final Result [facility] [address] [place] [phone] * Albumin, Random Urine W/Creatinine (08/19/2023 10:08 AM EDT) Creatinine, Urine 53.16 mg/dL [facility] Microalbumin Urine <5.0 mg/L [facility] Microalbum Creatinine Ratio Ur TNP <30 ug/mg cr [facility] Comment:Unable to calculate albumin/creatinine ratio due to lowmicroalbumin or creatinine result. Urine (Urine, Random) 08/19/2023 10:08 AM EDT 08/19/2023 2:00 PM EDT us Vasile Juares MD LAB URINE ORDERABL ES Final Result [facility] [address] [place] [phone] * (ABNORMAL) Lipid Panel, Standard (08/19/2023 9:37 AM EDT) Triglycerides 59 <150 mg/dL [facility] Comment:Desirable Triglyceri de: less than 150 mg/dLBorderline High Triglyceride 150-199 mg/dLHigh Triglyceride: 200-499 mg/dLVery High Triglyceride: greater than or equal to 5OO mg/dL Cholesterol 114 <200 mg/dL [facility] Comment:Desirable Cholestero l: less than 200 mg/dLBorderline High Cholesterol: 200-239 mg/dLHigh Cholesterol: greater than 239 mg/dL LDL Cholesterol Calculated 74 <100 mg/dL [facility] Comment:Desirable LDL: less than 100 mg/dLNear Optimal/Above Optimal LDL: 110- 129 mg/dLBorderline High LDL: 130-159 mg/dLHigh LDL: 160-189 mg/dLVery High LDL: greater than or equal to 190 mg/dL HDL Cholesterol 29(L) >40 mg/dL [facility] Comment:Desirable HDL: great er than 40 mg/dL Note: This HDL assay may give artificially low results in patients with liver disease. Blood Venous blood specimen / Unknown 08/19/2023 9:37 AM EDT 08/19/2023 2:02 PM EDT Vasile Juares MD LAB BLOOD ORDERABL ES Final Result Performing Organization Address City/[facility]/ZIP Co de Phone Number [facility] [address] [place] [phone] * HIV-1 RNA, Quantitative, Real-Time PCR with Reflex to Genotype (RTI, PI, Integrase) (07/21/2022 9:57 AM EDT) Pathologist [facility] HIV 1 RNA, QN PCR NOT DETECTED copies/mL [facility], HIV 1 RNA, QN PCR NOT DETECTED Log copies/mL [facility], Comment: REFERENCE RANGE: NOT DETECTED copies/mL ?NOT DETECTED ??Log copies/mL This test was performed using Real-Time Polymerase Chain Reaction. Reportable range is 20 to 10,000,000 copies/mL (1.30-7.00 Log copies/mL). 07/21/2022 9:57 AM EDT 07/21/2022 9:58 AM EDT Narrative [facility] - 07/23/2022 8:25 PM EDT FASTING:NO FASTING: NO Vasile Juares MD LAB BLOOD ORDERABL ES Final Result Performing Organization Address [facility] Co de Phone Number [facility] [address], [place] [phone] [facility], [address] [place] [address] * Hepatitis C Antibody with Reflex to HCV, RNA, Quantitative, Real-Time PCR (07/21/2022 9:57 AM EDT) Hepatitis C Antibody NON-REACT FLACO NON-REACT FLCAO [facility] [place] [facility] Index 0.08 <1.00 [facility] [place] [facility] Comment: HCV antibody was non-reactive. There is no laboratory evidence of HCV infection. In most cases, no further action is required. However, if recent HCV exposure is suspected, a test for HCV RNA (test code 54557) is suggested. For additional information please refer to http://education.ProductBio/faq/WNN76q1 (This link is being provided for informational/ educational purposes only.) Blood Venous blood specimen / Unknown 07/21/2022 9:57 AM EDT 07/21/2022 9:58 AM EDT Narrative [facility] - 07/23/2022 8:25 PM EDT FASTING:NO FASTING: NO Vasile Juares MD LAB BLOOD ORDERABL ES Final Result [facility] [address], [place] [phone] [facility] [address] [place] [phone] * Hm Colonoscopy (08/16/2020 7:13 AM EDT) Historical Provider HEALTH MAINTENANCE Final Result from Last 3 Months or Most Recently Relevant to Health Maintenance Insurance PPO Care Teams Diesel Engine Mechanic Apprentice Relationship Specialty Start Date End Date Vasile Putnam MD [address] [place] [phone] PCP - General Internal Medicine 01/11/19
--- OUTSIDE RECORDS SUMMARY | 2024-04-05 11:57 | XMS_ITS | Encounter Summary ---
Author Organization [employer] Address [address] [facility] [address] [place] [address] Care Team Providers Care Behavior Specialist Name Role Phone Vasile Putnam MD Primary Care Prov ider Reason for Visit * Reason Comments Cough Encounter Details Date Type Department Care Team ([facility] st Contact Info) Description 03/09/2024 2:20 PM EST Office Visit [facility] [address] [place] [address] Lisa Girard MD [address] [place] [address] Acute maxillary sinusitis, recurrence not specified (Primary Dx); Cough in adult Social History Tobacco Use Types Packs/Day Years [...] Sign Reading Time Taken Comments Blood Pressure 135/87 03/09/2024 2:04 PM EST Pulse 91 03/09/2024 2:04 PM EST Temperature 36.8 ??C (98.3 ??F) 03/09/2024 2:04 PM ES T Respiratory Rate 20 03/09/2024 2:04 PM EST Oxygen Saturation 96% 03/09/2024 2:04 PM EST Inhaled Oxygen Concentration - - Weight 91.4 kg (201 lb 9.6 oz) 03/09/2024 2:04 P M EST Height 177.8 cm (5' 10 ) 03/09/2024 2:04 PM EST Body Mass Index 28.93 03/09/2024 2:04 PM EST documented in this encounter Progress Notes * Lisa Taylor MD - 03/09/2024 2:20 PM EST SUBJECTIVE: Laurence Paulino is a 53 y.o. year old male who presents for sick visit . Acute Concerns: Patient reports 7 days of malaise, body aches, cough, bad headache, sinus pain, denies sore throat,denies nausea/vomiting or diarrhea, denies sick contacts or recent travels Social History Social History Narrative Not on file Patient Active Problem List Diagnosis Type 2 diabetes mellitus without complication, without long-term current use of insulin ([facility]) Essential hypertension, benign Mixed hyperlipidemia Body mass index 32.0-32.9, adult Testicular cyst Fibromyalgia Cervicalgia Lumbago Muscle spasm Screening for colon cancer Maxillary sinusitis No family history on file. Review of Systems Constitutional: Positive for fatigue. Negative for activity change, appetite change, chills, diaphoresis, fever and unexpected weight change. HENT: Positive for congestion, postnasal drip, rhinorrhea, sinus pressure and sinus pain. Negative for dental problem, drooling, ear discharge, ear pain, facial swelling, hearing loss, mouth sores, nosebleeds, sneezing, sore throat, tinnitus, trouble swallowing and voice change. Respiratory: Positive for cough. Negative for apnea, choking, chest tightness, shortness of breath,wheezing and stridor. Cardiovascular: Negative. OBJECTIVE: Vitals: 03/09/24 1404 BP: 135/87 BP Location: Left arm Patient Position: Sitting BP Cuff Size: Large adult Pulse: 91 Resp: 20 Temp: 98.3 ??F (36.8 ??C) TempSrc: Oral SpO2: 96% Weight: 201 lb 9.6 oz (91.4 kg) Height: 5' 10 (1.778 m) Physical Exam Constitutional: Appearance: Normal appearance. HENT: Nose: Right Sinus: Maxillary sinus tenderness present. Left Sinus: Maxillary sinus tenderness present. Cardiovascular: Rate and Rhythm: Normal rate and regular rhythm. Pulmonary: Effort: Pulmonary effort is normal. Breath sounds: Normal breath sounds. Abdominal: General: Abdomen is flat. Palpations: Abdomen is soft. Neurological: Mental Status: He is alert. Follow Up: No follow-ups on file. Current Outpatient Medications on File Prior to Visit Medication Sig Dispense Refill atorvastatin (Lipitor) 40 MG tablet TAKE 1 TABLET(40 MG) BY MOUTH IN THE MORNING 90 tablet 1 baclofen (Lioresal) 10 MG tablet Take 1 tablet (10 mg) by mouth 3 times daily for 10 days. 30 tablet 0 cetirizine (ZyrTEC) 10 MG tablet Take 1 tablet by mouth at bed time. dapagliflozin (Farxiga) 10 MG Take 1 tablet (10 mg) by mouth in the morning. 30 tablet 11 dicyclomine (Bentyl) 20 MG tablet Take 20 mg by mouth if needed in the morning, at noon, and at bedtime. DULoxetine (Cymbalta) [address] capsule TAKE 1 CAPSULE(30 MG) BY MOUTH TWICE DAILY. DO NOT CRUSH OR CHEW 60 capsule 2 fluticasone (Flonase) 50 MCG/ACT nasal spray spray 1 spray by intranasal route every day in each nostril glucose blood (FREESTYLE LITE) test strip Inject under the skin every 8 (eight) hours. lisinopril 10 MG tablet TAKE 1 TABLET(10 MG) BY MOUTH IN THE MORNING 90 tablet 3 metFORMIN (Glucophage) 1000 MG tablet TAKE 1 TABLET BY MOUTH WITH BREAKFAST AND 1 TABLET WTH EVENING MEAL 180 tablet 3 methocarbamol (Robaxin) 750 MG tablet Take 1 tablet (750 mg) by mouth 3 times daily. 270 tablet 3 omeprazole (PriLOSEC) [address] capsule TAKE 1 CAPSULE(20 MG) BY MOUTH IN THE MORNING 90 capsule 3 pregabalin (Lyrica) 150 MG capsule TAKE 1 CAPSULE(150 MG) BY MOUTH TWICE DAILY 60 capsule 1 venlafaxine XR (Effexor XR) 75 MG 24 hr capsule TAKE 1 CAPSULE(75 MG) BY MOUTH IN THE MORNING 90 capsule 3 zoster vaccine-recombinant adjuvanted (Shingrix) 50 MCG/0.5ML vaccine Inject 0.5 mL into the shoulder, thigh, or buttocks. No current facility-administered medications on file prior to visit. Problem List Items Addressed This Visit Maxillary sinusitis - Primary Drink plenty of fluids and rest Acetaminophen PRN Relevant Medications doxycycline (Vibra-Tabs) 100 MG tablet fluticasone (Flonase) 50 MCG/ACT nasal spray Other Visit Diagnoses Cough in adult Relevant Orders POCT Rapid Influenza A JEFFERS ID NOW (Completed) POCT Rapid Influenza B JEFFERS ID NOW (Completed) POCT Rapid Covid-19 JEFFERS ID NOW (Completed) documented in this encounter Miscellaneous Notes * Assessment & Plan Note - Lisa Taylor MD - 03/09/2024 2:33 PM EST Associated Problem(s): Maxillary sinusitis Drink plenty of fluids and rest Acetaminophen PRN documented in this encounter Plan of Treatment Not on file documented as of this encounter Procedures Procedure Name Priority Date/Time Associated Diagnosis Comments POCT INFLUENZA B (ID NOW RAPID MOLECULAR) Routine 03/09/2024 2:21 PM EST Cough in adult POCT COVID-19 AG JEFFERS ID NOW Routine 03/09/2024 2:21 PM EST Cough in adult POCT INFLUENZA A (ID NOW RAPID MOLECULAR) Routine 03/09/2024 2:20 PM EST Cough in adult documented in this encounter Results * POCT Rapid Covid-19 JEFFERS ID NOW (03/09/2024 2:21 PM EST) Pathologist [facility] Coronavirus Antigen PCR Negative Negative, Indeterminate, None Detected, Invalid, Specimen unsatisfactory for evaluation, Weakly Positive QC Media Lot # [id number] Lot# Expiration Date 32,626 Swab 03/09/2024 2:21 PM EST us Lisa Taylor MD POINT OF CARE TEST EN TER/EDIT ORDERABLES Final Result * POCT Rapid Influenza B JEFFERS ID NOW (03/09/2024 2:21 PM EST) [facility] Influenza B Negative Negative, Indeterminate [facility] QC Media Lot # [id number] [facility] Lot# Expiration Date 32,126 [facility] Swab 03/09/2024 2:21 PM EST us Lisa Taylor MD POINT OF CARE TEST EN TER/EDIT ORDERABLES Final Result [facility] [address] [place] [phone] * POCT Rapid Influenza A JEFFERS ID NOW (03/09/2024 2:20 PM EST) Pathologist [facility] Influenza A Negative Negative, Indeterminate [facility] QC Media Lot # [id number] [facility] Lot# Expiration Date 32,126 [facility] Swab 03/09/2024 2:20 PM EST us Lisa Taylor MD POINT OF CARE TEST EN TER/EDIT ORDERABLES Final Result [facility] [address] [place] [phone] documented in this encounter Visit Diagnoses Diagnosis Acute maxillary sinusitis, recurrence not specified- Primary Cough in adult documented in this encounter Additional Health Concerns Assessment Noted Time PHQ-9 Depression Total Score: 0 07/22/19 23 9:15 AM EDT documented as of this encounter Care Teams Behavior Specialist Relationship Specialty Start Date End Date Vasile Putnam MD [address] [place] [phone] PCP - General Internal Medicine 01/11/19 documented as of this encounter
--- OUTSIDE RECORDS SUMMARY | 2024-04-05 11:57 | XMS_ITS | Encounter Summary ---
Author Organization [employer] Address [address] [facility] [address] [place] [address] Care Team Providers Care Service Sprinkler Helper Name Role Phone Vasile Putnam MD Primary Care Prov ider Encounter Details Date Type Department Care Team ([facility] st Contact Info) Description 06/26/2023 Orders Only [facility] MEDICINE [address] [place] [address] Provider, MD Min Social History Tobacco Use Types Packs/Day Years Used Date Smoking Tobacco: Never Passive Smoke Exposure: Never Smokeless Tobacco: Never Depression Answer Date Recorded Patient Health Questionnaire-9 Score 0 07/21/2022 Housing Stability Answer Date Recorded What is your housing situation today? I have sophia power 12/30/[address] you li ve. Do you have problems with any of the following? None of the above 12/30/2022 Food Insecurity Answer Date Recorded Within the past 12 months, y ou worried that your food would run out before you got money to buy more: Never True 12/30/2022 Within the past 12 months,th e food you bought just didn't last and you didn't have enough money to get more: Never True Transportation Answer Date Recorded In the past 12 months, has l ack of transportation kept you from medical appts, meetings, work or from getting things needed for daily living? No 12/30/2022 Utilities Answer Date Recorded In the past 12 months, has t he electric, gas, oil or water company threatened to shut off services in your home? No 12/30/2022 Depression Answer Date Recorded Patient Health Questionnaire-2 [...] Procedure Name Priority Date/Time Associated Diagnosis Comments HM COLONOSCOPY Routine 08/16/2020 7:13 AM EDT documented in this encounter Results * Hm Colonoscopy (08/16/2020 7:13 AM EDT) us Historical Provider HEALTH MAINTENANCE Final Result documented in this encounter Visit Diagnoses Not on filedocumented in this encounter Additional Health Concerns Assessment Noted Time PHQ-9 Depression Total Score: 0 07/22/19 23 9:15 AM EDT documented as of this encounter Care Teams Service Sprinkler Helper Relationship Specialty Start Date End Date DeutschVasile Mari MD [address] [place] [id number] PCP - General Internal Medicine 01/11/19 documented as of this encounter
--- OUTSIDE RECORDS SUMMARY | 2024-04-05 11:58 | XMS_ITS | Encounter Summary ---
Author Organization [employer] Address [address] [address] Care Team Providers Care Traffic Ii Manager Name Role Phone Vasile Putnam MD Primary Care Prov ider Reason for Visit * Reason Comments Med Refill Encounter Details Date Type Department Care Team (Late st Contact Info) Description 08/24/2022 Refill [facility] PEDS [address] [place] [address] Vasile Putnam MD [address] [place] [address] Fibromyalgia Social History Tobacco Use Types Packs/Day Years Used Date Smoking Tobacco: Never Smokeless Tobacco: Never Depression Answer Date Recorded Patient Health Questionnaire-9 Score 0 07/21/2022 Depression Answer Date Recorded Patient Health Questionnaire-2 [...] documented as of this encounter Visit Diagnoses Diagnosis Fibromyalgia Unspecified myalgia and myositis documented in this encounter Additional Health Concerns Assessment Noted Time PHQ-9 Depression Total Score: 0 07/22/19 23 9:15 AM EDT documented as of this encounter Care Teams Traffic Ii Manager Relationship Specialty Start Date End Date Vasile Putnam MD [address] [place] [id number] PCP - General Internal Medicine 01/11/19 documented as of this encounter
[2024-04-05 12:13] VITALS: BP 100/70; PULSE 81; O2SAT 97; BMI 28.3
--- NOTE | 2024-04-05 12:13 | AM.OFFWIN_ITS ---
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 Intake Note: Pt is here today c/o rt lower back pain and comes around to the front Patient Tobacco Use Status: Never used Tobacco Allergies clavulanic acid [From Augmentin] Allergy (Mild, Verified 04/05/24 12:15) Itching Penicillins Allergy (Unknown, Verified 04/05/24 12:15) ITCHING HPI HPI Comments History of Present Illness Details This is a 53-year-old male with a past medical history of gyk-wdevrzv-hucainwth diabetes, hypertension, fibromyalgia, gastroesophageal reflux disease and hyperlipidemia presenting for evaluation of right low back pain that started 4 days ago that has radiated to his right flank. Patient takes gabapentin and methocarbamol daily for management of his fibromyalgia and has not taken any additional medication for treatment of this discomfort. He denies having any fevers, chills, hematuria, dysuria or urinary frequency. [facility] Medical History Mixed hyperlipidemia Muscle spasm Fibromyalgia COVID-19 vaccine series completed Pain of multiple extremities Neck pain History of lumbar puncture Back pain SHERLY (obstructive sleep apnea) Palpitations Anxiety Migraine Hyperlipidemia, unspecified Essential hypertension Type 2 diabetes mellitus with unspecified complications Surgical History History of umbilical hernia repair History of esophagogastroduodenoscopy (EGD) Hx of colonoscopy Family History Mother Diabetes Father Myocardial infarction Social History Alcohol intake: never Comment: medicated in pacu Patient Tobacco Use Status: Never used Tobacco Review of Systems Const All systems reviewed & are unremarkable except as noted in HPI and below Denies chills, Denies fatigue and Denies fever(s) Eyes Reports no additional complaints ENT Reports no additional complaints Card Reports no additional complaints and Denies chest pain Resp Reports no additional complaints GI Denies change in stool character, Denies heartburn, Denies diarrhea, Denies loose stools and Denies nausea Reports no additional complaints, Denies dysuria, Reports flank pain (right flank pain), Denies testicular pain, Denies urinary frequency, Denies urinary hesitancy, Denies urinary urgency and Reports other (no hematuria) Skin/Breast Reports system reviewed and no additional complaints, except as documented Neuro Reports no additional complaints Psych Reports no additional complaints Endo Reports no additional complaints and Denies fatigue Freddie/Lymph Reports no additional complaints Aller/Immun Reports no additional complaints Physical Exam Vital Signs: Last Vital Signs Pulse 81 04/05/24 12:13 BP 100/70 04/05/24 12:13 Pulse Ox 97 04/05/24 12:13 Oxygen Delivery Method Room Air 04/05/24 12:13 BMI result Body Mass Index 28.3 Const General: cooperative, healthy appearing, comfortable, no acute distress, well developed, alert, awake and Physically active; No lethargic Nutritional Appearance: average body habitus Orientation/consciousness: patient oriented x3 and No lethargic Limitations: no limitations GI Palpation (GI): Soft to palpation, Tenderness to palpation present (GI) (suprapubic, RLQ), no guarding and Bladder palpation abnormal Auscultation: normal bowel sounds General: Yes Bimanual renal exam normal bilaterally, Yes Bladder palpation abnormal tender; not distended, No CVA tenderness and Yes other (right flank pain without guarding) Back/Spine/Pelvis Back: No CVA tenderness Thoracic/Lumbar Spine: No pain with thoraco-lumbar ROM, paraspinal muscle tenderness on the right in the lower lumbar, No thoracic spinal tenderness and No lumbar spinal tenderness Skin General skin exam: no rashes or lesions noted Neuro General: patient oriented x3 Psych Appearance: grossly normal Mental Status: mental status grossly normal Insight: Good insight present (Psych) Judgement: Good judgement present (Psych) Results AMB Urinalysis, Automated UA Leukoctes 0 Htu/uL Last Edit by Pau Murray CMA on 04/05/24 12:30 UA Nitrite Negative Last Edit by Pau Murray CMA on 04/05/24 12:30 UA Urobilinogen 0.2 mg/dL Last Edit by Pau Murray CMA on 04/05/24 12:30 UA Protein 0 mg/dL Last Edit by Pau Murray CMA on 04/05/24 12:30 UA pH 0 Last Edit by Pau Murray CMA on 04/05/24 12:30 UA Blood 0 Gee/uL Last Edit by Pau Murray CMA on 04/05/24 12:30 UA Specific [place] 1.015 Last Edit by Pau Murray CMA on 04/05/24 12:30 UA Ketone Negative Last Edit by Pau Murray CMA on 04/05/24 12:30 UA Bilirubin 0 mg/dL Last Edit by Pau Murray CMA on 04/05/24 12:30 UA Glucose 1000 mg/dL Last Edit by Pau Murray CMA on 04/05/24 12:30 Results Reviewed Results Reviewed: Laboratory Last Values Urine pH (Auto) 0 04/05/24 12:18 Specific [place] (Auto) 1.015 04/05/24 12:18 Urine Protein (Auto) 0 mg/dL 04/05/24 12:18 Glucose (UA)(Auto) 1000 mg/dL 04/05/24 12:18 Urine Ketones (Auto) Negative 04/05/24 12:18 Urine Blood (Auto) 0 Gee/uL 04/05/24 12:18 Urine Nitrite (Auto) Negative 04/05/24 12:18 Urine Bilirubin (Auto) 0 mg/dL 04/05/24 12:18 Urine Urobilinogen (Auto) 0.2 mg/dL 04/05/24 12:18 Leukocyte Esterase (Auto) 0 Thu/uL 04/05/24 12:18 Urinalysis reviewed which reveals glucosuria only, no evidence of hematuria or acute UTI. Assessment & Plan Assessment & Plan (1) Right flank pain: Comment: Differential diagnosis includes appendicitis, cystitis or nephrolithiasis. Urinalysis is reviewed. Patient will be discharged home with Naprosyn and instructed to go to the emergency department for imaging should his symptoms worsen. Patient is in agreement with his plan of care. Code(s): R10.9 - Unspecified abdominal pain Plan: Naprosyn 500 mg b.i.d.. Patient is to follow up with his primary care physician or go to the emergency department for any worsening symptoms. Orders: Orders AMB Urinalysis Automated Today Z13.9 - Encounter for screening, unspecified Medications: New naproxen (Naprosyn) 500 mg PO BID 20 tabs 0RF Coding Level of Care Code Est Pt Level 3 (02869) Diagnoses Right flank pain R10.9 Time Spent (min) 20
== END 2024-04-05 13:00 | disposition home or self-care (01) ==
PROVIDERS: PCP Internal Medicine; Visit Provider Physician Assistant
DX: Z13.9 Encounter for screening, unspecified (principal); R10.9 Unspecified abdominal pain

== ENCOUNTER → 2024-04-05 10:41 | Outpatient (BNVA) | payer BC, SELFPAY | PROVIDERS: PCP Internal Medicine; Visit Provider Physician Assistant | DX: R10.9 Unspecified abdominal pain (principal); E11.9 Type 2 diabetes mellitus without complications; I10 Essential (primary) hypertension | CPT/HCPCS: 81003 ==

== ENCOUNTER 2024-04-26 16:02 | Outpatient (REF) | payer BC, SELFPAY ==
--- OUTSIDE RECORDS SUMMARY | 2024-04-26 16:36 | XMS_ITS | Clinical Summary ---
Author Organization [email or web address] Address 75 [facility] 7 [place] [address] Care Team Providers Care Apple Picker Name Role Phone Vasile Putnam MD Primary Care Prov ider Allergies Active Allergy Reactions Criticality Noted Date Comments Amoxicillin-Pot Clavulanate 03/23/19 23 Medications cetirizine (ZyrTEC) 10 MG tablet Take 1 tablet by mouth at bed time. 02/17/20 19 Active dicyclomine (Bentyl) 20 MG tablet Take 20 mg by mouth if needed in the morning, at noon, and at bedtime. 01/14/20 22 Active glucose blood (FREESTYLE LITE) test strip [...] WTH EVENING MEAL 180 tablet 3 12/07/19 Active lisinopril 10 MG tablet TAKE 1 [...] CHEW 60 capsule 2 02/16/20 24 Active clotrimazole (Lotrimin) 1 % cream Apply topically 2 times daily for 28 days. 30 g 03/30/19 25 025 Active dapagliflozin (Farxiga) 10 MG Take 1 tablet (10 mg) by mouth Once per day. 30 tablet 04/04/19 25 Active fluticasone (Flonase) 50 MCG/ACT nasal sprayIndicatio ns:Acute maxillary sinusitis, recurrence not specified ADMINISTER 1-2 SPRAYS INTO EACH NOSTRIL EVERY DAY 16 04/06/19 25 Active fluticasone (Flonase) 50 MCG/ACT nasal spray spray 1 spray by intranasal route every day in each nostril 05/15/19 21 025 Discontinued dapagliflozin (Farxiga) 10 MG Take 1 tablet (10 mg) by mouth in the morning. 30 tablet 03/30/19 24 025 Discontinued fluticasone (Flonase) 50 MCG/ACT nasal sprayIndicatio ns:Acute maxillary sinusitis, recurrence not specified Administer 1-2 sprays into each nostril Once per day. Shake gently. Before first use, prime pump. After use, clean tip and replace cap. 16 g 03/09/20 24 025 Discontinued predniSONE (Deltasone) 20 MG tablet Take 2 [...] Encounters Date Type Department Care Team Description 04/06/2024 Refill [facility] [address] [place] [phone] Lisa Girard MD Acute maxillary sinusitis, recurrence not specified 04/04/2024 Refill [facility] [address] [place] [address] Vasile Putnam MD 04/03/2024 Refill [facility] [address] [place] [address] Vasile Putnam MD 03/30/2024 9:30 AM EST Office Visit [facility] [address] [place] [address] Vasile Putnam MD Acute pain of left shoulder (Primary Dx); Type 2 diabetes mellitus without complication, without long-term current use of insulin ([facility]) 03/30/2024 Travel 03/30/2024 Telephone [facility] [address] [place] [phone] Vasile Putnam MD Nurse Triage 03/09/2024 2:20 PM EST Office Visit [facility] [address] [place] [phone] Lisa Girard MD Acute maxillary sinusitis, recurrence not specified (Primary Dx); Cough in adult 02/29/2024 Orders Only GENERIC EXTERNAL DATA DEPARTMENT Provider, Generic External Data 02/16/2024 Refill [facility] [address] [place] [phone] Vasile Putnam MD Fibromyalgia 02/14/2024 Refill [facility] [address] [place] [address] Vasile Putnam MD 02/12/2024 Orders Only GENERIC EXTERNAL DATA DEPARTMENT Provider, Generic External Data 01/27/2024 Orders Only GENERIC EXTERNAL DATA DEPARTMENT Provider, Generic External Data from Last 3 Months Immunizations Name Administration [...] - 1-dose 75+ series) 2043 Pneumococcal Vaccine: 50+ Years Completed 01/02/2022 Zoster Vaccines Completed 01/02/2022, 01/30/2021 [...] complication, without long-term current use of insulin ([facility]) POCT GLUCOSE Routine 03/30/2024 9:51 AM EST Type 2 diabetes mellitus without complication, without long-term current use of insulin ([facility]) POCT COVID-19 AG JEFFERS ID NOW [...] (ADULT), IA Routine 01/27/2024 4:17 PM EST ALBUMIN, RANDOM URINE W/CREATININE Routine 08/19/2023 10:08 [...] without long-term current use of insulin (CMS/HCC) HIV 1 RNA, QN PCR W/RFL KENNETH (RTI,PI,INTEGRASE) Routine 07/21/2022 9:57 AM EDT Type 2 diabetes mellitus without complication, without long-term current use of insulin (CMS/HCC) HM COLONOSCOPY Routine 08/16/2020 7:13 AM EDT from Last 3 Months or Most Recently Relevant to Health Maintenance Results * (ABNORMAL) POCT HGB A1C (03/30/2024 9:51 AM EST) Pathologist [facility] Hemoglobin A1C 6.6(A) 4.0 - 6.0 % QC Media Lot # [id number] Lot# Expiration Date ,026 Blood 03/30/2024 9:51 AM EST Vasile Juares MD POINT OF CARE TEST ENTER/EDIT ORDERABLES Final Result * POCT Glucose (03/30/2024 9:51 AM EST) Pathologist [facility] Glucose Blood, POC 122 60 - 200 mg/dL QC Media Lot # [id number] Lot# Expiration Date ,025 Blood Capillary blood specimen / Unknown 03/30/2024 9:51 AM EST Vasile Juares MD POINT OF CARE TEST ENTER/EDIT ORDERABLES Final Result * POCT Rapid Influenza B JEFFERS ID NOW (03/09/2024 2:21 PM EST) [facility] Influenza B Negative Negative, Indeterminate [facility] QC Media Lot # [id number] [facility] Lot# Expiration Date 32,126 [facility] Swab 03/09/2024 2:21 PM EST Lisa Taylor MD POINT OF CARE TEST EN TER/EDIT ORDERABLES Final Result [facility] [address] [place] [phone] * POCT Rapid Covid-19 JEFFERS ID NOW (03/09/2024 2:21 PM EST) [facility] Coronavirus Antigen PCR Negative Negative, Indeterminate, None Detected, Invalid, Specimen unsatisfactory for evaluation, Weakly Positive QC Media Lot # [id number] Lot# Expiration Date 32,626 Swab 03/09/2024 2:21 PM EST us Lisa Taylor MD POINT OF CARE TEST EN TER/EDIT ORDERABLES Final Result * POCT Rapid Influenza A JEFFERS ID NOW (03/09/2024 2:20 PM EST) Influenza A Negative Negative, Indeterminate [facility] QC Media Lot # [id number] [facility] Lot# Expiration Date 32,126 [facility] Swab 03/09/2024 2:20 PM EST us Lisa Taylor MD POINT OF CARE TEST EN TER/EDIT ORDERABLES Final Result Performing Organization Address City/State/[facility] Co de Phone Number [facility] [address] [place] [phone] * Testosterone, Total, males (Adult), IA (02/29/2024 2:38 PM EST) Only the most recent of2 resultswithin the time period is included. Testosterone, Total 455 250 - 1100 ng/dL [facility] Comment:For additional infor navjot, please refer tohttp://education.[employer].Tsukulink/faq/MxvufAzsacovkpdrqIVFSUVZBA971(This link is being provided for informational/educational purposes only.)This test was developed and its analytical performancecharacteristics have been determined by [employer] [place], [place]. It hasnot been cleared or approved by the U.S. Food and DrugAdministration. This assay has been validated pursuantto the CLIA regulations and is used for clinicalpurposes.THIS TEST WAS PERFORMED AT:[email or web address] [place] [address]LHQSPNGWINSTON HAMMER MD,PHD 02/29/2024 2:38 PM EST 02/29/2024 2:38 PM EST us Generic External Data Provider LAB BLOOD ORDERAB LES Final Result [facility] [address] [place] [address] [phone] * Chlamydia/N. Gonorrhoeae RNA, TMA, Urogenitial (02/12/2024 5:45 PM EST) CT PCR NOT DETECTED Not Detect. [facility] Comment:A not detected test result [...] psychologicalconsequences. NG PCR NOT DETECTED Not Detect. [facility] Comment:A not detected test result [...] PM EST 02/12/2024 5:48 PM EST Narrative [facility] - 02/13/2024 1:26 PM EST Urine us Generic External Data Provider LAB MICROBIOLOGY - GENERAL ORDERABLES Final Result [facility] [address] [place] [address] [phone] * US SCROTUM DOPPLER (02/12/2024 4:16 PM EST) Anatomical Region Laterality Modality Abdomen Ultrasound 02/12/2024 4:16 PM EST Narrative 02/12/2024 5:06 PM EST ? [facility] ?[address] ?[place] [address] ? Ultrasound Report ? Signed ? Patient: Laurence Paulino ?MR#: [id number] ?? 4 ? : 1970 ?Acct:[id number] ? Age/Sex: 53 / M ?ADM Date: 02/12/24 ? Loc: HO.ED ? Attending Dr: ? Ordering Physician: Carmina Tamayo ?? Date of Service: 02/12/24 ?? Procedure(s): US scrotum doppler ?? Accession Number(s): [id number] ? cc: Vasile Putnam MD; Carmina Tamayo [...] DD/ 1616 ? TD/TT: 02/12/24 1629 ? Dermatology Procedural Physician: SR ? Procedure Note Charlene, Mary - 02/12/2024 [place] [address] Ultrasound Report Signed Patient: Bola Paulino#: [id number] 4 : 1970Acct:[id number] Age/Sex: 53 / MADM Date: 02/12/24 Loc: HO.ED Attending Dr: Ordering Physician: Carmina Tamayo Date of Service: 02/12/24 Procedure(s): US scrotum doppler Accession Number(s): [id number] cc: Vasile Putnam MD; Carmina Tamayo EXAMINATION: [...] 02/12/24 1703 DD/ 1616 TD/TT: 02/12/24 1629 Dermatology Procedural Physician: [facility] External Provider IMG US PROCEDURES Edited Result - Final * US Scrotum (02/12/2024 4:16 PM EST) Anatomical Region Laterality Modality Body Ultrasound 02/12/2024 4:16 PM EST Narrative 02/12/2024 5:06 PM EST ? [facility] ?[address] ?[place] [address] ? Ultrasound Report ? Signed ? Patient: Paulino,Kesert ?MR#: [id number] ?? 4 ? : 1970 ?Acct:[id number] ? Age/Sex: 53 / M ?ADM Date: 11/30/24 ? Loc: HO.ED ? Attending Dr: ? Ordering Physician: Carmina Tamayo ?? Date of Service: 02/12/24 ?? Procedure(s): US scrotum ?? Accession Number(s): [id number] ? cc: Vasile Putnam MD; Carmina Tamayo [...] Lazcano MD ??02/12/2024 05:03 PM EST ?? RP ? Dictated By: ?Guanako Lazcano MD ? Signed By: ?<Electronically signed by Guanako Lazcano MD in OV> ?02/11/ 1703 ? DD/ 1616 ? TD/TT: 02/12/24 1629 ? Dermatology Procedural Physician: SR ? Procedure Note Donotuseinterpreter, Image - 02/12/[address] [address] Ultrasound Report Signed Patient: Bola Paulino#: [id number] 4 : 1970Acct:[id number] Age/Sex: 53 / MADM Date: 02/12/24 Loc: HO.ED Attending Dr: Ordering Physician: Carmina Tamayo Date of Service: 02/12/24 Procedure(s): US scrotum Accession Number(s): [id number] cc: Vasile Putnam MD; Carmina Tamayo EXAMINATION: [...] by: Guanako Lazcano MD 02/12/2024 05:03 PM [facility] Dictated By: Guanako Lazcano MD Signed By: <Electronically signed by Guanako Lazcano MD in OV> 02/12/24 1703 DD/ 1616 TD/TT: 02/12/24 1629 Dermatology Procedural Physician: [facility] External Provider IMG US PROCEDURES Edited Result - Final * (ABNORMAL) Urinalysis, Complete, with Reflex to Culture (02/12/2024 4:07 PM EST) Color Urine Yellow [facility] Appearance Urine Clear [facility] PH 6.0 5.0 - 9.0 [facility] Glucose Urine UA >=1000(A) Negative mg/dL [facility] Urine Blood Negative Negative [facility] Specific [place] - Urine 1.015 1.005 - 1.025 [facility] Urine Protein Negative Neg-Trace mg/dL [facility] Urine Ketones Trace Negative mg/dL [facility] Nitrite Urine Negative Negative [facility] Leukocyte Esterase Urine Negative Negative [facility] RBC Urine 0-2 0 - 2 /HPF [facility] Urine WBC 0-5 0 - 5 /HPF [facility] Urine Squamous Epithelial Cell 0-2 0 - 2 /HPF [facility] Urine Bacteria None Seen None Seen [facility] Hyaline Casts, Urine 0-2 0 - 2 /LPF [facility] 02/12/2024 4:07 PM EST 02/12/2024 4:10 PM EST Narrative [facility] - 02/12/2024 5:24 PM EST [id number], Clean Catch us Generic External Data Provider LAB URINE ORDERAB LES Final Result [facility] [address] [place] [phone] * (ABNORMAL) CBC auto differential (02/12/2024 4:05 PM EST) White Blood Count 5.9 4.8 - 10.8 X10*3/uL [facility] Red Blood Count 6.48(H) 4.60 - 5.80 X10*6/uL [facility] Hemoglobin 17.4 14.0 - 18.0 g/dl [facility] Hematocrit 51.9 42.0 - 52.0 % [facility] Mean Corpuscular Volume 80.1 80.0 - 98.0 fL [facility] Mean Corpuscular Hemoglobin 26.9(L) 27.0 - 33.0 pg [facility] Mean Corpuscular HGB Conc 33.5 31.0 - 36.0 g/dl [facility] Red Cell Distribution Width 15.8 11.0 - 16.0 % [facility] Platelet Count 184 160 - 400 X10*3/uL [facility] Mean Platelet Volume 10.9 9.4 - 12.4 fL [facility] Neutrophils Percent Auto 50.6 45 - 73 % [facility] Imm Gran Pct Auto 0.3 0.0 - 0.4 % [facility] Lymphocytes Percent Auto 40.0 20 - 40 % [facility] Monocytes Percent Auto 8.0 2 - 11 % [facility] Eosinophils Percent Auto 0.8 0 - 4 % [facility] Basophils Percent Auto 0.3 0 - 2 % [facility] NRBC Pct Auto 0.0 0.0 - 0.2 /100WBC [facility] Neutrophils Absolute Auto 3.0 2.0 - 8.3 x10*3/uL [facility] Imm Gran Abs Auto 0.02 0.00 - 0.03 X10*3/uL [facility] Lymphocytes Absolute Auto 2.4 1.2 - 4.9 X10*3/uL [facility] Monocytes Absolute Auto 0.5 0.1 - 1.2 X10*3/uL [facility] Eosinophils Absolute Auto 0.1 0.0 - 0.4 X10*3/uL [facility] Basophils Absolute Auto 0.0 0.0 - 0.2 X10*3/uL [facility] NRBC Abs Auto 0.000 0.0 - 0.012 X10*3/uL [facility] 02/12/2024 4:05 PM EST 02/12/2024 4:10 PM EST us Generic External Data Provider LAB BLOOD ORDERAB LES Final Result Performing Organization Address [facility]/ZIP Co de Phone Number [facility] [address] [place] [phone] * Magnesium (02/12/2024 4:05 PM EST) Magnesium 2.2 1.6 - 2.6 mg/dL [facility] 02/12/2024 4:05 PM EST 02/12/2024 4:10 PM EST Generic External Data Provider LAB BLOOD ORDERAB LES Final Result Performing Organization Address [facility] de Phone Number [facility] [address] [place] [phone] * (ABNORMAL) Comprehensive Metabolic Panel (02/12/2024 4:05 PM EST) Pathologist [facility] Sodium 139 135 - 145 mmol/L [facility] Potassium 4.3 3.3 - 5.1 mmol/L [facility] Comment:Slight Hemolysis.Int erpret result with caution. Chloride 105 96 - 108 mmol/L [facility] Carbon Dioxide 23 22 - 29 mmol/L [facility] Anion Gap 15 12 - 20 [facility] Urea Nitrogen (BUN) 10 9 - 16 mg/dL [facility] Creatinine, Serum 0.98 0.5 - 1.4 mg/dL [facility] Creatinine Clr Calc Pharmacy -3.2 [facility] Comment:eGFR (calculated fro m the MDRD study equation) and eCrCl(calculated from the Cockcroft-Gault equation) are based ondifferent parameters and may not yield comparable results.If eCrCl result is absurd, please check patient'sheight/weight. Estimated Glomerular Filt Rate >60 [facility] Comment:Chronic Kidney Disea se: Estimated GFR < 60 mL/min/1.62p1Xhpoxt Kidney Disease: Estimated GFR < 15 mL/min/1.73m2 Glucose 118(H) 60 - 115 mg/dL [facility] Calcium 9.7 8.4 - 10.2 mg/dL [facility] Bilirubin, Total 0.3 0.0 - 1.0 mg/dL [facility] Aspartate Amino Transferase 34 5 - 37 U/L [facility] Comment:Slight Hemolysis.Int erpret result with caution. Alanine Aminotransferase 44(H) 0 - 40 U/L [facility] Total Protein 7.6 6.5 - 8.0 g/dL [facility] Albumin Level 4.4 3.5 - 5.0 g/dL [facility] Alkaline Phosphatase 61 39 - 117 U/L [facility] 02/12/2024 4:05 PM EST 02/12/2024 4:10 PM EST us Generic External Data Provider LAB BLOOD ORDERAB LES Final Result Performing Organization Address [facility] Co de Phone Number [facility] [address] [place] [phone] * Albumin, Random Urine W/Creatinine (08/19/2023 10:08 AM EDT) Creatinine, Urine 53.16 mg/dL [facility] Microalbumin Urine <5.0 mg/L [facility] Microalbum Creatinine Ratio Ur TNP <30 ug/mg cr [facility] Comment:Unable to calculate albumin/creatinine ratio due to lowmicroalbumin or creatinine result. Urine (Urine, Random) 08/19/2023 10:08 AM EDT 08/19/2023 2:00 PM EDT us Vasile Juares MD LAB URINE ORDERABL ES Final Result Performing Organization Address [facility] Co de Phone Number [facility] [address] [place] [address] [phone] * (ABNORMAL) Lipid Panel, Standard (08/19/2023 9:37 AM EDT) Triglycerides 59 <150 mg/dL [facility] Comment:Desirable Triglyceri de: less than 150 mg/dLBorderline High Triglyceride 150-199 mg/dLHigh Triglyceride: 200-499 mg/dLVery High Triglyceride: greater than or equal to 5OO mg/dL Cholesterol 114 <200 mg/dL [facility] Comment:Desirable Cholestero l: less than 200 mg/dLBorderline High Cholesterol: 200-239 mg/dLHigh Cholesterol: greater than 239 mg/dL LDL Cholesterol Calculated 74 <100 mg/dL [facility] Comment:Desirable LDL: less than 100 mg/dLNear Optimal/Above Optimal LDL: 110- 129 mg/dLBorderline High LDL: 130-159 mg/dLHigh LDL: 160-189 mg/dLVery High LDL: greater than or equal to 190 mg/dL HDL Cholesterol 29(L) >40 mg/dL [facility] Comment:Desirable HDL: great er than 40 mg/dL Note: This HDL assay may give artificially low results in patients with liver disease. Blood Venous blood specimen / Unknown 08/19/2023 9:37 AM EDT 08/19/2023 2:02 PM EDT Vasile Juares MD LAB BLOOD ORDERABL ES Final Result [facility] [address] [place] [phone] * HIV-1 RNA, Quantitative, Real-Time PCR with Reflex to Genotype (RTI, PI, Integrase) (07/21/2022 9:57 AM EDT) HIV 1 RNA, QN PCR NOT DETECTED copies/mL [facility], HIV 1 RNA, QN PCR NOT DETECTED Log copies/mL [facility], Comment: REFERENCE RANGE: NOT DETECTED copies/mL ?NOT DETECTED ??Log copies/mL This test was performed using Real-Time Polymerase Chain Reaction. Reportable range is 20 to 10,000,000 copies/mL (1.30-7.00 Log copies/mL). 07/21/2022 9:57 AM EDT 07/21/2022 9:58 AM EDT Narrative [facility] - 07/23/2022 8:25 PM EDT FASTING:NO FASTING: NO Vasile Juares MD LAB BLOOD ORDERABL ES Final Result Performing Organization Address [facility] de Phone Number [address], [place] [phone] [facility], [id number] [place] [phone] * Hepatitis C Antibody with Reflex to HCV, RNA, Quantitative, Real-Time PCR (07/21/2022 9:57 AM EDT) Hepatitis C Antibody NON-REACT FLACO NON-REACT FLACO [facility] [place] [facility] Index 0.08 <1.00 [facility] [place] [facility] Comment: HCV antibody was non-reactive. There is no laboratory evidence of HCV infection. In most cases, no further action is required. However, if recent HCV exposure is suspected, a test for HCV RNA (test code 44666) is suggested. For additional information please refer to http://education.[employer]/faq/WMR44r3 (This link is being provided for informational/ educational purposes only.) Blood Venous blood specimen / Unknown 07/21/2022 9:57 AM EDT 07/21/2022 9:58 AM EDT Narrative [facility] - 07/23/2022 8:25 PM EDT FASTING:NO FASTING: NO Vasile Juares MD LAB BLOOD ORDERABL ES Final Result Performing Organization Address [facility] Co de Phone Number [address], [facility] [place] [phone] [facility] [place] [facility] [address] [place] [phone] * Hm Colonoscopy (08/16/2020 7:13 AM EDT) us Historical Provider HEALTH MAINTENANCE Final Result from Last 3 Months or Most Recently Relevant to Health Maintenance Insurance [employer] PPO Care Teams Apple Picker Relationship Specialty Start Date End Date Vasile Putnam MD [address] [place] [phone] PCP - General Internal Medicine 01/11/19
--- OUTSIDE RECORDS SUMMARY | 2024-04-26 16:36 | XMS_ITS | Encounter Summary ---
Author Organization [employer] Address [address] [address] Care Team Providers Care Boring And Filling Machine Operator Name Role Phone Vasile Putnam MD Primary Care Prov ider Reason for Visit * Reason Onset Date Comments Nurse Triage 03/30/2024 Encounter Details Date Type Department Care Team ([facility] st Contact Info) Description 03/30/2024 Telephone [facility] [address] [place] [address] Vasile Putnam MD [address] [place] [address] Nurse Triage Social History Tobacco Use Types [...] Center 03/30/2024 9:[address] [facility] Insurance verified as active per Real Time Eligibility in [facility]. Positive Triage Question: * Numbness (i.e., [...] caller accepted this outcome. Contact pt at [phone] documented in this encounter Plan of Treatment Not on file documented as of this encounter Visit Diagnoses Not on filedocumented in this encounter Additional Health Concerns Assessment Noted Time PHQ-9 Depression Total Score: 0 07/22/19 23 9:15 AM EDT documented as of this encounter Care Teams Boring And Filling Machine Operator Relationship Specialty Start Date End Date Vasile Putnam MD [address] [place] [phone] PCP - General Internal Medicine 01/11/19 documented as of this encounter
--- OUTSIDE RECORDS SUMMARY | 2024-04-26 16:36 | XMS_ITS | Encounter Summary ---
Author Organization [employer] Address [address] [facility] [address] [place] [address] Care Team Providers Care Machine Hostler Name Role Phone Vasile Putnam MD Primary Care Prov ider Reason for Visit * Reason Comments Med Refill Encounter Details Date Type Department Care Team (Late st Contact Info) Description 04/06/2024 Refill [facility] [address] [place], [place] [phone] Lisa Girard MD [address] [place] [address] Acute maxillary sinusitis, recurrence not specified Social History Tobacco Use Types Packs/Day Years [...] as of this encounter Visit Diagnoses Diagnosis Acute maxillary sinusitis, recurrence not specified documented in this encounter Additional Health Concerns Assessment Noted Time PHQ-9 Depression Total Score: 0 07/22/19 23 9:15 AM EDT documented as of this encounter Care Teams Machine Hostler Relationship Specialty Start Date End Date Vasile Putnam MD [address] [place] [phone] PCP - General Internal Medicine 01/11/19 documented as of this encounter
--- OUTSIDE RECORDS SUMMARY | 2024-04-26 16:36 | XMS_ITS | Encounter Summary ---
Author Organization [employer] Address 75 [facility] [address], [place] [address] Care Team Providers Care Order Editor Name Role Phone Vasile Putnam MD Primary Care Prov ider Reason for Visit * Reason Onset Date Comments Nurse Triage 09/27/2023 Encounter Details Date Type Department Care Team ([facility] st Contact Info) Description 09/27/2023 Telephone [facility] CHC MED & PEDS [address] [place] [address] Vasile Putnam MD 505 [place] [address] Nurse Triage Social History Tobacco Use Types [...] documented as of this encounter Care Teams Order Editor Relationship Specialty Start Date End Date Vasile Putnam MD [address] [place] [phone] PCP - General Internal Medicine 01/11/19 documented as of this encounter
--- OUTSIDE RECORDS SUMMARY | 2024-04-26 16:36 | XMS_ITS | Encounter Summary ---
Author Organization [employer] Address [address] [address] Care Team Providers Care Engraving Operator Name Role Phone Vasile Putnam MD Primary Care Prov ider Reason for Visit * Reason Onset Date Comments Med Refill 04/04/2024 Encounter Details Date Type Department Care Team ([facility] st Contact Info) Description 04/04/2024 Refill [facility] CHC MED & PEDS [address] [place] [address] Vasile Putnam MD [address] [place] [address] Social History Tobacco Use Types Packs/Day Years [...] (Farxiga) 10 MG [id number] [place], [place] - [address] [place] [address] AT [facility] documented in this encounter Plan of Treatment Not on file documented as of this encounter Visit Diagnoses Not on filedocumented in this encounter Additional Health Concerns Assessment Noted Time PHQ-9 Depression Total Score: 0 07/22/19 23 9:15 AM EDT documented as of this encounter Care Teams Engraving Operator Relationship Specialty Start Date End Date Vasile Putnam MD [address] [place] [address] PCP - General Internal Medicine 01/11/19 documented as of this encounter
--- OUTSIDE RECORDS SUMMARY | 2024-04-26 16:36 | XMS_ITS | Encounter Summary ---
Author Organization [employer] Address 75 [facility] [address] [address] Care Team Providers Care Hvac Design Engineer Name Role Phone Vasile Putnam MD Primary Care Prov ider Encounter Details Date Type Department Care Team ([facility] st Contact Info) Description 03/30/2024 9:30 AM EST Office Visit [facility] CHC MED & PEDS [address] [place] [address] Vasile Putnam MD [address] [place] [address] Acute pain of left shoulder (Primary Dx); Type 2 diabetes mellitus without complication, without long-term current use of insulin ([facility]) Social History Tobacco Use Types Packs/Day Years [...] use of insulin ([facility]) Relevant Orders POCT Glucose (Completed) POCT HGB [...] use of insulin ([facility]) POCT GLUCOSE Routine 03/30/2024 9:51 AM EST Type 2 diabetes mellitus without complication, without long-term current use of insulin ([facility]) documented in this encounter Results * (ABNORMAL) [...] use of insulin ([facility]) documented in this encounter Additional Health Concerns Assessment Noted Time PHQ-9 Depression Total Score: 0 07/22/19 23 9:15 AM EDT documented as of this encounter Care Teams Hvac Design Engineer Relationship Specialty Start Date End Date Vasile Putnam MD [address] [place] [id number] PCP - General Internal Medicine 01/11/19 documented as of this encounter
--- OUTSIDE RECORDS SUMMARY | 2024-04-26 16:36 | XMS_ITS | Encounter Summary ---
Author Organization [employer] Address [address] [address] Care Team Providers Care Cake Puller Name Role Phone Vasile Putnam MD Primary Care Prov ider Reason for Visit * Reason Comments Med Refill Encounter Details Date Type Department Care Team (Late st Contact Info) Description 08/24/[address] [facility] CHC MED & PEDS [address] [place] [address] Vasile Putnam MD [address] [place] [address] Fibromyalgia Social History Tobacco Use Types Packs/Day [...] documented as of this encounter Care Teams Cake Puller Relationship Specialty Start Date End Date Vasile Putnam MD [address] [place] [phone] PCP - General Internal Medicine 01/11/19 documented as of this encounter
--- OUTSIDE RECORDS SUMMARY | 2024-04-26 16:36 | XMS_ITS | Encounter Summary ---
Author Organization [employer] Address [address] [address] Care Team Providers Care Reeling And Tubing Machine Operator Name Role Phone Vasile Putnam MD Primary Care Prov ider Reason for Visit * Reason Comments Med Refill Encounter Details Date Type Department Care Team (Late st Contact Info) Description 04/03/2024 Refill [facility] CHC MED & PEDS [address] [place] [address] Vasile Putnam MD [address] [place] [address] Social History Tobacco Use Types Packs/Day Years [...] documented as of this encounter Care Teams Reeling And Tubing Machine Operator Relationship Specialty Start Date End Date Vasile Putnam MD [address] [place] [address] PCP - General Internal Medicine 01/11/19 documented as of this encounter
--- OUTSIDE RECORDS SUMMARY | 2024-04-26 16:36 | XMS_ITS | Encounter Summary ---
Author Organization [employer] Address 75 [facility] [address] [place] [address] Care Team Providers Care Insecticide Sprayer Name Role Phone Vasile Putnam MD Primary Care Prov ider Encounter Details Date Type Department Care Team ([facility] st Contact Info) Description 06/26/2023 Orders Only [facility] MEDICINE [address] [place] [address] Provider, MD Min Social History Tobacco Use [...] documented as of this encounter Care Teams Insecticide Sprayer Relationship Specialty Start Date End Date DeutschVasile Mari MD [address] [place] [address] PCP - General Internal Medicine 01/11/19 documented as of this encounter
--- OUTSIDE RECORDS SUMMARY | 2024-04-26 16:37 | XMS_ITS | Encounter Summary ---
Author Organization [employer] Address 75 [facility] 7[address] [place] [address] Care Team Providers Care Manufacturing Supervisor Name Role Phone Vasile Putnam MD Primary [...] documented as of this encounter Care Teams Manufacturing Supervisor Relationship Specialty Start Date End Date Vasile Putnam MD [address] [place] [phone] PCP - General Internal Medicine 01/11/19 documented as of this encounter
[2024-05-01 13:58] LABS: Testosterone, Total 325 ng/dL (250-1100)
== END 2024-04-26 16:03 | disposition home or self-care (01) ==
LOC: HO.LAB 16:02
PROVIDERS: PCP Internal Medicine; Visit Provider Urology
DX: E23.0 Hypopituitarism (principal)
CPT/HCPCS: 36415; 84403

== ENCOUNTER 2024-05-09 14:44 | Outpatient (AMB) | payer BC, SELFPAY ==
--- NOTE | 2024-05-09 14:58 | A.OFFVIS_ITS ---
Intake Visit Reasons: pellet insertion Intake Note: Patient is present for PELLET INSERTION Urology Medication:TADALAFIL,TESTOSTERONE Antibiotic Allergy:PENICILLIN Blood Thinner:NONE Quality Control Chemist Required: No Allergies clavulanic acid [From Augmentin] Allergy (Mild, Verified 05/09/24 14:58) Itching Penicillins Allergy (Unknown, Verified 05/09/24 14:58) ITCHING HPI Comments Details: Laurence is a pleasant [place] male. He is seen for the following urologic conditions - epididymal cyst - erectile dysfunction - hypogonadism Insurance company no longer will cover his testosterone pellet insertion Plan for testosterone injectable Prescriptions provided 2 week follow-up nurse teaching Three-month follow-up testosterone levels Hypogonadism Failed gel from absorption issues Needle phobia prevented injectable testosterone Good response to trial of testosterone pellets 2md Peak 455 10 week 325 Initial 2 week 683 10 week 424 Insurance company lower longer covering testosterone pellet Will have to move to injectable Erectile dysfunction associated with diabetes Progressive Can obtain but not maintain erection Does have treatment for dyslipidemia, diabetes, depression Hypogonadism symptoms including lack of energy, lack of spontaneous morning erections, lack of libido Prior evaluation 2018 for atherosclerotic vascular disease. ECG, Holter, echo performed. LVEF 60% with mild diastolic dysfunction. Normal myocardial perfusion study. Exercise stress test 10.5 minutes on Kuldip protocol. Current medication 100 mg sildenafil on demand Labs - 01/03 P 0.3, 01/04 P 0.3, T 263, 07/06 T 250, 09/05 T 225 LH 3.9 PSA 0.25 - 07/06 T 250 Epididymal cyst Stable right side Decreasing size of left testicle Yearly review [facility] Medical History Mixed hyperlipidemia Muscle spasm Fibromyalgia COVID-19 vaccine series completed Pain of multiple extremities Neck pain History of lumbar puncture Back pain SHERLY (obstructive sleep apnea) Palpitations Anxiety Migraine Hyperlipidemia, unspecified Essential hypertension Type 2 diabetes mellitus with unspecified complications Surgical History History of umbilical hernia repair History of esophagogastroduodenoscopy (EGD) Hx of colonoscopy Family History Mother Diabetes Father Myocardial infarction Social History Alcohol intake: never Comment: medicated in pacu Patient Tobacco Use Status: Never used Tobacco Review of Systems Const Denies chills and Denies fever(s) Card Reports no additional complaints and Denies syncope Resp Denies cough GI Denies abdominal pain and Denies heartburn Reports as per HPI and Denies change in libido Neuro Denies syncope Psych Denies change in libido Endo Denies change in libido Physical Exam Const General: cooperative, healthy appearing, comfortable and no acute distress Orientation/consciousness: patient oriented x3 HEENT Face and sinus: Yes normal facial exam Mouth: moist mucous membranes Neck Neck: Yes normal visual inspection, Yes full ROM and Yes trachea midline Chest Chest palpation & inspection: normal inspection of the chest Resp Effort & Inspection: normal respiratory effort, able to speak in complete sentences and no respiratory distress GI Inspection: Yes normal to inspection Back/Spine/Pelvis Cervical Spine: normal cervical lordosis Thoracic/Lumbar Spine: thoracic and lumbar spine normal to inspection Skin General skin exam: no rashes or lesions noted Neuro General: patient oriented x3, gait normal, tone normal and moves all extremities Extrem General: Yes normal to inspection and Yes capillary refill normal Assessment & Plan Assessment & Plan (1) Erectile dysfunction associated with type 2 diabetes mellitus: Code(s): E11.69 - Type 2 diabetes mellitus with other specified complication; N52.1 - Erectile dysfunction due to diseases classified elsewhere Category: Medical (2) Hypogonadotropic hypogonadism: Code(s): E23.0 - Hypopituitarism Category: Medical Plan Three-month follow-up Orders: Orders Testosterone, Free/Total 3 Months R79.89 - Other specified abnormal findings of blood chemistry Medications: New testosterone cypionate (Depo-Testosterone) 80 mg (0.4 mL) subcut QWEEK 2 mL 5RF 4 weeks E29.1 - Testicular hypofunction, R79.89 - Other specified abnormal findings of blood chemistry needle (disp) 18 G (BD Regular Bevel Tranquillity) As directed - draw up testosterone 30 ea 0RF E29.1 - Testicular hypofunction, R79.89 - Other specified abnormal findings of blood chemistry needle (disp) 23 gauge (BD Regular Bevel Tranquillity) Inject testosterone subcutaneous 30 ea 0RF R79.89 - Other specified abnormal findings of blood chemistry syringe (disposable) (BD Luer-Ami Syringe) Testosterone injection weekly 30 ea 0RF E34.9 - Endocrine disorder, unspecified, R79.89 - Other specified abnormal findings of blood chemistry Patient Instructions: This note is constructed using voice recognition software. While every effort has been made to ensure accuracy ripsaw matcher errors may have been included. Imaging studies, laboratory and physical exam results were discussed and reviewed in detail. No major barriers to patient understanding were identified. An opportunity to ask questions regarding the treatment plan was provided. All questions were answered. The patient expressed understanding and agreement with the above treatment plan. The patient is aware they should contact our office by phone for worsening of their current condition or the appearance of new urologic symptoms. Compliance is encouraged with any medications and followup testing that is ordered. It is a privilege to participate in the urologic care of your patient. If you have any questions or concerns regarding treatment for the above conditions, or other urologic issues, please do not hesitate to contact me. The office telephone contact is [phone]. Sincerely, Dr Varinder Sibley MD, SHY [facility] - Urology Compassionate Specialist Care for the Genitourinary System Coding Level of Care Code Est Pt Level 4 (22111) Diagnoses Erectile dysfunction associated with type 2 diabetes mellitus E11.69; N52.1 Hypogonadotropic hypogonadism E23.0
--- OUTSIDE RECORDS SUMMARY | 2024-05-09 18:25 | XMS_ITS | Encounter Summary ---
Author Organization [employer] Address [address] [address] Care Team Providers Care Crepe Box Tender Name Role Phone Vasile Putnam MD Primary Care Prov ider Reason for Visit * Reason Onset Date Comments Nurse Triage 09/27/2023 Encounter Details Date Type Department Care Team ([facility] st Contact Info) Description 09/27/2023 Telephone [facility] CHC MED & PEDS [address] [place] [address] Vasile Putnam MD [address] [place] [address] Nurse Triage Social History Tobacco Use Types [...] documented in this encounter Plan of Treatment Upcoming Encounters Date Type Department Care Team (Late st Contact Info) Description 05/16/2024 9:00 AM EST Telemedicine [facility] MED & PEDS [address] [place] [address] Vasile Putnam MD [address] [place] [address] documented as of this encounter Visit Diagnoses Not on filedocumented in this encounter Additional Health Concerns Assessment Noted Time PHQ-9 Depression Total Score: 0 07/22/19 23 9:15 AM EDT documented as of this encounter Care Teams Crepe Box Tender Relationship Specialty Start Date End Date Vasile Putnam MD [address] [place] [address] PCP - General Internal Medicine 01/11/19 documented as of this encounter
--- OUTSIDE RECORDS SUMMARY | 2024-05-09 18:25 | XMS_ITS | Encounter Summary ---
Author Organization [employer] Address 75 [facility] 7 [place] [address] Care Team Providers Care District Representative Name Role Phone Vasile Putnam MD Primary Care Prov ider Encounter Details Date Type Department Care Team ([facility] st Contact Info) Description 04/26/2024 Orders Only GENERIC EXTERNAL DATA DEPARTMENT Provider, Generic External Data Social History Tobacco Use Types Packs/Day Years [...] as of this encounter Plan of Treatment Upcoming Encounters Date Type Department Care Team (Late st Contact Info) Description 05/16/2024 9:00 AM EST Telemedicine [facility] MED & PEDS [address] [place] [address] Vasile Putnam MD [address] [place] [address] documented as of this encounter Procedures Procedure Name Priority Date/Time Associated Diagnosis Comments TESTOSTERONE, TOTAL, MALES (ADULT), IA Routine 04/26/2024 4:11 PM EST documented in this encounter Results * Testosterone, Total, males (Adult), IA (04/26/2024 4:11 PM EST) Testosterone, Total 325 250 - 1100 ng/dL [facility] Comment:For additional infor mation, please refer [email or web address]/[email or web address](This link is being provided for informational/educational purposes only.)This test was developed and its analytical performancecharacteristics have been determined by [employer] [place], [place]. It hasnot been cleared or approved by the U.S. Food and DrugAdministration. This assay has been validated pursuantto the CLIA regulations and is used for clinicalpurposes.THIS TEST WAS PERFORMED AT:[id number] [place] [id number] HAMMER MD,PHD 04/26/2024 4:11 PM EST 04/26/2024 4:11 PM EST us Generic External Data Provider LAB BLOOD ORDERAB LES Final Result [facility] [address] [place] [address] [phone] documented in this encounter Visit Diagnoses Not on filedocumented in this encounter Additional Health Concerns Assessment Noted Time PHQ-9 Depression Total Score: 0 07/22/19 23 9:15 AM EDT documented as of this encounter Care Teams District Representative Relationship Specialty Start Date End Date Vasile Putnam MD [address] [place] [phone] PCP - General Internal Medicine 01/11/19 documented as of this encounter
--- OUTSIDE RECORDS SUMMARY | 2024-05-09 18:25 | XMS_ITS | Encounter Summary ---
Author Organization [employer] Address 75 [facility] 7t [place] [address] Care Team Providers Care Recording Engineer Name Role Phone Vasile Putnam MD Primary Care Prov ider Encounter Details Date Type Department Care Team ([facility] st Contact Info) Description 06/26/2023 Orders Only [facility] MEDICINE [address] [place] [address] Provider, MD Min Social History Tobacco Use [...] Info) Description 05/16/2024 9:00 AM EST Telemedicine [facility] MED & PEDS [address] [place] [address] Vasile Putnam MD [address] [place] [address] documented as of this encounter Procedures Procedure Name Priority Date/Time Associated Diagnosis Comments HM COLONOSCOPY Routine 08/16/2020 7:13 AM EDT documented in this encounter Results * Hm Colonoscopy (08/16/2020 7:13 AM EDT) Historical Provider HEALTH MAINTENANCE Final Result documented in this encounter Visit Diagnoses Not on filedocumented in this encounter Additional Health Concerns Assessment Noted Time PHQ-9 Depression Total Score: 0 07/22/19 23 9:15 AM EDT documented as of this encounter Care Teams Recording Engineer Relationship Specialty Start Date End Date Vasile Putnam MD [address] [place] [address] PCP - General Internal Medicine 01/11/19 documented as of this encounter
--- OUTSIDE RECORDS SUMMARY | 2024-05-09 18:26 | XMS_ITS | Clinical Summary ---
Author Organization [employer] Address [address] [facility] [address] [place] [address] Care Team Providers Care Review Manager Name Role Phone Vasile Putnam MD Primary Care Prov ider Allergies Active Allergy Reactions Criticality Noted Date Comments Amoxicillin-Pot Clavulanate 03/23/19 23 Medications cetirizine (ZyrTEC) 10 MG tablet Take 1 tablet by mouth at bed time. 9 Active dicyclomine (Bentyl) 20 MG tablet Take 20 mg by mouth if needed in the morning, at noon, and at bedtime. 2 Active glucose blood (FREESTYLE LITE) test strip Inject under the skin every 8 (eight) hours. 9 Active zoster vaccine-recombi nant adjuvanted (Shingrix) 50 MCG/0.5ML vaccine Inject 0.5 mL into the shoulder, thigh, or buttocks. 2 Active baclofen (Lioresal) 10 MG tablet Take 1 tablet (10 mg) by mouth 3 times daily for 10 days. 30 tablet 4 Active atorvastatin (Lipitor) 40 MG tablet TAKE 1 TABLET(40 MG) BY MOUTH IN THE MORNING 90 tablet 1 4 Active venlafaxine XR (Effexor XR) 75 MG 24 hr capsuleIndicati ons:Fibromyalgi a TAKE 1 CAPSULE(75 MG) BY MOUTH IN THE MORNING 90 capsule 3 4 Active metFORMIN (Glucophage) 1000 MG tabletIndicatio ns:Type 2 diabetes mellitus without complication, without long-term current use of insulin (CMS/[facility]) TAKE 1 TABLET BY MOUTH WITH BREAKFAST AND 1 TABLET WTH EVENING MEAL 180 tablet 3 4 Active lisinopril 10 MG tablet TAKE 1 TABLET(10 MG) BY MOUTH IN THE MORNING 90 tablet 3 4 Active methocarbamol (Robaxin) 750 MG tablet Take 1 tablet (750 mg) by mouth 3 times daily. 270 tablet 3 4 01/04/20 25 Active omeprazole (PriLOSEC) [address] capsule TAKE 1 CAPSULE(20 MG) BY MOUTH IN THE MORNING 90 capsule 3 4 Active pregabalin (Lyrica) 150 MG capsule TAKE 1 CAPSULE(150 MG) BY MOUTH TWICE DAILY 60 capsule 1 4 Active DULoxetine (Cymbalta) [address] capsuleIndicati ons:Fibromyalgi a TAKE 1 CAPSULE(30 MG) BY MOUTH TWICE DAILY. DO NOT CRUSH OR CHEW 60 capsule 2 4 Active dapagliflozin (Farxiga) 10 MG Take 1 tablet (10 mg) by mouth Once per day. 30 tablet 11 5 Active fluticasone (Flonase) 50 MCG/ACT nasal sprayIndication s:Acute maxillary sinusitis, recurrence not specified ADMINISTER 1-2 SPRAYS INTO EACH NOSTRIL EVERY DAY 16 g 5 Active clotrimazole (Lotrimin) 1 % cream Apply topically 2 times daily for 28 days. 30 g 11 5 04/27/19 25 Active Problems Problem Noted Date Diagnosed Date [...] Encounters Date Type Department Care Team Description 04/26/2024 Orders Only GENERIC EXTERNAL DATA DEPARTMENT Provider, Generic External Data 04/06/2024 Refill [facility] [address] [place] [address] Lisa Girard MD Acute maxillary sinusitis, recurrence not specified 04/04/2024 Refill [facility] [address] [place] [address] Vasile Putnam MD 04/03/2024 Refill [facility] [address] [place] [address] Vasile Putnam MD 03/30/2024 9:30 AM EST Office Visit [facility] [address] [place] [address] Vasile Putnam MD Acute pain of left shoulder (Primary Dx); Type 2 diabetes mellitus without complication, without long-term current use of insulin ([facility]) 03/30/2024 Travel 03/30/2024 Telephone [facility] [address] [place] [phone] Vasile Putnam MD Nurse Triage 03/09/2024 2:20 PM EST Office Visit [facility] [address] [place] [phone] Lisa Girard MD Acute maxillary sinusitis, recurrence not specified (Primary Dx); Cough in adult 02/29/2024 Orders Only GENERIC EXTERNAL DATA DEPARTMENT Provider, Generic External Data 02/16/2024 Refill [facility] [address] [place] [phone] Vasile Putnam MD Fibromyalgia 02/14/2024 Refill [facility] [address] [place] [address] Vasile Putnam MD 02/12/2024 Orders Only GENERIC [...] your housing situation today? I have sophia sing 08/16/[address] you li [...] 03/30/2024 9:45 AM EST Plan of Treatment Upcoming Encounters Date Type Department Care Team (Late st Contact Info) Description 05/16/2024 9:00 AM EST Telemedicine [facility] MED [facility] P[facility] [address] [place] [address] Vasile Putnam MD [address] [place] [address] Health Maintenance Due Date Last Done Comments [...] Additional history exists Lipid Panel 08/18/2024 08/19/2023, 10/2022, 07/21/2022, Additional history exists Diabetes: Hemoglobin [...] (ADULT), [place] Routine 04/26/2024 4:11 PM EST POCT GLYCATED HEMOGLOBIN, TOTAL Routine 03/30/2024 9:51 AM EST Type 2 diabetes mellitus without complication, without long-term current use of insulin ([facility]) POCT GLUCOSE Routine 03/30/2024 9:51 AM EST Type 2 diabetes mellitus without complication, without long-term current use of insulin (CMS/[facility]) POCT COVID-19 AG JEFFERS ID NOW Routine [...] AUTO DIFFERENTIAL Routine 02/12/2024 4:05 PM EST ALBUMIN, RANDOM URINE W/CREATININE Routine [...] Recently Relevant to Health Maintenance Results * Testosterone, Total, males (Adult), [place] (04/26/2024 4:11 PM EST) Only the most recent of2 resultswithin the time period is included. Testosterone, Total 325 250 - 1100 ng/dL [facility] Comment:For additional infor mation, please refer tohttp://education.Baby.com.br.[employer]/faq/ObukeIkhgveobkvwaDEXMVQMAU687(This link is being provided for informational/educational purposes only.)This test was developed and its analytical performancecharacteristics have been determined by [employer] [place], [place]. It hasnot been cleared or approved by the U.S. Food and DrugAdministration. This assay has been validated pursuantto the CLIA regulations and is used for clinicalpurposes.THIS TEST WAS PERFORMED AT:[employer] [place] [address]SEOWWCUWINSTON HAMMER MD,PHD 04/26/2024 4:11 PM EST 04/26/2024 4:11 PM EST us Generic External Data Provider LAB BLOOD ORDERAB LES Final Result [facility] [address] [place] [phone] * (ABNORMAL) POCT HGB A1C (03/30/2024 9:51 AM EST) Pathologist [facility] Hemoglobin A1C 6.6(A) 4.0 - 6.0 % QC Media Lot # [id number] Lot# Expiration Date ,026 Blood 03/30/2024 9:51 AM EST us Vasile Juares MD POINT OF CARE TEST ENTER/EDIT ORDERABLES Final Result * POCT Glucose (03/30/2024 9:51 AM EST) Pathologist [facility] Glucose Blood, POC 122 60 - 200 mg/dL QC Media Lot # [id number] Lot# Expiration Date 4,[id number] Blood Capillary blood specimen / Unknown 03/30/2024 9:51 AM EST us Vasile Juares MD POINT OF CARE TEST ENTER/EDIT ORDERABLES Final Result * POCT Rapid Influenza B JEFFERS ID NOW (03/09/2024 2:21 PM EST) Pathologist [facility] Influenza B Negative Negative, Indeterminate [facility] QC Media Lot # [id number] [facility] Lot# Expiration Date 32,126 [facility] Swab 03/09/2024 2:21 PM EST us Lisa Taylor MD POINT OF CARE TEST EN TER/EDIT ORDERABLES Final Result [facility] [address] [place] [phone] * POCT Rapid Covid-19 JEFFERS ID NOW (03/09/2024 2:21 PM EST) [facility] Coronavirus Antigen PCR Negative Negative, Indeterminate, None Detected, Invalid, Specimen unsatisfactory for evaluation, Weakly Positive QC Media Lot # [id number] Lot# Expiration Date 32,626 Swab 03/09/2024 2:21 PM EST Lisa Taylor MD POINT OF CARE TEST EN TER/EDIT ORDERABLES Final Result * POCT Rapid Influenza A JEFFERS ID NOW (03/09/2024 2:20 PM EST) [facility] Influenza A Negative Negative, Indeterminate [facility] QC Media Lot # [id number] [facility] Lot# Expiration Date 32,126 [facility] Swab 03/09/2024 2:20 PM EST Lisa Taylor MD POINT OF CARE TEST EN TER/EDIT ORDERABLES Final Result [facility] [address] [place] [phone] * Chlamydia/N. Gonorrhoeae RNA, TMA, Urogenitial (02/12/2024 5:45 PM EST) [facility] CT PCR NOT DETECTED Not Detect. [facility] Comment:A not detected test result [...] psychologicalconsequences. NG PCR NOT DETECTED Not Detect. [facility] Comment:A not detected test result [...] PM EST 02/12/2024 5:48 PM EST Narrative [facility] - 02/13/2024 1:26 PM EST Urine us Generic External Data Provider LAB MICROBIOLOGY - GENERAL ORDERABLES Final Result Performing Organization Address City/State/[facility] Co de Phone Number [facility] [address] [place] [phone] * US SCROTUM DOPPLER (02/12/2024 4:16 PM EST) Anatomical Region Laterality Modality Abdomen Ultrasound 02/12/2024 4:16 PM EST Narrative 02/12/2024 5:06 PM EST ? [facility] ?[address] [place] [address]. ?[place] [address] ? Ultrasound Report ? Signed ? Patient: Paulino,Kesert ?MR#: [id number] ?? 4 ? : 1970 ?Acct:[id number] ? Age/Sex: 53 / M ?ADM Date: 11/30/24 ? Loc: HO.ED ? Attending Dr: ? Ordering Physician: Carmina Tamayo ?? Date of Service: 02/12/24 ?? Procedure(s): US scrotum doppler ?? Accession Number(s): [id number] ? cc: Vasile Putnam MD; Carmina Tamayo [...] DD/ 1616 ? TD/TT: 02/12/24 1629 ? Sports Athletic Trainer: SR ? Procedure Note Donotuseinterpreter, Image - 02/12/[address] [address] Ultrasound Report Signed Patient: Jus PaulinoR#: [id number] 4 : 1970Acct:[id number] Age/Sex: 53 / MADM Date: 02/12/24 Loc: HO.ED Attending Dr: Ordering Physician: Carmina Tamayo Date of Service: 02/12/24 Procedure(s): US scrotum doppler Accession Number(s): [id number] cc: Vasile Putnam MD; Carmina Tamayo EXAMINATION: [...] 0.5 cm, unchanged. Electronically signed by: Guanako Lzacano MD 02/12/2024 05:03 PM EST RP Dictated By: Guanako Lazcano MD Signed By: <Electronically signed by Guanako Lazcano MD in OV> 02/12/24 1703 DD/ 1616 TD/TT: 02/12/24 1629 Sports Athletic Trainer: SR us [facility] External Provider IMG US PROCEDURES Edited Result - Final * US Scrotum (02/12/2024 4:16 PM EST) Anatomical Region Laterality Modality Body Ultrasound 02/12/2024 4:16 PM EST Narrative 02/12/2024 5:06 PM EST ? [facility] ?[address] ?[place] [address] ? Ultrasound Report ? Signed ? Patient: Paulino,Kesert ?MR#: [id number] ?? 4 ? : 1970 ?Acct:[id number] ? Age/Sex: 53 / M ?ADM Date: 02/12/24 ? Loc: HO.ED ? Attending Dr: ? Ordering Physician: Carmina Tamayo ?? Date of Service: 02/12/24 ?? Procedure(s): US scrotum ?? Accession Number(s): [id number] ? cc: Vasile Putnam MD; Carmina Tamayo [...] Left epididymal Doppler flow is normal. ? US/ scrotum ?? IMPRESSION: ?? 1. ??Enlarged, heterogeneous right epididymis with mildly increased ?? vascularity and a small right-sided hydrocele, new when compared to the ?? prior examination. Findings could represent an infectious or ?? inflammatory process. ?? 2. ??Simple left epididymal head cyst measuring 0.5 cm, unchanged. ? Electronically signed by: ??Guanako Lazcano MD ??02/12/2024 05:03 PM EST ?? Workstation: [id number] ? Dictated By: ?Guanako Lazcano MD ? Signed By: ?<Electronically signed by Guanako Lazcano MD in OV> ?02/12/24 1703 ? DD/ 1616 ? TD/TT: 02/12/24 1629 ? Sports Athletic Trainer: SR ? Procedure Note Charlene, Mary - 02/12/2024 [place] [address] Ultrasound Report Signed Patient: Jus PaulinoR#: [id number] 4 : 1970Acct:[id number] Age/Sex: 53 / MADM Date: 02/12/24 Loc: HO.ED Attending Dr: Ordering Physician: Carmina Tamayo Date of Service: 02/12/24 Procedure(s): US scrotum Accession Number(s): [id number] cc: Vasile Putnam MD; Carmina Tamayo EXAMINATION: [...] 02/12/24 1703 DD/ 1616 TD/TT: 02/12/24 1629 Sports Athletic Trainer: [facility] External Provider IMG US PROCEDURES Edited Result - Final * (ABNORMAL) Urinalysis, Complete, with Reflex to Culture (02/12/2024 4:07 PM EST) Color Urine Yellow [facility] Appearance Urine Clear [facility] PH 6.0 5.0 - 9.0 [facility] Glucose Urine UA >=1000(A) Negative mg/dL [facility] Urine Blood Negative Negative [facility] Specific Manson - Urine 1.015 1.005 - 1.025 [facility] Urine Protein Negative Neg-Trace mg/dL [facility] Urine Ketones Trace Negative mg/dL [facility] Nitrite Urine Negative Negative [facility] Leukocyte Esterase Urine Negative Negative [facility] RBC Urine 0-2 0 - 2 /HPF [facility] Urine WBC 0-5 0 - 5 /HPF [facility] Urine Squamous Epithelial Cell 0-2 0 - 2 /HPF [facility] Urine Bacteria None Seen None Seen [facility] Hyaline Casts, Urine 0-2 0 - 2 /LPF [facility] 02/12/2024 4:07 PM EST 02/12/2024 4:10 PM EST Narrative [facility] - 02/12/2024 5:24 PM EST [id number], [employer] us Generic External Data Provider LAB URINE ORDERAB LES Final Result [facility] [address] [place] [phone] * (ABNORMAL) CBC auto differential (02/12/2024 4:05 PM EST) White Blood Count 5.9 4.8 - 10.8 X10*3/uL [facility] Red Blood Count 6.48(H) 4.60 - 5.80 X10*6/uL [facility] Hemoglobin 17.4 14.0 - 18.0 g/dl [facility] Hematocrit 51.9 42.0 - 52.0 % [facility] Mean Corpuscular Volume 80.1 80.0 - 98.0 fL [facility] Mean Corpuscular Hemoglobin 26.9(L) 27.0 - 33.0 pg [facility] Mean Corpuscular HGB Conc 33.5 31.0 - 36.0 g/dl [facility] Red Cell Distribution Width 15.8 11.0 - 16.0 % [facility] Platelet Count 184 160 - 400 X10*3/uL [facility] Mean Platelet Volume 10.9 9.4 - 12.4 fL [facility] Neutrophils Percent Auto 50.6 45 - 73 % [facility] Imm Gran Pct Auto 0.3 0.0 - 0.4 % [facility] Lymphocytes Percent Auto 40.0 20 - 40 % [facility] Monocytes Percent Auto 8.0 2 - 11 % [facility] Eosinophils Percent Auto 0.8 0 - 4 % [facility] Basophils Percent Auto 0.3 0 - 2 % [facility] NRBC Pct Auto 0.0 0.0 - 0.2 /100WBC [facility] Neutrophils Absolute Auto 3.0 2.0 - 8.3 x10*3/uL [facility] Imm Gran Abs Auto 0.02 0.00 - 0.03 X10*3/uL [facility] Lymphocytes Absolute Auto 2.4 1.2 - 4.9 X10*3/uL [facility] Monocytes Absolute Auto 0.5 0.1 - 1.2 X10*3/uL [facility] Eosinophils Absolute Auto 0.1 0.0 - 0.4 X10*3/uL [facility] Basophils Absolute Auto 0.0 0.0 - 0.2 X10*3/uL [facility] NRBC Abs Auto 0.000 0.0 - 0.012 X10*3/uL [facility] 02/12/2024 4:05 PM EST 02/12/2024 4:10 PM EST us Generic External Data Provider LAB BLOOD ORDERAB LES Final Result [facility] [address] [place] [phone] * Magnesium (02/12/2024 4:05 PM EST) Magnesium 2.2 1.6 - 2.6 mg/dL [facility] 02/12/2024 4:05 PM EST 02/12/2024 4:10 PM EST us Generic External Data Provider LAB BLOOD ORDERAB LES Final Result [facility] [address] [place], [place] [phone] * (ABNORMAL) Comprehensive Metabolic Panel (02/12/2024 4:05 PM EST) Sodium 139 135 - 145 mmol/L [facility] Potassium 4.3 3.3 - 5.1 mmol/L [facility] Comment:Slight Hemolysis.Int erpret result with caution. Chloride 105 96 - 108 mmol/L [facility] Carbon Dioxide 23 22 - 29 mmol/L [facility] Anion Gap 15 12 - 20 [facility] Urea Nitrogen (BUN) 10 9 - 16 mg/dL [facility] Creatinine, Serum 0.98 0.5 - 1.4 mg/dL [facility] Creatinine Clr Calc Pharmacy -3.2 [facility] Comment:eGFR (calculated fro m the MDRD study equation) and eCrCl(calculated from the Cockcroft-Gault equation) are based ondifferent parameters and may not yield comparable results.If eCrCl result is absurd, please check patient'sheight/weight. Estimated Glomerular Filt Rate >60 [facility] Comment:Chronic Kidney Disea se: Estimated GFR < 60 mL/min/[id number] Kidney Disease: Estimated GFR < 15 mL/min/1.73m2 Glucose 118(H) 60 - 115 mg/dL [facility] Calcium 9.7 8.4 - 10.2 mg/dL [facility] Bilirubin, Total 0.3 0.0 - 1.0 mg/dL [facility] Aspartate Amino Transferase 34 5 - 37 U/L [facility] Comment:Slight Hemolysis.Int erpret result with caution. Alanine Aminotransferase 44(H) 0 - 40 U/L [facility] Total Protein 7.6 6.5 - 8.0 g/dL [facility] Albumin Level 4.4 3.5 - 5.0 g/dL [facility] Alkaline Phosphatase 61 39 - 117 U/L [facility] 02/12/2024 4:05 PM EST 02/12/2024 4:10 PM EST us Generic External Data Provider LAB BLOOD ORDERAB LES Final Result Performing Organization Address [facility] Co de Phone Number [facility] [address] [place] [phone] * Albumin, Random Urine W/Creatinine (08/19/2023 10:08 AM EDT) Creatinine, Urine 53.16 mg/dL [facility] Microalbumin Urine <5.0 mg/L [facility] Microalbum Creatinine Ratio Ur TNP <30 ug/mg cr [facility] Comment:Unable to calculate albumin/creatinine ratio due to lowmicroalbumin or creatinine result. Urine (Urine, Random) 08/19/2023 10:08 AM EDT 08/19/2023 2:00 PM EDT us Vasile Juares MD LAB URINE ORDERABL ES Final Result Performing Organization Address [facility] Co de Phone Number [facility] [address] [place] [phone] * (ABNORMAL) Lipid Panel, Standard (08/19/2023 9:37 AM EDT) Triglycerides 59 <150 mg/dL [facility] Comment:Desirable Triglyceri de: less than 150 mg/dLBorderline High Triglyceride 150-199 mg/dLHigh Triglyceride: 200-499 mg/dLVery High Triglyceride: greater than or equal to 5OO mg/dL Cholesterol 114 <200 mg/dL [facility] Comment:Desirable Cholestero l: less than 200 mg/dLBorderline High Cholesterol: 200-239 mg/dLHigh Cholesterol: greater than 239 mg/dL LDL Cholesterol Calculated 74 <100 mg/dL [facility] Comment:Desirable LDL: less than 100 mg/dLNear Optimal/Above Optimal LDL: 110- 129 mg/dLBorderline High LDL: 130-159 mg/dLHigh LDL: 160-189 mg/dLVery High LDL: greater than or equal to 190 mg/dL HDL Cholesterol 29(L) >40 mg/dL [facility] Comment:Desirable HDL: great er than 40 mg/dL Note: This HDL assay may give artificially low results in patients with liver disease. Blood Venous blood specimen / Unknown 08/19/2023 9:37 AM EDT 08/19/2023 2:02 PM EDT Vasile Juares MD LAB BLOOD ORDERABL ES Final Result Performing Organization Address City/[facility]/ZIP Co de Phone Number [facility] [address] [place] [phone] * HIV-1 RNA, Quantitative, Real-Time PCR with Reflex to Genotype (RTI, PI, Integrase) (07/21/2022 9:57 AM EDT) HIV 1 RNA, QN PCR NOT DETECTED copies/mL [facility], HIV 1 RNA, QN PCR NOT DETECTED Log copies/mL [facility] [place][note 2][facility], Comment: REFERENCE RANGE: NOT DETECTED copies/mL ?NOT DETECTED ??Log copies/mL This test was performed using Real-Time Polymerase Chain Reaction. Reportable range is 20 to 10,000,000 copies/mL (1.30-7.00 Log copies/mL). 07/21/2022 9:57 AM EDT 07/21/2022 9:58 AM EDT Narrative [facility] - 07/23/2022 8:25 PM EDT FASTING:NO FASTING: NO Vasile Juares MD LAB BLOOD ORDERABL ES Final Result [facility] [address], [place] [phone] [facility], [address] [place] [address] * Hepatitis C Antibody with Reflex to HCV, RNA, Quantitative, Real-Time PCR (07/21/2022 9:57 AM EDT) Hepatitis C Antibody NON-REACT FLACO NON-REACT FLACO [facility] [place] [employer] Index 0.08 <1.00 [facility] [place] [employer] Comment: HCV antibody was non-reactive. There is no laboratory evidence of HCV infection. In most cases, no further action is required. However, if recent HCV exposure is suspected, a test for HCV RNA (test code 86360) is suggested. For additional information please refer to http://education.[employer]Works/faq/OIN98h5 (This link is being provided for informational/ educational purposes only.) Blood Venous blood specimen / Unknown 07/21/2022 9:57 AM EDT 07/21/2022 9:58 AM EDT Narrative [facility] - 07/23/2022 8:25 PM EDT FASTING:NO FASTING: NO Vasile Juares MD LAB BLOOD ORDERABL ES Final Result [facility] [address], [place] [address] [facility] [place] [facility] [address] [place] [address] * Hm Colonoscopy (08/16/2020 7:13 AM EDT) Historical Provider HEALTH MAINTENANCE Final Result from Last 3 Months or Most Recently Relevant to Health Maintenance Insurance [facility] PPO Care Teams Review Manager Relationship Specialty Start Date End Date DeutschVasile Cabrera MD [address] [place] [address] PCP - General Internal Medicine 01/11/19
--- OUTSIDE RECORDS SUMMARY | 2024-05-09 18:26 | XMS_ITS | Encounter Summary ---
Author Organization [employer] Address [address] [place] [address] Care Team Providers Care Manager Internet Name Role Phone Vasile Putnam MD Primary Care Prov ider Reason for Visit * Reason Comments Med Refill Encounter Details Date Type Department Care Team (Late Contact Info) Description 08/24/2022 Refill [facility] [address] [place], [place] [phone] Vasile Putnam MD [address] [place], [place] [phone] Fibromyalgia Social History Tobacco Use Types Packs/Day [...] Encounters Date Type Department Care Team (Late Contact Info) Description 05/16/2024 9:00 AM EST Telemedicine [facility] [address] [place], [place] [phone] Vasile Putnam MD [address] [place], [place] [phone] documented as of this encounter Visit Diagnoses Diagnosis Fibromyalgia Unspecified myalgia and myositis documented in this encounter Additional Health Concerns Assessment Noted Time PHQ-9 Depression Total Score: 0 07/22/19 23 9:15 AM EDT documented as of this encounter Care Teams Manager Internet Relationship Specialty Start Date End Date Vasile Putnam MD [address] [place] [phone] PCP - General Internal Medicine 01/11/19 documented as of this encounter
== END 2024-05-09 15:36 | disposition home or self-care (01) ==
LOC: HO.HUSH 14:44
PROVIDERS: PCP Internal Medicine; Visit Provider Urology
DX: E11.69 Type 2 diabetes mellitus with other specified complication (principal); N52.1 Erectile dysfunction due to diseases classified elsewhere; E23.0 Hypopituitarism
CPT/HCPCS: 99214

== ENCOUNTER 2024-05-26 10:51 | Outpatient (AMB) | payer BC, SELFPAY ==
--- NOTE | 2024-05-26 10:58 | A.OFFVIS_ITS ---
Vital Signs 05/26/24 11:01 Height 5 ft 10 in Weight 195 lb 2 oz BMI 28.0 BP 134/84 Blood Pressure Location Lt brachial Position Sitting Pulse 86 Pulse Source Pulse Oximeter Pulse Oximetry (%) 98 Oxygen Delivery Method Room Air Intake Visit Reasons: Medication Discussion Intake Note: Pain today 5/10 Electronics Tech Required: No Accompanied by: Self / Same As Patient Allergies clavulanic acid [From Augmentin] Allergy (Mild, Verified 05/26/24 11:02) Itching Penicillins Allergy (Unknown, Verified 05/26/24 11:02) ITCHING HPI Comments Details: The patient is a 54-year-old male presenting with chronic pain management needs, particularly concerning neck pain associated with arthritis and fibromyalgia, alongside degenerative spinal conditions. The chronicity of his condition is underscored by persistent involvement of the lower neck and shoulder areas. Patient reports pregabalin with favorable efficacy and tolerability profile, reporting no adverse effects. He also uses metacarbamol to augment pain relief which he finds effective. However, the patient experiences regular fibromyalgia flare-ups, confirming a high demand for consistent pain management to sustain daily activities. While pain intensity was rated at a moderate level during this visit, it continues to have a notable impact on the patient?s functionality and necessitates ongoing therapeutic adjustments. Denies any recent cough, cold, infection, fever, dizziness, shortness of breaths, edema, rash, swelling, weakness, bladder or bowel dysfunction, saddle anesthesia or other significant changes in medical history since last office visit. - Onset and Timing: Chronic, ongoing pain - Quality and Character: Aching and soreness - Primary Location: Neck, radiating to lower neck and shoulders - Exacerbating Factors: Omission of metacarbamol - Relieving Factors: Combined use of pregabalin and metacarbamol - Interference with Activities: Yes, level 5/10 in severity - Affect: Pain primarily localized to the neck affects the patient's comfort. Also reports widespread diffuse body pain - Analgesia: Currently on pregabalin, effective with no noted side effects; pain level reported as 5/10 - Adverse Effects: None reported from current medication regimen - Activities of Daily Living: Pain management vital to maintain functionality, though affected by chronic flare-ups - Aberrant Drug-Related Behaviors: None reported PRIOR 02/12/23: Patient presents today for follow-up to review recent cervical spine MRI results. He continues to endorse neck pain, worse with looking up or side rotations, worse on the left side. Reports exacerbation of his fibromyalgia symptoms in mid to lower back pain without radiation to his lower extremities. Patient denies any fever, weight loss, abdominal or groin pain, bladder or bowel dysfunction, or saddle anesthesia. Patient requests refill for muscle relaxant. He states gabapentin 600 mg TID has been partially effective for him. PRIOR: Patient is a pleasant 52 years old male with medical history of chronic neck and back pain, cervical DDD, fibromyalgia, SHERLY/CPAP, HTN, diabetes (A1C=7.0), anxiety, tension and migraine headaches, presents today for evaluation of neck pain. Patient was previously seen at our office over 3 years ago as well as [facility]. He completed series of diagnostic and therapeutic cervical injections in the past with minimal to no pain relief. 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 Neck pain is axial and also discogenic with radicular symptoms into both shoulders, lateral arms and upper back regions as well as fibromyalgia related pain. 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 His neck pain is also worse on the left. He was previously deemed non surgical candidate in 2019. Patient currently manages his neck pain with TENS unit, monthly acupuncture, ice/heat therapy, home exercise program with daily neck stretches, gabapentin, and methocarbamol with continued symptoms. Patient is interested to explore interventional treatments, except cervical SCS trial, for his chronic neck pain. He also experiences low back pain with movements and walking. Pain affects his daily activities, functioning, sleep, social activities, mood and quality of life. He is hesitant towards interventional treatments due to significant phobia with injections but will reconsider it in the near future if neck symptoms worsen. Denies any fever, visual changes, shortness of breaths, chest pain or pressure, gait imbalances, bladder or bowel dysfunction or saddle anesthesia. Neck Disability Index score: 20 / 50 = 40.0 % (moderate) Pertinent Positives: I can look after myself normally but it causes extra pain; I can lift heavy weights but it gives extra pain; I can read as much as I want to with moderate pain in my neck; I can concentrate fully when I want to with slight difficulty; I can only do my usual work, but no more; I can drive my car as long as I want with moderate pain in my neck; My sleep is mildly disturbed (1-2 hrs sleepless); I am able to engage in most, but not all of my usual recreation activities because of pain in my neck; The pain is very severe at the moment; I have severe headaches, which come frequently. Location Neck radiates down bilateral shoulders and upper back Duration Chronic pain for 7 years Characteristics of symptom or complaint Aching, burning, numbness, sore, spasming, tingling Aggravating or associated factors Movements, turning head from side to side, stress, weather changes, driving Relieving factors Ice/ heat, acupuncture, methocarbamol, gabapentin, Tylenol, NSAIDs Treatment PT in 2019 no improvement, neck injections--cervical MBBs and ESIs PRIOR 11/29/2019 Dr. Mendoza: Mr. Paulino is very pleasant 49 years old gentleman who who is here for the follow-up after we performed C4-C5 C6 diagnostic medial branch block. He reports no pain relief even for 1 hour. His pain stayed the same. [facility] pain management have sent me the information injections he had done. Those were to epidural steroid injection 1 in winter of 2018 and 1 in the summer of 2018. The patient reports that those injections were not helping him. Therefore I consider that this patient interventional options are exhausted, I offered him and he agreed to go for neuromodulation. I explained to him intrathecal drug delivery system pain pump he is interested in the procedure. I will send him for psych evaluation. I will see him after psych evaluation is done and schedule him for a trial. Prior: History of complains on pain on left side of the neck. He reports that pain radiates into the left shoulder and left thoracic spine. He reports that his pain prevents him from sleeping normally he cannot do all activities of daily living he can take care of himself but he cannot function normally. His pain is most severe in afternoon weather changes aggravate his pain. He reports his pain in terms of tissue damage is sharp cutting lacerating tugging pulling ranging tingling stinging sort of a pain he reports tingling and stinging sensation in the forearm but it does not radiate into the hand. He was subject of multiple evaluations in the past. He went for physical therapy in 2018. He reports that after 7 sessions the pain did not improve. He saw a neurosurgeon Dr. Magana, who did not recommend any surgery. Dr. referred him to [facility] pain management. He received 3 injections 1 needle at time 2 weeks apart. He reports pain aggravation in the not pain improvement with injections. I suspect that those injections were epidural steroid injections. Although it is strange because series of 3 epidural steroid injections are not being done on of it is anymore. He was attending chiropractor in the past but not to the neck issue. He tried NSAIDs for his pain, those do not help his pain.. He is on gabapentin and amitriptyline which helped his pain minimally. He is not taking any blood thinners. His past medical history significant for diabetes elevated cholesterol and hypertension. His past surgical history is negative. 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 He denies smoking cigarettes drinking alcohol using recreational drugs. [facility] Medical History Mixed hyperlipidemia Muscle spasm Fibromyalgia COVID-19 vaccine series completed Pain of multiple extremities Neck pain History of lumbar puncture Back pain SHERLY (obstructive sleep apnea) Palpitations Anxiety Migraine Hyperlipidemia, unspecified Essential hypertension Type 2 diabetes mellitus with unspecified complications Surgical History History of umbilical hernia repair History of esophagogastroduodenoscopy (EGD) Hx of colonoscopy Family History Mother Diabetes Father Myocardial infarction Social History Alcohol intake: never Comment: medicated in pacu Patient Tobacco Use Status: Never used Tobacco Review of Systems Const All systems reviewed & are unremarkable except as noted in HPI and below Physical Exam Vital Signs: Last Vital Signs Pulse 86 05/26/24 11:01 BP 134/84 05/26/24 11:01 Pulse Ox 98 05/26/24 11:01 Oxygen Delivery Method Room Air 05/26/24 11:01 BMI result Body Mass Index 28.0 General: Appears afebrile. Alert and oriented. Mood and affect appropriate. Follows and participates in conversation appropriately. Respiratory effort is unlabored. No cough. Able to transition from sit to stand unassisted. Ambulates with bilaterally normal heel strike and toe off. Multiple widespread TTPs 16/16 bilaterally, including upper and lower extremities. Neck Other: Patient with decreased cervical ROM in all planes/especially with lateral rotation and bending. Reports increased pain with cervical extension and mild pain with flexion. Multiple taut bands palpated throughout bilateral upper trapezius muscles. Neck: Yes normal visual inspection, Yes full ROM, Yes no lymphadenopathy, Yes supple, No anterior neck swelling, Yes no JVD, No prominent supraclavicular fat pad and Yes prominent dorsocervical fat pad Back/Spine/Pelvis Cervical Spine: cervical ROM normal, No Lhermitte's sign positive, cervical muscular tenderness, pain with cervical ROM, cervical spasm, No Cervical spine tenderness and No step off deformity Thoracic/Lumbar Spine: thoracic and lumbar spine normal to inspection, Thoracic/lumbar spine scar(s), Lasegue's sign negative, straight leg raise negative bilaterally, pain with thoraco-lumbar ROM, paraspinal muscle tenderness, thoraco-lumbar ROM limited, No thoracic spinal tenderness and lumbar spinal tenderness at L4 and at L5 Sacroiliac joints: bilaterally tender to palpation Extrem General: Yes capillary refill normal, Yes no clubbing, cyanosis or edema and Yes no calf tenderness Psych Appearance: grossly normal Mental Status: mental status grossly normal Speech and movement: Normal speech and movement present and Clear speech present Affect: normal affect Attitude: cooperative Thought process: Normal thought process present Thought content: Normal thought content present, suicidality (none), no hallucinations and No Depressive thoughts present Insight: Good insight present (Psych) Judgement: Good judgement present (Psych) Results Reviewed Results Reviewed: MR CERVICAL SPINE WITHOUT CONTRAST 01/21/23 CLINICAL INFORMATION: Cervical radiculopathy. COMPARISON: Cervical spine MRI from 11/06/2020. FINDINGS: Straightening of the normal cervical lordosis. Mild degenerative anterolisthesis of C7 on T1. Moderate degenerative disc disease from C3-T1. Associated mixed Modic type discogenic endplate changes including mild Modic type I discogenic edema at C2-C3, C5-C6, and C6-C7. No additional suspicious marrow edema. The vertebral body heights are well-maintained. No demonstrated spinal cord signal abnormalities. Limited evaluation of the soft tissues of the neck without demonstrated abnormalities. The flow voids of the major cervical vessels are maintained. Normal appearance of the cervicomedullary junction and visualized posterior fossa. SPINAL LEVELS: C2-C3: Moderate disc-osteophyte complex. There is mild right and no left uncovertebral joint arthropathy. There is mild right and no left facet joint arthropathy. There is mild right and the left neural foraminal stenosis. There is no spinal canal stenosis. C3-C4: Moderate disc-osteophyte complex. There is moderate right and mild left uncovertebral joint arthropathy. There is mild bilateral facet joint arthropathy. There is moderate right and mild left neural foraminal stenosis. There is no spinal canal stenosis. C4-C5: Moderate disc-osteophyte complex. There is mild left lateral uncovertebral joint arthropathy. There is mild bilateral facet joint arthropathy. There is no neural foraminal stenosis. There is no spinal canal stenosis. C5-C6: Moderate disc-osteophyte complex. There is severe left and mild right uncovertebral joint arthropathy. There is mild bilateral facet joint arthropathy. There is moderate left and mild right neural foraminal stenosis. There is no spinal canal stenosis. C6-C7: Mild disc-osteophyte complex. There is moderate left and mild right uncovertebral joint arthropathy. There is mild bilateral facet joint arthropathy. There is moderate left and no right neural foraminal stenosis. There is no spinal canal stenosis. C7-T1: Moderate disc-osteophyte complex. There is moderate bilateral uncovertebral joint arthropathy. There is moderate right and mild left facet joint arthropathy. There is moderate bilateral neural foraminal stenosis. There is no spinal canal stenosis. IMPRESSION: Moderate multilevel degenerative spondyloarthropathy of the cervical spine as described in detail above. Most notably, there are moderate neural foraminal stenoses from C3-T1. No overt spinal canal stenosis. Overall, degenerative changes appear similar to exam from 2020. Assessment & Plan Assessment & Plan (1) Fibromyalgia: Code(s): M79.7 - Fibromyalgia Category: Medical (2) Muscle spasm: Code(s): M62.838 - Other muscle spasm Category: Medical (3) Degenerative disc disease, cervical: Code(s): M50.30 - Other cervical disc degeneration, unspecified cervical region Category: Medical (4) Cervical spondylosis: Code(s): M47.812 - Spondylosis without myelopathy or radiculopathy, cervical region Category: Medical (5) Thoracolumbar back pain: Code(s): M54.50 - Low back pain, unspecified; M54.6 - Pain in thoracic spine Category: Medical Plan The patient's treatment regimen was modified to increase the pregabalin dosage to 200 mg twice daily, coupled with continuous monitoring for any side effects, namely dizziness. The interventional procedure option was revisited, though the patient prefers to defer that for future consideration. Patient encouraged to maintain open communication, particularly through the patient portal or calling our office, to address any concerns arising from the medication adjustment or current pain generator parameters. All questions and concerns have been answered and patient agreed with the plan. Follow up for medication review and sooner as needed. Patient was informed and verbally consented to the use of an ambient scribe for clinic note documentation during this visit. Medications: Changed From pregabalin 150 mg PO BID 30 days 60 caps 1RF pain M47.812 - Spondylosis without myelopathy or radiculopathy, cervical region, M50.30 - Other cervical disc degeneration, unspecified cervical region, M54.50 - Low back pain, unspecified, M54.6 - Pain in thoracic spine, M62.838 - Other muscle spasm, M79.7 - Fibromyalgia To pregabalin 200 mg PO BID 30 days 60 caps 1RF pain M47.812 - Spondylosis without myelopathy or radiculopathy, cervical region, M50.30 - Other cervical disc degeneration, unspecified cervical region, M54.50 - Low back pain, unspecified, M54.6 - Pain in thoracic spine, M62.838 - Other muscle spasm, M79.7 - Fibromyalgia Refilled methocarbamol TAKE 1 TABLET BY MOUTH THREE TIMES DAILY NEEDED FOR MUSCLE SPASM 90 tabs 1RF M62.838 - Other muscle spasm Patient Instructions: I discussed with the patient the plan to increase pregabalin to address his chronic pain symptoms more effectively, especially neck and shoulder discomfort. Risks pertaining to possible dizziness with increased dosage were explained, with an agreement to revert to previous dosing if adverse symptoms arise. I highlighted the avoidance of alcohol to prevent interactions, and reconfirmed the pharmacy arrangements. The patient was reassured that fibromyalgia and related symptoms and cervical spondylosis, as well as stable diabetes management, will continue to receive collaborative care, with open dialogue maintained via the patient portal and office follow ups. - Increase pregabalin dosage as directed to 200 mg twice daily - Monitor for any new symptoms, particularly dizziness, and report if they occur - Avoid alcohol to prevent interaction with pregabalin - Continue taking metacarbamol as prescribed - Follow up via patient portal/call office to report on response to medication changes - Consider potential interventional treatments in the future if pain management becomes insufficient Coding Level of Care Code Est Pt Level 4 (37227) Complex EM visit Add On G2211 Diagnoses Fibromyalgia M79.7 Muscle spasm M62.838 Degenerative disc disease, cervical M50.30 Cervical spondylosis M47.812 Thoracolumbar back pain M54.50; M54.6
[2024-05-26 11:01] VITALS: BP 134/84; PULSE 86; O2SAT 98; BMI 28.0
--- OUTSIDE RECORDS SUMMARY | 2024-05-26 12:28 | XMS_ITS | Encounter Summary ---
Author Organization [employer] Address [address] [address] Care Team Providers Care Materials Inspector Name Role Phone Vasile Putnam MD Primary Care Prov ider Reason for Visit * Reason Comments Med Refill Encounter Details Date Type Department Care Team (Late st Contact Info) Description 05/21/2024 Refill [facility] [address] [place] [address] Vasile Putnam MD [address] [place] [address] Social History Tobacco Use Types Packs/Day Years [...] documented as of this encounter Care Teams Materials Inspector Relationship Specialty Start Date End Date Vasile Putnam MD [address] [place] [id number] PCP - General Internal Medicine 01/11/19 documented as of this encounter
--- OUTSIDE RECORDS SUMMARY | 2024-05-26 12:28 | XMS_ITS | Encounter Summary ---
Author Organization [employer] Address [address] [facility] [address] [place] [address] Care Team Providers Care Director Of Operations Home Health Name Role Phone Vasile Putnam MD Primary Care Prov ider Encounter Details Date Type Department Care Team ([facility] st Contact Info) Description 04/26/2024 Orders Only [...] Testosterone, Total 325 250 - 1100 ng/dL [facility] Comment:For additional infor matpenelope, please refer [email or web address](This link is being provided for informational/educational purposes only.)This test was developed and its analytical performancecharacteristics have been determined by [employer] [place], [place]. It hasnot been cleared or approved by the U.S. Food and DrugAdministration. This assay has been validated pursuantto the CLIA regulations and is used for clinicalpurposes.THIS TEST WAS PERFORMED AT:[employer] [place] [address]SBTJUYWWINSTON HAMMER MD,PHD 04/26/2024 4:11 PM EST 04/26/2024 4:11 PM EST us Generic External Data Provider LAB BLOOD ORDERAB LES Final Result [facility] [address] [place] [phone] documented in this encounter Visit Diagnoses Not on filedocumented in this encounter Additional Health Concerns Assessment Noted Time PHQ-9 Depression Total Score: 0 07/22/19 23 9:15 AM EDT documented as of this encounter Care Teams Director Of Operations Home Health Relationship Specialty Start Date End Date Vasile Putnam MD [address] [place] [id number] PCP - General Internal Medicine 01/11/19 documented as of this encounter
--- OUTSIDE RECORDS SUMMARY | 2024-05-26 12:28 | XMS_ITS | Clinical Summary ---
Author Organization [employer] Address 75 [facility] 7 [place] [address] Care Team Providers Care Cnc Machinist 2Nd Shift Name Role Phone Vasile Putnam MD Primary [...] MORNING 90 capsule 3 01/07/20 24 Active DULoxetine (Cymbalta) [address] capsuleIndicat ions:Fibromyal liam TAKE 1 CAPSULE(30 MG) BY MOUTH TWICE DAILY. DO NOT CRUSH OR CHEW 60 capsule 2 02/16/20 24 Active dapagliflozin (Farxiga) 10 MG Take 1 tablet (10 mg) by mouth Once per day. 30 tablet 11 04/04/19 25 Active fluticasone (Flonase) 50 MCG/ACT nasal sprayIndicatio ns:Acute maxillary sinusitis, recurrence not specified ADMINISTER 1-2 SPRAYS INTO EACH NOSTRIL EVERY DAY 16 g 04/06/19 25 Active pregabalin (Lyrica) 150 MG capsule TAKE 1 CAPSULE(150 MG) BY MOUTH TWICE DAILY 60 capsule 3 05/25/19 25 Active pregabalin (Lyrica) 150 MG capsule TAKE 1 CAPSULE(150 MG) BY MOUTH TWICE DAILY 60 capsule 1 02/16/20 24 025 Discontinued clotrimazole (Lotrimin) 1 % cream Apply topically 2 times daily for 28 days. 30 g 11 03/30/19 25 025 Active Problems Problem Noted Date Diagnosed Date [...] Encounters Date Type Department Care Team Description 05/21/2024 Refill [facility] [address] [place] [address] Vasile Putnam MD 04/26/2024 Orders Only GENERIC EXTERNAL DATA DEPARTMENT Provider, Generic External Data 04/06/2024 Refill [facility] [address] [place] [address] iLsa Girard MD Acute maxillary sinusitis, recurrence not specified 04/04/2024 Refill [facility] [address] [place] [address] Vasile Putnam MD 04/03/2024 Refill [facility] [address] [place] [address] Vasile Putnam MD 03/30/2024 9:30 AM EST Office Visit [facility] [address] [place] [address] Vasile Putnam MD Acute pain of left shoulder (Primary Dx); Type 2 diabetes mellitus without complication, without long-term current use of insulin ([facility]) 03/30/2024 Travel 03/30/2024 Telephone [facility] [address] [place] [address] [phone] Vasile Putnam MD Nurse Triage 03/09/2024 2:20 PM EST Office Visit [facility] [address] [place], [place] [phone] Lisa Girard MD Acute maxillary sinusitis, recurrence [...] 1968 FIT 1968 FOBT 1968 Sigmoidoscopy 1968 Alcohol/Substance Use Screening 1980 Hepatitis B Vaccines (1 of 3 - 19+ 3-dose series) 1987 Depression Screening 07/22/2023 07/21/2022, 07/22/19 23 COVID-19 Vaccine ( season) 2023 05/30/2022, 01/30/2021, 07/07/2020, Additional history exists SDOH Screening 08/15/2024 08/16/2023 Tobacco Screening 03/09/2025 03/09/2024 Colonoscopy 08/16/2025 08/16/2020 Colorectal Cancer Screening 08/16/2025 Lipid Panel 08/18/2028 08/19/2023, 10/2022, 07/21/2022, Additional history exists DTaP/Tdap/Td Vaccines (3 - Td or Tdap) [...] ([facility]) POCT GLUCOSE Routine 03/30/2024 9:51 AM EST Type 2 diabetes mellitus without complication, without long-term current use of insulin ([facility]) POCT COVID-19 AG JEFFERS ID NOW Routine 03/09/2024 2:21 PM EST Cough in adult POCT INFLUENZA B (ID NOW RAPID MOLECULAR) Routine 03/09/2024 2:21 PM EST Cough in adult POCT INFLUENZA A (ID NOW RAPID MOLECULAR) Routine 03/09/2024 2:20 PM EST Cough in adult TESTOSTERONE, TOTAL, MALES (ADULT), IA Routine 02/29/2024 2:38 PM EST LIPID PANEL, STANDARD Routine 08/19/2023 9:37 AM [...] Testosterone, Total 325 250 - 1100 ng/dL [facility] Comment:For additional infor navjot, please refer tohttp://education.Zjdg.cn.[employer]/faq/PsgetNundsttnbdqzLPQKFGPJR222(This link is being provided for informational/educational purposes only.)This test was developed and its analytical performancecharacteristics have been determined by [employer] [place], [place]. It hasnot been cleared or approved by the U.S. Food and DrugAdministration. This assay has been validated pursuantto the CLIA regulations and is used for clinicalpurposes.THIS TEST WAS PERFORMED AT:[place] [place] [address]JXJBVRSWINSTON HAMMER MD,PHD 04/26/2024 4:11 PM EST 04/26/2024 4:11 PM EST us Generic External Data Provider LAB BLOOD ORDERAB LES Final Result Performing Organization Address [facility] Co de Phone Number [facility] [address] [place] [phone] * (ABNORMAL) POCT HGB A1C (03/30/2024 9:51 AM EST) Hemoglobin A1C 6.6(A) 4.0 - 6.0 % QC Media Lot # [id number] Lot# Expiration Date Blood 03/30/2024 9:51 AM EST us Vasile [...] JEFFERS ID NOW (03/09/2024 2:21 PM EST) Influenza B Negative Negative, Indeterminate [facility] QC Media Lot # [id number] [facility] Lot# Expiration Date [id number] [facility] Swab 03/09/2024 2:21 PM EST us Lisa Taylor MD POINT OF CARE TEST EN TER/EDIT ORDERABLES Final Result Performing Organization Address City/[facility]/ZIP Co de Phone Number [facility] [address] [place] [phone] [phone] * POCT Rapid Covid-19 JEFFERS ID NOW (03/09/2024 2:21 PM EST) Pathologist [facility] Coronavirus Antigen PCR Negative Negative, Indeterminate, None Detected, Invalid, Specimen unsatisfactory for evaluation, Weakly Positive QC Media Lot # [id number] Lot# Expiration Date [id number] Swab 03/09/2024 2:21 PM EST Lisa Taylor MD POINT OF CARE TEST EN TER/EDIT ORDERABLES Final Result * POCT Rapid Influenza A JEFFERS ID NOW (03/09/2024 2:20 PM EST) [facility] Influenza A Negative Negative, Indeterminate [facility] QC Media Lot # [id number] [facility] Lot# Expiration Date [id number] [facility] Swab 03/09/2024 2:20 PM EST Lisa Taylor MD POINT OF CARE TEST EN TER/EDIT ORDERABLES Final Result Performing Organization Address [facility] Co de Phone Number [facility] [address] [place] [phone] * (ABNORMAL) Lipid Panel, Standard (08/19/2023 9:37 AM EDT) [facility] Triglycerides 59 <150 mg/dL [facility] Comment:Desirable Triglyceri de: less than 150 mg/dLBorderline High Triglyceride 150-199 mg/dLHigh Triglyceride: 200-499 mg/dLVery High Triglyceride: greater than or equal to 5OO mg/dL Cholesterol 114 <200 mg/dL [facility] Comment:Desirable Cholestero l: less than 200 mg/dLBorderline High Cholesterol: 200-239 mg/dLHigh Cholesterol: greater than 239 mg/dL LDL Cholesterol Calculated 74 <100 mg/dL [facility] Comment:Desirable LDL: less than 100 mg/dLNear Optimal/Above Optimal LDL: 110- 129 mg/dLBorderline High LDL: 130-159 mg/dLHigh LDL: 160-189 mg/dLVery High LDL: greater than or equal to 190 mg/dL HDL Cholesterol 29(L) >40 mg/dL [facility] Comment:Desirable HDL: great er than 40 mg/dL Note: This HDL assay may give artificially low results in patients with liver disease. Blood Venous blood specimen / Unknown 08/19/2023 9:37 AM EDT 08/19/2023 2:02 PM EDT us Vasile Juares MD LAB BLOOD ORDERABL ES Final Result Performing Organization Address City/[facility]/ZIP Co de Phone Number [facility] [address] [place] [phone] * HIV-1 RNA, Quantitative, Real-Time PCR with Reflex to Genotype (RTI, PI, Integrase) (07/21/2022 9:57 AM EDT) Pathologist [facility] HIV 1 RNA, QN PCR NOT DETECTED copies/mL [facility], HIV 1 RNA, QN PCR NOT DETECTED Log copies/mL [facility], Comment: REFERENCE RANGE: NOT DETECTED copies/mL ?NOT DETECTED ??Log copies/mL This test was performed using Real-Time Polymerase Chain Reaction. Reportable range is 20 to 10,000,000 copies/mL (1.30-7.00 Log copies/mL). 07/21/2022 9:57 AM EDT 07/21/2022 9:58 AM EDT Narrative [facility] - 07/23/2022 8:25 PM EDT FASTING:NO FASTING: NO us Vasile Juares MD LAB BLOOD ORDERABL ES Final Result Performing Organization Address City/[facility]/ZIP Co de Phone Number [address], [place] [address] [facility], [address] [place] [address] * Hepatitis C Antibody with Reflex to HCV, RNA, Quantitative, Real-Time PCR (07/21/2022 9:57 AM EDT) Hepatitis C Antibody NON-REACT FLACO NON-REACT FLACO [facility] [place] [facility] Index 0.08 <1.00 [facility] [place] [facility] Comment: HCV antibody was non-reactive. There is no laboratory evidence of HCV infection. In most cases, no further action is required. However, if recent HCV exposure is suspected, a test for HCV RNA (test code 93045) is suggested. For additional information please refer to http://education.[employer]/faq/CDF17u4 (This link is being provided for informational/ educational purposes only.) Blood Venous blood specimen / Unknown 07/21/2022 9:57 AM EDT 07/21/2022 9:58 AM EDT Narrative [facility] - 07/23/2022 8:25 PM EDT FASTING:NO FASTING: NO Vaisle Juares MD LAB BLOOD ORDERABL ES Final Result [facility] [address], [place] [address] [facility] [place] [facility] [address] [place] [address] * Hm Colonoscopy (08/16/2020 7:13 AM EDT) Historical Provider HEALTH MAINTENANCE Final Result from Last 3 Months or Most Recently Relevant to Health Maintenance Insurance [facility] PPO Care Teams Cnc Machinist 2Nd Shift Relationship Specialty Start Date End Date DeutschVasile Mari MD [address] [place] [address] PCP - General Internal Medicine 01/11/19
--- OUTSIDE RECORDS SUMMARY | 2024-05-26 12:28 | XMS_ITS | Encounter Summary ---
Author Organization [employer] Address 75 [facility] [address] [address] Care Team Providers Care Acetone Recovery Worker Name Role Phone Vasile Putnam MD Primary Care Prov ider Reason for Visit * Reason Onset Date Comments Nurse Triage 09/27/2023 Encounter Details Date Type Department Care Team ([facility] st Contact Info) Description 09/27/2023 Telephone [facility] [address] [place] [address] Vasile Putnam MD [address] [place] [address] Nurse Triage Social History Tobacco Use Types [...] documented as of this encounter Care Teams Acetone Recovery Worker Relationship Specialty Start Date End Date Vasile Putnam MD [address] [place] [phone] PCP - General Internal Medicine 01/11/19 documented as of this encounter
--- OUTSIDE RECORDS SUMMARY | 2024-05-26 12:28 | XMS_ITS | Encounter Summary ---
Author Organization [employer] Address 75 [facility] 7t [place] [address] Care Team Providers Care Communications Director Name Role Phone Vasile Putnam MD Primary Care Prov ider Encounter Details Date Type Department Care Team ([facility] st Contact Info) Description 06/26/2023 Orders Only [facility] [address] [place] [address] Provider, MD Min Social History Tobacco Use [...] documented as of this encounter Care Teams Communications Director Relationship Specialty Start Date End Date DeutschVasile Mari MD [address] [place] [phone] PCP - General Internal Medicine 01/11/19 documented as of this encounter
--- OUTSIDE RECORDS SUMMARY | 2024-05-26 12:28 | XMS_ITS | Encounter Summary ---
Author Organization [employer] Address [address] [address] Care Team Providers Care Embedded Hardware Engineer Name Role Phone Vasile Putnam MD Primary Care Prov ider Reason for Visit * Reason Comments Med Refill Encounter Details Date Type Department Care Team (Late st Contact Info) Description 08/24/2022 Refill [facility] [address] [place] [address] Vasile Putnam MD [address] [place] [address] Fibromyalgia Social History Tobacco Use Types Packs/Day [...] documented as of this encounter Care Teams Embedded Hardware Engineer Relationship Specialty Start Date End Date Vasile Putnam MD [address] [place] [phone] PCP - General Internal Medicine 01/11/19 documented as of this encounter
== END 2024-05-26 11:08 | disposition home or self-care (01) ==
LOC: HO.PMC 10:51
PROVIDERS: PCP Internal Medicine; Visit Provider Nurse Practitioner Family
DX: M79.7 Fibromyalgia (principal); M62.838 Other muscle spasm; M50.30 Other cervical disc degeneration, unspecified cervical region; M47.812 Spondylosis without myelopathy or radiculopathy, cervical region; M54.50 Low back pain, unspecified; M54.6 Pain in thoracic spine
CPT/HCPCS: 99214

== ENCOUNTER → 2024-05-26 10:51 | Outpatient (BNVA) | payer BC, SELFPAY | PROVIDERS: PCP Internal Medicine; Visit Provider Nurse Practitioner Family ==

== ENCOUNTER 2024-08-02 00:21 | Emergency (ER) | payer BC, SELFPAY ==
--- NOTE | 2024-08-02 | ECG_ITS ---
Test Reason : CHEST PAIN Blood Pressure : */* mmHG Vent. Rate : 78 BPM Atrial Rate : 78 BPM P-R Int : 172 ms QRS Dur : 84 ms QT Int : 356 ms P-R-T Axes : 66 34 44 degrees QTcB Int : 405 ms Normal sinus rhythm Cannot rule out Anterior infarct , age undetermined Abnormal ECG When compared with ECG of 01-Sep-2023 12:21, No significant change was found Referred By: Generic ED Physician Electronically Signed By: Ishmael Mccracken
--- NOTE | ~2024-08-02 | XR_ITS ---
CLINICAL HISTORY: chest pain 2 view chest x-ray Comparison: CR/SR - XR CHEST 2V - 09/28/23 10:54 EDT Findings: No consolidation or effusion. Normal size heart. No acute fracture. IMPRESSION: 1. No acute findings. This document has been electronically signed by: Deloris Benz MD on 08/02/2024 00:54:36
[2024-08-02 00:28] VITALS: BP 115/78; PULSE 73; RESP 18; TEMP 36.1; O2SAT 96; BMI 27.3
[2024-08-02 00:47] LABS: MANUAL DIFF FLAG NO
[2024-08-02 00:48] LABS: Basophils Percent Auto 0.3 % (0-2); Eosinophils Absolute Auto 0.1 X10*3/uL (0.0-0.4); Eosinophils Percent Auto 1.3 % (0-4); Hematocrit 47.2 % (42.0-52.0); Hemoglobin 16.4 g/dl (14.0-18.0); Imm Gran Abs Auto 0.02 X10*3/uL (0.00-0.03); Imm Gran Pct Auto 0.3 % (0.0-0.4); Lymphocytes Absolute Auto 2.8 X10*3/uL (1.2-4.9); Lymphocytes Percent Auto 46.2 % (20-40); Mean Corpuscular HGB Conc 34.7 g/dl (31.0-36.0); Mean Corpuscular Hemoglobin 28.1 pg (27.0-33.0); Mean Platelet Volume 11.1 fL (9.4-12.4); Monocytes Absolute Auto 0.6 X10*3/uL (0.1-1.2); Monocytes Percent Auto 9.4 % (2-11); Neutrophils Absolute Auto 2.6 x10*3/uL (2.0-8.3); Neutrophils Percent Auto 42.5 % (45-73); Platelet Count 180 X10*3/uL (160-400); Red Blood Count 5.83 X10*6/uL (4.60-5.80); Red Cell Distribution Width 14.6 % (11.0-16.0)
[2024-08-02 01:09] LABS: Troponin-I High Sensitivity 7.4 ng/L (<3.5-35.0)
[2024-08-02 01:18] LABS: Alanine Aminotransferase 47 U/L (0-40); Albumin Level 4.3 g/dL (3.5-5.0); Alkaline Phosphatase 65 U/L (39-117); Anion Gap 14 (12-20); Aspartate Amino Transferase 30 U/L (5-37); Bilirubin Total 0.2 mg/dL (0.0-1.0); Blood Urea Nitrogen 14 mg/dL (9-16); Calcium 9.7 mg/dL (8.4-10.2); Carbon Dioxide 24 mmol/L (22-29); Chloride 104 mmol/L (96-108); Estimated Glomerular Filt Rate > 60; Glucose Random 154 mg/dL (60-115); Potassium 3.8 mmol/L (3.3-5.1); Sodium 138 mmol/L (135-145); Total Protein 7.5 g/dL (6.5-8.0)
--- OUTSIDE RECORDS SUMMARY | 2024-08-02 01:18 | XMS_ITS | Encounter Summary ---
Author Organization [employer] Address [address] [place] [address] Care Team Providers Care Dock Boss Name Role Phone Vasile Putnam MD Primary Care Prov ider Reason for Visit * Reason Comments Med Refill Encounter Details Date Type Department Care Team (Late Contact Info) Description 08/24/2022 Refill [facility] [address] [place], [place] [phone] Vasile Putnam MD [address] [place], [place] [phone] Fibromyalgia Social History Tobacco Use Types Packs/Day [...] Department Care Team (Late Contact Info) Description 09/21/2024 3:45 PM EDT Office Visit [facility] [address] [place], [place] [phone] Vasile Putnam MD [address] [place], [place] [phone] documented as of this encounter Visit Diagnoses Diagnosis Fibromyalgia Unspecified myalgia and myositis documented in this encounter Additional Health Concerns Assessment Noted Time PHQ-9 Depression Total Score: 0 07/22/19 23 9:15 AM EDT documented as of this encounter Care Teams Dock Boss Relationship Specialty Start Date End Date Vasile Putnam MD [address] [place] [phone] PCP - General Internal Medicine 01/11/19 documented as of this encounter
--- OUTSIDE RECORDS SUMMARY | 2024-08-02 01:18 | XMS_ITS | Clinical Summary ---
Author Organization [employer] Address 75 [facility] 7t [place] [address] Care Team Providers Care Information Technology Instructor Name Role Phone Vasile Putnam MD Primary [...] for 10 days. 30 tablet 4 Active venlafaxine XR (Effexor XR) 73 [...] THE MORNING 90 capsule 3 4 Active DULoxetine (Cymbalta) [address] [...] NOSTRIL EVERY DAY 16 g 5 Active pregabalin (Lyrica) 150 MG capsule TAKE 1 CAPSULE(150 MG) BY MOUTH TWICE DAILY 60 capsule 3 5 Active atorvastatin (Lipitor) 40 MG tablet TAKE 1 TABLET(40 MG) BY MOUTH IN THE MORNING 90 tablet 1 5 Active Active Problems Problem Noted Date Diagnosed Date [...] Encounters Date Type Department Care Team Description 07/31/2024 Telephone [facility] [address] [place] [address] Vasile Putnam MD Lab Orders 06/14/2024 Refill [facility] [address] [place] [address] Vasile Putnam MD 05/21/2024 Refill [facility] MED & PEDS [address] [place] [address] Vasile Putnam MD from Last 3 Months Immunizations Immunization Administration Dates Next Due Influenza, seasonal, injectable, [...] Care Team (Late st Contact Info) Description 09/21/2024 3:45 PM EDT Office Visit [facility] P[facility] [address] [place] [address] Vasile Putnam MD [address] [place] [address] Health Maintenance Due Date Last Done Comments CT Colonography 1968 FIT DNA/Cologuard 1968 FIT 1968 FOBT 1968 Sigmoidoscopy 1968 Disability Screening 1968 Eye Exam 1978 Alcohol/Substance Use Screening [...] patient's age to complete this topic Meningococcal B Vaccine Aged Out No l onger eligible based on patient's age to complete [...] Media Lot # [id number] Lot# Expiration Date [id number] Blood 03/30/2024 9:51 AM EST Vasile Juares MD POINT OF CARE TEST ENTER/EDIT ORDERABLES Final Result * Albumin, Random Urine W/Creatinine (08/19/2023 10:08 AM EDT) Creatinine, Urine 53.16 mg/dL [facility] Microalbumin Urine <5.0 mg/L [facility] Microalbum Creatinine Ratio Ur TNP <30 ug/mg cr [facility] Comment:Unable to calculate albumin/creatinine ratio due to lowmicroalbumin or creatinine result. Urine (Urine, Random) 08/19/2023 10:08 AM EDT 08/19/2023 2:00 PM EDT Vasile Juares MD LAB URINE ORDERABL ES Final Result [facility] [address] [place] [phone] * (ABNORMAL) Lipid Panel, Standard (08/19/2023 9:37 AM EDT) Triglycerides 59 <150 mg/dL [facility] Comment:Desirable Triglyceri de: less than 150 mg/dLBorderline High Triglyceride 150-199 mg/dLHigh Triglyceride: 200-499 mg/dLVery High Triglyceride: greater than or equal to 5OO mg/dL Cholesterol 114 <200 mg/dL [facility] Comment:Desirable Cholestero l: less than 200 mg/dLBorderline High Cholesterol: 200-239 mg/dLHigh Cholesterol: greater than 239 mg/dL LDL Cholesterol Calculated 74 <100 mg/dL [facility] Comment:Desirable LDL: less than 100 mg/dLNear Optimal/Above Optimal LDL: 110- 129 mg/dLBorderline High LDL: 130-159 mg/dLHigh LDL: 160-189 mg/dLVery High LDL: greater than or equal to 190 mg/dL HDL Cholesterol 29(L) >40 mg/dL [facility] Comment:Desirable HDL: great er than 40 mg/dL Note: This HDL assay may give artificially low results in patients with liver disease. Blood Venous blood specimen / Unknown 08/19/2023 9:37 AM EDT 08/19/2023 2:02 PM EDT Vasile Juares MD LAB BLOOD ORDERABL ES Final Result Performing Organization Address City/[facility]/ZIP Co de Phone Number [facility] [address] [place] [phone] * HIV-1 RNA, Quantitative, Real-Time PCR with Reflex to Genotype (RTI, PI, Integrase) (07/21/2022 9:57 AM EDT) Pathologist [facility] HIV 1 RNA, QN PCR NOT DETECTED copies/mL [facility], HIV 1 RNA, QN PCR NOT DETECTED Log copies/mL [facility], Comment: REFERENCE RANGE: NOT DETECTED copies/mL ?NOT DETECTED ??Log copies/mL This test was performed using Real-Time Polymerase Chain Reaction. Reportable range is 20 to 10,000,000 copies/mL (1.30-7.00 Log copies/mL). 07/21/2022 9:57 AM EDT 07/21/2022 9:58 AM EDT Narrative [facility] - 07/23/2022 8:25 PM EDT FASTING:NO FASTING: NO Vasile Juares MD LAB BLOOD ORDERABL ES Final Result [address], [place] [address] [facility], [address] [place] [address] * Hepatitis C Antibody with Reflex to HCV, RNA, Quantitative, Real-Time PCR (07/21/2022 9:57 AM EDT) Hepatitis C Antibody NON-REACT FLACO NON-REACT FLACO [facility] Index 0.08 <1.00 [facility] Comment: HCV antibody was non-reactive. There is no laboratory evidence of HCV infection. In most cases, no further action is required. However, if recent HCV exposure is suspected, a test for HCV RNA (test code 34877) is suggested. For additional information please refer to http://education.[employer]/faq/QFO20c2 (This link is being provided for informational/ educational purposes only.) Blood Venous blood specimen / Unknown 07/21/2022 9:57 AM EDT 07/21/2022 9:58 AM EDT Narrative [facility] - 07/23/2022 8:25 PM EDT FASTING:NO FASTING: NO Vasile Juares MD LAB BLOOD ORDERABL ES Final Result [facility] [address], [place] [address] [employer] [place] [employer] [address] [place] [address] * Hm Colonoscopy (08/16/2020 7:13 AM EDT) Min Provider HEALTH MAINTENANCE Final Result from Last 3 Months or Most Recently Relevant to Health Maintenance Insurance [employer] PPO Care Teams Information Technology Instructor Relationship Specialty Start Date End Date Vasile Putnam MD [address] [place] [address] PCP - General Internal Medicine 01/11/19
--- OUTSIDE RECORDS SUMMARY | 2024-08-02 01:18 | XMS_ITS | Encounter Summary ---
Author Organization [employer] Address [address] [address] Care Team Providers Care Automobile Mechanic Supervisor Name Role Phone Vasile Putnam MD Primary Care Prov ider Reason for Visit * Reason Onset Date Comments Lab Orders 07/31/2024 Encounter Details Date Type Department Care Team ([facility] st Contact Info) Description 07/31/2024 Telephone [facility] [address] [place] [address] Vasile Putnam MD [address] [place], [place] [phone] Lab Orders Social History Tobacco Use Types Packs/Day Years [...] encounter Miscellaneous Notes * Telephone Encounter - Geovany Abel - 07/31/2024 2:08 PM EDT Tc from pt requesting lab orders stating no immediate concerns at the moment but would like to be evaluated. If any questions please contact pt at [phone]. documented in this encounter Plan of Treatment Upcoming Encounters Date Type Department Care Team (Late st Contact Info) Description 09/21/2024 3:45 PM EDT Office Visit [facility] MED & PEDS [address] [place] [address] Vasile Putnam MD [address] [place] [address] documented as of this encounter Visit Diagnoses Not on filedocumented in this encounter Additional Health Concerns Assessment Noted Time PHQ-9 Depression Total Score: 0 07/22/19 23 9:15 AM EDT documented as of this encounter Care Teams Automobile Mechanic Supervisor Relationship Specialty Start Date End Date Vasile Putnam MD [address] [place] [address] PCP - General Internal Medicine 01/11/19 documented as of this encounter
--- OUTSIDE RECORDS SUMMARY | 2024-08-02 01:18 | XMS_ITS | Encounter Summary ---
Author Organization [employer] Address [address] [address] Care Team Providers Care Electric Gas Appliances Demonstrator Name Role Phone Vasile Putnam MD Primary Care Prov ider Reason for Visit * Reason Onset Date Comments Nurse Triage 09/27/2023 Encounter Details Date Type Department Care Team ([facility] st Contact Info) Description 09/27/[address] [facility] MED & PEDS [address] [place] [address] Vasile Putnam MD [address] [place] [address] Nurse Triage Social History Tobacco Use Types [...] Description 09/21/2024 3:45 PM EDT Office Visit [facility] MED & PEDS [address] [place] [address] Vasile Putnam MD [address] [place] [address] documented as of this encounter Visit Diagnoses Not on filedocumented in this encounter Additional Health Concerns Assessment Noted Time PHQ-9 Depression Total Score: 0 07/22/19 23 9:15 AM EDT documented as of this encounter Care Teams Electric Gas Appliances Demonstrator Relationship Specialty Start Date End Date Vasile Putnam MD [address] [place] [address] PCP - General Internal Medicine 01/11/19 documented as of this encounter
--- NOTE | 2024-08-02 01:55 | ED_ITS ---
HPI - Chest Pain General Chief Complaint: Chest Pain Stated Complaint: chest pain Time Seen by Provider: 08/02/24 01:55 History of Present Illness ED Provider: Ruddy RODRIGUEZ narrative: The patient is a 54-year-old male who has been having intermittent pain in his left chest for about 2 or 3 days. He thinks that perhaps this is related to the fact that he ran out of his omeprazole 3 days ago. He says that he feels his chest is sore when he pushes on it. He also feels that he has had ?electric? like shocks to his chest intermittently as well. He became worried about these symptoms persisting for 2 or 3 days and he finally decided he should get checked with the emergency room to make sure he was not having a heart attack. No fever, sweats, chills. No cough or sputum. Related Data Home Medications ?Medication ?Instructions ?Recorded ?Confirmed atorvastatin 40 mg tablet 40 mg PO BEDTIME 03/13/20 03/30/24 venlafaxine 75 mg capsule,extended 75 mg PO BEDTIME 03/13/20 03/30/24 release 24 hr cetirizine 10 mg tablet 10 mg PO DAILY 11/20/22 03/30/24 metformin 1,000 mg tablet 1,000 mg PO BID 11/20/22 03/30/24 dapagliflozin propanediol 10 mg mg PO DAILY 05/26/24 tablet (Farxiga) Previous Rx's ?Medication ?Instructions ?Recorded lisinopril 10 mg tablet 10 mg PO DAILY HTN 90 days #90 tabs 12/17/22 omeprazole 20 mg capsule,delayed 20 mg PO BID #30 caps 02/18/23 release tadalafil 5 mg tablet 5 mg PO DAILY sexual activity 90 02/15/24 days #90 tabs polyethylene glycol 3350 17 17 g PO DAILY 30 days #510 grams 03/30/24 gram/dose oral powder (Miralax) sennosides 8.6 mg-docusate sodium 1 tab-cap PO BEDTIME 60 days #60 03/30/24 50 mg tablet (Senna with Docusate tabs Sodium) naproxen 500 mg tablet (Naprosyn) 500 mg PO BID #20 tabs 04/05/24 needle (disp) 18 G 18 gauge x 1 #30 ea 05/09/24 (BD Regular [place]) needle (disp) 23 gauge 23 gauge x #30 ea 05/09/24 3/4 (BD Regular [place]) syringe (disposable) 1 mL (BD #30 ea 05/09/24 Luer-Ami Syringe) testosterone cypionate 200 mg/mL 80 mg (0.4 mL) subcut QWEEK 4 05/09/24 intramuscular oil weeks #2 mL (Depo-Testosterone) safety needles 23 gauge x 1 (BD #30 ea 05/15/24 SafetyGlide Needle) methocarbamol 750 mg tablet See Rx Instructions .Route 05/26/24 .COMPLEX #90 tabs pregabalin 200 mg capsule 200 mg PO BID pain 30 days #60 caps 05/26/24 ibuprofen 400 mg tablet 400 mg PO Q6H PRN pain #14 tabs 08/02/24 Allergies Allergy/AdvReac Type Severity Reaction Status Date / Time clavulanic acid Allergy Mild Itching Verified 08/02/24 00:30 [From Augmentin] Penicillins Allergy Unknown ITCHING Verified 08/02/24 00:30 Review of Systems 2 Review of Systems: Yes all other systems are reviewed and are negative PMFSH Past Medical History Medical History Mixed hyperlipidemia Muscle spasm Fibromyalgia COVID-19 vaccine series completed Pain of multiple extremities Neck pain History of lumbar puncture Back pain SHERLY (obstructive sleep apnea) Palpitations Anxiety Migraine Hyperlipidemia, unspecified Essential hypertension Type 2 diabetes mellitus with unspecified complications Surgical History History of umbilical hernia repair History of esophagogastroduodenoscopy (EGD) Hx of colonoscopy Family History Family History Mother Diabetes Father Myocardial infarction Social History Social History Alcohol intake: never Comment: medicated in pacu Patient Tobacco Use Status: Never used Tobacco Smoked in Last 30 Days: No Use of substances other than those prescribed or required for medical reasons: No Advance Directives: No Do you have a plan to hurt others: No Plan Physical Exam 2 Vital Signs: Vital Signs: Last Vital Signs Temp 97.5 F 08/02/24 03:20 Pulse 72 08/02/24 03:20 Resp 18 08/02/24 03:20 BP 107/73 08/02/24 03:20 Pulse Ox 95 08/02/24 03:20 O2 Del Method Room Air 08/02/24 03:20 BMI result Body Mass Index 27.3 Const: Other: The patient is a 54-year-old male who had fallen asleep while waiting to be seen. He awoke easily to a normal mental status. He did not appear in obvious distress. HEENT: Other: Face is symmetrical. Mucous membranes moist. Eyes: General: appearance normal, both eyes and all related structures Neck: Neck: Yes no JVD Chest: Other: There is tenderness the patient's left chest wall. Palpation of the left chest wall seems to reproduce his pain. Resp: Effort & Inspection: normal respiratory effort Auscultation: clear to auscultation bilaterally Cardio: Rate: regular rate Rhythm: regular rhythm Heart sounds: S1 normal heart sound present and S2 normal heart sound present GI: Other: Abdomen is soft and nontender Skin: Other: Skin is dry and unremarkable Neuro: Other: The patient is awake and alert with a normal mental status. Cranial nerves are grossly intact. He moves his extremities normally and appropriately. He has a normal gait. He is neurologically intact. Extrem: Other: No calf swelling or tenderness, no asymmetry, no edema Medications Administered Discontinued Medications Generic Name Dose Route Start Last Admin Trade Name Freq PRN Reason Stop Dose Admin Acetaminophen 975 mg 08/02/24 02:11 08/02/24 02:26 Acetaminophen 325 Mg Tablet PO 08/02/24 02:12 975 mg ONCE ONE Administration Al Hydroxide/Mg Hydroxide 30 ml 08/02/24 02:11 08/02/24 02:26 Magnesium Hydrox/Alum Hydrox 30 Ml Oral.Susp PO 08/02/24 02:12 30 ml ONCE ONE Administration Medical Decision Making Medical Decision Making MDM Narrative: The patient is a 54-year-old male who presents for evaluation of chest pain. Clinically his pain seems to be at least partially chest wall pain. He is tender in the left chest wall and palpation seems to reproduce his pain. Additionally his description of the pain does not sound highly suggestive of an acute coronary syndrome. He describes brief electrical jabs. The patient's EKGs unremarkable. CBC is unremarkable. Troponins are flat and normal. I do not think the patient is having an acute coronary syndrome. The patient is advised to use acetaminophen and ibuprofen as needed for what may be chest wall pain. Also he should restart his omeprazole. He should follow up with his PCP or return if worse. Lab Data 08/02/24 00:43 08/02/24 00:42 Labs: Lab Results 08/02/24 08/02/24 08/02/24 Range/Units 00:42 00:43 02:32 WBC 6.0 (4.8-10.8) X10*3/uL RBC 5.83 H (4.60-5.80) X10*6/uL Hgb 16.4 (14.0-18.0) g/dl Hct 47.2 (42.0-52.0) % MCV 81.0 (80.0-98.0) fL MCH 28.1 (27.0-33.0) pg MCHC 34.7 (31.0-36.0) g/dl RDW 14.6 (11.0-16.0) % Plt Count 180 (160-400) X10*3/uL MPV 11.1 (9.4-12.4) fL Immature Gran % (Auto) 0.3 (0.0-0.4) % Neut % (Auto) 42.5 L (45-73) % Lymph % (Auto) 46.2 H (20-40) % [place] % (Auto) 9.4 (2-11) % Eos % (Auto) 1.3 (0-4) % Baso % (Auto) 0.3 (0-2) % Lymph # (Auto) 2.8 (1.2-4.9) X10*3/uL [place] # (Auto) 0.6 (0.1-1.2) X10*3/uL Eos # (Auto) 0.1 (0.0-0.4) X10*3/uL Baso # (Auto) 0.0 (0.0-0.2) X10*3/uL Abs Immat Gran (auto) 0.02 (0.00-0.03) X10*3/uL Absolute Neuts (auto) 2.6 (2.0-8.3) x10*3/uL Absolute Nucleated RBC 0.000 (0.0-0.012) X10*3/uL Nucleated RBC % (auto) 0.0 (0.0-0.2) /100WBC Sodium 138 (135-145) mmol/L Potassium 3.8 (3.3-5.1) mmol/L Chloride 104 (96-108) mmol/L Carbon Dioxide 24 (22-29) mmol/L Anion Gap 14 (12-20) BUN 14 (9-16) mg/dL Creatinine 0.99 (0.5-1.4) mg/dL Estim Creat Clear Calc 86.0 Estimated GFR > 60 Random Glucose 154 H (60-115) mg/dL Calcium 9.7 (8.4-10.2) mg/dL Total Bilirubin 0.2 (0.0-1.0) mg/dL AST 30 (5-37) U/L ALT 47 H (0-40) U/L Alkaline Phosphatase 65 (39-117) U/L Troponin I High Sens 7.4 D 7.1 (<3.5-35.0) ng/L Total Protein 7.5 (6.5-8.0) g/dL Albumin 4.3 (3.5-5.0) g/dL Independent Interpretation I performed an independent interpretation of an: EKG Interpretation: EKG at 00:24 shows normal sinus rhythm at 78 beats per minute. No definite acute ischemic changes. No significant change from previous EKG. Discharge Plan Discharge Clinical Impression: Left-sided chest wall pain Patient Disposition: Home, Self-Care Additional Instructions: I think much of your pain is coming from your chest wall, either the ribs or the muscles between the ribs or the cartilage that connects the ribs to the sternum. There was no sign of a heart attack. Please resume your use of omeprazole. Some aspects of your pain may be from stomach acid as well. For pain you think might be from the chest wall you may use [id number] acetaminophen or occasionally you may use ibuprofen as well. Please follow up with your regular doctor to discuss this further. Return to the emergency room if worse. Prescriptions: New ibuprofen 400 mg tablet 400 mg PO Q6H PRN (Reason: pain) Qty: 14 0RF No Action (DME) BD SafetyGlide Needle 23 gauge x 1 needle See Rx Instructions .Route Qty: 30 0RF Rx Instructions: Inject testosterone subcutaneous cetirizine 10 mg tablet 10 mg PO DAILY omeprazole 20 mg capsule,delayed release(DR/EC) 20 mg PO BID Qty: 30 2RF venlafaxine 75 mg capsule,extended release 24hr 75 mg PO BEDTIME atorvastatin 40 mg tablet 40 mg PO BEDTIME metformin 1,000 mg tablet 1,000 mg PO BID tadalafil 5 mg tablet 5 mg PO DAILY 90 Days Qty: 90 1RF sennosides-docusate sodium [Senna with Docusate Sodium] 8.6-50 mg tablet 1 tab-cap PO BEDTIME 60 Days Qty: 60 2RF Rx Instructions: Please take every other day at bedtime polyethylene glycol 3350 [Miralax] 17 gram/dose powder 17 g PO DAILY 30 Days Qty: 510 3RF dapagliflozin propanediol [Farxiga] 10 mg tablet PO DAILY methocarbamol 750 mg tablet See Rx Instructions .ROUTE .COMPLEX Qty: 90 1RF Dose Instruction: TAKE 1 TABLET BY MOUTH THREE TIMES DAILY NEEDED FOR MUSCLE SPASM Rx Instructions: TAKE 1 TABLET BY MOUTH THREE TIMES DAILY NEEDED FOR MUSCLE SPASM pregabalin 200 mg capsule 200 mg PO BID 30 Days Qty: 60 1RF lisinopril 10 mg tablet 10 mg PO DAILY 90 Days Qty: 90 0RF testosterone cypionate [Depo-Testosterone] 200 mg/mL oil 80 mg subcut QWEEK 28 Days Qty: 2 5RF (DME) BD Luer-Ami Syringe 1 mL syringe See Rx Instructions .MEDSUPPLY Qty: 30 0RF Rx Instructions: Testosterone injection weekly (DME) needle (disp) 18 G [BD Regular [place]] 18 gauge x 1 needle See Rx Instructions .MEDSUPPLY Qty: 30 0RF Rx Instructions: As directed - draw up testosterone (DME) BD Regular [place] 23 gauge x 3/4 needle See Rx Instructions .MEDSUPPLY Qty: 30 0RF Rx Instructions: Inject testosterone subcutaneous naproxen [Naprosyn] 500 mg tablet 500 mg PO BID Qty: 20 0RF Referrals: Vasile Putnam MD [Physician] - (chest wall pain) Interventions: ED Discharge Assessment Last Done: 08/02/24 03:20 Discharge Date/Time: 08/02/24 03:21 Print Language: Indonesian
[2024-08-02] MEDS: Acetaminophen 325 MG TABLET 975 MG PO (02:26)
[2024-08-02] MEDS: Magnesium Hydrox/Alum Hydrox 30 ML ORAL.SUSP PO (02:26)
[2024-08-02 02:27] VITALS: BP 107/73; PULSE 72; RESP 18; TEMP 36.4; O2SAT 95
[2024-08-02 02:56] LABS: Troponin-I High Sensitivity 7.1 ng/L (<3.5-35.0)
[2024-08-02 03:20] VITALS: BP 107/73; PULSE 72; RESP 18; TEMP 36.4; O2SAT 95
== END 2024-08-02 03:21 | disposition home or self-care (01) ==
PROVIDERS: Emergency Provider Emergency Medicine; PCP Urology
DX: R07.89 Other chest pain (principal); Z79.899 Other long term (current) drug therapy
CPT/HCPCS: 36415; 71046; 80053; 84484; 85025; 93005; 99283; 99285

== ENCOUNTER → 2024-08-02 00:24 | Outpatient (BNV) | payer BC, SELFPAY | PROVIDERS: Emergency Provider Emergency Medicine; PCP Urology; Visit Provider Internal Medicine Cardiovascular Disease | DX: R94.31 Abnormal electrocardiogram [ECG] [EKG] (principal); R07.9 Chest pain, unspecified | CPT/HCPCS: 93010 ==

== ENCOUNTER → 2024-08-02 00:30 | Outpatient (BNV) | payer BC, SELFPAY | PROVIDERS: PCP Urology; Visit Provider Radiology Diagnostic Radiology | DX: R07.9 Chest pain, unspecified (principal) | CPT/HCPCS: 71046 ==

== ENCOUNTER 2024-08-25 10:06 | Outpatient (REF) | payer BC, SELFPAY ==
--- OUTSIDE RECORDS SUMMARY | 2024-08-25 10:52 | XMS_ITS | Encounter Summary ---
Author Organization [email or web address] Address [address] [facility] [address] [place] [address] Care Team Providers Care Lens Grinder And Polisher Name Role Phone Vasile Putnam MD Primary Care Prov ider Encounter Details Date Type Department Care Team ([facility] st Contact Info) Description 06/26/2023 Orders Only [facility] [address] [place] [address] Provider, MD Min Social History Tobacco Use [...] Care Team (Late st Contact Info) Description 11/24/2024 8:30 AM EDT Telemedicine [facility] [address] [place] [address] Vasile Putnam MD [address] [place] [address] documented as of this encounter Procedures Procedure [...] documented as of this encounter Care Teams Lens Grinder And Polisher Relationship Specialty Start Date End Date Vasile Putnam MD [address] [place] [address] PCP - General Internal Medicine 01/11/19 documented as of this encounter
[2024-08-25 14:05] LABS: MANUAL DIFF FLAG NO
[2024-08-25 14:13] LABS: Basophils Percent Auto 0.4 % (0-2); Eosinophils Percent Auto 0.4 % (0-4); Hematocrit 48.7 % (42.0-52.0); Hemoglobin 16.4 g/dl (14.0-18.0); Imm Gran Abs Auto 0.02 X10*3/uL (0.00-0.03); Imm Gran Pct Auto 0.4 % (0.0-0.4); Lymphocytes Absolute Auto 2.2 X10*3/uL (1.2-4.9); Lymphocytes Percent Auto 45.4 % (20-40); Mean Corpuscular HGB Conc 33.7 g/dl (31.0-36.0); Mean Corpuscular Hemoglobin 27.7 pg (27.0-33.0); Mean Corpuscular Volume 82.1 fL (80.0-98.0); Mean Platelet Volume 11.1 fL (9.4-12.4); Monocytes Absolute Auto 0.5 X10*3/uL (0.1-1.2); Monocytes Percent Auto 9.3 % (2-11); Neutrophils Absolute Auto 2.1 x10*3/uL (2.0-8.3); Neutrophils Percent Auto 44.1 % (45-73); Platelet Count 183 X10*3/uL (160-400); Red Blood Count 5.93 X10*6/uL (4.60-5.80); White Blood Count 4.8 X10*3/uL (4.8-10.8)
[2024-08-25 14:37] LABS: Alanine Aminotransferase 59 U/L (0-40); Albumin Level 4.7 g/dL (3.5-5.0); Alkaline Phosphatase 56 U/L (39-117); Anion Gap 9 (12-20); Aspartate Amino Transferase 41 U/L (5-37); Bilirubin Total 0.4 mg/dL (0.0-1.0); Blood Urea Nitrogen 12 mg/dL (9-16); Calcium 9.4 mg/dL (8.4-10.2); Carbon Dioxide 27 mmol/L (22-29); Chloride 106 mmol/L (96-108); Cholesterol 181 mg/dL (<200); Estimated Glomerular Filt Rate > 60; Glucose Random 126 mg/dL (60-115); HDL Cholesterol 34 mg/dL (>40); LDL Cholesterol Calculated 119 mg/dL (<100); Potassium 4.2 mmol/L (3.3-5.1); Sodium 138 mmol/L (135-145); Total Protein 7.7 g/dL (6.5-8.0); Triglycerides 143 mg/dL (<150)
[2024-08-25 14:57] LABS: Creatinine Urine 299.86 mg/dL
[2024-08-25 15:34] LABS: TSH reflex Free T4 2.24 uIU/mL (0.32-4.0)
[2024-08-31 12:58] LABS: Testosterone, Free 60.9 pg/mL (35.0-155.0); Testosterone, Total 290 ng/dL (250-1100)
== END 2024-08-25 10:07 | disposition home or self-care (01) ==
LOC: HO.CHCLDS 10:06
PROVIDERS: Urology; Visit Provider Internal Medicine
DX: E11.9 Type 2 diabetes mellitus without complications (principal); R79.89 Other specified abnormal findings of blood chemistry
CPT/HCPCS: 36415; 80053; 80061; 82043; 82570; 84402; 84403; 84443; 85025

== ENCOUNTER 2024-10-05 07:23 | Outpatient (REF) | payer BC, SELFPAY ==
[2024-10-05 09:03] LABS: Appearance Urine Clear; Glucose Urine UA >=1000 mg/dL (Negative); PH 5.5 (5.0-9.0); Specific Gravity - Urine 1.020 (1.005-1.025); UMIC TRIGGER UACC YES
[2024-10-05 09:05] LABS: INTERNATIONAL NORM RATIO 1.0 (0.9-1.1); Prothrombin Time 11.4 SEC (10.9-12.4)
[2024-10-05 09:36] LABS: Estimated Glomerular Filt Rate > 60; Iron 82 mcg/dL (45-160); Percent Iron Saturation 24 % (15-50); Total Iron Binding Capacity 345 mcg/dL (228-428); Unsaturated Iron Binding 263 ug/dL
[2024-10-05 09:56] LABS: Ferritin 33 ng/mL (20-250)
[2024-10-09 18:34] LABS: Prot Elec - Albumin 4.6 g/dL (3.8-4.8); Prot Elec - Alpha1 0.2 g/dL (0.2-0.3); Prot Elec - Alpha2 0.7 g/dL (0.5-0.9); Prot Elec - Beta 1 0.5 g/dL (0.4-0.6); Prot Elec - Beta 2 0.3 g/dL (0.2-0.5); Prot Elec - Gamma 1.3 g/dL (0.8-1.7); Prot Elec - Total Protein 7.5 g/dL (6.1-8.1)
[2024-10-14 02:48] LABS: FIB-ALT 44 U/L (9-46); FIB-Alpha-2-Macroglobulin 336 mg/dL (106-279); FIB-Apolipoprotein A1 108 mg/dL (94-176); FIB-GGT 35 U/L (3-85); FIB-Haptoglobin 34 mg/dL (43-212); FIB-Total Bilirubin 0.4 mg/dL (0.2-1.2); Liver Fibrosis Score 0.75; Liver Fibrosis Stage F4; Nec Inflam Act Grade A1-A2; Nec Inflam Act Score 0.39
== END 2024-10-05 07:24 | disposition home or self-care (01) ==
LOC: HO.LAB 07:23
PROVIDERS: PCP Internal Medicine; Visit Provider Internal Medicine Gastroenterology
DX: K21.9 Gastro-esophageal reflux disease without esophagitis (principal); G43.909 Migraine, unspecified, not intractable, without status migrainosus; K59.09 Other constipation; J45.909 Unspecified asthma, uncomplicated; E11.9 Type 2 diabetes mellitus without complications; N52.01 Erectile dysfunction due to arterial insufficiency; I10 Essential (primary) hypertension; F41.9 Anxiety disorder, unspecified; E78.2 Mixed hyperlipidemia; R14.0 Abdominal distension (gaseous); R10.9 Unspecified abdominal pain; Z86.0100 Personal history of colon polyps, unspecified; R79.89 Other specified abnormal findings of blood chemistry; Z79.899 Other long term (current) drug therapy
CPT/HCPCS: 36415; 81001; 81003; 81596; 82565; 82728; 83540; 84165; 85610; 86015

== ENCOUNTER 2024-10-05 07:23 | Outpatient (AMB) | payer BC, SELFPAY ==
--- OUTSIDE RECORDS SUMMARY | 2024-10-05 07:25 | XMS_ITS | Encounter Summary ---
Author Organization [employer] Address [address] [facility] [address] [place] [address] Care Team Providers Care Pneumatic Tube Fitter Name Role Phone Vasile Putnam MD Primary Care Prov ider Encounter Details Date Type Department Care Team ([facility] st Contact Info) Description 06/26/2023 Orders Only [facility] [address] [place] [address] Provider, MD Min Social History Tobacco Use [...] Info) Description 11/24/2024 8:30 AM EDT Telemedicine [facility] [address] [place] [address] Vasile Putnam MD [address] [place] [address] documented as of this encounter Procedures Procedure [...] documented as of this encounter Care Teams Pneumatic Tube Fitter Relationship Specialty Start Date End Date Vasile Putnam MD [address] [place] [address] PCP - General Internal Medicine 01/11/19 documented as of this encounter
--- NOTE | 2024-10-05 07:31 | A.OFFVIS_ITS ---
Vital Signs 10/05/24 07:36 Height 5 ft 10 in Weight 192 lb BMI 27.5 BP 102/64 Blood Pressure Location Lt brachial Position Sitting Pulse 74 Pulse Oximetry (%) 96 Oxygen Delivery Method Room Air Intake Visit Reasons: 6 mo f/u bloating constipation Gerd elevated LFT Allergies clavulanic acid (From Augmentin) Allergy (Mild, Verified 10/05/24 07:31) Itching Penicillins Allergy (Unknown, Verified 10/05/24 07:31) ITCHING Medication List - Last Reconciled 10/05/24 by Franck Madrid MD atorvastatin 40 mg PO BEDTIME cetirizine 10 mg PO DAILY dapagliflozin propanediol (Farxiga) mg PO DAILY lisinopril 10 mg PO DAILY 90 days metformin 1,000 mg PO BID naproxen (Naprosyn) 500 mg PO BID needle (disp) 18 G (BD Regular Bevel [place]) As directed - draw up testosterone needle (disp) 23 gauge (BD Regular Bevel [place]) Inject testosterone subcutaneous omeprazole 20 mg PO BID polyethylene glycol 3350 (Miralax) 17 grams PO DAILY 30 days pregabalin 200 mg PO BID 30 days safety needles (BD SafetyGlide Needle) Inject testosterone subcutaneous sennosides-docusate sodium 8.6-50 mg (Senna with Docusate Sodium) 1 tab-cap PO BEDTIME 60 days syringe (disposable) (BD Luer-Ami Syringe) Testosterone injection weekly tadalafil 5 mg PO DAILY 90 days HPI HPI 6 mo f/u bloating constipation Gerd elevated LFT: Details: GI CLINIC VISIT FOR THIS 54 YEAR OLD AA MALE FOR FU of GERD, dysphagia, abdominal pain. Pt was seen at [facility] ED for abd pain. ? CHRONIC ILLNESSES:?Hypertension, migraine headaches, asthma,, anxiety. TODAY'S VISIT Patient complains of right-sided abdominal pain for the past 3 weeks. The pain is described as sharp and knife-like, radiating to the back, and associated with a palpable, movable lump in the right back. These symptoms have become more frequent over the past two to three weeks, potentially triggered by high sugar intake. The pain's intensity reaches up to 8 to 9 on a pain scale, persisting for several hours before resolving on its own. There is also a reported burning sensation during urination. Daily bowel movements occur, albeit sometimes with incomplete evacuation. The patient denies any fever, chills, nausea, vomiting, constipation, or diarrhea. The patient is compliant with a daily oral medication for constipation but occasionally misses doses. The patient's dietary intake includes foods with high sugar content, which may trigger abdominal pain episodes. The patient is currently taking a small brown tablet daily, intended for constipation management, but occasionally misses doses. PAST VISIT: Notes some red spots on the TP in wiping. Bloating has improved. Constipation is better - has a BM every other day and stool can be hard intermittently Abd pain improved. GERD controlled with Omperazole works at [employer] in [place]. Planning to go to [place] to visit his Mom in December Doing well - a little abd pain sometimes Seen at [facility] ED on 10/14/23 and noted to have constipation on CT scan Has a BM daily to every other day with straining Feeling OK - taking Omeprazole 20 mg once daily in the morning H Pylori breath test was negative He was taking lemon and olive oil and stopped taking it. EGD and biopsy results were reviewed with the patient Not having abd pain any more. Pt has been taking Omeprazole 20 mg twice daily since his ER visit and does not feel any different. Lab and US results reviewed Notes improvement in bloating. Has been taking Dicyclomine less frequently Using Dicyclomine three times a day with improvement in symptoms Denies constipation and has a BM once a day with intermittent straining. Continues to have abdominal pain and takes Dicyclomine three times a day. Stopped when he ran out and has resumed taking it. Intermittent sore throat and intermittent regurgitation Denies constipation or diarrhea.? Notes BRBPR on the TP. Denies rectal or anal pain. Had a Colonoscopy 4-5 yrs ago Patient denies major cardiac or pulmonary problems, loud snoring or sleep apnea Reports negative cardiac workup in the past for evaluation of chest pain and shortness of breath Denies problems with anesthesia in the past. Denies being on chronic anticoagulation. Patient denies known family history of colon polyps, colon cancer or other GI malignancies. Brother of leukemia Sister of breast cancer. ? Burning and soreness at the xiphoid for the past 2 years - rarely goes away ? Symptoms are constant with intermittent worsening. ? Unable to identify any triggering factors. ? Denies worsening of pain with deep breathing, coughing or lifting. ? Feels it more when he takes greasy food like pizza. ? Complains of pain all over - ? due to fibromyalgia. ? Denies fever, chills or sweating. ? Pain is sometimes associated with a warm feeling radiating to the ears and face. ? Denies facial flushing. ? Denies change in bowel habits, black stools or rectal bleeding. ? Takes fibre at night and bowel movements have been pretty good. ? Had dysphagia in the past which has improved. ? Feels he has bad gas causing rib pain. ? Notes partial relief of rib pain when he passes gas. ? Has heartburn and denies nausea or vomiting, change in appetite or weight. ? PAST GI HISTORY BY REVIEW OF MEDICAL RECORDS: ? Pt has been followed by Jia Joy since 09/2017: ? 47 y/o male here for follow up on upper abdominal pain. He was last seen by Dr. Kinsey 08/06/17 and at that time labs were ordered along with a CT and he was started on vitamin D supplementation. ? The CT showed several bladder calcifications and he should be referred to urology. Otherwise there was a small fat containing hernia but no other remarkable findings to explain his pain. Labs showed mildly elevated ALT at 42, CBC was normal and inflammatory markers were normal. ? He is seeing a urologist now, and will inform him of the CT results. ? He says that the pain is in the side in his ribcage and in between the rib spaces. He also has pain in the lower to mid sternal area where the ribs would attach. The pain is worse with pushing and with sitting and waling and is described as burning. At times he will have some relief with otc gas x. ? He also will have a bitter taste in his mouth with belching despite being on omeprazole. He has occasional breakthrough heartburn that he takes TUMS for. The pain is at time better with heat and massage. When it hurts very badly he can not breathe well. He has had CXR in the past when he presented to the ER, and to his knowledge he has not had any cardiac problems. ? He had a brother how just from leukemia, and the hx of cardiac disease is not known on his fathers side of the family. ? He also sufferers at time from constipation and will have more pain in his flanks accompanied by dizziness with straining on the toilet. When this happens he has small, hard round stools. I think that a trial of better bowel motility may be a reasonable approach as well. He has tried occasional MOM but it does not produce much of a result. We will start with MiraLax and explore if this is a contributing GI problem. ? Because of the bladder calcifications and the CVA tenderness I will get a UA, and if blood is in the sample will consider if renal US is a good idea to see if renal stones are a contributor. ? Pt was seen on 07/01/18 by Jia Joy, SCALP TREATMENT OPERATOR: ? Assessments ? 1. Generalized abdominal pain - R10.84 (Primary) ? 2. Esophageal dysphagia - R13.10 ? 3. Gastroesophageal reflux disease with esophagitis - K21.0 ? Treatment ? 1. Generalized abdominal pain ? Refill Simethicone Capsule, 180 MG, 1 capsule after meals and at bedtime as needed, Orally, three times a day, 30 days, 90 Capsule, Refills 3 ? Notes: His PCP thnks it may be FMS and started him on gabapetin and a TCA with some good relief. This certainly would explain his more systemic sx of pain and perceived swelling. ? 2. Esophageal dysphagia ? Notes: This has improved with only occasional upper throat swallowing problems he attributes to PNDS and allergies. ? 3. Gastroesophageal reflux disease with esophagitis ? Refill Omeprazole Capsule Delayed Release, 20 mg, 1 capsule, Orally, Once a day, 30 days, 30 Capsule, Refills 3 ? 4. Others ? Notes: WHile he has generally improved since I first started seeing him, I would like to have an MD look at him and his case to see if there is anything else about his unusual presentation and pain that has been missed. He may return to regular follow up with me after this depending on his comfort level. ? Follow Up ? next follow up with an MD for second look (Reason: xyphoid/abd pain ?LABS IN [facility]:?Apr, 2018 normal CBC, normal LFTs except elevated ALT of 62 ? 01/2018 negative celiac serology, normal CRP amylase and lipase ? IMAGING STUDIES: 02/18/[address] SCAN SHOWED: GASTROINTESTINAL TRACT: Gastric wall thickening despite underdistention. Small and large bowel loops are of normal caliber. No small bowel obstruction. Appendix is within normal limits. ABDOMINAL WALL: No significant hernia is appreciated. LYMPH NODES: No bulky lymphadenopathy. IMPRESSION: Gastric wall thickening despite underdistention. Advise correlation with direct visualization. 06/2022 ABD US SHOWED:Echogenic liver suggestive of fatty infiltration. Limited visualization of the pancreas and aorta. 08/[address] scan showed:? IMPRESSION:?Several bladder calcifications, largest measuring 4 x 6 mm.? Differential would include bladder wall calcifications, partial volume ? averaging with calcifications outside the bladder and bladder stones. ? There is a focal area of bladder wall thickening along the anterior ? upper bladder wall. Diverticulosis. No evidence of diverticulitis. ? Small umbilical hernia containing fat. ?03/2017 UGI SBFT showed: ? IMPRESSION: ? 1. Tiny hiatal hernia with no significant gastroesophageal reflux. ? 2. No evidence of peptic ulcer disease. ? 3. No evidence of small bowel obstruction. ENDOSCOPIC STUDIES:? 02/23/[address]GD [address] PERFOR[address] DRAKE: Larynx:normal Esophagus: GE junction at 43 cm, diaphragm hiatus at 43 cm, no varices or esophagitis, bx taken from distal esophagus Stomach: Patchy gastric erythema and nodularity in antrum. Biopsies were obtained. Grade 2 flap valve on retroflexed examination of the cardia. Duodenum: Normal bulb and descending duodenum, BIOPSIES SHOWED: A. Stomach, biopsy: Antral-type and oxyntic mucosa with moderate chronic inactive inflammation; no Helicobacter organisms seen. B. Esophagus, distal, biopsy: Squamous epithelium within normal limits; no inflammation seen 08/2020 EGD AND COLON SHOWED: ESOPHAGUS: Focal esophagitis STOMACH:? Nodular gastritis - biopsies were negative for Helicobacter pylori Colonoscopy Findings: No polyps were detected Biopsies were obtained from the right, left colon and rectum - normal Moderate diverticulosis seen in the left colon Moderate hemorrhoids on retroflexed exam. Plan: Repeat Colonoscopy interval based on path results - in 5 years due to a hx of adenomatous colon polyp. 10/2015 COL[address] WAS PERFORMED BY [address] LEIGH:Two small (a hyperplastic and an adenomatous) polyps were removedThere was a short 3 cms area of suspected proctitis extending from the dentate line. Biopsies showed rectal mucosa with mild nonspecific chronic inflammation. 12/2017 EGD WAS PERFORMED FOR EVALUATION OF GERD AND OROPHARYNGEAL DYSPHAGIA:EGD showed gastritis and biopsies were negative for Helicobacter pylori.Esophagus: Tortuous esophagus with increased tertiary contractions withoutstricture. Scanty white exudates in the proximal esophagus - biopsies obtained to check for EOE. GE junction at 40 cms. Focal esophagitis at GE junction with a single erosion. A 4-5 mm benign appearing hyperplastic nodule in the distal esophagus just above the GE junction. Dysphagia was felt to be due to esophageal motility disordeR PFSH Medical History Mixed hyperlipidemia Muscle spasm Fibromyalgia COVID-19 vaccine series completed Pain of multiple extremities Neck pain History of lumbar puncture Back pain SHERLY (obstructive sleep apnea) Palpitations Anxiety Migraine Hyperlipidemia, unspecified Essential hypertension Type 2 diabetes mellitus with unspecified complications Surgical History History of umbilical hernia repair History of esophagogastroduodenoscopy (EGD) Hx of colonoscopy Family History Mother Diabetes Father Myocardial infarction Social History Alcohol intake: never Comment: medicated in pacu Patient Tobacco Use Status: Never used Tobacco Review of Systems Const All systems reviewed & are unremarkable except as noted in HPI and below Physical Exam Const General: healthy appearing and no acute distress Nutritional Appearance: overweight Orientation/consciousness: patient oriented x3 Limitations: no limitations HEENT Head: Yes normal to inspection Ears: hearing grossly normal bilaterally Eyes Sclerae: sclerae normal Pupils: Equal, round and reactive pupils present Neck Neck: Yes normal visual inspection Chest Chest palpation & inspection: normal inspection of the chest and tenderness (focal tenderness over left rib cage) Resp Effort & Inspection: normal respiratory effort Auscultation: clear to auscultation bilaterally Cardio Palpation: normal PMI Rate: regular rate Rhythm: regular rhythm Heart sounds: S1 normal heart sound present, S2 normal heart sound present and no murmurs GI Palpation (GI): Soft to palpation, Tenderness to palpation present (GI) (right flank tenderness) and No hepatosplenomegaly present Auscultation: normal bowel sounds Rectal Exam - Male: Yes deferred Skin General skin exam: no rashes or lesions noted Neuro General: patient oriented x3, gait normal and moves all extremities Cranial nerves: Yes Equal, round and reactive pupils present Psych Appearance: grossly normal Mental Status: mental status grossly normal Assessment & Plan Assessment & Plan (1) Abdominal bloating: Code(s): R14.0 - Abdominal distension (gaseous) Category: Medical (2) GERD (gastroesophageal reflux disease): Code(s): K21.9 - Gastro-esophageal reflux disease without esophagitis Category: Medical (3) History of colon polyps: Comment: 10/2015 [address] WAS PERFORMED [address] LEIGH: Two small (a hyperplastic and an adenomatous) polyps were removed There was a short 3 cms area of suspected proctitis extending from the dentate line. 08/2020 colonoscopy showed diverticulosis and no polyps were detected Repeat colonoscopy is advised in 5 years (Due 08/2025) Code(s): Z86.010 - Personal history of colon polyps Category: Medical (4) Elevated LFTs: Comment: Elevated LFTs likely due to fatty liver related to DM Hepatitis B and C antibodies and celiac serologies were negative in the past. Code(s): R79.89 - Other specified abnormal findings of blood chemistry Category: Medical (5) Chronic constipation: Code(s): K59.09 - Other constipation Category: Medical (6) Right flank pain: Comment: Differential diagnosis includes appendicitis, cystitis or nephrolithiasis. Urinalysis is reviewed. Patient will be discharged home with Naprosyn and instructed to go to the emergency department for imaging should his symptoms worsen. Patient is in agreement with his plan of care. Code(s): R10.9 - Unspecified abdominal pain Category: Medical Plan 54-year-old male with Hypertension, migraine headaches, asthma,, anxiety seen for follow-up of abdominal pain/ burning and soreness of xiphoid which rarely goes away. No specific triggers. Feels he has bad gas causing rib pain and notes partial relief of rib pain when he passes gas. Past evaluation with upper GI small-bowel follow-through and an abdominal CT scan did not reveal any etiology for his symptoms. He likely has IBS with constipation. Patient notes partial improvement in symptoms with dicyclomine 3 times daily. He was advised to start taking omeprazole 20 mg daily for GERD. 08/2020 EGD and colonoscopy were performed and findings as noted above. 06/04/22 Pt advised to continue Dicyclomine and add senna 2-3 times a week as needed for constipation. 11/20/22 Bloating improved LFTs decreased with wt loss 03/05/23 Pt was advised to replace Omeprazole with Famotidine for 2 weeks and return for an H Pylori breath test H Pylori breath test was negative 11/25/23 Advised to start Linzess for constipation (Or take Senna plus daily if Linzess is not covered by his insurance) 03/30/24 Linzess not covered by his Insurance Advised to take Miralax every other day Due for Colonoscopy in 2025 for follow-up of colon polyps 10/05/24 Pt advised to check labs for evaluation of elevated LFTs Urgent CT scan and UA for evaluation of right flank pain Increased fluid intake and take Miralax daily x 1 week to see if pain resolves FU in 4-6 weeks - scheduled 11/10/24 Orders: Orders IRON PROFILE Today R79.89 - Other specified abnormal findings of blood chemistry Ferritin Today R79.89 - Other specified abnormal findings of blood chemistry Prothrombin Time INR Today R79.89 - Other specified abnormal findings of blood chemistry Protein Electrophoresis, Serum Today R79.89 - Other specified abnormal findings of blood chemistry Liver Kidney Microsomal Ab Today R79.89 - Other specified abnormal findings of blood chemistry Liver Fibrosis Pnl Today R79.89 - Other specified abnormal findings of blood chemistry Smooth Muscle Antibody Today R79.89 - Other specified abnormal findings of blood chemistry UA CC w/rflx Micro + Cult Today R10.9 - Unspecified abdominal pain CT abdomen pelvis wo IV con Today R10.9 - Unspecified abdominal pain Creatinine Today R10.9 - Unspecified abdominal pain Medications: Refilled tadalafil 5 mg PO DAILY 90 tabs 1RF sexual activity 90 days N52.01 - Erectile dysfunction due to arterial insufficiency, R79.89 - Other specified abnormal findings of blood chemistry Coding Level of Care Code Est Pt Level 4 (84615) Diagnoses Abdominal bloating R14.0 GERD (gastroesophageal reflux disease) K21.9 History of colon polyps Z86.010 Elevated LFTs R79.89 Chronic constipation K59.09 Right flank pain R10.9 Time Spent (min) 25
--- NOTE | 2024-10-05 07:33 | MHC.OFFVIS ---
Vital Signs 10/05/24 07:36 Height 5 ft 10 in Weight 192 lb BMI 27.5 BP 102/64 Blood Pressure Location Lt brachial Position Sitting Pulse 74 Pulse Oximetry (%) 96 Oxygen Delivery Method Room Air Intake Visit Reasons: 6 mo f/u bloating constipation Gerd elevated LFT Intake Note: Patient 6 mo f/u bloating, constipation, GERD and elevated LFT Patient cc: lower abdominal pain radiating to his groin, chest/esophagus discomfort, denies any other GI issues for today Arcgis Developer Required: No Accompanied by: Self / Same As Patient Allergies clavulanic acid (From Augmentin) Allergy (Mild, Verified 10/05/24 07:31) Itching Penicillins Allergy (Unknown, Verified 10/05/24 07:31) ITCHING PFSH Medical History Mixed hyperlipidemia Muscle spasm Fibromyalgia COVID-19 vaccine series completed Pain of multiple extremities Neck pain History of lumbar puncture Back pain SHERLY (obstructive sleep apnea) Palpitations Anxiety Migraine Hyperlipidemia, unspecified Essential hypertension Type 2 diabetes mellitus with unspecified complications Surgical History History of umbilical hernia repair History of esophagogastroduodenoscopy (EGD) Hx of colonoscopy Family History Mother Diabetes Father Myocardial infarction Social History Alcohol intake: never Comment: medicated in pacu Patient Tobacco Use Status: Never used Tobacco Coding
[2024-10-05 07:36] VITALS: BP 102/64; PULSE 74; O2SAT 96; BMI 27.5
== END 2024-10-05 08:07 | disposition home or self-care (01) ==
LOC: HO.HGI 07:23
PROVIDERS: PCP Internal Medicine; Visit Provider Internal Medicine Gastroenterology
DX: R14.0 Abdominal distension (gaseous) (principal); K21.9 Gastro-esophageal reflux disease without esophagitis; Z86.0100 Personal history of colon polyps, unspecified; R79.89 Other specified abnormal findings of blood chemistry; K59.09 Other constipation; R10.9 Unspecified abdominal pain
CPT/HCPCS: 99214

== ENCOUNTER 2024-10-11 11:40 | Outpatient (REF) | payer BC, SELFPAY ==
--- NOTE | ~2024-10-11 | XR_ITS ---
EXAMINATION: XR LUMBOSACRAL SPINE CLINICAL INFORMATION: pain COMPARISON: 02/24/2023. TECHNIQUE: AP and lateral views. FINDINGS: Small marginal osteophyte formation at L3-4 and to a lesser extent L1 to and L2-3 levels. Posterior marginal osteophyte formation at L3-4 and L4-5. Grade 1 retrolisthesis L3-4 and L4-5 levels. No acute cortical disruption. Facet joint hypertrophy at L5-S1. No lytic or blastic lesions. XR/XR lumbar spine 2-3V IMPRESSION: Multilevel spondylosis resulting in grade 1 anterolisthesis L3-4 and L4-5 levels. Electronically signed by: Go Merlos MD 10/11/2024 12:00 PM EDT
--- NOTE | ~2024-10-11 | XR_ITS ---
EXAMINATION: XR HIP, RIGHT CLINICAL INFORMATION: pain COMPARISON: None available. TECHNIQUE: AP and oblique views of the right hip. FINDINGS: No acute cortical disruption or malalignment. No lytic or blastic lesions. 1 mm calcification in the superior lateral coxofemoral joint. No subcutaneous emphysema. XR/XR hip RT min 2V IMPRESSION: No acute fracture or dislocation. Electronically signed by: Go Merlos MD 10/11/2024 12:01 PM EDT
--- OUTSIDE RECORDS SUMMARY | 2024-10-11 12:39 | XMS_ITS | Encounter Summary ---
Author Organization [facility] Address [address] [place] [address] Care Team Providers Care Automation Design Engineer Name Role Phone Vasile Putnam MD Primary Care Prov ider Encounter Details Date Type Department Care Team ([facility] st Contact Info) Description 06/26/2023 Orders Only [facility] [address] [place] [address] Provider, MD Min Social History Tobacco Use [...] Info) Description 11/24/2024 8:30 AM EDT Telemedicine [facility] [address] [place] [address] Vasile Putnam MD [address] [place] [address] documented as of this encounter Procedures Procedure [...] documented as of this encounter Care Teams Automation Design Engineer Relationship Specialty Start Date End Date Vasile Putnam MD [address] [place] [address] PCP - General Internal Medicine 01/11/19 documented as of this encounter
== END 2024-10-11 11:41 | disposition home or self-care (01) ==
LOC: HO.HHCX 11:40
PROVIDERS: Visit Provider Internal Medicine
DX: M25.551 Pain in right hip (principal); M54.50 Low back pain, unspecified
CPT/HCPCS: 72100; 73502

== ENCOUNTER → 2024-10-11 11:41 | Outpatient (BNV) | payer BC, SELFPAY | PROVIDERS: Visit Provider Radiology Diagnostic Radiology | DX: M43.16 Spondylolisthesis, lumbar region (principal); M25.551 Pain in right hip | CPT/HCPCS: 72100; 73502 ==

== ENCOUNTER 2024-10-14 08:20 | Outpatient (REF) | payer BC, SELFPAY ==
--- NOTE | ~2024-10-14 | CT_ITS ---
CLINICAL HISTORY: R10.9 - Unspecified abdominal pain --- Additional Notes or Special Instructions: rule out renal stones CT abdomen and pelvis without contrast Comparison: CT/NC/SR - CT ABDOMEN PELVIS WITHOUT IV CONTRAST - 10/14/23 09:55 EDT Findings: The lung bases are clear. The unenhanced liver, gallbladder, spleen, adrenal glands and pancreas are unremarkable. Kidneys, ureters and bladder are normal. No urinary calculus or obstructive uropathy. Normal appendix. Moderate fecal retention throughout the colon. There is a segment of fecalized small bowel with the question of focal small bowel wall thickening distal to this on axial image 58 No acute osseous finding. Impression: No urinary calculus or obstructive uropathy. Moderate fecal retention throughout the colon. Questioned focal small-bowel narrowing/thickening with fecalized small bowel proximal to this. Findings are nonspecific. Fluoroscopic small-bowel follow-through could be considered on an outpatient basis as could GI consultation. This document has been electronically signed by: Froilan Self MD on 10/14/2024 09:49:49
--- OUTSIDE RECORDS SUMMARY | 2024-10-14 08:23 | XMS_ITS | Encounter Summary ---
Author Organization [facility] [employer] Address [address] [place] [address] Care Team Providers Care Wastewater Treatment Operator Name Role Phone Vasile Putnam MD Primary Care Prov ider Encounter Details Date Type Department Care Team ([facility] st Contact Info) Description 06/26/2023 Orders Only [facility] MEDICINE [address] [place] [address] Provider, MD Min Social History Tobacco Use [...] Info) Description 11/24/2024 8:30 AM EDT Telemedicine [facility] [address] [place] [address] Vasile Putnam MD [address] [place] [address] documented as of this encounter Procedures Procedure [...] documented as of this encounter Care Teams Wastewater Treatment Operator Relationship Specialty Start Date End Date Vasile Putnam MD [address] [place] [address] PCP - General Internal Medicine 01/11/19 documented as of this encounter
== END 2024-10-14 08:21 | disposition home or self-care (01) ==
LOC: HO.CT 08:20
PROVIDERS: PCP Internal Medicine; Visit Provider Internal Medicine Gastroenterology
DX: R10.9 Unspecified abdominal pain (principal)
CPT/HCPCS: 74176

== ENCOUNTER → 2024-10-14 08:30 | Outpatient (BNV) | payer BC, SELFPAY | PROVIDERS: PCP Internal Medicine; Visit Provider Radiology Vascular & Interventional Radiology | DX: R10.31 Right lower quadrant pain (principal) | CPT/HCPCS: 74176 ==

== ENCOUNTER 2024-10-17 16:00 | Outpatient (AMB) | payer BC, SELFPAY ==
--- NOTE | 2024-10-17 16:01 | MHC.OFFVIS ---
Intake Visit Reasons: follow up/labs Intake Note: Patient is present for follow up for ED Hypogonatropic Urology Medication:TADALAFIL,TESTOSTERONE Antibiotic Allergy:PENICILLIN Blood Thinner:NONE Labs done 08/25/2024 : Total testosterone :290, Fr Testosterone :60.9 Cantilever Crane Operator Required: No Accompanied by: Self / Same As Patient Allergies clavulanic acid (From Augmentin) Allergy (Mild, Verified 10/17/24 16:03) Itching Penicillins Allergy (Unknown, Verified 10/17/24 16:03) ITCHING HPI Comments Details: Laurence is a pleasant Maltese male. He is seen for the following urologic conditions - epididymal cyst - erectile dysfunction - hypogonadism 5 month follow-up Lab work done on Wednesday Labs - 09/06 T 300, H 48 Had not been on injectable testosterone Does not get morning erections And did get erections when on pellets Testosterone represcribed He will call for an injection teaching Lab work in three-month Also noted to have right testicular pain. On exam has small epididymal cyst at head with scarring of epididymal tail. Naprosyn provided. Hypogonadism Failed gel from absorption issues Needle phobia prevented injectable testosterone Good response to trial of testosterone pellets 2nd Peak 455 10 week 325 Initial 2 week 683 10 week 424 Had to switch back to injectables due to insurance coverage Erectile dysfunction associated with diabetes Progressive Can obtain but not maintain erection Does have treatment for dyslipidemia, diabetes, depression Hypogonadism symptoms including lack of energy, lack of spontaneous morning erections, lack of libido Prior evaluation 2018 for atherosclerotic vascular disease. ECG, Holter, echo performed. LVEF 60% with mild diastolic dysfunction. Normal myocardial perfusion study. Exercise stress test 10.5 minutes on Kuldip protocol. Current medication 100 mg sildenafil on demand Labs - 01/03 P 0.3, 01/04 P 0.3, T 263, 07/06 T 250, 09/05 T 225 LH 3.9 PSA 0.25 - 07/06 T 250 Epididymal cyst Stable right side Decreasing size of left testicle Yearly review [facility] Medical History Mixed hyperlipidemia Muscle spasm Fibromyalgia COVID-19 vaccine series completed Pain of multiple extremities Neck pain History of lumbar puncture Back pain SHERLY (obstructive sleep apnea) Palpitations Anxiety Migraine Hyperlipidemia, unspecified Essential hypertension Type 2 diabetes mellitus with unspecified complications Surgical History History of umbilical hernia repair History of esophagogastroduodenoscopy (EGD) Hx of colonoscopy Family History Mother Diabetes Father Myocardial infarction Social History Alcohol intake: never Comment: medicated in pacu Patient Tobacco Use Status: Never used Tobacco Review of Systems Const Denies chills and Denies fever(s) Card Reports no additional complaints and Denies syncope Resp Denies cough GI Denies abdominal pain and Denies heartburn Reports as per HPI and Denies change in libido Neuro Denies syncope Psych Denies change in libido Endo Denies change in libido Physical Exam Const General: cooperative, healthy appearing, comfortable and no acute distress Orientation/consciousness: patient oriented x3 HEENT Face and sinus: Yes normal facial exam Mouth: moist mucous membranes Neck Neck: Yes normal visual inspection, Yes full ROM and Yes trachea midline Chest Chest palpation & inspection: normal inspection of the chest Resp Effort & Inspection: normal respiratory effort, able to speak in complete sentences and no respiratory distress GI Inspection: Yes normal to inspection Back/Spine/Pelvis Cervical Spine: normal cervical lordosis Thoracic/Lumbar Spine: thoracic and lumbar spine normal to inspection Skin General skin exam: no rashes or lesions noted Neuro General: patient oriented x3, gait normal, tone normal and moves all extremities Extrem General: Yes normal to inspection and Yes capillary refill normal Assessment & Plan Assessment & Plan (1) Erectile dysfunction associated with type 2 diabetes mellitus: Code(s): E11.69 - Type 2 diabetes mellitus with other specified complication; N52.1 - Erectile dysfunction due to diseases classified elsewhere Category: Medical (2) Hypogonadotropic hypogonadism: Code(s): E23.0 - Hypopituitarism Category: Medical Plan Testosterone prescription provided Naprosyn provided Orders: Orders Testosterone, Free/Total 2 Months R79.89 - Other specified abnormal findings of blood chemistry Medications: Changed From naproxen (Naprosyn) 500 mg PO BID 20 tabs 0RF E23.0 - Hypopituitarism To naproxen (Naprosyn) 500 mg PO ONCE PRN 20 tabs 0RF pain 30 days E23.0 - Hypopituitarism Refilled needle (disp) 18 G (BD Regular Bevel [place]) As directed - draw up testosterone 30 ea 0RF E29.1 - Testicular hypofunction, R79.89 - Other specified abnormal findings of blood chemistry needle (disp) 23 gauge (BD Regular Bevel [place]) Inject testosterone subcutaneous 30 ea 0RF R79.89 - Other specified abnormal findings of blood chemistry syringe (disposable) (BD Luer-Ami Syringe) Testosterone injection weekly 30 ea 0RF E34.9 - Endocrine disorder, unspecified, R79.89 - Other specified abnormal findings of blood chemistry testosterone cypionate (Depo-Testosterone) 80 mg (0.4 mL) subcut QWEEK 2 mL 2RF 4 weeks E29.1 - Testicular hypofunction Patient Instructions: This note is constructed using voice recognition software. While every effort has been made to ensure accuracy sanitation inspector errors may have been included. Imaging studies, laboratory and physical exam results were discussed and reviewed in detail. No major barriers to patient understanding were identified. An opportunity to ask questions regarding the treatment plan was provided. All questions were answered. The patient expressed understanding and agreement with the above treatment plan. The patient is aware they should contact our office by phone for worsening of their current condition or the appearance of new urologic symptoms. Compliance is encouraged with any medications and followup testing that is ordered. It is a privilege to participate in the urologic care of your patient. If you have any questions or concerns regarding treatment for the above conditions, or other urologic issues, please do not hesitate to contact me. The office telephone contact is [phone]. Sincerely, Dr Varinder Siblye MD, [facility] - Urology Compassionate Specialist Care for the Genitourinary System Coding Level of Care Code Est Pt Level 4 (15739) Complex EM visit Add On G2211 Diagnoses Erectile dysfunction associated with type 2 diabetes mellitus E11.69; N52.1 Hypogonadotropic hypogonadism E23.0
--- OUTSIDE RECORDS SUMMARY | 2024-10-17 16:12 | XMS_ITS | Encounter Summary ---
Author Organization [employer] Address [address] [facility] [address] [place] [address] Care Team Providers Care Director Of Teaching And Learning Name Role Phone Vasile Putnam MD Primary Care Prov ider Encounter Details Date Type Department Care Team ([facility] st Contact Info) Description 06/26/2023 Orders Only [facility] [address] [place] [address] Provider, MD Min Social History Tobacco Use [...] Info) Description 11/24/2024 8:30 AM EDT Telemedicine [facility] [address] [place] [address] Vasile Putnam MD [address] [place] [address] documented as of this encounter Procedures Procedure [...] of this encounter Care Teams Director Of Teaching And Learning Relationship Specialty Start Date End Date Vasile Putnam MD [address] [place] [address] PCP - General Internal Medicine 01/11/19 documented as of this encounter
== END 2024-10-17 16:35 | disposition home or self-care (01) ==
LOC: HO.HUSH 16:01
PROVIDERS: PCP Urology; Visit Provider Urology
DX: E11.69 Type 2 diabetes mellitus with other specified complication (principal); N52.1 Erectile dysfunction due to diseases classified elsewhere; E23.0 Hypopituitarism
CPT/HCPCS: 99214

== ENCOUNTER 2024-11-10 07:22 | Outpatient (REF) | payer BC, SELFPAY ==
[2024-11-10 08:57] LABS: Hemoglobin A1C 215.8108 umol/L; Total Hemoglobin (HGBA1C) 4101.0801 umol/L
[2024-11-10 09:15] LABS: Appearance Urine Clear; Glucose Urine UA >=1000 mg/dL (Negative); PH 5.5 (5.0-9.0); Specific Gravity - Urine >= 1.030 (1.005-1.025); UMIC TRIGGER UACC YES
[2024-11-10 09:26] LABS: Alanine Aminotransferase 87 U/L (0-40); Albumin Level 4.7 g/dL (3.5-5.0); Alkaline Phosphatase 68 U/L (39-117); Aspartate Amino Transferase 46 U/L (5-37); Total Protein 7.7 g/dL (6.5-8.0)
[2024-11-14 09:43] LABS: Immunoglobulin G Subclass 1 606 mg/dL (382-929); Immunoglobulin G Subclass 2 553 mg/dL (241-700); Immunoglobulin G Subclass 3 49 mg/dL (22-178); Immunoglobulin G Subclass 4 40.0 mg/dL (4-86); Immunoglobulin G Total 1302 mg/dL (600-1640)
[2024-11-16 23:32] LABS: Liver Kidney Microsomal Ab <=20.0 U (<=20.0)
== END 2024-11-10 07:23 | disposition home or self-care (01) ==
LOC: HO.LAB 07:22
PROVIDERS: PCP Internal Medicine; Visit Provider Internal Medicine Gastroenterology
DX: K21.9 Gastro-esophageal reflux disease without esophagitis (principal); K59.09 Other constipation; R14.0 Abdominal distension (gaseous); R79.89 Other specified abnormal findings of blood chemistry; Z86.0100 Personal history of colon polyps, unspecified
CPT/HCPCS: 36415; 80076; 81001; 82103; 82784; 83036; 86015; 86376

== ENCOUNTER 2024-12-21 14:02 | Outpatient (AMB) | payer BC, SELFPAY ==
[2024-12-21 14:04] VITALS: BP 118/64; PULSE 86; BMI 27.9
--- NOTE | 2024-12-21 14:04 | MHC.OFFVIS ---
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 Up Worker Required: No Accompanied by: Self / Same As Patient Allergies clavulanic acid (From Augmentin) Allergy (Mild, Verified 12/21/24 14:07) Itching Penicillins Allergy (Unknown, Verified 12/21/24 14:07) ITCHING Medication List - Last Reconciled 12/21/24 by Jamee Nickerson PACKER FUSER-C atorvastatin 40 mg PO .am cetirizine 10 mg PO DAILY dapagliflozin propanediol (Farxiga) mg PO DAILY lisinopril 10 mg PO DAILY 90 days metformin 1,000 mg PO BID methocarbamol 500 mg orally Daily PRN; needle (disp) 18 G (BD Regular Bevel [place]) As directed - draw up testosterone needle (disp) 23 gauge (BD Regular Bevel [place]) Inject testosterone subcutaneous omeprazole 20 mg PO ONCE pregabalin 200 mg PO BID PRN safety needles (BD SafetyGlide Needle) Inject testosterone subcutaneous safety needles (BD SafetyGlide Needle) As directed sennosides-docusate sodium 8.6-50 mg (Senna with Docusate Sodium) 1 tab-cap PO BEDTIME 60 days syringe (disposable) (BD Luer-Ami Syringe) Testosterone injection weekly testosterone cypionate (Depo-Testosterone) 80 mg (0.4 mL) subcut QWEEK 4 weeks HPI HPI 1 year f/u: Details: Laurence is a 54-year-old male with past medical history of hypertension, hyperlipidemia, diabetes, sleep apnea, who has been evaluated for chest discomfort. He recently underwent a stress echocardiogram, echocardiogram and Holter monitor with no significant abnromalities. He was seen in the emergency room 2024 for intermittent left-sided chest discomfort. He ruled out for ACS and was thought to have chest wall pain. He now presents for follow-up. Today he reports that he continues to get some left lateral chest burning discomfort that comes and goes randomly.. He says this is the symptom he went to the emergency room for. Overall his symptom has not worsened with time. He has no symptoms brought on by exertion. He describes 1 episode last month where he became lightheaded, had chest discomfort and believes he may have had a panic attack. He did not seek medical care at that time. His daughter came over and gave him something to help him relax. He has had No shortness of breath, PND, orthopnea or edema. No lightheadedness, presyncope, syncope, falls. Compliant with meds. Reports good activity tolerance. 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 [facility] Medical History Mixed hyperlipidemia Muscle spasm Fibromyalgia COVID-19 vaccine series completed Pain of multiple extremities Neck pain History of lumbar puncture Back pain SHERLY (obstructive sleep apnea) Palpitations Anxiety Migraine Hyperlipidemia, unspecified Essential hypertension Type 2 diabetes mellitus with unspecified complications Surgical History History of umbilical hernia repair History of esophagogastroduodenoscopy (EGD) Hx of colonoscopy Family History Mother Diabetes Father Myocardial infarction Social History Alcohol intake: never Comment: medicated in pacu Patient Tobacco Use Status: Never used Tobacco Review of Systems Const All systems reviewed & are unremarkable except as noted in HPI and below Denies daytime sleepiness, Denies difficulty sleeping, Denies snoring, Denies stops breathing during sleep and Denies weakness Card Reports chest pain, Reports chest pain at rest, Denies rapid heart rate, Denies irregular heart rhythm, Denies claudication, Denies leg edema, Denies lightheadedness, Denies palpitations, Denies dyspnea, Denies dyspnea on exertion, Denies orthopnea, Denies paroxysmal nocturnal dyspnea and Denies slow heart rate Resp Denies cough, Denies dyspnea, Denies dyspnea on exertion and Denies snoring GI Reports no additional complaints, Denies hematochezia, Denies change in stool character and Denies dyspepsia Musc Denies abnormal gait, Denies muscle weakness and Denies numbness Neuro Denies abnormal gait, Denies numbness and Denies weakness Endo Denies palpitations Physical Exam Vital Signs: Last Vital Signs Pulse 86 12/21/24 14:04 BP 118/64 12/21/24 14:04 BMI result Body Mass Index 27.9 Const General: cooperative, healthy appearing, comfortable and no acute distress Orientation/consciousness: patient oriented x3 Neck Neck: Yes normal visual inspection Resp Effort & Inspection: normal respiratory effort Auscultation: clear to auscultation bilaterally, no crackles, no rales, no rhonchi and no wheezes Cardio Rate: regular rate Rhythm: regular rhythm Heart sounds: S1 normal heart sound present, S2 normal heart sound present, no gallops, no murmurs and no rubs Neuro General: patient oriented x3 Extrem General: Yes normal to inspection, No no pedal edema and No calf tenderness Psych Appearance: grossly normal Mental Status: mental status grossly normal Speech and movement: Normal speech and movement present Office Procedures EKG Details: Today, read by me, normal sinus rhythm, T-wave abnormality inferiorly and V5 and V6. Minimal T-wave abnormality noted on prior EKG as well, rate 86, QTC 406 millisecond [id number], Complete Assessment & Plan Assessment & Plan (1) Precordial chest pain: Code(s): R07.2 - Precordial pain Category: Medical Plan: Cardiac evaluation for atypical chest discomfort: CTA of the coronaries on 05/20/2021 showing no hemodynamically significant stenosis, minimal to mild noncalcified stenosis most evident in D2. More recently he reported chest discomfort again. He has multiple cardiac risk factors including hypertension, hyperlipidemia, diabetes. He underwent an exercise stress 10/26/2023 with good exercise tolerance, no anginal symptoms, with EKG changes suggesting possible ischemia. Then had a stress echocardiogram on 12/13/2023 with same EKG changes and no echo evidence of ischemia. An echocardiogram was done on 10/26/2023 showing EF 62%, no valve abnormalities and no regional wall motion abnormalities. He did have a Holter monitor due to report of palpitations done on 10/26/2023 for 3 days showing sinus rhythm with average heart rate 89, 18% of the time heart rate greater than 100, rare SVE and VE. Recent ED evaluation for chest discomfort and ruled out for ACS. EKG today with SR, T wave abnormality inferiorly, V5-6. Prior EKG does show nonspecific T wave abnormality in these leads as well. Currently no symptoms that are suggestive of angina. Signs and symptoms of true angina reviewed with him. Continue with risk factor modification including good blood pressure, blood sugar, cholesterol control. Continue activity as tolerated. Emergency care if ever needed for symptoms. Cardiology follow-up in 1 year, sooner if needed. (2) Essential hypertension: Code(s): I10 - Essential (primary) hypertension Category: Medical Plan: [facility] blood pressure goal less than 130/85. Blood pressure well controlled. Continue lisinopril. (3) Hyperlipidemia, unspecified: Code(s): E78.5 - Hyperlipidemia, unspecified Category: Medical Qualifiers: Hyperlipidemia type: unspecified Qualified Code(s): E78.5 - Hyperlipidemia, unspecified Plan: [facility] LDL goal less than 70 in patient with diabetes. Labs followed by his PCP. Continue atorvastatin. (4) Type 2 diabetes mellitus with unspecified complications: Code(s): E11.8 - Type 2 diabetes mellitus with unspecified complications Category: Medical Plan: Hemoglobin A1c goal less than 7. Followed by PCP. Plan Time spent on chart review, documentation, interview and assessment Medications: Changed From omeprazole 20 mg PO BID 30 caps 2RF To omeprazole 20 mg PO ONCE DAVID Mae From pregabalin 200 mg PO BID 60 caps 1RF pain 30 days M47.812 - Spondylosis without myelopathy or radiculopathy, cervical region, M50.30 - Other cervical disc degeneration, unspecified cervical region, M54.50 - Low back pain, unspecified, M54.6 - Pain in thoracic spine, M62.838 - Other muscle spasm, M79.7 - Fibromyalgia To pregabalin 200 mg PO BID PRN M47.812 - Spondylosis without myelopathy or radiculopathy, cervical region, M50.30 - Other cervical disc degeneration, unspecified cervical region, M54.50 - Low back pain, unspecified, M54.6 - Pain in thoracic spine, M62.838 - Other muscle spasm, M79.7 - Fibromyalgia ROSA Johnson Coding Level of Care Code Est Pt Level 4 (94492) Complex EM visit Add On G2211 Diagnoses Precordial chest pain R07.2 Essential hypertension I10 Hyperlipidemia, unspecified hyperlipidemia type E78.5 Hyperlipidemia type: unspecified Type 2 diabetes mellitus with unspecified complications E11.8 CPT Codes EKG - CPT: 07187-[id number], Complete ([id number]) Time Spent (min) 28
== END 2024-12-21 14:36 | disposition home or self-care (01) ==
LOC: HO.HCS 14:02
PROVIDERS: PCP Internal Medicine; Visit Provider Nurse Practitioner Family
DX: R07.2 Precordial pain (principal); I10 Essential (primary) hypertension; E78.5 Hyperlipidemia, unspecified; E11.8 Type 2 diabetes mellitus with unspecified complications
CPT/HCPCS: 93010; 99214

== ENCOUNTER → 2024-12-21 14:02 | Outpatient (BNVA) | payer BC, SELFPAY | PROVIDERS: PCP Internal Medicine; Visit Provider Nurse Practitioner Family | DX: R07.2 Precordial pain (principal); I10 Essential (primary) hypertension; E78.5 Hyperlipidemia, unspecified; E11.8 Type 2 diabetes mellitus with unspecified complications; Z79.4 Long term (current) use of insulin | CPT/HCPCS: 93005 ==

== ENCOUNTER 2025-01-13 08:20 | Outpatient (REF) | payer BC, SELFPAY ==
--- OUTSIDE RECORDS SUMMARY | 2025-01-13 08:22 | XMS_ITS | Encounter Summary ---
Author Organization [employer] Address [address] [facility] [address] [place] [address] Care Team Providers Care Epic Cupid Specialists Name Role Phone Vasile Putnam MD Primary Care Prov ider Encounter Details Date Type Department Care Team ([facility] Contact Info) Description 01/12/2025 Telephone [facility] PEDS [address] [place] [address] Vasile Putnam MD [address] [place] [address] Social History Tobacco Use Types Packs/Day Years Used Date Smoking Tobacco: Never Passive Smoke Exposure: Never Smokeless Tobacco: Never Alcohol Use Standard Drinks/Week Comments Never 0 (1 standard drink = 0.6 oz pur e alcohol) Depression Answer Date Recorded Patient Health Questionnaire-9 Score 14 12/01/2024 Patient Health Questionnaire-9 Score 14 12/01/2024 Last PHQ-9: Questionnaire Data Not on file 0 12/01/2024 Housing Stability Answer Date Recorded What is your housing situation today? I have sophia tono 12/01/[address] you li ve. Do you have problems with any of the following? Pests such as bugs, ants, or mice 12/01/2024 Food Insecurity Answer Date Recorded Within the past 12 months, y ou worried that your food would run out before you got money to buy more: Never True 12/01/2024 Within the past 12 months,th e food you bought just didn't last and you didn't have enough money to get more: Never True Transportation Answer Date Recorded In the past 12 months, has l ack of transportation kept you from medical appts, meetings, work or from getting things needed for daily living? No 12/01/2024 Utilities Answer Date Recorded In the past 12 months, has t he electric, gas, oil or water company threatened to shut off services in your home? No 12/01/2024 Depression Answer Date Recorded Patient Health Questionnaire-2 Score 3 12/01/2024 Internet Access Answer Date Recorded Internet Access Q1 Yes 12/01/2024 Internet Access Q2 Not on file 12/01/2024 Sex and Gender Information Value Date Recorded Sex Assigned at Male 01/12/2022 10:17 AM EDT Legal Sex Male 10:17 AM EDT Gender Identity Male 01/12/2022 10:17 AM EDT Sexual Orientation Straight 01/12/2022 10 :17 AM EDT documented as of this encounter Miscellaneous Notes * Telephone Encounter - Vasile Juares MD - 01/12/2025 10:15 AM EDT I spoke with patient will order testosterone for new referral documented in this encounter Plan of Treatment Not on file documented as of this encounter Visit Diagnoses Not on filedocumented in this encounter Additional Health Concerns Assessment Noted Time PHQ-9 Depression Total Score: 14 025 8:48 AM EDT documented as of this encounter Care Teams Epic Cupid Specialists Relationship Specialty Start Date End Date Vasile Putnam MD [address] [place] [id number] PCP - General Internal Medicine 01/11/19 documented as of this encounter
--- OUTSIDE RECORDS SUMMARY | 2025-01-13 08:22 | XMS_ITS | Encounter Summary ---
Author Organization [employer] Address [address] [facility] [address] [place] [address] Care Team Providers Care Salesperson Floor Coverings Name Role Phone Vasile Putnam MD Primary Care Prov ider Encounter Details Date Type Department Care Team ([facility] Contact Info) Description 01/12/2025 Orders Only [facility] MED & PEDS [address] [place] [address] Vasile Putnam MD [address] [place] [address] Social History Tobacco Use Types Packs/Day Years [...] is your housing situation today? I have sophiaradha power 12/01/[address] you li [...] AM EDT documented as of this encounter Progress Notes * Vasile Juares MD - 01/12/2025 10:14 AM EDT I spoke with patient, new testosterone order will be sent in order to follow up with new urologist documented in this encounter Plan of Treatment Not on file documented as of this encounter Visit Diagnoses Not on filedocumented in this encounter Additional Health Concerns Assessment Noted Time PHQ-9 Depression Total Score: 14 025 8:48 AM EDT documented as of this encounter Care Teams Salesperson Floor Coverings Relationship Specialty Start Date End Date Vasile Putnam MD [address] [place] [id number] PCP - General Internal Medicine 01/11/19 documented as of this encounter
--- OUTSIDE RECORDS SUMMARY | 2025-01-13 08:22 | XMS_ITS | Encounter Summary ---
Author Organization [employer] Address [address] [address] Care Team Providers Care Instrument Repair Specialist Name Role Phone Vasile Putnam MD Primary Care Prov ider Reason for Visit * Reason Onset Date Comments Call Back Request 01/10/2025 Encounter Details Date Type Department Care Team ([facility] Contact Info) Description 01/10/2025 Telephone [facility] MED & PEDS [address] [place] [address] Vasile Putnam MD [address] [place] [address] Call Back Request Social History Tobacco Use Types Packs/Day Years [...] encounter Miscellaneous Notes * Telephone Encounter - Bonita Saba - 01/12/2025 9:28 AM EDT Tc from pt requesting a call back regarding prior message Contact pt at [phone] * Telephone Encounter - Bonita Saba - 01/10/2025 9:57 AM EDT Tc from pt requesting a call back to discuss when he is able to do labs that are needed before being referred to a Urologist Contact pt at [phone] documented in this encounter Plan of Treatment Not on file documented as of this encounter Visit Diagnoses Not on filedocumented in this encounter Additional Health Concerns Assessment Noted Time PHQ-9 Depression Total Score: 14 025 8:48 AM EDT documented as of this encounter Care Teams Instrument Repair Specialist Relationship Specialty Start Date End Date Vasile Putnam MD [address] [place] [id number] PCP - General Internal Medicine 01/11/19 documented as of this encounter
--- OUTSIDE RECORDS SUMMARY | 2025-01-13 08:22 | XMS_ITS | Encounter Summary ---
Author Organization [employer] Address [address] [place] [address] Care Team Providers Care Cyber Forensics Analyst Name Role Phone Vasile Putnam MD Primary Care Prov ider Reason for Visit * Reason Comments Med Refill Encounter Details Date Type Department Care Team (Late st Contact Info) Description 08/24/2022 Refill C [facility] [address] [place] [address] Vasile Putnam MD [address] [place] [address] Fibromyalgia Social History Tobacco Use Types Packs/Day [...] documented as of this encounter Care Teams Cyber Forensics Analyst Relationship Specialty Start Date End Date Vasile Putnam MD [address] [place] [address] PCP - General Internal Medicine 01/11/19 documented as of this encounter
--- OUTSIDE RECORDS SUMMARY | 2025-01-13 08:22 | XMS_ITS | Encounter Summary ---
Author Organization [employer] Address [address] [address] Care Team Providers Care Veneer Grader Name Role Phone Vasile Putnam MD Primary Care Prov ider Reason for Visit * Reason Onset Date Comments Nurse Triage 09/27/2023 Encounter Details Date Type Department Care Team ([facility] st Contact Info) Description 09/27/2023 Telephone [facility] CH[facility] MED & PEDS [address] [place] [address] Vasile Putnam MD [address] [place] [address] Nurse Triage Social History Tobacco Use Types [...] documented as of this encounter Care Teams Veneer Grader Relationship Specialty Start Date End Date Vasile Putnam MD [address] [place] [id number] PCP - General Internal Medicine 01/11/19 documented as of this encounter
--- OUTSIDE RECORDS SUMMARY | 2025-01-13 08:22 | XMS_ITS | Encounter Summary ---
Author Organization [employer] Address [address] [facility] [address] [place] [address] Care Team Providers Care Human Relations Manager Name Role Phone Vasile Putnam MD Primary Care Prov ider Encounter Details Date Type Department Care Team ([facility] st Contact Info) Description 06/26/2023 Orders Only [facility] MED[facility]INE [address] [place] [address] Provider, MD Min Social History Tobacco Use [...] documented as of this encounter Care Teams Human Relations Manager Relationship Specialty Start Date End Date DeutschVasile Cabrera MD [address] [place] [id number] PCP - General Internal Medicine 01/11/19 documented as of this encounter
--- OUTSIDE RECORDS SUMMARY | 2025-01-13 08:22 | XMS_ITS | Encounter Summary ---
Author Organization [employer] Address [address] [facility] [address] [place] [address] Care Team Providers Care Manager Stylist Name Role Phone Vasile Putnam MD Primary Care Prov ider Encounter Details Date Type Department Care Team ([facility] Contact Info) Description 01/12/2025 Orders Only [facility] & PEDS [address] [place] [address] Vasile Putnam MD [address] [place] [address] Hypogonadotropic hypogonadism (CMS/HCC) (Primary Dx) Social History Tobacco Use Types Packs/Day Years [...] housing situation today? 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
--- OUTSIDE RECORDS SUMMARY | 2025-01-13 08:23 | XMS_ITS | Encounter Summary ---
Author Organization [employer] Address [address] [address] Care Team Providers Care Pole Tester Name Role Phone Vasile Putnam MD Primary Care Prov ider Reason for Visit * Reason Onset Date Comments Lab Orders 07/31/2024 Encounter Details Date Type Department Care Team ([facility] st Contact Info) Description 07/31/2024 Telephone [facility] MEDICINE [address] [place] [address] Vasile Putnam MD [address] [place], [place] [id number] Lab Orders Social History Tobacco Use Types [...] If any questions please contact pt at [phone]. documented in this encounter Plan of Treatment Not on file documented as of this encounter Visit Diagnoses Not on filedocumented in this encounter Additional Health Concerns Assessment Noted Time PHQ-9 Depression Total Score: 0 07/22/19 23 9:15 AM EDT documented as of this encounter Care Teams Pole Tester Relationship Specialty Start Date End Date Vasile Putnam MD [address] [place] [id number] PCP - General Internal Medicine 01/11/19 documented as of this encounter
--- OUTSIDE RECORDS SUMMARY | 2025-01-13 08:23 | XMS_ITS | Clinical Summary ---
Author Organization [employer] Address [address] [place] [address] 7 [place] [address] Care Team Providers Care Proof Tester Name Role Phone Vasile Putnam MD Primary Care Prov ider Allergies Active Allergy Reactions Criticality Noted Date Comments Amoxicillin-Pot Clavulanate 03/23/19 23 Medications * This document contains information received from the source organization and may not represent a complete record from that organization. cetirizine (ZyrTEC) 10 MG tablet Take 1 [...] 10 days. 30 tablet 09/27/19 24 Active methocarbamol (Robaxin) 750 MG tablet Take 1 tablet (750 mg) by mouth 3 times daily. 270 tablet 3 01/04/20 24 Active omeprazole (PriLOSEC) [address] capsule [...] DAILY 60 capsule 3 05/25/19 25 Active dapagliflozin (Farxiga) 10 MG Take 1 tablet (10 mg) by mouth Once per day. 90 tablet 3 08/25/19 25 026 Active lidocaine (Lidoderm) 5 % patchIndicatio ns:Acute right-sided low back pain without sciatica,Right hip pain Apply 1 patch topically Once per day. Remove & discard patch within 12 hours or as directed by MD. 30 patch 1 10/12/19 25 Active atorvastatin (Lipitor) 40 MG tablet TAKE ONE TABLET EVERY MORNING 30 tablet 4 12/09/19 25 Active lisinopril 10 MG tablet TAKE ONE TABLET EVERY MORNING 90 tablet 1 01/06/20 25 Active metFORMIN (Glucophage) 1000 MG tabletIndicati ons:Type 2 diabetes mellitus without complication, without long-term current use of insulin (HCC) TAKE ONE TABLET TWICE DAILY WITH BREAKFAST AND WITH DINNER 180 tablet 1 01/06/20 25 Active metFORMIN (Glucophage) 1000 MG tabletIndicati ons:Type 2 diabetes mellitus without complication, without long-term current use of insulin (HCC) TAKE 1 TABLET BY MOUTH WITH BREAKFAST AND 1 TABLET WTH EVENING MEAL 180 tablet 3 12/07/19 24 025 Discontinued lisinopril 10 MG tablet TAKE 1 TABLET(10 MG) BY MOUTH IN THE MORNING 90 tablet 3 12/09/19 24 025 Discontinued Active Problems Problem Noted Date Diagnosed Date Generalized anxiety disorder 12/22/2024 Moderate major depression (CMS/HCC) 12/22/2024 Acute right-sided low back pain without sciatica 10/11/2024 Right hip pain 10/11/2024 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 Assessment & Plan (12/01/2024 9:32 AM EDT): Will refer to a [facility] urology as per patient request Maxillary sinusitis 03/09/2024 Assessment & Plan (03/09/2024 2:33 PM EST): Drink plenty of fluids and rest Acetaminophen PRN Screening for colon cancer 07/21/2022 Assessment & Plan (07/21/2022 12:35 PM EDT): Done in 2020 due in 5 years, no warning signs Muscle spasm 04/08/2022 Type 2 diabetes mellitus wit hout complication, without long-term current use of insulin 03/23/2022 Assessment & Plan (12/01/2024 9:33 AM EDT): Controlled, keep low carb/no sugar diet, no changes will be amde Assessment & Plan (08/24/2024 10:55 AM EDT): Controlled, keep low carb/no sugar diet, no changes in therapy will be done Foot exam done Eye exam up to date Assessment & Plan (01/04/2024 9:58 AM EDT): [...] Essential hypertension, benign 03/23/2022 Assessment & Plan (12/01/2024 9:31 AM EDT): Controlled, keep low sodium diet and exercise, keep bp log, follow up in 4 months Assessment & Plan (08/24/2024 10:53 AM EDT): Controlled, keep low sodium diet and exercise as tolerated, keep bp log, target <130/80 Assessment & Plan (01/04/2024 9:57 AM EDT): [...] made Mixed hyperlipidemia 03/23/2022 Assessment & Plan (08/24/2024 10:55 AM EDT): On statin therapy, keep low cholesterol diet, exercise, new labs ordered for guidance of therapy Assessment & Plan (08/19/2023 12:15 PM EDT): New labs will be ordered for guidance of therapy Assessment & Plan (04/08/2022 10:17 AM EST): Continue atorvastatin Body mass index 32.0-32.9, adult 03/23/2022 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/2022 Fibromyalgia 03/23/2022 Cervicalgia 03/23/2022 Lumbago 03/23/2022 Encounters * This document contains information received from the source organization and may not represent a complete record from that organization. Date Type Department Care Team Description 01/12/2025 Telephone [facility] [address] [place] [address] Vasile Putnam MD 01/12/2025 Orders Only [facility] [address] [place] [address] Vasile Putnam MD 01/12/2025 Orders Only [facility] [address] [place] [address] Vasile Putnam MD Hypogonadotropic hypogonadism ([facility] (Primary Dx) 01/10/2025 Telephone [facility] [address] [place] [address] Vasile Putnam MD Call Back Request 01/05/2025 Refill [facility] MED[facility] [address] [place], [place] [phone] Vasile Putnam MD Type 2 diabetes mellitus without complication, without long-term current use of insulin (HCC) 12/21/2024 Telephone [facility] [address] [place] [address] Vasile Putnam MD Referral 12/07/2024 Refill [facility] [address] [place] [address] Vasile Putnam MD 12/01/2024 9:00 AM EDT Telemedicine [facility] [address] [place] [address] Vasile Putnam MD Essential hypertension, benign (Primary Dx); Moderate episode of recurrent major depressive disorder (CMS/HCC); Hypogonadotropic hypogonadism (CMS/HCC); Type 2 diabetes mellitus without complication, without long-term current use of insulin (CMS/HCC) 12/01/2024 Telephone [facility] [address] [place] [address] Vasile Putnam MD 12/01/2024 Travel 11/30/2024 Telephone [facility] [address] [place] [address] Vasile Putnam MD chart prep 11/15/2024 Travel 11/14/2024 Travel 11/14/2024 Telephone [facility] [address] [place] [phone] Vasile Putnam MD chart prep 11/10/2024 Orders Only GENERIC EXTERNAL DATA DEPARTMENT Provider, Generic External Data 10/20/2024 Telephone [facility] [address] [place] [address] Vasile Putnam MD Nurse Triage from Last 3 Months Immunizations Immunization Administration Dates Next Due Influenza, seasonal, injectable, preservative fr ee 01/04/2024 Social History Tobacco Use Types Packs/Day Years Used Date Smoking Tobacco: Never Passive Smoke Exposure: Never Smokeless Tobacco: Never Tobacco Cessation:Counseling Given: Not Answered Alcohol Use Standard Drinks/Week Comments Never 0 [...] Sign Reading Time Taken Comments Blood Pressure 125/68 12/01/2024 9:17 AM EDT Pulse 88 10/11/2024 11:18 AM EDT Temperature 36.6 C (97.9 F) 10/11/2024 11:18 AM EDT Respiratory Rate 18 10/11/2024 11:18 AM EDT Oxygen Saturation 98% 10/11/2024 11:18 AM EDT Inhaled Oxygen Concentration - - Weight 88.5 kg (195 lb) 10/11/2024 11:18 AM EDT Height 177.8 cm (5' 10 ) 08/24/2024 10:04 AM EDT Body Mass Index 27.98 08/24/2024 10:04 AM EDT Plan of Treatment Health Maintenance Due Date Last Done Comments CT Colonography 1968 FIT DNA/Cologuard 1968 FIT 1968 FOBT 1970 Sigmoidoscopy 1968 Alcohol/Substance Use Screening 1980 Hepatitis B Vaccines (1 of 3 - 19+ 3-dose series) 1987 Eye Exam 08/06/2012 08/06/2010 COVID-19 Vaccine ( season) 2024 05/30/2022, 01/30/2021, 07/07/2020, Additional history exists Influenza Vaccine (#1) 2024 , 12/18/2021, 01/30/2021, Additional history exists Diabetes: Hemoglobin A1C 02/10/2025 025, 08/24/2024, 03/30/2024, Additional history exists Depression Monitoring 05/31/2025 12/01/2024, 025 Colonoscopy 08/16/2025 08/16/2020 Colorectal Cancer Screening 08/16/2025 Diabetes: Foot Exam 08/24/2025 08/24/2024, 08/24/2024, 08/24/2024, Additional history exists Diabetes: Urine Protein Screening 08/25/2025 08/25/2024, 08/19/2023, 07/21/2022, Additional history exists Lipid Panel 08/25/2025 08/25/2024, 06/08/2023, 11/20/2022, Additional history exists Disability Screening 11/14/2025 11/14/2024 SDOH Screening 12/01/2025 12/01/2024 Tobacco Screening 12/01/2025 12/01/2024 DTaP/Tdap/Td Vaccines (3 - Td or Tdap) 01/13/2032 01/12/2022, 08/24/2006 RSV Patients and Patients Aged 60 years or older (1 - 1-dose 75+ series) 2043 Pneumococcal Vaccine: 50+ Years Completed 01/02/2022 Zoster Vaccines Completed 01/02/2022, 01/30/2021 HIV Screening Completed 07/21/2022 Hepatitis C Screening Completed 07/21/2022, 022 HIB Vaccines Aged Out No longer eligi [...] Procedure Name Priority Date/Time Associated Diagnosis Comments IMMUNOGLOBULIN G Routine 11/10/2024 8:18 AM EDT LIVER KIDNEY MICROSOME (LKM-1) AB (IGG) Routine 11/10/2024 8:18 AM EDT ACTIN (SMOOTH MUSCLE) ANTIBODY (IGG) Routine 11/10/2024 8:18 AM EDT IMMUNOGLOBULIN G SUBCLASSES PANEL Routine 11/10/2024 8:18 AM EDT [id number] QN Routine 8:18 AM EDT HEPATIC FUNCTION PANEL Routine 8:18 AM EDT HEMOGLOBIN A1C Routine 11/10/2024 8:18 AM EDT URINALYSIS, COMPLETE, WITH REFLEX TO CULTURE Routine 11/10/2024 8:13 AM EDT URINALYSIS WITH REFLEX MICROSCOPIC Routine 11/10/2024 8:[address] ABDOMEN PELVIS WO CONTRAST Routine 10/14/2024 9:49 AM EDT ALBUMIN, RANDOM URINE W/CREATININE Routine 08/25/2024 10:08 AM EDT Type 2 diabetes mellitus without complication, without long-term current use of insulin (CMS/HCC) LIPID PANEL, STANDARD Routine 08/25/2024 10:08 AM EDT Type 2 diabetes mellitus [...] Relevant to Health Maintenance Results * (ABNORMAL) Actin (Smooth Muscle) Antibody (IgG) (11/10/2024 8:18 AM EDT) Smooth Muscle Antibody 27(A) <20 U [facility] Comment:Reference Range: <20 U: Negative>or=20 U: PositiveAntibodies recognizing actin are the main componentof smooth muscle antibodies associated with auto- immune liver disease. Actin antibodies are found inapproximately 75% of patients with autoimmunehepatitis (AIH) type 1, approximately 65% of patientswith autoimmune cholangitis, approximately 30% ofpatients with primary biliary cirrhosis andapproximately 2% of healthy controls. High values areclosely correlated with AIH type 1.THIS TEST WAS PERFORMED AT:[email or web address]/[id number] [place] [address]EGVVMHZWINSTON HAMMER MD,PHD 11/10/2024 8:18 AM EDT 11/10/2024 8:18 AM EDT us Generic External Data Provider LAB BLOOD ORDERAB LES Final Result Performing Organization Address [facility] Co de Phone Number [facility] [address] [place] [address] [phone] * Uocfh-1-Lidaokwvdxz, Quantitative (11/10/2024 8:18 AM EDT) Xvdlu-2-Pojgcufq sin QN 118 83 - 199 mg/dL [facility] Comment:THIS TEST WAS PERFOR MED AT:[email or web address] [place] [id number] CLAYTON MD 11/10/2024 8:18 AM EDT 11/10/2024 8:18 AM EDT us Generic External Data Provider LAB BLOOD ORDERAB LES Final Result Performing Organization Address [facility] de Phone Number [facility] [address] [place] [address] [phone] * Immunoglobulin G Subclasses Panel (11/10/2024 8:18 AM EDT) IgG Subclass 1 606 382 - 929 mg/dL [facility] IgG Subclass 2 553 241 - 700 mg/dL [facility] IgG Subclass 3 49 22 - 178 mg/dL [facility] IgG Subclass 4 40.0 4 - 86 mg/dL [facility] Immunoglobulin G, Serum 1302 600 - 1640 mg/dL [facility] Comment:THIS TEST WAS PERFOR MED AT:[email or web address] [address] [id number] CLAYTON MD 11/10/2024 8:18 AM EDT 11/10/2024 8:18 AM EDT us Generic External Data Provider LAB BLOOD ORDERAB LES Final Result Performing Organization Address [facility] Co de Phone Number [facility] [address] [place] [address] [phone] * Liver Kidney Microsomal (LKM-1) Antibody??(IgG) (11/10/2024 8:18 AM EDT) Liver Kidney Microsomal (LKM-1) Antibody IgG <=20.0 <=20.0 U [facility] Comment:Reference Range: <=2 0.0 Negative 20.1-24.9 Equivocal >=25.0 PositiveAnti-liver/kidney microsomal antibodies (Anti-LKM-1)were previously tested by indirect immunofluorescence(IF) using rodent liver/kidney substrate.Identification of a specific antibody target ascytochrome P450 IID6 has led to the current recombinantbased CA. Antibodies to this cytochrome are presentin approximately 70% of patients with autoimmunehepatitis type 2. This antibody is also present inapproximately 10% of patients with hepatitis Cinfection.THIS TEST WAS PERFORMED AT:[employer] [id number] [place] [address]KQCZIOR W. MASON,MD,PHD 11/10/2024 8:18 AM EDT 11/10/2024 8:18 AM EDT us Generic External Data Provider LAB BLOOD ORDERAB LES Final Result [facility] [address] [place] [phone] * (ABNORMAL) Hemoglobin A1c (11/10/2024 8:18 AM EDT) Hemoglobin A1c 7.0(H) <6.0 % [facility] Comment:Hemoglobin A1C Refer ence Range Adults: 4.8 - 6.0 % Non diabetic: < 6.0 % Goal: < 7.0 %Additional Action Suggested: > 8.0 %Note: Hemoglobin A1c results are invalid for patients with abnormal amounts of HbF. Blood transfusions may impact the HbA1c concentration in the patient sample. Estimated Average Glucose 154 mg/dL [facility] Comment:eAG = Estimated ave rage glucose which is %A1C expressed asaverage glucose, using the formula of the S1W-SnqgcqzPblldot Glucose study (ADAG), Diabetes Care, Vol.31,#8,2007 11/10/2024 8:18 AM EDT 11/10/2024 8:18 AM EDT us Generic External Data Provider LAB BLOOD ORDERAB LES Final Result Performing Organization Address [facility]/ZIP Co de Phone Number [facility] [address] [place] [phone] * Immunoglobulin G (11/10/2024 8:18 AM EDT) Immunoglobulin G [facility] 11/10/2024 8:18 AM EDT 11/10/2024 8:18 AM EDT us Generic External Data Provider LAB BLOOD ORDERAB LES Final Result Performing Organization Address [facility] Phone Number [facility] [address] [place] [phone] * (ABNORMAL) Hepatic Function Panel (11/10/2024 8:18 AM EDT) Bilirubin, Total 0.4 0.0 - 1.0 mg/dL [facility] Bilirubin, Direct 0.2 0.0 - 0.5 mg/dL [facility] Aspartate Amino Transferase 46(H) 5 - 37 U/L [facility] Alanine Aminotransferase 87(H) 0 - 40 U/L [facility] Total Protein 7.7 6.5 - 8.0 g/dL [facility] Albumin Level 4.7 3.5 - 5.0 g/dL [facility] Alkaline Phosphatase 68 39 - 117 U/L [facility] 11/10/2024 8:18 AM EDT 11/10/2024 8:18 AM EDT us Generic External Data Provider LAB BLOOD ORDERAB LES Final Result Performing Organization Address [facility] Co de Phone Number [facility] [address] [place] [phone] * (ABNORMAL) Urinalysis, Complete, with Reflex to Culture (11/10/2024 8:13 AM EDT) Color Urine Yellow [facility] Appearance Urine Clear [facility] PH 5.5 5.0 - 9.0 [facility] Glucose Urine UA >=1000(A) Negative mg/dL [facility] Urine Blood Negative Negative [facility] Specific [place] - Urine >=1.030(H) 1.005 - 1.025 [facility] Urine Protein Negative Neg-Trace mg/dL [facility] Urine Ketones Negative Negative mg/dL [facility] Nitrite Urine Negative Negative [facility] Leukocyte Esterase Urine Negative Negative [facility] RBC Urine 0-2 0 - 2 /HPF [facility] Urine WBC 0-5 0 - 5 /HPF [facility] Urine Squamous Epithelial Cell 0-2 0 - 2 /HPF [facility] Urine Bacteria None Seen None Seen [facility] Hyaline Casts, Urine 0-2 0 - 2 /LPF [facility] 11/10/2024 8:13 AM EDT 11/10/2024 9:05 AM EDT Narrative [facility] - 11/10/2024 9:22 AM EDT Urine, Clean Catch us Generic External Data Provider LAB URINE ORDERAB LES Final Result [facility] [address] [place] [phone] [phone] * (ABNORMAL) Urinalysis w/reflex microscopic (11/10/2024 8:13 AM EDT) [facility] Signature Color Urine Yellow [facility] Appearance Urine Clear [facility] PH 5.5 5.0 - 9.0 [facility] Glucose Urine UA >=1000(A) Negative mg/dL [facility] Urine Blood Negative Negative [facility] Specific [place] - Urine >=1.030(H) 1.005 - 1.025 [facility] Urine Protein Negative Neg-Trace mg/dL [facility] Urine Ketones Negative Negative mg/dL [facility] Nitrite Urine Negative Negative [facility] Leukocyte Esterase Urine Negative Negative [facility] 11/10/2024 8:13 AM EDT 11/10/2024 9:05 AM EDT Narrative [facility] - 11/10/2024 9:16 AM EDT Urine, Clean Catch us Generic External Data Provider LAB URINE ORDERAB LES Final Result Performing Organization Address City/State/[facility] Co de Phone Number [facility] [address] [place] [phone] * CT Abdomen Pelvis w/o Contrast (10/14/2024 9:49 AM EDT) Anatomical Region Laterality Modality Body, Pelvis, Abdomen Computed T omography 10/14/2024 9:49 AM EDT Narrative 10/14/2024 9:50 AM EDT [place] [address] CT Scan Report Signed Patient: Laurence Paulino MR#: [id number] 4 : 1970 Acct:[id number] Age/Sex: 54 / M ADM Date: 10/14/24 Loc: HO.CT Attending Dr: Franck [place] MD Ordering Physician: Franck [place] MD Date of Service: 10/14/24 Procedure(s): CT abdomen pelvis wo IV con Accession Number(s): [id number] cc: Vasile Putnam MD; Franck [place] MD Report Number: [id number]: Total DLP = 701.00 mGy-cm CLINICAL HISTORY: R10.9 - Unspecified abdominal pain --- Additional Notes or Special Instructions: rule out renal stones CT abdomen and pelvis without contrast Comparison: CT/NH/SR - CT ABDOMEN PELVIS WITHOUT IV CONTRAST - 10/14/23 09:55 EDT Findings: The lung bases are clear. The unenhanced liver, gallbladder, spleen, adrenal glands and pancreas are unremarkable. Kidneys, ureters and bladder are normal. No urinary calculus or obstructive uropathy. Normal appendix. Moderate fecal retention throughout the colon. There is a segment of fecalized small bowel with the question of focal small bowel wall thickening distal to this on axial image 58 No acute osseous finding. Impression: No urinary calculus or obstructive uropathy. Moderate fecal retention throughout the colon. Questioned focal small-bowel narrowing/thickening with fecalized small bowel proximal to this. Findings are nonspecific. Fluoroscopic small-bowel follow-through could be considered on an outpatient basis as could GI consultation. This document has been electronically signed by: Froilan Self MD on 10/14/2024 09:49:49 Dictated By: Froilan Self MD Signed By: <Electronically signed by Froilan Self MD in OV> 10/14/24949 DD/ 8 TD/TT: 10/14/24948 Poultry Service Technician: Procedure Note Donotuseinterpreter, Image - 10/14/[address] [place] [address] [address] Scan Report Signed Patient: Bola Paulino#: [id number] 4 : 1970Acct:[id number] Age/Sex: 54 / MADM Date: 10/14/24 Loc: HO.CT Attending Dr: Franck [place] MD Ordering Physician: Franck [place] MD Date of Service: 10/14/24 Procedure(s): CT abdomen pelvis wo IV con Accession Number(s): [id number] cc: Vasile Putnam MD; Franck [place] MD Report Number: [id number]: Total DLP = 701.00 mGy-cm CLINICAL HISTORY: R10.9 - Unspecified abdominal pain --- Additional Notesor Special Instructions: rule out renal stones CT abdomen and pelvis without contrast Comparison: CT/NH/SR - CT ABDOMEN PELVIS WITHOUT IV CONTRAST - 10/14/23 09:55 EDT Findings: The lung bases are clear. The unenhanced liver, gallbladder, spleen, adrenal glands and pancreas are unremarkable. Kidneys, ureters and bladder are normal. No urinary calculus or obstructive uropathy. Normal appendix. Moderate fecal retention throughout the colon. There is a segment of fecalized small bowel with the question of focal small bowel wall thickening distal to this on axial image 58 No acute osseous finding. Impression: No urinary calculus or obstructive uropathy. Moderate fecal retention throughout the colon. Questioned focal small-bowel narrowing/thickening with fecalized small bowel proximal to this. Findings are nonspecific. Fluoroscopic small-bowel follow-through could be considered on an outpatient basis as could GI consultation. This document has been electronically signed by: Froilan Self MD on 10/14/2024 09:49:49 Dictated By: Froilan Self MD Signed By: <Electronically signed by Froilan Self MD in OV> 10/14/24949 DD/ 8 TD/TT: 10/14/24948 Poultry Service Technician: [facility] External Provider IMG CT PROCEDURES Edited Result - Final * Albumin, Random Urine W/Creatinine (08/25/2024 10:08 AM EDT) Creatinine, Urine 299.86 mg/dL [facility] Microalbumin Urine 36.0 mg/L [facility] Microalbum Creatinine Ratio Ur 12.0 <30 ug/mg cr [facility] Comment:Albumin/Creatinine R atio Reference Ranges: Normal: < 30 ug/mg creatinine Microalbuminuria: 30 - 300 ug/mg creatinineClinical Albuminuria: > 300 ug/mg creatinine Urine (Urine, Random) 08/25/2024 10:08 AM EDT 08/25/2024 2:00 PM EDT Vasile Juares MD LAB URINE ORDERABL ES Final Result [facility] [address] [place] [phone] * (ABNORMAL) Lipid Panel, Standard (08/25/2024 10:08 AM EDT) Triglycerides 143 <150 mg/dL [facility] Comment:Desirable Triglyceri de: less than 150 mg/dLBorderline High Triglyceride 150-199 mg/dLHigh Triglyceride: 200-499 mg/dLVery High Triglyceride: greater than or equal to 5OO mg/dL Cholesterol 181 <200 mg/dL [facility] Comment:Desirable Cholestero l: less than 200 mg/dLBorderline High Cholesterol: 200-239 mg/dLHigh Cholesterol: greater than 239 mg/dL LDL Cholesterol Calculated 119(H) <100 mg/dL [facility] Comment:Desirable LDL: less than 100 mg/dLNear Optimal/Above Optimal LDL: 110- 129 mg/dLBorderline High LDL: 130-159 mg/dLHigh LDL: 160-189 mg/dLVery High LDL: greater than or equal to 190 mg/dL HDL Cholesterol 34(L) >40 mg/dL [facility] Comment:Desirable HDL: great er than 40 mg/dL Note: This HDL assay may give artificially low results in patients with liver disease. Blood Venous blood specimen / Unknown 08/25/2024 10:08 AM EDT 08/25/2024 2:05 PM EDT Vasile Juares MD LAB BLOOD ORDERABL ES Final Result [facility] [address] [place] [phone] * HIV-1 RNA, Quantitative, Real-Time PCR with Reflex to Genotype (RTI, PI, Integrase) (07/21/2022 9:57 AM EDT) HIV 1 RNA, QN PCR NOT DETECTED copies/mL [facility] [employer] [facility], HIV 1 RNA, QN PCR NOT DETECTED Log copies/mL [facility], Comment: REFERENCE RANGE: NOT DETECTED copies/mL NOT DETECTED Log copies/mL This test was performed using Real-Time Polymerase Chain Reaction. Reportable range is 20 to 10,000,000 copies/mL (1.30-7.00 Log copies/mL). 07/21/2022 9:57 AM EDT 07/21/2022 9:58 AM EDT Narrative [facility] - 07/23/2022 8:25 PM EDT FASTING:NO FASTING: NO Vasile Juares MD LAB BLOOD ORDERABL ES Final Result Performing Organization Address [facility]/ZIP Co de Phone Number [address], [place] [address] [employer]/[facility], [address] [place] [address] * Hepatitis C Antibody with Reflex to HCV, RNA, Quantitative, Real-Time PCR (07/21/2022 9:57 AM EDT) Pathologist [facility] Hepatitis C Antibody NON-REACT FLACO NON-REACT FLACO [employer] Index 0.08 <1.00 [employer] Comment: HCV antibody was non-reactive. There is no laboratory evidence of HCV infection. In most cases, no further action is required. However, if recent HCV exposure is suspected, a test for HCV RNA (test code 69278) is suggested. For additional information please refer to http://education.Kartela/faq/YHC25n0 (This link is being provided for informational/ educational purposes only.) Blood Venous blood specimen / Unknown 07/21/2022 9:57 AM EDT 07/21/2022 9:58 AM EDT Narrative [facility] - 07/23/2022 8:25 PM EDT FASTING:NO FASTING: NO Vasile Juares MD LAB BLOOD ORDERABL ES Final Result Performing Organization Address [facility] Co de Phone Number [address], [facility] [place] [address] [employer] [address] [place] [phone] * Hm Colonoscopy (08/16/2020 7:13 AM EDT) us Historical Provider HEALTH MAINTENANCE Final Result from Last 3 Months or Most Recently Relevant to Health Maintenance Insurance BCBS PPO Care Teams Proof Tester Relationship Specialty Start Date End Date Vasile Putnam MD [address] [place] [address] PCP - General Internal Medicine 01/11/19
[2025-01-13 10:04] LABS: Appearance Urine Clear; Glucose Urine UA >=1000 mg/dL (Negative); PH 5.5 (5.0-9.0); Specific Gravity - Urine >= 1.030 (1.005-1.025); UMIC TRIGGER UACC YES
[2025-01-21 13:24] LABS: Testosterone, Free 29.8 pg/mL (35.0-155.0)
== END 2025-01-13 08:21 | disposition home or self-care (01) ==
LOC: HO.LAB 08:20
PROVIDERS: Internal Medicine Gastroenterology; PCP Internal Medicine; Referring Provider Internal Medicine; Visit Provider Urology
DX: R79.89 Other specified abnormal findings of blood chemistry (principal)
CPT/HCPCS: 36415; 81001; 81003; 84402; 84403

== ENCOUNTER 2025-01-22 12:45 | Emergency (ER) | payer BC, SELFPAY ==
--- NOTE | ~2025-01-22 | US_ITS ---
CLINICAL HISTORY: bilateral thigh pain. no trauma. DVT? Bilateral lower extremity venous duplex ultrasound. Comparison: None Technique: Real time sonographic imaging, including color-flow imaging and spectral analysis, was performed by the search strategist. Multiple senior patient account representative static images were saved for review. Findings: The deep venous systems of both lower extremities are fully compressible from common femoral through the proximal leg veins. There is spontaneous and phasic flow, and augmentation. Color Doppler and spectral tracings are unremarkable. Impression: 1. Bilateral lower extremity venous duplex ultrasound negative for DVT This document has been electronically signed by: Tadeo Sethi MD on 01/22/2025 17:44:11
--- NOTE | ~2025-01-22 | US_ITS ---
CLINICAL HISTORY: testicular pain. torsion? US scrotum with Doppler Comparison: None Technique: Real time sonographic imaging, including color-flow imaging, was performed by the landing scaler. Multiple media sales representative static images were saved for review. Findings: Right testicle normal size and echotexture, 3.6 cm. Normal color flow and spectral tracing. Normal epididymis. No hydrocele. A varicocele is present, with vessels measuring up to 4 mm diameter. Left testicle normal size and echotexture, 3.2 cm. Normal color flow and spectral tracing. An epididymal head cyst measuring up to 8 mm is present. No hydrocele. A varicocele is present, with vessels measuring up to 4-5 mm. Impression: 1. Bilateral varicoceles and left-sided epididymal cyst. 2. Otherwise, unremarkable scrotal ultrasound. Specifically, no evidence of torsion. This document has been electronically signed by: Tadeo Sethi MD on 01/22/2025 17:46:02
--- NOTE | ~2025-01-22 | CT_ITS ---
CLINICAL HISTORY: Abd and testicuar pain. fourneir gangrene? SBO? Exam: Contrast-enhanced CT abdomen and pelvis with multiplanar reformats. Comparison: CT/SR - CT ABDOMEN PELVIS WO IV CON - 10/14/2024 08:37 AM EDT Findings: CT abdomen: Lung bases are clear. Liver is free of focal lesions and ductal dilatation. Gallbladder is unremarkable. Spleen is unremarkable. Pancreas and adrenal glands appear unremarkable. Kidneys appear unremarkable. No free intraperitoneal fluid or retroperitoneal masses or adenopathy. Abdominal aorta is normal caliber. Bowel loops reveal no abnormal wall thickening or distention. No significant diverticular disease. The appendix appears unremarkable. CT pelvis: Prostate gland measures 4.8 cm transverse dimension. Urinary bladder is free of gross filling defects. No pelvic masses, fluid or adenopathy. There may be some scrotal wall edema. No soft tissue emphysema or CT evidence of necrotizing infection. No circumscribed collections appreciated. Osseous structures reveal no destructive osseous lesions. Impression: 1. No soft tissue emphysema or CT evidence of necrotizing infection. This document has been electronically signed by: Tadeo Sethi MD on 01/22/2025 19:10:51
--- NOTE | ~2025-01-22 | US_ITS ---
CLINICAL HISTORY: testicular pain. torsion? US scrotum with Doppler Comparison: None Technique: Real time sonographic imaging, including color-flow imaging, was performed by the glass smoother. Multiple event marketing representative static images were saved for review. Findings: Right testicle normal size and echotexture, 3.6 cm. Normal color flow and spectral tracing. Normal epididymis. No hydrocele. A varicocele is present, with vessels measuring up to 4 mm diameter. Left testicle normal size and echotexture, 3.2 cm. Normal color flow and spectral tracing. An epididymal head cyst measuring up to 8 mm is present. No hydrocele. A varicocele is present, with vessels measuring up to 4-5 mm. Impression: 1. Bilateral varicoceles and left-sided epididymal cyst. 2. Otherwise, unremarkable scrotal ultrasound. Specifically, no evidence of torsion. This document has been electronically signed by: Tadeo Sethi MD on 01/22/2025 17:46:02
[2025-01-22 13:01] VITALS: BP 129/80; PULSE 79; RESP 16; TEMP 36.4; O2SAT 97; BMI 28.1
--- NOTE | 2025-01-22 13:03 | ED.GENADULT ---
HPI - General Adult General Chief complaint: Urogenital-Male Stated complaint: Knee Leg Pain Time Seen by Provider: 01/22/25 16:18 Source: patient Mode of arrival: ambulatory Limitations: no limitations History of Present Illness ED Provider: Josué Fernandez HPI narrative: 54-year-old male history of hypogonadism palpitations, GERD, diabetes, hypertension presents to ED for for bilateral thigh pain, lower abdominal pain, and testicular discomfort lumps. Patient states this morning he woke up with bilateral thigh pain without any trauma. Patient denies any swelling of lower extremity, redness, or recent long travel/surgery. Patient denies excessive walking or running. In regards to the testicles patient states feeling like he has lumps in inside his testicle/scrotum. Patient denies any swelling of testicles or penile discharge. Third complaint patient states lower abdominal discomfort without any nausea or vomiting. Related Data Home Medications ?Medication ?Instructions ?Recorded ?Confirmed cetirizine 10 mg tablet 10 mg PO DAILY 11/20/22 12/21/24 metformin 1,000 mg tablet 1,000 mg PO BID 11/20/22 12/21/24 dapagliflozin propanediol 10 mg mg PO DAILY 05/26/24 12/21/24 tablet (Farxiga) atorvastatin 40 mg tablet 40 mg PO .am 12/21/24 12/21/24 methocarbamol 500 mg tablet 500 mg PO .COMPLEX PRN 12/21/24 12/21/24 omeprazole 20 mg capsule,delayed 20 mg PO ONCE 12/21/24 12/21/24 release pregabalin 200 mg capsule 200 mg PO BID PRN pain 12/21/24 12/21/24 Previous Rx's ?Medication ?Instructions ?Recorded lisinopril 10 mg tablet 10 mg PO DAILY HTN 90 days #90 tabs 12/17/22 sennosides 8.6 mg-docusate sodium 1 tab-cap PO BEDTIME 60 days #60 03/30/24 50 mg tablet (Senna with Docusate tabs Sodium) safety needles 23 gauge x 1 (BD #30 ea 05/15/24 SafetyGlide Needle) needle (disp) 18 G 18 gauge x 1 #30 ea 10/17/24 (BD Regular Bevel Alligator) needle (disp) 23 gauge 23 gauge x #30 ea 10/17/24 3/4 (BD Regular Bevel Alligator) syringe (disposable) 1 mL (BD #30 ea 10/17/24 Luer-Ami Syringe) testosterone cypionate 200 mg/mL 80 mg (0.4 mL) subcut QWEEK 4 10/17/24 intramuscular oil weeks #2 mL (Depo-Testosterone) safety needles 25 gauge x 1 (BD #30 packets 10/27/24 SafetyGlide Needle) barium sulfate 2 % (w/v) oral [address] scan 1 day #900 01/18/25 suspension (Readi-Cat 2) mL doxycycline hyclate 100 mg capsule 100 mg PO BID 7 days #14 caps 01/22/25 naproxen 500 mg tablet 500 mg PO BID PRN pain #14 tabs 01/22/25 Allergies Allergy/AdvReac Type Severity Reaction Status Date / Time clavulanic acid (From Allergy Mild Itching Verified 01/22/25 13:06 Augmentin) Penicillins Allergy Unknown ITCHING Verified 01/22/25 13:06 Review of Systems Review of Systems: Testicular lumps pain, bilateral thigh pain, abdominal pain Yes all other systems are reviewed and are negative PMFSH Past Medical History Medical History Mixed hyperlipidemia Muscle spasm Fibromyalgia COVID-19 vaccine series completed Pain of multiple extremities Neck pain History of lumbar puncture Back pain SHERLY (obstructive sleep apnea) Palpitations Anxiety Migraine Hyperlipidemia, unspecified Essential hypertension Type 2 diabetes mellitus with unspecified complications Surgical History History of umbilical hernia repair History of esophagogastroduodenoscopy (EGD) Hx of colonoscopy Family History Family History Mother Diabetes Father Myocardial infarction Social History Social History Alcohol intake: never Comment: medicated in pacu Patient Tobacco Use Status: Never used Tobacco Physical Exam ED Vital Signs: Vital Signs - 24 hr 01/22/25 13:01 01/22/25 16:34 Temperature 97.5 F 98.0 F Pulse Rate 79 63 Respiratory Rate 16 18 Blood Pressure 129/80 112/80 Pulse Oximetry 97 95 Oxygen Delivery Method Room Air Room Air BMI result Body Mass Index 28.1 Const General: cooperative, healthy appearing, comfortable, no acute distress, well developed, alert, awake and Physically active [facility] Head: Yes normal to inspection, Yes No palpable skull fracture present, Yes normocephalic and Yes atraumatic Eyes General: appearance normal, both eyes and all related structures Neck Neck: Yes normal visual inspection, Yes full ROM, Yes no lymphadenopathy, Yes no meningeal signs, Yes trachea midline, Yes supple, No anterior neck swelling and No tender Chest Chest palpation & inspection: normal inspection of the chest and normal palpation of entire chest wall Resp Effort & Inspection: normal respiratory effort and able to speak in complete sentences Auscultation: clear to auscultation bilaterally Cardio Jugular venous distension: no JVD Heart sounds: S1 normal heart sound present and S2 normal heart sound present GI Other: Groin negative for hernias. Inspection: Yes normal to inspection Palpation (GI): Soft to palpation, not firm, Tenderness to palpation present (GI) in the LLQ and in the RLQ, no guarding and not rigid Other: Testicular exam negative for erythema, obvious lump/mass, fluctuance, or discharge. On palpation of testicles I did not feel any lumps with patient states feel lumps insight and feel and it feels tender. Negative for foul-smelling gangrene. Negative for any penile lesions. Negative for hernia. General: Yes no CVA tenderness Penis: normal penis and uncircumcised Testes: Testes normal Back/Spine/Pelvis Back: no CVA tenderness and No back tenderness Skin General skin exam: no rashes or lesions noted, elasticity normal and turgor normal Neuro General: no meningeal signs Extrem Other: Bilateral lower extremities negative for swelling, ecchymosis, crepitus, erythema, or deformities. Bilateral pulses of lower extremities intact. Mild tenderness on bilateral thighs. Psych Appearance: grossly normal, well kempt and not disheveled Course Course Course Narrative: Rapid medical examination performed in triage by Katie Valenzuela PA-C: Patient is a 54 year old assigned male at presenting to the emergency department with bilateral groin pain. Patient states he has several bumps in his groin on both sides and now they are very painful. Patient states that he follows with Dr. Sibley and Dr. Madrid. Detailed physical exam and review of systems are deferred to the sand system operator. Labs ordered. Patient placed back in the waiting room pending room availability and results. Medications Administered Discontinued Medications Generic Name Dose Route Start Last Admin Trade Name Lane PRN Reason Stop Dose Admin Iohexol 100 ml 01/22/25 18:31 01/22/25 18:32 Iohexol 350 Mg/Ml 100 Ml Infus..Btl IV 01/22/25 18:32 85 ml ONCE ONE Administration Medical Decision Making Medical Decision Making [facility] Narrative: 54-year-old male presents to the ED lower abdominal pain, lump since testicle area, burning on urination, and bilateral thigh pain. Initial labs are reassuring. UA negative. Patient is a have ultrasound and CAT scan ordered. 8:00pm: Patient's UA negative for UTI. Ultrasound of scrotum shows varicocele and epididymal cyst. Negative for testicular torsion or epididymitis. Bilateral ultrasound of lower extremity negative for DVT. Cat scan negative for signs of necrotizing fasciitis Cy gangrene of testicles but shows mild scrotal wall edema. Negative for elevated white blood cell count. Negative elevation of ESR CRP. Not suspecting arterial occlusion, compartment syndrome, fracture, sepsis, MA, PE, cy gangrene or any other life-threatening etiology. No need for x-ray patient denies any trauma and negative for any ecchymosis or crepitus or deformity on exam. Patient will be discharged antibiotics due to cat scan read of scrotal wall edema possible cellulitis. patient explained worrisome signs and inform to return to the ED immeidatley. Differential Diagnosis Differential Diagnoses: The differential diagnosis associated with the presentation includes (DVT, testicular torsion, epididymitis, hydrocele varices) Admission/Observation Consideration of admission/observation: Escalation of care including admission/observation considered Consult Healthcare Provider Management of the patient was discussed with: Hospitalist Lab Data [facility] Lab Attestation statement: I reviewed the patient's lab results. 01/22/25 13:19 01/22/25 13:19 Labs: Lab Results 01/22/25 01/22/25 01/22/25 Range/Units 13:19 16:40 18:47 WBC 5.6 (4.8-10.8) X10*3/uL RBC 5.88 H (4.60-5.80) X10*6/uL Hgb 16.2 (14.0-18.0) g/dl Hct 47.7 (42.0-52.0) % MCV 81.1 (80.0-98.0) fL MCH 27.6 (27.0-33.0) pg MCHC 34.0 (31.0-36.0) g/dl RDW 14.9 (11.0-16.0) % Plt Count 163 (160-400) X10*3/uL MPV 10.6 (9.4-12.4) fL Immature Gran % (Auto) 0.2 (0.0-0.4) % Neut % (Auto) 51.2 (45-73) % Lymph % (Auto) 40.3 H (20-40) % [place] % (Auto) 7.0 (2-11) % Eos % (Auto) 0.9 (0-4) % Baso % (Auto) 0.4 (0-2) % Lymph # (Auto) 2.2 (1.2-4.9) X10*3/uL [place] # (Auto) 0.4 (0.1-1.2) X10*3/uL Eos # (Auto) 0.1 (0.0-0.4) X10*3/uL Baso # (Auto) 0.0 (0.0-0.2) X10*3/uL Abs Immat Gran (auto) 0.01 (0.00-0.03) X10*3/uL Absolute Neuts (auto) 2.9 (2.0-8.3) x10*3/uL Absolute Nucleated RBC 0.000 (0.0-0.012) X10*3/uL Nucleated RBC % (auto) 0.0 (0.0-0.2) /100WBC ESR 2 (0-15) MM/HR Sodium 139 (135-145) mmol/L Potassium 4.2 (3.3-5.1) mmol/L Chloride 108 (96-108) mmol/L Carbon Dioxide 23 (22-29) mmol/L Anion Gap 12 (12-20) BUN 11 (9-16) mg/dL Creatinine 0.98 (0.5-1.4) mg/dL Estim Creat Clear Calc 94.3 Estimated GFR > 60 POC Glucose 88 (60-115) mg/dL Random Glucose 120 H (60-115) mg/dL Calcium 9.8 (8.4-10.2) mg/dL Total Bilirubin 0.4 (0.0-1.0) mg/dL AST 37 (5-37) U/L ALT 63 H (0-40) U/L Alkaline Phosphatase 63 (39-117) U/L Total Creatine Kinase 217 H (38-174) U/L C-Reactive Protein < 0.04 (< or = 0.50) mg/dL Total Protein 7.5 (6.5-8.0) g/dL Albumin 4.7 (3.5-5.0) g/dL Urine Color Yellow Urine Appearance Clear Urine pH 6.5 (5.0-9.0) Ur Specific [place] 1.020 (1.005-1.025) Urine Protein Negative (Neg-Trace) mg/dL Urine Glucose (UA) >=1000 H (Negative) mg/dL Urine Ketones Negative (Negative) mg/dL Urine Blood Negative (Negative) Urine Nitrite Negative (Negative) Ur Leukocyte Esterase Negative (Negative) Urine RBC 0-2 (0-2) /HPF Urine WBC 0-5 (0-5) /HPF Ur Squamous Epith Cells 0-2 (0-2) /HPF Urine Bacteria None Seen (None Seen) Hyaline Casts 0-2 (0-2) /LPF Independent Interpretation I performed an independent interpretation of an: Ultrasound Radiology Impression Discussion of test interpretation with radiology: I have reviewed the radiologist's reading. Independent Historian Clinical information obtained from an independent historian. History obtained from or confirmed by: Other (patient) Prescription Management I considered prescription management with: Antibiotic Discharge Plan Discharge Clinical Impression: Varicocele, Cellulitis, Bilateral thigh pain Patient Disposition: Home, Self-Care Instructions: Cellulitis (ED), Leg Pain (ED), Scrotal Pain (ED) Additional Instructions: You will need follow-up with primary care provider and urologist. Return to the ED immediately abdominal pain, testicular pain, testicular lesions, redness, black in his, leg swelling, calf pain, chest pain, shortness of breath, abdominal pain, fever, chills, penile lesions, penile discharge, or any other concerning symptoms. [address] [address] [address] Scan Report Signed Patient: Laurence Paulino MR#: [id number] : 1970 Acct:[id number] Age/Sex: 54 / M ADM Date: 01/22/25 Loc: HO.ED Attending Dr: Ordering Physician: Josué Fernandez Date of Service: 01/22/25 Procedure(s): CT abdomen pelvis w IV con Accession Number(s): [id number] cc: Josué Fernandez; Vasile Putnam MD~ Report Number: [id number]: Total DLP = 624.00 mGy-cm Reason for Exam: Abd and testicuar pain. fourneir gangrene? SBO? CLINICAL HISTORY: Abd and testicuar pain. fourneir gangrene? SBO? Exam: Contrast-enhanced CT abdomen and pelvis with multiplanar reformats. Comparison: CT/SR - CT ABDOMEN PELVIS WO IV CON - 10/14/2024 08:37 AM EDT Findings: CT abdomen: Lung bases are clear. Liver is free of focal lesions and ductal dilatation. Gallbladder is unremarkable. Spleen is unremarkable. Pancreas and adrenal glands appear unremarkable. Kidneys appear unremarkable. No free intraperitoneal fluid or retroperitoneal masses or adenopathy. Abdominal aorta is normal caliber. Bowel loops reveal no abnormal wall thickening or distention. No significant diverticular disease. The appendix appears unremarkable. CT pelvis: Prostate gland measures 4.8 cm transverse dimension. Urinary bladder is free of gross filling defects. No pelvic masses, fluid or adenopathy. There may be some scrotal wall edema. No soft tissue emphysema or CT evidence of necrotizing infection. No circumscribed collections appreciated. Osseous structures reveal no destructive osseous lesions. Impression: 1. No soft tissue emphysema or CT evidence of necrotizing infection. This document has been electronically signed by: Tadeo Sethi MD on 01/22/2025 19:10:51 Ordering Physician: Josué Fernandez Date of Service: 01/22/25 Procedure(s): US scrotum doppler Accession Number(s): [id number] cc: Josué Fernandez; Vasile Putnam MD~ Reason for Exam: testicular pain. torsion? CLINICAL HISTORY: testicular pain. torsion? US scrotum with Doppler Comparison: None Technique: Real time sonographic imaging, including color-flow imaging, was performed by the blaster helper. Multiple telephone services sales representative static images were saved for review. Findings: Right testicle normal size and echotexture, 3.6 cm. Normal color flow and spectral tracing. Normal epididymis. No hydrocele. A varicocele is present, with vessels measuring up to 4 mm diameter. Left testicle normal size and echotexture, 3.2 cm. Normal color flow and spectral tracing. An epididymal head cyst measuring up to 8 mm is present. No hydrocele. A varicocele is present, with vessels measuring up to 4-5 mm. Impression: 1. Bilateral varicoceles and left-sided epididymal cyst. 2. Otherwise, unremarkable scrotal ultrasound. Specifically, no evidence of torsion. This document has been electronically signed by: Tadeo Sethi MD on 01/22/2025 17:46:02 Ordering Physician: Josué Fernandez Date of Service: 01/22/25 Procedure(s): US venous duplex LE BI Accession Number(s): [id number] cc: Josué Fernandez; Vasile Putnam MD~ Reason for Exam: bilateral thigh pain. no trauma. DVT? CLINICAL HISTORY: bilateral thigh pain. no trauma. DVT? Bilateral lower extremity venous duplex ultrasound. Comparison: None Technique: Real time sonographic imaging, including color-flow imaging and spectral analysis, was performed by the blaster helper. Multiple telephone services sales representative static images were saved for review. Findings: The deep venous systems of both lower extremities are fully compressible from common femoral through the proximal leg veins. There is spontaneous and phasic flow, and augmentation. Color Doppler and spectral tracings are unremarkable. Impression: 1. Bilateral lower extremity venous duplex ultrasound negative for DVT This document has been electronically signed by: Tadeo Sethi MD on 01/22/2025 17:44:11 Prescriptions: New doxycycline hyclate 100 mg capsule 100 mg PO BID 7 Days Qty: 14 0RF naproxen 500 mg tablet 500 mg PO BID PRN (Reason: pain) Qty: 14 0RF No Action (DME) BD SafetyGlide Needle 23 gauge x 1 needle See Rx Instructions .Route Qty: 30 0RF Rx Instructions: Inject testosterone subcutaneous (DME) BD SafetyGlide Needle 25 gauge x 1 needle See Rx Instructions .Route Qty: 30 0RF Rx Instructions: As directed Readi-Cat 2 2 % (w/v) suspension 450 ml PO ONCE 1 Days Qty: 900 0RF Rx Instructions: Ready-Cat2 (1 bottle 2 hrs prior and 1 bottle one hour prior) cetirizine 10 mg tablet 10 mg PO DAILY atorvastatin 40 mg tablet 40 mg PO .am metformin 1,000 mg tablet 1,000 mg PO BID sennosides-docusate sodium [Senna with Docusate Sodium] 8.6-50 mg tablet 1 tab-cap PO BEDTIME 60 Days Qty: 60 2RF Rx Instructions: Please take every other day at bedtime omeprazole 20 mg capsule,delayed release(DR/EC) 20 mg PO ONCE methocarbamol 500 mg tablet 500 mg PO .COMPLEX PRN Rx Instructions: 500 mg orally Daily PRN; pregabalin 200 mg capsule 200 mg PO BID PRN (Reason: pain) dapagliflozin propanediol [Farxiga] 10 mg tablet PO DAILY (DME) needle (disp) 18 G [BD Regular Bevel Alligator] 18 gauge x 1 needle See Rx Instructions .MEDSUPPLY Qty: 30 0RF Rx Instructions: As directed - draw up testosterone (DME) BD Regular Bevel Alligator 23 gauge x 3/4 needle See Rx Instructions .MEDSUPPLY Qty: 30 0RF Rx Instructions: Inject testosterone subcutaneous (DME) BD Luer-Ami Syringe 1 mL syringe See Rx Instructions .MEDSUPPLY Qty: 30 0RF Rx Instructions: Testosterone injection weekly testosterone cypionate [Depo-Testosterone] 200 mg/mL oil 80 mg subcut QWEEK 28 Days Qty: 2 2RF lisinopril 10 mg tablet 10 mg PO DAILY 90 Days Qty: 90 0RF Referrals: [facility] [place] [facility] [Provider Group, Urology] - 2 days Referral Note: Varicocele possible scrotal cellulitis Clinical Impression: Cellulitis; Varicocele Vasile Putnam MD [Primary Care Provider, Medical] - 2 days Referral Note: Thigh pain, scrotal pain. Possible scrotal cellulitis Clinical Impression: Cellulitis; Varicocele; Bilateral thigh pain Stand Alone Forms: Work/School Release Interventions: ED Discharge Assessment Last Done: 01/22/25 20:26 Discharge Date/Time: 01/22/25 20:30 Print Language: Cape Verdean
[2025-01-22 13:23] LABS: MANUAL DIFF FLAG NO
[2025-01-22 13:25] LABS: Hematocrit 47.7 % (42.0-52.0); Hemoglobin 16.2 g/dl (14.0-18.0); Imm Gran Abs Auto 0.01 X10*3/uL (0.00-0.03); Imm Gran Pct Auto 0.2 % (0.0-0.4); Lymphocytes Absolute Auto 2.2 X10*3/uL (1.2-4.9); Mean Corpuscular HGB Conc 34.0 g/dl (31.0-36.0); Mean Corpuscular Hemoglobin 27.6 pg (27.0-33.0); Mean Corpuscular Volume 81.1 fL (80.0-98.0); NRBC Abs Auto 0.000 X10*3/uL (0.0-0.012); NRBC Pct Auto 0.0 /100WBC (0.0-0.2); Platelet Count 163 X10*3/uL (160-400); Red Blood Count 5.88 X10*6/uL (4.60-5.80); White Blood Count 5.6 X10*3/uL (4.8-10.8)
[2025-01-22 13:46] LABS: Alanine Aminotransferase 63 U/L (0-40); Albumin Level 4.7 g/dL (3.5-5.0); Alkaline Phosphatase 63 U/L (39-117); Anion Gap 12 (12-20); Aspartate Amino Transferase 37 U/L (5-37); Blood Urea Nitrogen 11 mg/dL (9-16); Calcium 9.8 mg/dL (8.4-10.2); Carbon Dioxide 23 mmol/L (22-29); Chloride 108 mmol/L (96-108); Creatinine Clr Calc Pharmacy 94.3; Estimated Glomerular Filt Rate > 60; Potassium 4.2 mmol/L (3.3-5.1); Sodium 139 mmol/L (135-145); Total Protein 7.5 g/dL (6.5-8.0)
[2025-01-22 14:10] LABS: Erythrocyte Sedimentation Rate 2 MM/HR (0-15)
[2025-01-22 16:34] VITALS: BP 112/80; PULSE 63; RESP 18; TEMP 36.7; O2SAT 95
--- NOTE | 2025-01-22 16:40 | PC.NURSE ---
patient a&ox3, vss, labs previously drawn, pt giving urine to send, pt awaiting provider evaluation, call lopez within reach, plan of care ongoing
[2025-01-22 16:50] LABS: Appearance Urine Clear; Glucose Urine UA >=1000 mg/dL (Negative); PH 6.5 (5.0-9.0); Specific Gravity - Urine 1.020 (1.005-1.025); UMIC TRIGGER UACC YES
--- OUTSIDE RECORDS SUMMARY | 2025-01-22 17:48 | XMS_ITS | Encounter Summary ---
Author Organization [employer] Address [address] [address] Care Team Providers Care Weigher And Grader Name Role Phone Vasile Putnam MD Primary Care Prov ider Reason for Visit * Reason Onset Date Comments Nurse Triage 09/27/2023 Encounter Details Date Type Department Care Team ([facility] st Contact Info) Description 09/27/2023 Telephone [facility] [address] [place] [address] Vasile Putnam MD [address] [place] [address] Nurse Triage Social History Tobacco Use Types [...] documented as of this encounter Care Teams Weigher And Grader Relationship Specialty Start Date End Date Vasile Putnam MD [address] [place] [id number] PCP - General Internal Medicine 01/11/19 documented as of this encounter
--- OUTSIDE RECORDS SUMMARY | 2025-01-22 17:48 | XMS_ITS | Encounter Summary ---
Author Organization [employer] Address [address] [place] [address] Care Team Providers Care Inventory Control Coordinator Name Role Phone Vasile Putnam MD Primary Care Prov ider Reason for Visit * Reason Comments Med Refill Encounter Details Date Type Department Care Team (Late st Contact Info) Description 08/24/2022 Refill C [facility] [address] [place] [address] Vasile Putnam MD [address] [place] [address] Fibromyalgia Social History Tobacco Use Types Packs/Day [...] documented as of this encounter Care Teams Inventory Control Coordinator Relationship Specialty Start Date End Date Vasile Putnam MD [address] [place] [address] PCP - General Internal Medicine 01/11/19 documented as of this encounter
--- OUTSIDE RECORDS SUMMARY | 2025-01-22 17:48 | XMS_ITS | Encounter Summary ---
Author Organization [employer] Address [address] [facility] [address] [place] [address] Care Team Providers Care Ultrasonic Seaming Machine Operator Name Role Phone Vasile Putnam MD Primary Care Prov ider Encounter Details Date Type Department Care Team ([facility] Contact Info) Description 01/19/2025 Orders Only [facility] MED [facility] PEDS [address] [place] [address] Vasile Putnam MD [address] [place] [address] Social History Tobacco Use Types Packs/Day Years [...] documented as of this encounter Care Teams Ultrasonic Seaming Machine Operator Relationship Specialty Start Date End Date Vasile Putnam MD [address] [place] [address] PCP - General Internal Medicine 01/11/19 documented as of this encounter
--- OUTSIDE RECORDS SUMMARY | 2025-01-22 17:48 | XMS_ITS | Encounter Summary ---
Author Organization [employer] Address 75 [facility] [address] [place] [address] Care Team Providers Care Senior Technical Project Manager Name Role Phone Vasile Putnam MD Primary Care Prov ider Encounter Details Date Type Department Care Team ([facility] st Contact Info) Description 06/26/2023 Orders Only [facility] MEDICINE [address] [place] [address] Provider, MD Min Social History Tobacco Use [...] documented as of this encounter Care Teams Senior Technical Project Manager Relationship Specialty Start Date End Date DeutschVasile Cabrera MD [address] [place] [phone] PCP - General Internal Medicine 01/11/19 documented as of this encounter
--- OUTSIDE RECORDS SUMMARY | 2025-01-22 17:48 | XMS_ITS | Encounter Summary ---
Author Organization [employer] Address [address] [address] Care Team Providers Care Operators Teacher Name Role Phone Vasile Putnam MD Primary Care Prov ider Reason for Visit * Reason Onset Date Comments Referral 01/12/2025 Encounter Details Date Type Department Care Team ([facility] Contact Info) Description 01/12/2025 Telephone [facility] [address] [place] [address] Vasile Putnam MD [address] [place] [address] Referral Social History Tobacco Use Types Packs/Day Years [...] encounter Miscellaneous Notes * Telephone Encounter - Chuyita Mckenzie RN - 01/19/2025 10:11 AM EST Direct message from provider stating he had placed the urology referral in Nov 2024 and the requested testerone lab for that referral in Dec 2024. * Telephone Encounter - Chuyita Mckenzie RN - 01/19/2025 8:44 AM EST Direct message sent to provider, waiting for response. * Telephone Encounter - Shelby Chisholm - 01/18/2025 2:58 PM EST Tc from pt requesting status on referral Contact pt at [phone] * Telephone Encounter - Vasile Juares MD - 01/12/2025 10:15 AM EDT I spoke with patient will order testosterone for new referral documented in this encounter Plan of Treatment Not on file documented as of this encounter Visit Diagnoses Not on filedocumented in this encounter Additional Health Concerns Assessment Noted Time PHQ-9 Depression Total Score: 14 12/01/ 025 8:48 AM EDT documented as of this encounter Care Teams Operators Teacher Relationship Specialty Start Date End Date Vasile Putnam MD [address] [place] [id number] PCP - General Internal Medicine 01/11/19 documented as of this encounter
--- OUTSIDE RECORDS SUMMARY | 2025-01-22 17:48 | XMS_ITS | Encounter Summary ---
Author Organization [employer] Address [address] [facility] [address] [place] [address] Care Team Providers Care Paint Mixer Hand Name Role Phone Vasile Putnam MD Primary Care Prov ider Encounter Details Date Type Department Care Team ([facility] Contact Info) Description 01/22/2025 Orders Only GENERIC EXTERNAL DATA DEPARTMENT Provider, [...] Procedure Name Priority Date/Time Associated Diagnosis Comments [facility] US LOWER EXTREMITY VENOUS DUPLEX BILATERAL Routine 01/22/2025 5:44 PM EST URINALYSIS, COMPLETE, WITH REFLEX TO CULTURE Routine 01/22/2025 4:40 PM EST documented in this encounter Results * [facility] US Lower Extremity Venous Duplex Bilateral (01/22/2025 5:44 PM EST) 01/22/2025 5:44 PM EST Narrative [facility] - 01/22/2025 5:44 PM EST [place] [id number] Ultrasound Report Signed Patient: Laurence Paulino MR#: [id number] 4 : 1970 Acct:[id number] Age/Sex: 54 / M ADM Date: 01/22/25 Loc: HO.ED Attending Dr: Ordering Physician: Josué Fernandez Date of Service: 01/22/25 Procedure(s): US venous duplex LE BI Accession Number(s): [id number] cc: Josué Fernandez; Vasile Putnam MD Reason for Exam: bilateral thigh pain. no trauma. DVT? CLINICAL HISTORY: bilateral thigh pain. no trauma. DVT? Bilateral lower extremity venous duplex ultrasound. Comparison: None Technique: Real time sonographic imaging, including color-flow imaging and spectral analysis, was performed by the mechanical pencils assembler. Multiple chain sales representative static images were saved for review. Findings: The deep venous systems of both lower extremities are fully compressible from common femoral through the proximal leg veins. There is spontaneous and phasic flow, and augmentation. Color Doppler and spectral tracings are unremarkable. Impression: 1. Bilateral lower extremity venous duplex ultrasound negative for DVT This document has been electronically signed by: Tadeo Sethi MD on 01/22/2025 17:44:11 Dictated By: Tadeo Sethi MD Signed By: <Electronically signed by Tadeo Sethi MD in OV> 01/22/251743 DD/ 43 TD/TT: 01/22/251743 Sugar Trucker: Procedure Note Donotuseinterpreter, Image - 01/22/[address] [address] Ultrasound Report Signed Patient: Bola Paulino#: [id number] 4 : 1970Acct:[id number] Age/Sex: 54 / MADM Date: 01/22/25 Loc: .ED Attending Dr: Ordering Physician: Josué Fernandez Date of Service: 01/22/25 Procedure(s): US venous duplex LE BI Accession Number(s): [id number] cc: Josué Fernandez; Vasile Putnam MD Reason for Exam: bilateral thigh pain. no trauma. DVT? CLINICAL HISTORY: bilateral thigh pain. no trauma. DVT? Bilateral lower extremity venous duplex ultrasound. Comparison: None Technique: Real time sonographic imaging, including color-flow imaging and spectral analysis, was performed by the mechanical pencils assembler. Multiple chain sales representative static images were saved for review. Findings: The deep venous systems of both lower extremities are fully compressible from common femoral through the proximal leg veins. There is spontaneous and phasic flow, and augmentation. Color Doppler and spectral tracings are unremarkable. Impression: 1. Bilateral lower extremity venous duplex ultrasound negative for DVT This document has been electronically signed by: Tadeo Sethi MD on 01/22/2025 17:44:11 Dictated By: Tadeo Sethi MD Signed By: <Electronically signed by Tadeo Sethi MD in OV> 01/22/251743 DD/ 43 TD/TT: 01/22/251743 Sugar Trucker: us [facility] External Provider CV VASC ULAR PROCEDURES Edited Result - Final Performing Organization Address City/[facility]/ZIP Co de Phone Number [facility] [address] [place] [address] * (ABNORMAL) Urinalysis, Complete, with Reflex to Culture (01/22/2025 4:40 PM EST) Color Urine Yellow [facility] Appearance Urine Clear [facility] PH 6.5 5.0 - 9.0 [facility] Glucose Urine UA >=1000(A) Negative mg/dL [facility] Urine Blood Negative Negative [facility] Specific Boyd - Urine 1.020 1.005 - 1.025 [facility] Urine Protein Negative Neg-Trace mg/dL [facility] Urine Ketones Negative Negative mg/dL [facility] Nitrite Urine Negative Negative [facility] Leukocyte Esterase Urine Negative Negative [facility] RBC Urine 0-2 0 - 2 /HPF [facility] Urine WBC 0-5 0 - 5 /HPF [facility] Urine Squamous Epithelial Cell 0-2 0 - 2 /HPF [facility] Urine Bacteria None Seen None Seen [facility] Hyaline Casts, Urine 0-2 0 - 2 /LPF [facility] 01/22/2025 4:40 PM EST 01/22/2025 4:43 PM EST Narrative [facility] - 01/22/2025 5:24 PM EST [id number], Clean Catch us Generic External Data Provider LAB URINE ORDERAB LES Final Result [facility] [address] [place] [phone] documented in this encounter Visit Diagnoses Not on filedocumented in this encounter Additional Health Concerns Assessment Noted Time PHQ-9 Depression Total Score: 14 025 8:48 AM EDT documented as of this encounter Care Teams Paint Mixer Hand Relationship Specialty Start Date End Date Vasile Putnam MD [address] [place] [phone] PCP - General Internal Medicine 01/11/19 documented as of this encounter
--- OUTSIDE RECORDS SUMMARY | 2025-01-22 17:49 | XMS_ITS | Encounter Summary ---
Author Organization [employer] Address [address] [address] Care Team Providers Care Wood And Wood Products Factory Worker Name Role Phone Vasile Putnam MD Primary Care Prov ider Reason for Visit * Reason Onset Date Comments Lab Orders 07/31/2024 Encounter Details Date Type Department Care Team ([facility] st Contact Info) Description 07/31/[address] [facility] MEDICINE [address] [place] [address] Vasile Putnam MD [address] [place], [place] [phone] Lab Orders Social History Tobacco Use Types [...] If any questions please contact pt at [phone]. documented in this encounter Plan of Treatment Not on file documented as of this encounter Visit Diagnoses Not on filedocumented in this encounter Additional Health Concerns Assessment Noted Time PHQ-9 Depression Total Score: 0 07/22/19 23 9:15 AM EDT documented as of this encounter Care Teams [employer] Factory Worker Relationship Specialty Start Date End Date Vasile Putnam MD [address] [place] [id number] PCP - General Internal Medicine 01/11/19 documented as of this encounter
--- OUTSIDE RECORDS SUMMARY | 2025-01-22 17:49 | XMS_ITS | Clinical Summary ---
Author Organization [employer] Address [address] [place] [address] 7 [place] [address] Care Team Providers Care Tar Distillation Supervisor Name Role Phone Vasile Putnam MD [...] 9:32 AM EDT): Will refer to a [facility] urology as per patient request Maxillary [...] organization. Date Type Department Care Team Description 01/22/2025 Orders Only GENERIC EXTERNAL DATA DEPARTMENT Provider, Generic External Data 01/19/2025 Orders Only [facility] [address] [place] [address] Vasile Putnam MD 01/13/2025 Orders Only GENERIC EXTERNAL DATA DEPARTMENT Provider, Generic External Data 01/12/2025 Telephone [facility] [address] [place] [address] Vasile Putnam MD Referral 01/12/2025 Orders Only [facility] [address] [place] [address] Vasile Putnam MD 01/12/2025 Orders Only [facility] [address] [place] [address] Vasile Putnam MD 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) 01/10/2025 Telephone [facility] [address] [place] [address] Vasile Putnam MD Call Back Request 01/05/2025 Refill [facility] [address] [place] [address] Vasile Putnam MD Type 2 diabetes mellitus without complication, without long-term current use of insulin (HCC) 12/21/2024 Telephone [facility] [address] [place] [address] Vasile Putnam MD Referral 12/07/2024 Refill [facility] [address] [place] [address] Vasile Putnam MD 12/01/2024 9:00 AM EDT Telemedicine [facility] [address] [place] [address] Vasile Putnam MD Essential hypertension, benign (Primary Dx); Moderate episode of recurrent major depressive disorder (CMS/HCC); Hypogonadotropic hypogonadism (CMS/HCC); Type 2 diabetes mellitus without complication, without long-term current use of insulin (CMS/HCC) 12/01/2024 Telephone [facility] [address] [place] [address] Vasile Putnam MD 12/01/2024 Travel 11/30/2024 Telephone [facility] [address] [place] [address] Vasile Putnam MD chart prep 11/15/2024 Travel 11/14/2024 Travel 11/14/2024 Telephone [facility] [address] [place] [address] Vasile Putnam MD chart prep 11/10/2024 Orders Only GENERIC EXTERNAL DATA DEPARTMENT Provider, Generic External Data from Last 3 Months Immunizations Immunization Administration [...] Additional history exists Lipid Panel 08/25/2025 08/25/2024, 06/0 08/2023, 11/20/2022, Additional history exists Disability Screening 11/14/2025 [...] Procedure Name Priority Date/Time Associated Diagnosis Comments VASC US LOWER EXTREMITY VENOUS DUPLEX BILATERAL Routine 01/22/2025 5:44 PM EST URINALYSIS, COMPLETE, WITH REFLEX TO CULTURE Routine 01/22/2025 4:40 PM EST TESTOSTERONE, FREE (DIALYSIS) AND TOTAL,MS Routine 01/13/2025 8:32 AM EDT URINALYSIS, COMPLETE, WITH REFLEX TO CULTURE Routine 01/13/2025 8:30 AM EDT IMMUNOGLOBULIN G Routine 11/10/2024 8:18 AM EDT LIVER KIDNEY MICROSOME (LKM-1) AB (IGG) Routine 11/10/2024 8:18 AM EDT ACTIN (SMOOTH MUSCLE) ANTIBODY (IGG) Routine 11/10/2024 8:18 AM EDT IMMUNOGLOBULIN G SUBCLASSES PANEL Routine 11/10/2024 8:18 AM EDT HFYOH-2-ISQIGRUNVOV QN Routine 8:18 AM EDT HEPATIC FUNCTION PANEL Routine 8:18 AM EDT HEMOGLOBIN A1C Routine 11/10/2024 8:18 AM EDT URINALYSIS, COMPLETE, WITH REFLEX TO CULTURE Routine 11/10/2024 8:13 AM EDT URINALYSIS WITH REFLEX MICROSCOPIC Routine 11/10/2024 8:13 AM EDT ALBUMIN, RANDOM URINE W/CREATININE Routine [...] Recently Relevant to Health Maintenance Results * VASC US Lower Extremity Venous Duplex Bilateral (01/22/2025 5:44 PM EST) 01/22/2025 5:44 PM EST [facility] - 01/22/2025 5:44 PM EST [address] [address] Ultrasound Report Signed Patient: Laurence Paulino MR#: [id number] 4 : 1970 Acct:[id number] Age/Sex: 54 / M ADM Date: 01/22/25 Loc: HO.ED Attending Dr: Ordering Physician: Josué Fernandez Date of Service: 01/22/25 Procedure(s): US venous duplex LE BI Accession Number(s): [id number] cc: Josué Fernandez; Vasile Putnam MD Reason for Exam: bilateral thigh pain. no trauma. DVT? CLINICAL HISTORY: bilateral thigh pain. no trauma. DVT? Bilateral lower extremity venous duplex ultrasound. Comparison: None Technique: Real time sonographic imaging, including color-flow imaging and spectral analysis, was performed by the marketing data specialist. Multiple ambulatory services representative static images were saved for review. [...] in OV> 01/22/251743 DD/ 43 TD/TT: 01/22/251743 Superintendent Operations Division: Procedure Note Donotuseinterpreter, Image - 01/22/2025 [place] [address] Ultrasound Report Signed Patient: Bola Paulino#: [id number] 4 : 1970Acct:[id number] Age/Sex: 54 / MADM Date: 01/22/25 Loc: .ED Attending Dr: Ordering Physician: Josué Fernandez Date of Service: 01/22/25 Procedure(s): US venous duplex LE BI Accession Number(s): [id number] cc: Josué Fernandez; Vasile Putnam MD Reason for Exam: bilateral thigh pain. no trauma. DVT? CLINICAL HISTORY: bilateral thigh pain. no trauma. DVT? Bilateral lower extremity venous duplex ultrasound. Comparison: None Technique: Real time sonographic imaging, including color-flow imaging and spectral analysis, was performed by the marketing data specialist. Multiple ambulatory services representative static images were saved for review. [...] in OV> 01/22/251743 DD/ 43 TD/TT: 01/22/251743 Superintendent Operations Division: us [facility] External Provider CV VASC ULAR PROCEDURES Edited Result - Final [facility] [address] [place] [phone] * (ABNORMAL) Urinalysis, Complete, with Reflex to Culture (01/22/2025 4:40 PM EST) Only the most recent of3 resultswithin the time period is included. Color Urine Yellow [facility] Appearance Urine Clear [facility] PH 6.5 5.0 - 9.0 [facility] Glucose Urine UA >=1000(A) Negative mg/dL [facility] Urine Blood Negative Negative [facility] Specific Souris - Urine 1.020 1.005 - 1.025 [facility] Urine Protein Negative Neg-Trace mg/dL [facility] Urine Ketones Negative Negative mg/dL [facility] Nitrite Urine Negative Negative [facility] Leukocyte Esterase Urine Negative Negative [facility] RBC Urine 0-2 0 - 2 /HPF [facility] Urine WBC 0-5 0 - 5 /HPF [facility] Urine Squamous Epithelial Cell 0-2 0 - 2 /HPF [facility] Urine Bacteria None Seen None Seen [facility] Hyaline Casts, Urine 0-2 0 - 2 /LPF [facility] 01/22/2025 4:40 PM EST 01/22/2025 4:43 PM EST Narrative [facility] - 01/22/2025 5:24 PM EST [id number], Clean Catch us Generic External Data Provider LAB URINE ORDERAB LES Final Result [facility] [address] [place] [address] [phone] * (ABNORMAL) Testosterone, Free (Dialysis) And Total, MS (01/13/2025 8:32 AM EDT) Testosterone, Total 162(A) 250 - 1100 ng/dL [facility] Comment:For additional infor mation, please refer tohttp://education.uStudio/faq/KxhgcYwnyqsunsfhgCQFNADLYD847(This link is being provided for informational/educational purposes only.)This test was developed and its analytical performancecharacteristics have been determined by [employer] [place], [place]. It hasnot been cleared or approved by the U.S. Food and DrugAdministration. This assay has been validated pursuantto the CLIA regulations and is used for clinicalpurposes. Testosterone, Free 29.8(A) 35.0 - 155.0 pg/mL [facility] Comment:This test was develo ped and its analytical performancecharacteristics have been determined by [place]. It hasnot been cleared or approved by the U.S. Food and DrugAdministration. This assay has been validated pursuantto the CLIA regulations and is used for clinicalpurposes.THIS TEST WAS PERFORMED AT:[facility] [address]MS[address] [place] [address]FCDQKUAWINSTON HAMMER MD,PHD 01/13/2025 8:32 AM EDT 01/13/2025 8:32 AM EDT us Generic External Data Provider LAB BLOOD ORDERAB LES Final Result Performing Organization Address [facility]/ZIP Co de Phone Number [facility] [address] [place] [address] [phone] * (ABNORMAL) Actin (Smooth Muscle) Antibody (IgG) (11/10/2024 8:18 AM EDT) Smooth Muscle Antibody 27(A) <20 U [facility] Comment:Reference Range: <20 U: Negative>or=20 U: [...] with AIH type 1.THIS TEST WAS PERFORMED AT:[facility] [place] [address]XEUNNYHWINSTON HAMMER MD,PHD 11/10/2024 8:18 AM EDT 11/10/2024 8:18 AM EDT Generic External Data Provider LAB BLOOD ORDERAB LES Final Result Performing Organization Address [facility] Co de Phone Number [facility] [address] [place] [phone] * Iklyk-7-Mgsszqrbpnp, Quantitative (11/10/2024 8:18 AM EDT) Yajpo-4-Ivkojaxs sin QN 118 83 - 199 mg/dL [facility] Comment:THIS TEST WAS PERFOR MED AT:[facility] [address] [address]INUYZBETTYE CLAYTON MD 11/10/2024 8:18 AM EDT 11/10/2024 8:18 AM EDT Generic External Data Provider LAB BLOOD ORDERAB LES Final Result Performing Organization Address [facility]/ZIP Co de Phone Number [facility] [address] [place] [address] [phone] * Immunoglobulin G Subclasses Panel (11/10/2024 8:18 AM EDT) IgG Subclass 1 606 382 - 929 mg/dL [facility] IgG Subclass 2 553 241 - 700 mg/dL [facility] IgG Subclass 3 49 22 - 178 mg/dL [facility] IgG Subclass 4 40.0 4 - 86 mg/dL [facility] Immunoglobulin G, Serum 1302 600 - 1640 mg/dL [facility] Comment:THIS TEST WAS PERFOR MED AT:[facility] [address] [address]LGRQSBETTYE CLAYTON MD 11/10/2024 8:18 AM EDT 11/10/2024 8:18 AM EDT Generic External Data Provider LAB BLOOD ORDERAB LES Final Result Performing Organization Address [facility] Co de Phone Number [facility] [address] [place] [phone] * Liver Kidney Microsomal (LKM-1) Antibody??(IgG) (11/10/2024 8:18 AM EDT) Liver Kidney Microsomal (LKM-1) Antibody IgG <=20.0 <=20.0 U [facility] Comment:Reference Range: <=2 0.0 Negative 20.1-24.9 [...] patients with hepatitis Cinfection.THIS TEST WAS PERFORMED AT:[facility] [place] [address]SNRAZERWINSTON HAMMER MD,PHD 11/10/2024 8:18 AM EDT 11/10/2024 8:18 AM EDT us Generic External Data Provider LAB BLOOD ORDERAB LES Final Result Performing Organization Address [facility]/ZIP Co de Phone Number [facility] [address] [place] [phone] * (ABNORMAL) Hemoglobin A1c (11/10/2024 8:18 AM EDT) Hemoglobin A1c 7.0(H) <6.0 % [facility] Comment:Hemoglobin A1C Refer ence Range Adults: 4.8 - 6.0 % Non diabetic: < 6.0 % Goal: < 7.0 %Additional Action Suggested: > 8.0 %Note: Hemoglobin A1c results are invalid for patients with abnormal amounts of HbF. Blood transfusions may impact the HbA1c concentration in the patient sample. Estimated Average Glucose 154 mg/dL [facility] Comment:eAG = Estimated ave rage glucose which is %A1C expressed asaverage glucose, using the formula of the T8K-MrrabffEaptxgh Glucose study (ADAG), Diabetes Care, Vol.31,#8,Oct. 2007 11/10/2024 8:18 AM EDT 11/10/2024 8:18 AM EDT us Generic External Data Provider LAB BLOOD ORDERAB LES Final Result Performing Organization Address [facility] Co de Phone Number [facility] [address] [place] [phone] * Immunoglobulin G (11/10/2024 8:18 AM EDT) Immunoglobulin G TNP [facility] 11/10/2024 8:18 AM EDT 11/10/2024 8:18 AM EDT us Generic External Data Provider LAB BLOOD ORDERAB LES Final Result Performing Organization Address [facility]/ZIP Co de Phone Number [facility] [address] [place] [phone] * (ABNORMAL) Hepatic Function Panel (11/10/2024 8:18 AM EDT) Bilirubin, Total 0.4 0.0 - 1.0 mg/dL [facility] Bilirubin, Direct 0.2 0.0 - 0.5 mg/dL [facility] Aspartate Amino Transferase 46(H) 5 - 37 U/L [facility] Alanine Aminotransferase 87(H) 0 - 40 U/L [facility] Total Protein 7.7 6.5 - 8.0 g/dL [facility] Albumin Level 4.7 3.5 - 5.0 g/dL [facility] Alkaline Phosphatase 68 39 - 117 U/L [facility] 11/10/2024 8:18 AM EDT 11/10/2024 8:18 AM EDT Generic External Data Provider LAB BLOOD ORDERAB LES Final Result Performing Organization Address [facility] Co de Phone Number [facility] [address] [place] [phone] * (ABNORMAL) Urinalysis w/reflex microscopic (11/10/2024 8:13 AM EDT) Color Urine Yellow [facility] Appearance Urine Clear [facility] PH 5.5 5.0 - 9.0 [facility] Glucose Urine UA >=1000(A) Negative mg/dL [facility] Urine Blood Negative Negative [facility] Specific Souris - Urine >=1.030(H) 1.005 - 1.025 [facility] Urine Protein Negative Neg-Trace mg/dL [facility] Urine Ketones Negative Negative mg/dL [facility] Nitrite Urine Negative Negative [facility] Leukocyte Esterase Urine Negative Negative [facility] 11/10/2024 8:13 AM EDT 11/10/2024 9:05 AM EDT Narrative [facility] - 11/10/2024 9:16 AM EDT Urine, Clean Catch us Generic External Data Provider LAB URINE ORDERAB LES Final Result Performing Organization Address [facility] Co de Phone Number [facility] [address] [place] [phone] * Albumin, Random Urine W/Creatinine (08/25/2024 10:08 AM EDT) Creatinine, Urine 299.86 mg/dL [facility] Microalbumin Urine 36.0 mg/L [facility] Microalbum Creatinine Ratio Ur 12.0 <30 ug/mg cr [facility] Comment:Albumin/Creatinine R atio Reference Ranges: Normal: < 30 ug/mg creatinine Microalbuminuria: 30 - 300 ug/mg creatinineClinical Albuminuria: > 300 ug/mg creatinine Urine (Urine, Random) 08/25/2024 10:08 AM EDT 08/25/2024 2:00 PM EDT us Vasile Juares MD LAB URINE ORDERABL ES Final Result Performing Organization Address [facility] Co de Phone Number [facility] [address] [place] [phone] * (ABNORMAL) Lipid Panel, Standard (08/25/2024 10:08 AM EDT) Triglycerides 143 <150 mg/dL [facility] Comment:Desirable Triglyceri de: less than 150 mg/dLBorderline High Triglyceride 150-199 mg/dLHigh Triglyceride: 200-499 mg/dLVery High Triglyceride: greater than or equal to 5OO mg/dL Cholesterol 181 <200 mg/dL [facility] Comment:Desirable Cholestero l: less than 200 mg/dLBorderline High Cholesterol: 200-239 mg/dLHigh Cholesterol: greater than 239 mg/dL LDL Cholesterol Calculated 119(H) <100 mg/dL [facility] Comment:Desirable LDL: less than 100 mg/dLNear Optimal/Above Optimal LDL: 110- 129 mg/dLBorderline High LDL: 130-159 mg/dLHigh LDL: 160-189 mg/dLVery High LDL: greater than or equal to 190 mg/dL HDL Cholesterol 34(L) >40 mg/dL [facility] Comment:Desirable HDL: great er than 40 mg/dL Note: This HDL assay may give artificially low results in patients with liver disease. Blood Venous blood specimen / Unknown 08/25/2024 10:08 AM EDT 08/25/2024 2:05 PM EDT us Vasile Juares MD LAB BLOOD ORDERABL ES Final Result Performing Organization Address [facility]/ZIP Co de Phone Number [facility] [address] [place] [phone] * HIV-1 RNA, Quantitative, Real-Time PCR with Reflex to Genotype (RTI, PI, Integrase) (07/21/2022 9:57 AM EDT) Pathologist [facility] HIV 1 RNA, QN PCR NOT DETECTED copies/mL [facility], HIV 1 RNA, QN PCR NOT DETECTED Log copies/mL [facility], Comment: REFERENCE RANGE: NOT DETECTED copies/mL NOT DETECTED Log copies/mL This test was performed using Real-Time Polymerase Chain Reaction. Reportable range is 20 to 10,000,000 copies/mL (1.30-7.00 Log copies/mL). 07/21/2022 9:57 AM EDT 07/21/2022 9:58 AM EDT Narrative [facility] - 07/23/2022 8:25 PM EDT FASTING:NO FASTING: NO Vasile Juares MD LAB BLOOD ORDERABL ES Final Result Performing Organization Address [facility]/ZIP Co de Phone Number [facility] [address], [place] [address] [facility], [address] [place] [address] * Hepatitis C Antibody with Reflex to HCV, RNA, Quantitative, Real-Time PCR (07/21/2022 9:57 AM EDT) Hepatitis C Antibody NON-REACT FLACO NON-REACT FLACO [facility] [place] [facility] Index 0.08 <1.00 [facility] [place] [facility] [facility] Comment: HCV antibody was non-reactive. There is no laboratory evidence of HCV infection. In most cases, no further action is required. However, if recent HCV exposure is suspected, a test for HCV RNA (test code 29174) is suggested. For additional information please refer to http://education.uStudio/faq/EOZ26d0 (This link is being provided for informational/ educational purposes only.) Blood Venous blood specimen / Unknown 07/21/2022 9:57 AM EDT 07/21/2022 9:58 AM EDT Narrative [facility] - 07/23/2022 8:25 PM EDT FASTING:NO FASTING: NO Vasile Juares MD LAB BLOOD ORDERABL ES Final Result [facility] [address], [facility] [place] [address] [facility] [place] [facility] [address] [place] [phone] * Hm Colonoscopy (08/16/2020 7:13 AM EDT) Historical Provider HEALTH MAINTENANCE Final Result from Last 3 Months or Most Recently Relevant to Health Maintenance Insurance [facility] PPO Care Teams Tar Distillation Supervisor Relationship Specialty Start Date End Date DeutschVasile Mari MD [address] [place] [address] PCP - General Internal Medicine 01/11/19
--- NOTE | 2025-01-22 18:27 | PC.NURSE ---
Addendum entered by Stephanie Lemons RN 01/22/25 18:28: pt transported to CT scan not US Original Note: iv inserted, pt transported to us
[2025-01-22] MEDS: iohexoL 350 MG/ML 100 ML INFUS..BTL IV (18:32)
[2025-01-22 18:51] LABS: Glucose, Whole Blood 88 mg/dL (60-115)
[2025-01-22 20:26] VITALS: BP 114/77; PULSE 69; RESP 16; TEMP 36.6; O2SAT 97
== END 2025-01-22 20:30 | disposition home or self-care (01) ==
PROVIDERS: Physician Assistant; Physician Assistant Medical; Emergency Provider Emergency Medicine; PCP Internal Medicine
DX: I86.1 Scrotal varices (principal); L03.90 Cellulitis, unspecified; M79.651 Pain in right thigh; M79.652 Pain in left thigh; E29.1 Testicular hypofunction; R00.2 Palpitations; K21.9 Gastro-esophageal reflux disease without esophagitis; E11.9 Type 2 diabetes mellitus without complications; I10 Essential (primary) hypertension; R10.9 Unspecified abdominal pain; R11.2 Nausea with vomiting, unspecified; M79.7 Fibromyalgia; M54.9 Dorsalgia, unspecified; G47.33 Obstructive sleep apnea (adult) (pediatric); F41.9 Anxiety disorder, unspecified; G43.909 Migraine, unspecified, not intractable, without status migrainosus; Z79.84 Long term (current) use of oral hypoglycemic drugs
CPT/HCPCS: 36415; 74177; 76870; 80053; 81001; 82550; 82947; 85025; 85652; 86140; 93970; 93975; 99284; 99285; Q9967

== ENCOUNTER → 2025-01-22 16:55 | Outpatient (BNV) | payer BC, SELFPAY | PROVIDERS: Emergency Provider Emergency Medicine; PCP Internal Medicine; Visit Provider Radiology Diagnostic Radiology | DX: R10.9 Unspecified abdominal pain (principal); N50.819 Testicular pain, unspecified; M79.651 Pain in right thigh; M79.652 Pain in left thigh; I86.1 Scrotal varices; N50.3 Cyst of epididymis | CPT/HCPCS: 74177; 93970; 93975 ==

== ENCOUNTER 2025-02-01 16:21 | Outpatient (REF) | payer BC, SELFPAY ==
[2025-02-01 17:09] LABS: Appearance Urine Clear; Glucose Urine UA >=1000 mg/dL (Negative); PH 5.5 (5.0-9.0); Specific Gravity - Urine 1.020 (1.005-1.025); UMIC TRIGGER UACC YES
[2025-02-01 17:10] LABS: Blood Urea Nitrogen 13 mg/dL (9-16); Estimated Glomerular Filt Rate > 60
--- OUTSIDE RECORDS SUMMARY | 2025-02-01 20:58 | XMS_ITS | Encounter Summary ---
Author Organization [employer] Address [address] [facility] 7 [place] [address] Care Team Providers Care Chairman Name Role Phone Vasile Putnam MD Primary Care Prov ider Encounter Details Date Type Department Care Team ([facility] Contact Info) Description 01/19/2025 Orders Only [facility] CHC MED & PEDS [address] [place] [address] Vasile Putnam MD [address] [place] [address] Social History Tobacco Use Types Packs/Day Years [...] documented as of this encounter Care Teams Chairman Relationship Specialty Start Date End Date Vasile Putnam MD [address] [place] [phone] PCP - General Internal Medicine 01/11/19 documented as of this encounter
--- OUTSIDE RECORDS SUMMARY | 2025-02-01 20:58 | XMS_ITS | Encounter Summary ---
Author Organization [employer] Address [address] [address] Care Team Providers Care Customer Services Manager Name Role Phone Vasile Putnam MD Primary Care Prov ider Reason for Visit * Reason Onset Date Comments Lab Orders 07/31/2024 Encounter Details Date Type Department Care Team ([facility] st Contact Info) Description 07/31/[address] [facility] MEDICINE [address] [place] [address] Vasiel Putnam MD [address] [place], [place] [phone] Lab Orders Social History Tobacco Use Types [...] If any questions please contact pt at [phone]. documented in this encounter Plan of Treatment Not on file documented as of this encounter Visit Diagnoses Not on filedocumented in this encounter Additional Health Concerns Assessment Noted Time PHQ-9 Depression Total Score: 0 07/22/19 23 9:15 AM EDT documented as of this encounter Care Teams Customer Services Manager Relationship Specialty Start Date End Date Vasile Putnam MD [address] [place] [phone] PCP - General Internal Medicine 01/11/19 documented as of this encounter
--- OUTSIDE RECORDS SUMMARY | 2025-02-01 20:58 | XMS_ITS | Encounter Summary ---
Author Organization [employer] Address [address] [address] Care Team Providers Care Automotive Power Electronics Engineer Name Role Phone Vasile Putnam MD Primary Care Prov ider Reason for Visit * Reason Onset Date Comments Nurse Triage 09/27/2023 Encounter Details Date Type Department Care Team ([facility] st Contact Info) Description 09/27/2023 Telephone [facility] CHC MED & PEDS [address] [place] [address] Vasile Putnam MD [address] [place] [address] Nurse Triage Social History Tobacco Use Types [...] documented as of this encounter Care Teams Automotive Power Electronics Engineer Relationship Specialty Start Date End Date Vasile Putnam MD [address] [place] [phone] PCP - General Internal Medicine 01/11/19 documented as of this encounter
--- OUTSIDE RECORDS SUMMARY | 2025-02-01 20:58 | XMS_ITS | Encounter Summary ---
Author Organization [employer] Address [address] [facility] [address] [place] [address] Care Team Providers Care Firebrick Layer Name Role Phone Vasile Putnam MD Primary Care Prov ider Encounter Details Date Type Department Care Team ([facility] Contact Info) Description 02/01/2025 Orders Only GENERIC EXTERNAL DATA DEPARTMENT Provider, [...] Procedure Name Priority Date/Time Associated Diagnosis Comments CREATININE, SERUM Routine 02/01/2025 4:3 2 PM EST UREA NITROGEN (BUN) Routine 02/01/2025 4 :32 PM EST URINALYSIS, COMPLETE, WITH REFLEX TO CULTURE Routine 02/01/2025 4:27 PM EST documented in this encounter Results * Creatinine, Serum (02/01/2025 4:32 PM EST) Creatinine, Serum 1.06 0.5 - 1.4 mg/dL [facility] Estimated Glomerular Filt Rate >60 [facility] Comment:Chronic Kidney Disea se: Estimated GFR < 60 mL/min/[id number] Kidney Disease: Estimated GFR < 15 mL/min/1.73m2 02/01/2025 4:32 PM EST 02/01/2025 4:32 PM EST us Generic External Data Provider LAB BLOOD ORDERAB LES Final Result [facility] [address] [place] [phone] * BUN (Blood Urea Nitrogen) (02/01/2025 4:32 PM EST) Urea Nitrogen (BUN) 13 9 - 16 mg/dL [facility] 02/01/2025 4:32 PM EST 02/01/2025 4:32 PM EST us Generic External Data Provider LAB BLOOD ORDERAB LES Final Result Performing Organization Address [facility]/ZIP Co de Phone Number [facility] [address] [place] [address] [phone] * (ABNORMAL) Urinalysis, Complete, with Reflex to Culture (02/01/2025 4:27 PM EST) Color Urine Yellow [facility] Appearance Urine Clear [facility] PH 5.5 5.0 - 9.0 [facility] Glucose Urine UA >=1000(A) Negative mg/dL [facility] Urine Blood Negative Negative [facility] Specific Sunspot - Urine 1.020 1.005 - 1.025 [facility] Urine Protein Negative Neg-Trace mg/dL [facility] Urine Ketones Negative Negative mg/dL [facility] Nitrite Urine Negative Negative [facility] Leukocyte Esterase Urine Negative Negative [facility] RBC Urine 0-2 0 - 2 /HPF [facility] Urine WBC 0-5 0 - 5 /HPF [facility] Urine Squamous Epithelial Cell 0-2 0 - 2 /HPF [facility] Urine Bacteria None Seen None Seen [facility] Hyaline Casts, Urine 0-2 0 - 2 /LPF [facility] 02/01/2025 4:27 PM EST 02/01/2025 5:01 PM EST Narrative [facility] - 02/01/2025 5:21 PM EST Urine, Clean Catch us Generic External Data Provider LAB URINE ORDERAB LES Final Result Performing Organization Address [facility]/ZIP Co de Phone Number [facility] [address] [place] [phone] documented in this encounter Visit Diagnoses Not on filedocumented in this encounter Additional Health Concerns Assessment Noted Time PHQ-9 Depression Total Score: 14 12/01/ 025 8:48 AM EDT documented as of this encounter Care Teams Firebrick Layer Relationship Specialty Start Date End Date Vasile Putnam MD [address] [place] [phone] PCP - General Internal Medicine 01/11/19 documented as of this encounter
--- OUTSIDE RECORDS SUMMARY | 2025-02-01 20:58 | XMS_ITS | Clinical Summary ---
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 Date Type Department Care Team Description 02/01/2025 Orders Only GENERIC EXTERNAL DATA DEPARTMENT Provider, Generic External Data 01/22/2025 Orders Only GENERIC EXTERNAL DATA DEPARTMENT Provider, Generic External Data 01/19/2025 Orders Only [facility] [address] [place] [address] Vasile Putnam MD 01/13/2025 Orders Only GENERIC EXTERNAL DATA DEPARTMENT Provider, Generic External Data 01/12/2025 Telephone [facility] [address] [place] [address] Vasile Putnam MD Referral 01/12/2025 Orders Only [facility] [address] [place] [address] Vasile Putnam MD 01/12/2025 Orders Only [facility] [address] [place] [address] Vasile Putnam MD 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) 01/10/2025 Telephone [facility] [address] [place] [address] Vasile Putnam MD Call Back Request 01/05/2025 Refill [facility] [address] [place] [address] Vasile Putnam MD Type 2 diabetes mellitus without complication, without long-term current use of insulin (HCC) 12/21/2024 Telephone [facility] [address] [place] [address] Vasile Putnam MD Referral 12/07/2024 Refill [facility] [address] [place] [address] Vasile Putnam MD 12/01/2024 9:00 AM EDT Telemedicine [facility] [address] [place] [address] Vasile Putnam MD Essential hypertension, benign (Primary Dx); Moderate episode of recurrent major depressive disorder (CMS/HCC); Hypogonadotropic hypogonadism (CMS/HCC); Type 2 diabetes mellitus without complication, without long-term current use of insulin (CMS/HCC) 12/01/2024 Telephone [facility] [address] [place] [address] Vasile Putnam MD 12/01/2024 Travel 11/30/2024 Telephone [facility] [address] [place] [address] Vasile Putnam MD chart prep 11/15/2024 Travel 11/14/2024 Travel 11/14/2024 Telephone [facility] [address] [place] [address] Vasile Putnam MD chart prep 11/10/2024 Orders [...] exists Diabetes: Urine Protein Screening 08/25/2025 08/25/2024, 08/25/2024, 08/19/2023, Additional history exists Lipid Panel 08/25/2025 08/25/2024, [...] TO CULTURE Routine 02/01/2025 4:[address] ABDOMEN PELVIS W CONTRAST Routine 01/22/2025 7:10 PM EST GLUCOSE, WHOLE BLOOD Routine 01/22/2025 6:47 PM EST US SCROTUM DOPPLER Routine 01/22/2025 5: 46 PM EST VASC US LOWER EXTREMITY VENOUS DUPLEX BILATERAL [...] SUBCLASSES PANEL Routine 11/10/2024 8:18 AM EDT [id number] QN Routine 8:18 AM EDT HEPATIC FUNCTION [...] without long-term current use of insulin ([facility]) HM COLONOSCOPY Routine 08/16/2020 7:13 AM EDT from Last 3 Months or Most Recently Relevant to Health Maintenance Results * Creatinine, Serum (02/01/2025 4:32 PM EST) Creatinine, Serum 1.06 0.5 - 1.4 mg/dL [facility] Estimated Glomerular Filt Rate >60 [facility] Comment:Chronic Kidney Disea se: Estimated GFR < 60 mL/min/1.21s7Cdlkwy Kidney Disease: Estimated GFR < 15 mL/min/1.73m2 02/01/2025 4:32 PM EST 02/01/2025 4:32 PM EST Generic External Data Provider LAB BLOOD ORDERAB LES Final Result Performing Organization Address City/[facility] Co de Phone Number [facility] [address] [place] [address] [phone] * BUN (Blood Urea Nitrogen) (02/01/2025 4:32 PM EST) Urea Nitrogen (BUN) 13 9 - 16 mg/dL [facility] 02/01/2025 4:32 PM EST 02/01/2025 4:32 PM EST [email or web address] External Data Provider LAB BLOOD ORDERAB LES Final Result Performing Organization Address [facility] Co de Phone Number [facility] [address] [place] [phone] * (ABNORMAL) Urinalysis, Complete, with Reflex to Culture (02/01/2025 4:27 PM EST) Only the most recent of4 resultswithin the time period is included. Color Urine Yellow [facility] Appearance Urine Clear [facility] PH 5.5 5.0 - 9.0 [facility] Glucose Urine UA >=1000(A) Negative mg/dL [facility] Urine Blood Negative Negative [facility] Specific [place] - Urine 1.020 1.005 - 1.025 [facility] Urine Protein Negative Neg-Trace mg/dL [facility] Urine Ketones Negative Negative mg/dL [facility] Nitrite Urine Negative Negative [facility] Leukocyte Esterase Urine Negative Negative [facility] RBC Urine 0-2 0 - 2 /HPF [facility] Urine WBC 0-5 0 - 5 /HPF [facility] Urine Squamous Epithelial Cell 0-2 0 - 2 /HPF [facility] Urine Bacteria None Seen None Seen [facility] Hyaline Casts, Urine 0-2 0 - 2 /LPF [facility] 02/01/2025 4:27 PM EST 02/01/2025 5:01 PM EST Narrative [facility] - 02/01/2025 5:21 PM EST Urine, Clean Catch us Generic External Data Provider LAB URINE ORDERAB LES Final Result Performing Organization Address City/State/[facility] Co de Phone Number [facility] [address] [place] [phone] * CT Abdomen Pelvis w/ Contrast (01/22/2025 7:10 PM EST) Anatomical Region Laterality Modality Body, Pelvis, Abdomen Computed T omography 01/22/2025 7:10 PM EST Narrative 01/22/2025 7:13 PM EST [address] [address] [address] Scan Report Signed Patient: Laurence Paulino MR#: [id number] 4 : 1970 Acct:[id number] Age/Sex: 54 / M ADM Date: 01/22/25 Loc: HO.ED Attending Dr: Ordering Physician: Josué Fernandez Date of Service: 01/22/25 Procedure(s): CT abdomen pelvis w IV con Accession Number(s): [id number] cc: Josué Fernandez; Vasile Putnam MD Report Number: [id number]: Total DLP = 624.00 mGy-cm Reason for Exam: Abd and testicuar pain. fourneir gangrene? SBO? CLINICAL HISTORY: Abd and testicuar pain. fourneir gangrene? SBO? Exam: Contrast-enhanced CT abdomen and pelvis with multiplanar reformats. Comparison: CT/SR - CT ABDOMEN PELVIS WO IV CON - 10/14/2024 08:37 AM EDT Findings: CT abdomen: Lung bases are clear. Liver is free of focal lesions and ductal dilatation. Gallbladder is unremarkable. Spleen is unremarkable. Pancreas and adrenal glands appear unremarkable. Kidneys appear unremarkable. No free intraperitoneal fluid or retroperitoneal masses or adenopathy. Abdominal aorta is normal caliber. Bowel loops reveal no abnormal wall thickening or distention. No significant diverticular disease. The appendix appears unremarkable. CT pelvis: Prostate gland measures 4.8 cm transverse dimension. Urinary bladder is free of gross filling defects. No pelvic masses, fluid or adenopathy. There may be some scrotal wall edema. No soft tissue emphysema or CT evidence of necrotizing infection. No circumscribed collections appreciated. Osseous structures reveal no destructive osseous lesions. Impression: 1. No soft tissue emphysema or CT evidence of necrotizing infection. This document has been electronically signed by: Tadeo Sethi MD on 01/22/2025 19:10:51 Dictated By: Tadeo Sethi MD Signed By: <Electronically signed by Tadeo Sethi MD in OV> 01/22/251911 DD/ 09 TD/TT: 01/22/251909 Cat Scan Tech: Procedure Note Donotuseinterpreter, Image - 01/22/[address] [place] [address] [address] Scan Report Signed Patient: Bola Paulino#: [id number] 4 : 1970Acct:[id number] Age/Sex: 54 / MADM Date: 01/22/25 Loc: HO.ED Attending Dr: Ordering Physician: Josué Fernandez Date of Service: 01/22/25 Procedure(s): CT abdomen pelvis w IV con Accession Number(s): [id number] cc: Josué Fernandez; Vasile Putnam MD Report Number: [id number]: Total DLP = 624.00 mGy-cm Reason for Exam: Abd and testicuar pain. fourneir gangrene? SBO? CLINICAL HISTORY: Abd and testicuar pain. fourneir gangrene? SBO? Exam: Contrast-enhanced CT abdomen and pelvis with multiplanar reformats. Comparison: CT/SR - CT ABDOMEN PELVIS WO IV CON - 10/14/2024 08:37 AM EDT Findings: CT abdomen: Lung bases are clear. Liver is free of focal lesions and ductal dilatation. Gallbladder is unremarkable. Spleen is unremarkable. Pancreas and adrenal glands appear unremarkable. Kidneys appear unremarkable. No free intraperitoneal fluid or retroperitoneal masses or adenopathy. Abdominal aorta is normal caliber. Bowel loops reveal no abnormal wall thickening or distention. No significant diverticular disease. The appendix appears unremarkable. CT pelvis: Prostate gland measures 4.8 cm transverse dimension. Urinary bladder is free of gross filling defects. No pelvic masses, fluid or adenopathy. There may be some scrotal wall edema. No soft tissue emphysema or CT evidence of necrotizing infection. No circumscribed collections appreciated. Osseous structures reveal no destructive osseous lesions. Impression: 1. No soft tissue emphysema or CT evidence of necrotizing infection. This document has been electronically signed by: Tadeo Sethi MD on 01/22/2025 19:10:51 Dictated By: Tadeo Sethi MD Signed By: <Electronically signed by Tadeo Sethi MD in OV> 01/22/251911 DD/ 09 TD/TT: 01/22/251909 Cat Scan Tech: us [facility] External Provider IMG CT PROCEDURES Edited Result - Final * Glucose, Whole Blood (01/22/2025 6:47 PM EST) Glucose, Whole Blood 88 60 - 115 mg/dL [facility] Comment:METER #: [id number] 01/22/2025 6:47 PM EST 01/22/2025 6:50 PM EST us Generic External Data Provider LAB BLOOD ORDERAB LES Final Result [facility] [address] [place] [phone] * US SCROTUM DOPPLER (01/22/2025 5:46 PM EST) Anatomical Region Laterality Modality Abdomen Ultrasound 01/22/2025 5:46 PM EST Narrative 01/22/2025 5:47 PM EST [address] [address] Ultrasound Report Signed Patient: Laurence Paulino MR#: [id number] 4 : 1970 Acct:[id number] Age/Sex: 54 / M ADM Date: 01/22/25 Loc: HO.ED Attending Dr: Ordering Physician: Josué Fernandez Date of Service: 01/22/25 Procedure(s): US scrotum doppler Accession Number(s): [id number] cc: Josué Fernandez; Vasile Putnam MD Reason for Exam: testicular pain. torsion? CLINICAL HISTORY: testicular pain. torsion? US scrotum with Doppler Comparison: None Technique: Real time sonographic imaging, including color-flow imaging, was performed by the human resource advisor. Multiple automobile sales representative static images were saved for review. Findings: Right testicle normal size and echotexture, 3.6 cm. Normal color flow and spectral tracing. Normal epididymis. No hydrocele. A varicocele is present, with vessels measuring up to 4 mm diameter. Left testicle normal size and echotexture, 3.2 cm. Normal color flow and spectral tracing. An epididymal head cyst measuring up to 8 mm is present. No hydrocele. A varicocele is present, with vessels measuring up to 4-5 mm. Impression: 1. Bilateral varicoceles and left-sided epididymal cyst. 2. Otherwise, unremarkable scrotal ultrasound. Specifically, no evidence of torsion. This document has been electronically signed by: Tadeo Sethi MD on 01/22/2025 17:46:02 Dictated By: Tadeo Sethi MD Signed By: <Electronically signed by Tadeo Sethi MD in OV> 01/22/251746 DD/ 45 TD/TT: 01/22/251745 Cat Scan Tech: Procedure Note Donotuseinterpreter, Image - 01/22/2025 [place] [address] Ultrasound Report Signed Patient: Bola Paulino#: [id number] 4 : 1970Acct:[id number] Age/Sex: 54 / MADM Date: 01/22/25 Loc: HO.ED Attending Dr: Ordering Physician: Josué Fernandez Date of Service: 01/22/25 Procedure(s): US scrotum doppler Accession Number(s): [id number] cc: Josué Fernandez; Vasile Putnam MD Reason for Exam: testicular pain. torsion? CLINICAL HISTORY: testicular pain. torsion? US scrotum with Doppler Comparison: None Technique: Real time sonographic imaging, including color-flow imaging, was performed by the human resource advisor. Multiple automobile sales representative static images were saved for review. Findings: Right testicle normal size and echotexture, 3.6 cm. Normal color flow and spectral tracing. Normal epididymis. No hydrocele. A varicocele is present, with vessels measuring up to 4 mm diameter. Left testicle normal size and echotexture, 3.2 cm. Normal color flow and spectral tracing. An epididymal head cyst measuring up to 8 mm is present. No hydrocele. A varicocele is present, with vessels measuring up to 4-5 mm. Impression: 1. Bilateral varicoceles and left-sided epididymal cyst. 2. Otherwise, unremarkable scrotal ultrasound. Specifically, no evidence of torsion. This document has been electronically signed by: Tadeo Sethi MD on 01/22/2025 17:46:02 Dictated By: Tadeo Sethi MD Signed By: <Electronically signed by Tadeo Sethi MD in OV> 01/22/251746 DD/ 45 TD/TT: 01/22/251745 Cat Scan Tech: us [facility] External Provider IMG US PROCEDURES Edited Result - Final * VASC US Lower Extremity Venous Duplex Bilateral (01/22/2025 5:44 PM EST) 01/22/2025 5:44 PM EST Narrative [facility] - 01/22/2025 5:44 PM EST [address] [address] Ultrasound Report Signed Patient: Laurence Paulino MR#: [id number] 4 : 1970 Acct:[id number] Age/Sex: 54 / M ADM Date: 01/22/25 Loc: HO.ED Attending Dr: Ordering Physician: Josué Fernandez Date of Service: 01/22/25 Procedure(s): US venous duplex LE Accession Number(s): [id number] cc: Josué Fernandez; Vasile Putnam MD Reason for Exam: bilateral thigh pain. no trauma. DVT? CLINICAL HISTORY: bilateral thigh pain. no trauma. DVT? Bilateral lower extremity venous duplex ultrasound. Comparison: None Technique: Real time sonographic imaging, including color-flow imaging and spectral analysis, was performed by the human resource advisor. Multiple automobile sales representative static images were saved for [...] signed by Tadeo Sethi MD in OV> 01/22/25 1744 DD/ 43 TD/TT: 01/22/251743 Cat Scan Tech: Procedure Note Donotuseinterpreter, Image - 01/22/[address] [address] Ultrasound Report Signed Patient: Jus PaulinoR#: [id number] 4 : 1970Acct:[id number] Age/Sex: 54 / MADM Date: 01/22/25 Loc: HO.ED Attending Dr: Ordering Physician: Josué Fernandez Date of Service: 01/22/25 Procedure(s): US venous duplex LE BI Accession Number(s): [id number] cc: Josué Fernandez; Vasile Putnam MD Reason for Exam: bilateral thigh pain. no trauma. DVT? CLINICAL HISTORY: bilateral thigh pain. no trauma. DVT? Bilateral lower extremity venous duplex ultrasound. Comparison: None Technique: Real time sonographic imaging, including color-flow imaging and spectral analysis, was performed by the human resource advisor. Multiple automobile sales representative static images were saved for [...] in OV> 01/22/251743 DD/ 43 TD/TT: 01/22/251743 Cat Scan Tech: [facility] External Provider CV VASC ULAR PROCEDURES Edited Result - Final [facility] [address] [place] [phone] * (ABNORMAL) Testosterone, Free (Dialysis) And Total, MS (01/13/2025 8:32 AM EDT) Testosterone, Total 162(A) 250 - 1100 ng/dL [facility] Comment:For additional infor navjot, please refer tohttp://education.[employer]/faq/[email or web address](This link is being provided for informational/educational purposes only.)This test was developed and its analytical performancecharacteristics have been determined by [employer] [place], [place]. It hasnot been cleared or approved by the U.S. Food and DrugAdministration. This assay has been validated pursuantto the CLIA regulations and is used for clinicalpurposes. Testosterone, Free 29.8(A) 35.0 - 155.0 pg/mL [facility] Comment:This test was develo ped and its analytical performancecharacteristics have been determined by [employer] [place], [place]. It hasnot been cleared or approved by the U.S. Food and DrugAdministration. This assay has been validated pursuantto the CLIA regulations and is used for clinicalpurposes.THIS TEST WAS PERFORMED AT:[employer] [id number] [place] [id number] HAMMER MD,PHD 01/13/2025 8:32 AM EDT 01/13/2025 8:32 AM EDT us Generic External Data Provider LAB BLOOD ORDERAB LES Final Result [facility] [address] [place] [phone] * (ABNORMAL) Actin (Smooth Muscle) Antibody (IgG) (11/10/2024 8:18 AM EDT) Smooth Muscle Antibody 27(A) <20 U [facility] Comment:Reference Range: <20 U: Negative>or=20 [...] with AIH type 1.THIS TEST WAS PERFORMED AT:[employer] [id number] [place] [id number] HAMMER MD,PHD 11/10/2024 8:18 AM EDT 11/10/2024 8:18 AM EDT us Generic External Data Provider LAB BLOOD ORDERAB LES Final Result Performing Organization Address [facility] Phone Number [facility] [address] [place] [phone] * Rphhg-8-Klktrjxplxl, Quantitative (11/10/2024 8:18 AM EDT) Pathologist [facility] Togog-9-Gkxlbwmf sin QN 118 83 - 199 mg/dL [facility] Comment:THIS TEST WAS PERFOR MED AT:[employer] [place] [id number] CLAYTON MD 11/10/2024 8:18 AM EDT 11/10/2024 8:18 AM EDT Generic External Data Provider LAB BLOOD ORDERAB LES Final Result Performing Organization Address [facility] Number [facility] [address] [place] [phone] * Immunoglobulin G Subclasses Panel (11/10/2024 8:18 AM EDT) Pathologist [facility] IgG Subclass 1 606 382 - 929 mg/dL [facility] IgG Subclass 2 553 241 - 700 mg/dL [facility] IgG Subclass 3 49 22 - 178 mg/dL [facility] IgG Subclass 4 40.0 4 - 86 mg/dL [facility] Immunoglobulin G, Serum 1302 600 - 1640 mg/dL [facility] Comment:THIS TEST WAS PERFOR MED AT:[employer] [place] [id number] CLAYTON MD 11/10/2024 8:18 AM EDT 11/10/2024 8:18 AM EDT Generic External Data Provider LAB BLOOD ORDERAB LES Final Result Performing Organization Address [facility] de Phone Number [facility] [address] [place] [phone] * Liver Kidney Microsomal (LKM-1) Antibody??(IgG) (11/10/2024 8:18 AM EDT) Liver Kidney Microsomal (LKM-1) Antibody IgG <=20.0 <=20.0 U [facility] Comment:Reference Range: <=2 0.0 Negative [...] patients with hepatitis Cinfection.THIS TEST WAS PERFORMED AT:[employer] [id number] [place] [address]VXEFFVQ W. MASON,MD,PHD 11/10/2024 8:18 AM EDT 11/10/2024 8:18 AM EDT us Generic External Data Provider LAB BLOOD ORDERAB LES Final Result [facility] [address] [place] [phone] * (ABNORMAL) Hemoglobin A1c (11/10/2024 8:18 AM EDT) Hemoglobin A1c 7.0(H) <6.0 % [facility] Comment:Hemoglobin A1C Refer ence Range Adults: 4.8 - 6.0 % Non diabetic: < 6.0 % Goal: < 7.0 %Additional Action Suggested: > 8.0 %Note: Hemoglobin A1c results are invalid for patients with abnormal amounts of HbF. Blood transfusions may impact the HbA1c concentration in the patient sample. Estimated Average Glucose 154 mg/dL [facility] Comment:eAG = Estimated ave rage glucose which is %A1C expressed asaverage glucose, using the formula of the A3P-FecyfmfNcgcevn Glucose study (ADAG), Diabetes Care, Vol.31,#8,Oct. 2007 11/10/2024 8:18 AM EDT 11/10/2024 8:18 AM EDT us Generic External Data Provider LAB BLOOD ORDERAB LES Final Result Performing Organization Address [facility] Co de Phone Number [facility] [address] [place] [phone] * Immunoglobulin G (11/10/2024 8:18 AM EDT) Immunoglobulin G [facility] 11/10/2024 8:18 AM EDT 11/10/2024 8:18 AM EDT Generic External Data Provider LAB BLOOD ORDERAB LES Final Result Performing Organization Address [facility] de Phone Number [facility] [address] [place] [phone] * (ABNORMAL) Hepatic Function Panel (11/10/2024 8:18 AM EDT) Bilirubin, Total 0.4 0.0 - 1.0 mg/dL [facility] Bilirubin, Direct 0.2 0.0 - 0.5 mg/dL [facility] Aspartate Amino Transferase 46(H) 5 - 37 U/L [facility] Alanine Aminotransferase 87(H) 0 - 40 U/L [facility] Total Protein 7.7 6.5 - 8.0 g/dL [facility] Albumin Level 4.7 3.5 - 5.0 g/dL [facility] Alkaline Phosphatase 68 39 - 117 U/L [facility] 11/10/2024 8:18 AM EDT 11/10/2024 8:18 AM EDT Generic External Data Provider LAB BLOOD ORDERAB LES Final Result Performing Organization Address [facility] de Phone Number [facility] [address] [place] [phone] * (ABNORMAL) Urinalysis w/reflex microscopic (11/10/2024 8:13 AM EDT) Color Urine Yellow [facility] Appearance Urine Clear [facility] PH 5.5 5.0 - 9.0 [facility] Glucose Urine UA >=1000(A) Negative mg/dL [facility] Urine Blood Negative Negative [facility] Specific [place] - Urine >=1.030(H) 1.005 - 1.025 [facility] Urine Protein Negative Neg-Trace mg/dL [facility] Urine Ketones Negative Negative mg/dL [facility] Nitrite Urine Negative Negative [facility] Leukocyte Esterase Urine Negative Negative [facility] 11/10/2024 8:13 AM EDT 11/10/2024 9:05 AM EDT Narrative [facility] - 11/10/2024 9:16 AM EDT Urine, Clean Catch us Generic External Data Provider LAB URINE ORDERAB LES Final Result Performing Organization Address [facility] de Phone Number [facility] [address] [place] [phone] * Albumin, Random Urine W/Creatinine (08/25/2024 10:08 AM EDT) Creatinine, Urine 299.86 mg/dL [facility] Microalbumin Urine 36.0 mg/L [facility] Microalbum Creatinine Ratio Ur 12.0 <30 ug/mg cr [facility] Comment:Albumin/Creatinine R atio Reference Ranges: Normal: < 30 ug/mg creatinine Microalbuminuria: 30 - 300 ug/mg creatinineClinical Albuminuria: > 300 ug/mg creatinine Urine (Urine, Random) 08/25/2024 10:08 AM EDT 08/25/2024 2:00 PM EDT us Vasile Juares MD LAB URINE ORDERABL ES Final Result Performing Organization Address City/[facility]/ZIP Co de Phone Number [facility] [address] [place] [phone] * (ABNORMAL) Lipid Panel, Standard (08/25/2024 10:08 AM EDT) Triglycerides 143 <150 mg/dL [facility] Comment:Desirable Triglyceri de: less than 150 mg/dLBorderline High Triglyceride 150-199 mg/dLHigh Triglyceride: 200-499 mg/dLVery High Triglyceride: greater than or equal to 5OO mg/dL Cholesterol 181 <200 mg/dL [facility] Comment:Desirable Cholestero l: less than 200 mg/dLBorderline High Cholesterol: 200-239 mg/dLHigh Cholesterol: greater than 239 mg/dL LDL Cholesterol Calculated 119(H) <100 mg/dL [facility] Comment:Desirable LDL: less than 100 mg/dLNear Optimal/Above Optimal LDL: 110- 129 mg/dLBorderline High LDL: 130-159 mg/dLHigh LDL: 160-189 mg/dLVery High LDL: greater than or equal to 190 mg/dL HDL Cholesterol 34(L) >40 mg/dL [facility] Comment:Desirable HDL: great er than 40 mg/dL Note: This HDL assay may give artificially low results in patients with liver disease. Blood Venous blood specimen / Unknown 08/25/2024 10:08 AM EDT 08/25/2024 2:05 PM EDT us Vasile Juares MD LAB BLOOD ORDERABL ES Final Result [facility] [address] [place] [phone] * HIV-1 RNA, Quantitative, Real-Time PCR with Reflex to Genotype (RTI, PI, Integrase) (07/21/2022 9:57 AM EDT) HIV 1 RNA, QN PCR NOT DETECTED copies/mL [facility], [facility] 1 RNA, QN PCR NOT DETECTED Log copies/mL [facility], Comment: REFERENCE RANGE: NOT DETECTED copies/mL NOT DETECTED Log copies/mL This test was performed using Real-Time Polymerase Chain Reaction. Reportable range is 20 to 10,000,000 copies/mL (1.30-7.00 Log copies/mL). 07/21/2022 9:57 AM EDT 07/21/2022 9:58 AM EDT Narrative [facility] - 07/23/2022 8:25 PM EDT FASTING:NO FASTING: NO Vasile Juares MD LAB BLOOD ORDERABL ES Final Result [facility] [address], [place] [address] [facility], [address] [place] [address] * Hepatitis C Antibody with Reflex to HCV, RNA, Quantitative, Real-Time PCR (07/21/2022 9:57 AM EDT) Hepatitis C Antibody NON-REACT FLACO NON-REACT FLACO [employer] [place] [employer] Index 0.08 <1.00 [employer] Comment: HCV antibody was non-reactive. There is no laboratory evidence of HCV infection. In most cases, no further action is required. However, if recent HCV exposure is suspected, a test for HCV RNA (test code 99012) is suggested. For additional information please refer to http://education.[employer]/faq/DMU21t1 (This link is being provided for informational/ educational purposes only.) Blood Venous blood specimen / Unknown 07/21/2022 9:57 AM EDT 07/21/2022 9:58 AM EDT Narrative [facility] - 07/23/2022 8:25 PM EDT FASTING:NO FASTING: NO Vasile Juares MD LAB BLOOD ORDERABL ES Final Result [facility] [address] [facility], [facility], [place] [address] [facility] [address] [place] [address] * Hm Colonoscopy (08/16/2020 7:13 AM EDT) Historical Provider HEALTH MAINTENANCE Final Result from Last 3 Months or Most Recently Relevant to Health Maintenance Insurance PPO 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
--- OUTSIDE RECORDS SUMMARY | 2025-02-01 20:58 | XMS_ITS | Encounter Summary ---
Author Organization [employer] Address [address] [facility] 7[address] [place] [address] Care Team Providers Care Teacher Education Instructor Name Role Phone Vasile Putnam MD Primary Care Prov ider Encounter Details Date Type Department Care Team ([facility] st Contact Info) Description 06/26/2023 Orders Only [facility] [address] [place] [address] Provider, MD Min Social History Tobacco Use [...] documented as of this encounter Care Teams Teacher Education Instructor Relationship Specialty Start Date End Date DeutschVasile Cabrera MD [address] [place] [id number] PCP - General Internal Medicine 01/11/19 documented as of this encounter
--- OUTSIDE RECORDS SUMMARY | 2025-02-01 20:58 | XMS_ITS | Encounter Summary ---
Author Organization [employer] Address [address] [place] [address] Care Team Providers Care Distillery Miller Helper Name Role Phone Vasile Putnam MD Primary Care Prov ider Reason for Visit * Reason Comments Med Refill Encounter Details Date Type Department Care Team (Late st Contact Info) Description 08/24/2022 Refill C [facility] [address] [place] [address] Vasile Putnam MD [address] [place] [address] Fibromyalgia Social History Tobacco Use Types Packs/Day [...] documented as of this encounter Care Teams Distillery Miller Helper Relationship Specialty Start Date End Date Vasile Putnam MD [address] [place] [address] PCP - General Internal Medicine 01/11/19 documented as of this encounter
[2025-02-08 18:27] LABS: Testosterone, Free 55.4 pg/mL (35.0-155.0)
== END 2025-02-01 16:22 | disposition home or self-care (01) ==
LOC: HO.LAB 16:21
PROVIDERS: PCP Internal Medicine; Visit Provider Internal Medicine Gastroenterology
DX: E23.0 Hypopituitarism (principal); R79.89 Other specified abnormal findings of blood chemistry
CPT/HCPCS: 36415; 81001; 82565; 84402; 84403; 84520

== ENCOUNTER 2025-02-28 08:25 | Outpatient (REF) | payer BC, SELFPAY ==
--- NOTE | ~2025-02-28 | CT_ITS ---
EXAMINATION: CT ABDOMEN AND PELVIS WITH CONTRAST CLINICAL INFORMATION: R 93.3. Abnormal findings on diagnostic imaging of parts of the digestive. COMPARISON: January 22, 2025. October 14, 2024 TECHNIQUE: Multidetector volumetric images were obtained from the superior aspect of the liver through the pubic symphysis following administration 85 mL of Omnipaque 350 intravenous contrast. Sagittal and coronal reformatted images were obtained on the technologist's workstation. Oral contrast: Yes This CT examination was performed using dose optimization techniques as appropriate, variously including the following: *Automated exposure control *Adjustment of mA and/or kV according to patient size (this includes techniques or standardized protocols for targeted exams where dose is matched to indication/reason for exam; i.e. extremities or head) *Use of iterative reconstruction technique DLP: 457 mGy-cm FINDINGS: LUNG BASES: No acute airspace disease or gross pulmonary nodules. LIVER, GALLBLADDER, AND BILIARY TREE: Liver measures 18 cm in maximum craniocaudal dimension. No enhancing mass. Main portal veins, hepatic veins and intrahepatic portion of the IVC are patent. Gallbladder is nondistended. No pericholecystic fluid collection or gallbladder wall thickening. No intrahepatic or extrahepatic biliary ductal dilatation. PANCREAS: No solid or cystic mass. No main pancreatic ductal dilatation. No peripancreatic fluid collection. SPLEEN: 9 cm. No solid or cystic lesion. ADRENAL GLANDS: No nodular lesion. Soft tissue fullness left adrenal gland. KIDNEYS AND URETERS: No hydronephrosis. No gross nephrolithiasis. Normal enhancement pattern of the renal parenchyma. No dilatation of the ureter. Small, 0.9 cm cystic structure in the corticomedullary junction of the right kidney. BLADDER: Fluid-filled. GASTROINTESTINAL TRACT: Appendix is normal. No intestinal obstruction pattern. No pneumatosis intestinalis. No intestinal wall thickening. Abundant stool, large intestine. Small hiatal hernia. No ascites. No pneumoperitoneum. No peripheral enhancing fluid collection, peritoneal cavity. ABDOMINAL WALL: No umbilical hernia. LYMPH NODES: Prominent inguinal lymph nodes, nonspecific. Mild prominent mesenteric lymph nodes. No gross retroperitoneal lymphadenopathy. VASCULAR: No aneurysm or dissection, abdominal aorta. Small calcified plaques in the femoral arteries. PELVIC VISCERA: Not enlarged. OSSEOUS STRUCTURES: Sclerosis and the sacroiliac joints with subtle vacuum phenomenon. Multilevel small marginal osteophyte formation and endplate sclerosis and decreased intervertebral disc height with desiccation seen in the posterior intervertebral discs from L3-4 to L5-S1. Facet joint hypertrophy at L5-S1, bilaterally. No acute fracture, bony pelvis. No acute fracture or dislocation, coxofemoral joints. No gross lytic or thick lesions. CT/CT abdomen pelvis w IV con IMPRESSION: No gross abnormality, small or large intestine. Hepatomegaly, mild. Fleischner guidelines were followed. Electronically signed by: Go Merlos MD 02/28/2025 09:22 AM DARLEEN
--- OUTSIDE RECORDS SUMMARY | 2025-02-28 08:36 | XMS_ITS | Encounter Summary ---
Author Organization [employer] Address [address] [place] [address] Care Team Providers Care Atomic Process Engineer Name Role Phone Vasile Putnam MD Primary Care Prov ider Reason for Visit * Reason Comments Med Refill Encounter Details Date Type Department Care Team (Late st Contact Info) Description 08/24/2022 Refill C [facility] [address] [place] [address] Vasile Putnam MD [address] [place] [address] Fibromyalgia Social History Tobacco Use Types Packs/Day [...] documented as of this encounter Care Teams Atomic Process Engineer Relationship Specialty Start Date End Date Vasile Putnam MD [address] [place] [address] PCP - General Internal Medicine 01/11/19 documented as of this encounter
--- OUTSIDE RECORDS SUMMARY | 2025-02-28 08:36 | XMS_ITS | Encounter Summary ---
Author Organization [email or web address] Address [address] [facility] 7 [place] [address] Care Team Providers Care Radiologic Technologist Chief Name Role Phone Vasile Putnam MD Primary Care Prov ider Encounter Details Date Type Department Care Team ([facility] Contact Info) Description 01/19/2025 Orders Only [facility] [address] [place] [address] Vasile Putnam MD [address] [place] [address] Social History Tobacco Use Types Packs/Day Years [...] documented as of this encounter Care Teams Radiologic Technologist Chief Relationship Specialty Start Date End Date Vasile Putnam MD [address] [place] [phone] PCP - General Internal Medicine 01/11/19 documented as of this encounter
--- OUTSIDE RECORDS SUMMARY | 2025-02-28 08:36 | XMS_ITS | Clinical Summary ---
Author Organization [employer] Address [address] [place] [address] [address] [place] [address] Care Team Providers Care Banana Carrier Name Role Phone Vasile Putnam MD Primary [...] for 10 days. 30 tablet 4 Active methocarbamol (Robaxin) 750 MG tablet Take 1 tablet (750 mg) by mouth 3 times daily. 270 tablet 3 4 Active omeprazole (PriLOSEC) [address] capsule TAKE 1 CAPSULE(20 MG) BY MOUTH IN THE MORNING 90 capsule 3 4 Active DULoxetine (Cymbalta) [address] capsuleIndicati ons:Fibromyalgi a TAKE 1 CAPSULE(30 MG) BY MOUTH TWICE DAILY. DO NOT CRUSH OR CHEW 60 capsule 2 4 Active fluticasone (Flonase) 50 MCG/ACT nasal sprayIndication s:Acute maxillary sinusitis, recurrence not specified ADMINISTER 1-2 SPRAYS INTO EACH NOSTRIL EVERY DAY 16 g 5 Active pregabalin (Lyrica) 150 MG capsule TAKE 1 CAPSULE(150 MG) BY MOUTH TWICE DAILY 60 capsule 3 5 Active dapagliflozin (Farxiga) 10 MG Take 1 tablet (10 mg) by mouth Once per day. 90 tablet 3 5 08/25/19 26 Active lidocaine (Lidoderm) 5 % patchIndication s:Acute right-sided low back pain without sciatica,Right hip pain Apply 1 patch topically Once per day. Remove & discard patch within 12 hours or as directed by MD. 30 patch 1 5 Active atorvastatin (Lipitor) 40 MG tablet TAKE ONE TABLET EVERY MORNING 30 tablet 4 5 Active lisinopril 10 MG tablet TAKE ONE TABLET EVERY MORNING 90 tablet 1 5 Active metFORMIN (Glucophage) 1000 MG tabletIndicatio ns:Type 2 diabetes mellitus without complication, without long-term current use of insulin (HCC) TAKE ONE TABLET TWICE DAILY WITH BREAKFAST AND WITH DINNER 180 tablet 1 5 Active Active Problems Problem Noted Date Diagnosed Date Generalized anxiety disorder 12/22/2024 Moderate major depression (CMS/HCC) 12/22/2024 Acute right-sided low back pain without sciatica 10/11/2024 Right hip pain 10/11/2024 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 Assessment & Plan (12/01/2024 9:32 AM EDT): Will refer to a [facility] urology as per patient request Maxillary [...] Provider, Generic External Data 01/19/2025 Orders Only [facility] [address] [place] [address] Vasile Putnam MD 01/13/2025 Orders Only GENERIC EXTERNAL DATA DEPARTMENT Provider, Generic External Data 01/12/2025 Telephone [facility] [address] [place] [address] Vasile Putnam MD Referral 01/12/2025 Orders Only [facility] [address] [place] [address] Vasile Putnam MD 01/12/2025 Orders Only [facility] [address] [place] [address] Vasile Putnam MD Hypogonadotropic hypogonadism ([facility]/HCC) (Primary Dx) 01/10/2025 Telephone [facility] [address] [place] [address] Vasile Putnam MD Call Back Request 01/05/2025 Refill [facility] [address] [place], [place] [phone] Vasile Putnam MD Type 2 diabetes mellitus without complication, without long-term current use of insulin ([facility]) 12/21/2024 Telephone [facility] [address] [place] [address] Vasile Putnam MD Referral 12/07/2024 Refill [facility] [address] [place] [address] Vasile Putnam MD 12/01/2024 9:00 AM EDT Telemedicine [facility] [address], [place] [phone] Vasile Putnam MD Essential hypertension, benign (Primary Dx); Moderate episode of recurrent major depressive disorder (CMS/HCC); Hypogonadotropic hypogonadism (CMS/HCC); Type 2 diabetes mellitus without complication, without long-term current use of insulin (CMS/HCC) 12/01/2024 Telephone [facility] [address] [place] [address] Vasile Putnam MD 12/01/2024 Travel 11/30/2024 Telephone [facility] [address] [place], [place] [phone] Vasile Putnam MD chart prep from Last 3 Months Immunizations Immunization Administration [...] 3-dose series) 1987 Eye Exam 08/06/2012 08/06/2010 RSV Patients and Patients Aged 60 years or older (1 - Risk 50-74 years 1-dose series) 2018 COVID-19 Vaccine ( season) 2024 05/30/2022, 01/30/2021, [...] - Td or Tdap) 01/13/2032 01/12/2022, 08/24/2006 Pneumococcal Vaccine: 50+ Years Completed 01/02/2022 Zoster [...] (BUN) Routine 02/01/2025 4 :32 PM EST TESTOSTERONE, FREE, BIOAVAILABLE AND TOTAL, MALES (ADULT), IA Routine 02/01/2025 4:32 PM EST Hypogonadotropic hypogonadism (CMS/HCC) URINALYSIS, COMPLETE, WITH REFLEX TO CULTURE Routine 02/01/2025 4:[address] ABDOMEN PELVIS W CONTRAST Routine 01/22/2025 7:10 PM EST GLUCOSE, WHOLE BLOOD Routine 01/22/2025 6:47 PM EST US SCROTUM Routine 01/22/2025 5:46 PM EST US SCROTUM DOPPLER Routine 01/22/2025 5: 46 PM EST VASC US LOWER EXTREMITY VENOUS DUPLEX BILATERAL Routine 01/22/2025 5:44 PM EST URINALYSIS, COMPLETE, WITH REFLEX TO CULTURE Routine 01/22/2025 4:40 PM EST TESTOSTERONE, FREE, BIOAVAILABLE AND TOTAL, MALES (ADULT), IA Routine 01/13/2025 8:32 AM EDT URINALYSIS, COMPLETE, WITH REFLEX TO CULTURE Routine 01/13/2025 8:30 AM EDT HEMOGLOBIN A1C Routine 11/10/2024 8:18 AM EDT ALBUMIN, RANDOM URINE W/CREATININE Routine [...] Creatinine, Serum 1.06 0.5 - 1.4 mg/dL [facility] Estimated Glomerular Filt Rate >60 [facility] Comment:Chronic Kidney Disea se: Estimated GFR < 60 mL/min/1.56b9Xgmroz Kidney Disease: Estimated GFR < 15 mL/min/1.73m2 02/01/2025 4:32 PM EST 02/01/2025 4:32 PM EST us Generic External Data Provider LAB BLOOD ORDERAB LES Final Result [facility] [address] [place] [phone] * Testosterone, Free (Dialysis) And Total, MS (02/01/2025 4:32 PM EST) Only the most recent of2 resultswithin the time period is included. Testosterone, Total 322 250 - 1100 ng/dL [facility] Comment:For additional infor mation, please refer tohttp://education.Horrance.PingTune/faq/[email or web address](This link is being provided for informational/educational purposes only.)This test was developed and its analytical performancecharacteristics have been determined by [place]. It hasnot been cleared or approved by the U.S. Food and DrugAdministration. This assay has been validated pursuantto the CLIA regulations and is used for clinicalpurposes. Testosterone, Free 55.4 35.0 - 155.0 pg/mL [facility] Comment:This test was develo ped and its analytical performancecharacteristics have been determined by [employer] [place], [place]. It hasnot been cleared or approved by the U.S. Food and DrugAdministration. This assay has been validated pursuantto the CLIA regulations and is used for clinicalpurposes.THIS TEST WAS PERFORMED AT:[facility] [place] [address]JPXCRGMWINSTON HAMMER MD,PHD Blood Venous blood specimen / Unknown 02/01/2025 4:32 PM EST 02/01/2025 4:32 PM EST us Vasile Juares MD LAB BLOOD ORDERABL ES Final Result Performing Organization Address City/[facility]/ZIP Co de Phone Number [facility] [address] [place] [phone] * BUN (Blood Urea Nitrogen) (02/01/2025 4:32 PM EST) Urea Nitrogen (BUN) 13 9 - 16 mg/dL [facility] 02/01/2025 4:32 PM EST 02/01/2025 4:32 PM EST us Generic External Data Provider LAB BLOOD ORDERAB LES Final Result Performing Organization Address City/[facility]/ZIP Co de Phone Number [facility] [address] [place] [phone] [phone] * (ABNORMAL) Urinalysis, Complete, with Reflex to Culture (02/01/2025 4:27 PM EST) Only the most recent of3 resultswithin the time period is included. Color Urine Yellow [facility] Appearance Urine Clear [facility] PH 5.5 5.0 - 9.0 [facility] Glucose Urine UA >=1000(A) Negative mg/dL [facility] Urine Blood Negative Negative [facility] Specific [place] - Urine 1.020 1.005 - 1.025 [facility] Urine Protein Negative Neg-Trace mg/dL [facility] Urine Ketones Negative Negative mg/dL [facility] Nitrite Urine Negative Negative [facility] Leukocyte Esterase Urine Negative Negative [facility] RBC Urine 0-2 0 - 2 /HPF [facility] Urine WBC 0-5 0 - 5 /HPF [facility] Urine Squamous Epithelial Cell 0-2 0 - 2 /HPF [facility] Urine Bacteria None Seen None Seen [facility] Hyaline Casts, Urine 0-2 0 - 2 /LPF [facility] 02/01/2025 4:27 PM EST 02/01/2025 5:01 PM EST Narrative [facility] - 02/01/2025 5:21 PM EST Urine, Clean Catch us Generic External Data Provider LAB URINE ORDERAB LES Final Result [facility] [address] [place] [phone] * CT Abdomen Pelvis w/ Contrast (01/22/2025 7:10 PM EST) Anatomical Region Laterality Modality Body, Pelvis, Abdomen Computed T omography 01/22/2025 7:10 PM EST Narrative 01/22/2025 7:13 PM EST [address] [address] [address] Scan Report Signed Patient: Urbano Paulino MR#: [id number] 4 : 1970 Acct:[id number] Age/Sex: 54 / M ADM Date: 01/22/25 Loc: HO.ED Attending Dr: Ordering Physician: Josué Fernandez Date of Service: 01/22/25 Procedure(s): CT abdomen pelvis w IV con Accession Number(s): [id number] cc: Josué Fernandez; Vasile Putnam MD Report Number: [id number]: Total DLP = 624.00 mGy-cm Reason for [...] in OV> 01/22/251911 DD/ 09 TD/TT: 01/22/251909 Ore Sampler: Procedure Note Donotuseinterpreter, Image - 01/22/[address] [address] [address] Scan Report Signed Patient: Bola Paulino#: [id number] 4 : 1970Acct:[id number] Age/Sex: 54 / MADM Date: 01/22/25 Loc: HO.ED Attending Dr: Ordering Physician: Josué Fernandez Date of Service: 01/22/25 Procedure(s): CT abdomen pelvis w IV con Accession Number(s): [id number] cc: Josué Fernandez; Vasile Putnam MD Report Number: [id number]: Total DLP = 624.00 mGy-cm Reason for [...] in OV> 01/22/251911 DD/ 09 TD/TT: 01/22/251909 Ore Sampler: [facility] External Provider IMG CT PROCEDURES Edited Result - Final * Glucose, Whole Blood (01/22/2025 6:47 PM EST) Glucose, Whole Blood 88 60 - 115 mg/dL [facility] Comment:METER #: [id number] 01/22/2025 6:47 PM EST 01/22/2025 6:50 PM EST us Generic External Data Provider LAB BLOOD ORDERAB LES Final Result [facility] [address] [place] [phone] * US SCROTUM DOPPLER (01/22/2025 5:46 PM EST) Anatomical Region Laterality Modality Abdomen Ultrasound 01/22/2025 5:46 PM EST Narrative 01/22/2025 5:47 PM EST [address] [address] Ultrasound Report Signed Patient: Urbano Paulino MR#: [id number] 4 : 1970 Acct:[id number] Age/Sex: 54 / M ADM Date: 01/22/25 Loc: .ED Attending Dr: Ordering Physician: Josué Fernandez Date of Service: 01/22/25 Procedure(s): US scrotum doppler Accession Number(s): [id number] cc: Josué Fernandez; Vasile Putnam MD Reason for Exam: testicular pain. torsion? CLINICAL HISTORY: testicular pain. torsion? US scrotum with Doppler Comparison: None Technique: Real time sonographic imaging, including color-flow imaging, was performed by the electronic operator. Multiple call center support representative static images were saved for review. [...] in OV> 01/22/251746 DD/ 45 TD/TT: 01/22/251745 Ore Sampler: Procedure Note Donotuseinterpreter, Image - 01/22/2025 [place] [address] Ultrasound Report Signed Patient: Bola Paulino#: [id number] 4 : 1970Acct:[id number] Age/Sex: 54 / MADM Date: 01/22/25 Loc: HO.ED Attending Dr: Ordering Physician: Josué Fernandez Date of Service: 01/22/25 Procedure(s): US scrotum doppler Accession Number(s): [id number] cc: Josué Fernandez; Vasile Putnam MD Reason for Exam: testicular pain. torsion? CLINICAL HISTORY: testicular pain. torsion? US scrotum with Doppler Comparison: None Technique: Real time sonographic imaging, including color-flow imaging, was performed by the electronic operator. Multiple call center support representative static images were saved for review. [...] in OV> 01/22/251746 DD/ 45 TD/TT: 01/22/251745 Ore Sampler: us [facility] External Provider IMG US PROCEDURES Edited Result - Final * US Scrotum (01/22/2025 5:46 PM EST) Anatomical Region Laterality Modality Body Ultrasound 01/22/2025 5:46 PM EST Narrative 02/02/2025 1:33 PM EST [place] [address] Ultrasound Report Signed Patient: Urbano Paulino MR#: [id number] 4 : 1970 Acct:[id number] Age/Sex: 54 / M ADM Date: 01/22/25 Loc: HO.ED Attending Dr: Ordering Physician: Josué Fernandez Date of Service: 01/22/25 Procedure(s): US scrotum Accession Number(s): [id number] cc: Josué Fernandez; Vasile Putnam MD Reason for Exam: testicular pain, lumps. Varicose veins? CLINICAL HISTORY: testicular pain. torsion? US scrotum with Doppler Comparison: None Technique: Real time sonographic imaging, including color-flow imaging, was performed by the electronic operator. Multiple call center support representative static images were saved for review. [...] signed by Tadeo Sethi MD in OV> 02/02/251332 DD/ 45 TD/TT: 01/22/251745 Ore Sampler: Procedure Note Donotuseinterpreter, Image - 02/02/2025 [place] [address] Ultrasound Report Signed Patient: Bola Paulino#: [id number] 4 : 1970Acct:[id number] Age/Sex: 54 / MADM Date: 01/22/25 Loc: HO.ED Attending Dr: Ordering Physician: Josué Fernandez Date of Service: 01/22/25 Procedure(s): US scrotum Accession Number(s): [id number] cc: Josué Fernandez; Vasile Putnam MD Reason for Exam: testicular pain, lumps. Varicose veins? CLINICAL HISTORY: testicular pain. torsion? US scrotum with Doppler Comparison: None Technique: Real time sonographic imaging, including color-flow imaging, was performed by the electronic operator. Multiple call center support representative static images were saved for review. [...] signed by Tadeo Sethi MD in OV> 02/02/251332 DD/ 45 TD/TT: 01/22/251745 Ore Sampler: us [facility] External Provider IMG US PROCEDURES Final Result * VASC US Lower Extremity Venous Duplex Bilateral (01/22/2025 5:44 PM EST) 01/22/2025 5:44 PM EST Narrative [facility] - 01/22/2025 5:44 PM EST [address] [address] Ultrasound Report Signed Patient: Urbano Paulino MR#: [id number] 4 : 1970 Acct:[id number] Age/Sex: 54 / M ADM Date: 01/22/25 Loc: .ED Attending Dr: Ordering Physician: Josué Fernandez Date of Service: 01/22/25 Procedure(s): US venous duplex LE BI Accession Number(s): [id number] cc: Josué Fernandez; Vasile Putnam MD Reason for Exam: bilateral thigh pain. no trauma. DVT? CLINICAL HISTORY: bilateral thigh pain. no trauma. DVT? Bilateral lower extremity venous duplex ultrasound. Comparison: None Technique: Real time sonographic imaging, including color-flow imaging and spectral analysis, was performed by the electronic operator. Multiple call center support representative static images were saved for review. [...] in OV> 01/22/251743 DD/ 43 TD/TT: 01/22/251743 Ore Sampler: Procedure Note Donotuseinterpreter, Image - 01/22/[address] [address] Ultrasound Report Signed Patient: Dennis PaulinotMR#: [id number] 4 : 1970Acct:[id number] Age/Sex: 54 / MADM Date: 01/22/25 Loc: HO.ED Attending Dr: Ordering Physician: Josué Fernandez Date of Service: 01/22/25 Procedure(s): US venous duplex LE BI Accession Number(s): [id number] cc: Josué Fernandez; Vasile Putnam MD Reason for Exam: bilateral thigh pain. no trauma. DVT? CLINICAL HISTORY: bilateral thigh pain. no trauma. DVT? Bilateral lower extremity venous duplex ultrasound. Comparison: None Technique: Real time sonographic imaging, including color-flow imaging and spectral analysis, was performed by the electronic operator. Multiple call center support representative static images were saved for review. [...] in OV> 01/22/251743 DD/ 43 TD/TT: 01/22/251743 Ore Sampler: [facility] External Provider CV VASC ULAR PROCEDURES Edited Result - Final [facility] [address] [place] [phone] * (ABNORMAL) Hemoglobin A1c (11/10/2024 8:18 AM EDT) Hemoglobin A1c 7.0(H) <6.0 % [facility] Comment:Hemoglobin A1C Refer ence Range Adults: 4.8 - 6.0 % Non diabetic: < 6.0 % Goal: < 7.0 %Additional Action Suggested: > 8.0 %Note: Hemoglobin A1c results are invalid for patients with abnormal amounts of HbF. Blood transfusions may impact the HbA1c concentration in the patient sample. Estimated Average Glucose 154 mg/dL [facility] Comment:eAG = Estimated ave rage glucose which is %A1C expressed asaverage glucose, using the formula of the X5Y-UrmjmogOszjqgu Glucose study (ADAG), Diabetes Care, Vol.31,#8,Oct. 2007 11/10/2024 8:18 AM EDT 11/10/2024 8:18 AM EDT us Generic External Data Provider LAB BLOOD ORDERAB LES Final Result Performing Organization Address [facility] Co de Phone Number [facility] [address] [place] [phone] * Albumin, Random Urine W/Creatinine (08/25/2024 10:08 AM EDT) Creatinine, Urine 299.86 mg/dL [facility] Microalbumin Urine 36.0 mg/L [facility] Microalbum Creatinine Ratio Ur 12.0 <30 ug/mg cr [facility] Comment:Albumin/Creatinine R atio Reference Ranges: Normal: < 30 ug/mg creatinine Microalbuminuria: 30 - 300 ug/mg creatinineClinical Albuminuria: > 300 ug/mg creatinine Urine (Urine, Random) 08/25/2024 10:08 AM EDT 08/25/2024 2:00 PM EDT us Vasile Juares MD LAB URINE ORDERABL ES Final Result Performing Organization Address [facility] Co de Phone Number [facility] [address] [place] [phone] * (ABNORMAL) Lipid Panel, Standard (08/25/2024 10:08 AM EDT) Triglycerides 143 <150 mg/dL [facility] Comment:Desirable Triglyceri de: less than 150 mg/dLBorderline High Triglyceride 150-199 mg/dLHigh Triglyceride: 200-499 mg/dLVery High Triglyceride: greater than or equal to 5OO mg/dL Cholesterol 181 <200 mg/dL [facility] Comment:Desirable Cholestero l: less than 200 mg/dLBorderline High Cholesterol: 200-239 mg/dLHigh Cholesterol: greater than 239 mg/dL LDL Cholesterol Calculated 119(H) <100 mg/dL [facility] Comment:Desirable LDL: less than 100 mg/dLNear Optimal/Above Optimal LDL: 110- 129 mg/dLBorderline High LDL: 130-159 mg/dLHigh LDL: 160-189 mg/dLVery High LDL: greater than or equal to 190 mg/dL HDL Cholesterol 34(L) >40 mg/dL [facility] Comment:Desirable HDL: great er than 40 mg/dL Note: This HDL assay may give artificially low results in patients with liver disease. Blood Venous blood specimen / Unknown 08/25/2024 10:08 AM EDT 08/25/2024 2:05 PM EDT Vasile Juares MD LAB BLOOD ORDERABL ES Final Result [facility] [address] [place] [phone] * HIV-1 RNA, Quantitative, Real-Time PCR with Reflex to Genotype (RTI, PI, Integrase) (07/21/2022 9:57 AM EDT) Pathologist [facility] HIV 1 RNA, QN PCR NOT DETECTED copies/mL [facility], HIV 1 RNA, QN PCR NOT DETECTED Log copies/mL [facility], Comment: REFERENCE RANGE: NOT DETECTED copies/mL NOT DETECTED Log copies/mL This test was performed using Real-Time Polymerase Chain Reaction. Reportable range is 20 to 10,000,000 copies/mL (1.30-7.00 Log copies/mL). 07/21/2022 9:57 AM EDT 07/21/2022 9:58 AM EDT Narrative [facility] - 07/23/2022 8:25 PM EDT FASTING:NO FASTING: NO us Vasile Juares MD LAB BLOOD ORDERABL ES Final Result Performing Organization Address [facility] Co de Phone Number [facility] [address], [facility] [place] [phone] [employer], [address] [place] [phone] * Hepatitis C Antibody with Reflex to HCV, RNA, Quantitative, Real-Time PCR (07/21/2022 9:57 AM EDT) Hepatitis C Antibody NON-REACT FLACO NON-REACT FLACO [facility] Index 0.08 <1.00 [facility] Comment: HCV antibody was non-reactive. There is no laboratory evidence of HCV infection. In most cases, no further action is required. However, if recent HCV exposure is suspected, a test for HCV RNA (test code 64549) is suggested. For additional information please refer to http://education.Istpika/faq/QZS05z0 (This link is being provided for informational/ educational purposes only.) Blood Venous blood specimen / Unknown 07/21/2022 9:57 AM EDT 07/21/2022 9:58 AM EDT Narrative [facility] - 07/23/2022 8:25 PM EDT FASTING:NO FASTING: NO Vasile Juares MD LAB BLOOD ORDERABL ES Final Result Performing Organization Address [facility] Co de Phone Number [facility] [address], [place] [address] [employer] [place] [employer] [facility] [address] [place] [phone] * Hm Colonoscopy (08/16/2020 7:13 AM EDT) Historical Provider HEALTH MAINTENANCE Final Result from Last 3 Months or Most Recently Relevant to Health Maintenance Insurance PPO Care Teams Banana Carrier Relationship Specialty Start Date End Date Vasile Putnam MD [address] [place] [address] PCP - General Internal Medicine 01/11/19
--- OUTSIDE RECORDS SUMMARY | 2025-02-28 08:36 | XMS_ITS | Encounter Summary ---
Author Organization [employer] Address [address] [address] Care Team Providers Care Air Traffic Control Manager Name Role Phone Vasile Putnam MD Primary Care Prov ider Reason for Visit * Reason Onset Date Comments Lab Orders 07/31/2024 Encounter Details Date Type Department Care Team ([facility] st Contact Info) Description 07/31/2024 Telephone [facility] [address] [place] [address] Vasile Putnam MD [address] [place], [place] [phone] Lab Orders Social History Tobacco Use Types [...] If any questions please contact pt at [phone]. documented in this encounter Plan of Treatment Not on file documented as of this encounter Visit Diagnoses Not on filedocumented in this encounter Additional Health Concerns Assessment Noted Time PHQ-9 Depression Total Score: 0 07/22/19 23 9:15 AM EDT documented as of this encounter Care Teams Air Traffic Control Manager Relationship Specialty Start Date End Date Vasile Putnam MD [address] [place] [phone] PCP - General Internal Medicine 01/11/19 documented as of this encounter
--- OUTSIDE RECORDS SUMMARY | 2025-02-28 08:36 | XMS_ITS | Encounter Summary ---
Author Organization [employer] Address [address] [address] Care Team Providers Care Pc Network Technician Name Role Phone Vasile Putnam MD Primary Care Prov ider Reason for Visit * Reason Onset Date Comments Nurse Triage 09/27/2023 Encounter Details Date Type Department Care Team ([facility] st Contact Info) Description 09/27/2023 Telephone [facility] [address] [place] [address] Vasile Putnam MD [address] [place] [address] Nurse Triage Social History Tobacco Use Types [...] documented as of this encounter Care Teams Pc Network Technician Relationship Specialty Start Date End Date Vasile Putnam MD [address] [place] [phone] PCP - General Internal Medicine 01/11/19 documented as of this encounter
--- OUTSIDE RECORDS SUMMARY | 2025-02-28 08:36 | XMS_ITS | Encounter Summary ---
Author Organization [employer] Address [address] [place] [address] Care Team Providers Care Farm Management Adviser Name Role Phone Vasile Putnam MD Primary Care Prov ider Encounter Details Date Type Department Care Team ([facility] st Contact Info) Description 06/26/2023 Orders Only [facility] [address] [place] [address] Provider, MD Min Social History Tobacco Use [...] documented as of this encounter Care Teams Farm Management Adviser Relationship Specialty Start Date End Date DeutschVasile Cabrera MD [address] [place] [id number] PCP - General Internal Medicine 01/11/19 documented as of this encounter
[2025-02-28] MEDS: iohexoL 350 MG/ML 100 ML INFUS..BTL IV (09:02)
== END 2025-02-28 08:26 | disposition home or self-care (01) ==
LOC: HO.CT 08:25
PROVIDERS: PCP Internal Medicine; Visit Provider Internal Medicine Gastroenterology
DX: R93.3 Abnormal findings on diagnostic imaging of other parts of digestive tract (principal)
CPT/HCPCS: 74177; Q9967

== ENCOUNTER → 2025-02-28 08:36 | Outpatient (BNV) | payer BC, SELFPAY | PROVIDERS: PCP Internal Medicine; Visit Provider Radiology Diagnostic Radiology | DX: R93.3 Abnormal findings on diagnostic imaging of other parts of digestive tract (principal); R16.0 Hepatomegaly, not elsewhere classified | CPT/HCPCS: 74177 ==